=== PATIENT | male | born 1940 | race Caucasian/White ===

== ENCOUNTER → 2016-12-14 | Outpatient (CLI) | payer OTHER, BC ==
[~2016-12-14] MED LIST: ASPI81TA28 PO; ATOR10TA88 PO; CETI10TA84 PO; FLAX12003 PO; FLUT0.0529 NAE; GLUCTAB7 PO; LANS30CA63 PO; LISI-461 PO; MULT-221 PO; OMEGCAP2 PO; OMEP40CA41 PO; WARF5TAB7 PO
[2016-12-14 15:57] LABS: BLOOD UREA NITROGEN 18 mg/dl (7-18); BUN/CREATININE RATIO 13.5 (10-20); CALCIUM 9.3 mg/dl (8.5-10.1); CARBON DIOXIDE 24 mmol/L (21-32); CHLORIDE 107 mmol/L (98-107); GLUCOSE 122 mg/dl (70-99); POTASSIUM 4.8 mmol/L (3.5-5.1); SODIUM 141 mmol/L (136-145)
[2016-12-14 16:05] LABS: INR 2.4 (0.9-1.1); PROTHROMBIN TIME (PATIENT) 26.3 SECONDS (9.0-12.0)
[2016-12-15 06:18] LABS: ESTIMATED AVERAGE GLUCOSE 131 mg/dl; HA1C FLAG Normal (Normal)
== END | disposition home or self-care (01) ==
LOC: C.LABSPEC 14:57
PROVIDERS: ATTEND Internal Medicine
DX: R73.9 Hyperglycemia, unspecified (principal); I10 Essential (primary) hypertension; R53.83 Other fatigue; I82.409 Acute embolism and thrombosis of unspecified deep veins of unspecified lower extremity

== ENCOUNTER → 2017-02-09 | Outpatient (CLI) | payer OTHER, BC ==
[2017-02-09 18:02] LABS: INR 2.9 (0.9-1.1); PROTHROMBIN TIME (PATIENT) 32.6 SECONDS (9.0-12.0)
== END | disposition home or self-care (01) ==
LOC: C.LABSPEC 17:15
PROVIDERS: ATTEND Internal Medicine
DX: Z51.81 Encounter for therapeutic drug level monitoring (principal); Z79.01 Long term (current) use of anticoagulants; I26.99 Other pulmonary embolism without acute cor pulmonale

== ENCOUNTER → 2017-03-07 | Outpatient (CLI) | payer OTHER, BC ==
[~2017-03-07] MED LIST changes: +ATOR10TA82 PO; -ATOR10TA88 PO; +FLUT0.15 NAE; +RXC5 PO; +TRAM-10 PO
[2017-03-07 13:29] LABS: INR 2.8 (0.9-1.1); PROTHROMBIN TIME (PATIENT) 31.6 SECONDS (9.0-12.0)
== END | disposition home or self-care (01) ==
LOC: C.LABSPEC 12:35
PROVIDERS: ATTEND Internal Medicine
DX: Z51.81 Encounter for therapeutic drug level monitoring (principal); Z79.01 Long term (current) use of anticoagulants; I26.99 Other pulmonary embolism without acute cor pulmonale

== ENCOUNTER → 2017-04-13 | Outpatient (CLI) | payer OTHER, BC ==
[2017-04-13 15:26] LABS: BASO % 0.5 %; BASO ABS # 0.03 K/uL (0-0.2); COMPLETE YES; EOS % 4.9 %; HEMATOCRIT 41.1 % (42-52); IG% 0.3 %; LYMPH ABS # 1.83 K/uL (1.2-3.4); MEAN CELL VOLUME 89.9 fL (80-100); MEAN CORPUSCULAR HEMOGLOBIN 29.8 pg (25-34); MEAN CORPUSCULAR HGB CONC 33.1 g/dl (32-36); MEAN PLATELET VOLUME 10.4 fL (7.4-10.4); MONO % 8.2 %; NEUT % 56.1 %; PLATELET COUNT 285 K/uL (130-400); RED BLOOD COUNT 4.57 M/uL (4.7-6.1); WHITE BLOOD COUNT 6.09 K/uL (4.8-10.8)
[2017-04-13 15:37] LABS: ALT/SGPT 36 U/L (12-78); AST/SGOT 29 U/L (15-37); BLOOD UREA NITROGEN 15 mg/dl (7-18); BUN/CREATININE RATIO 11.4 (10-20); CARBON DIOXIDE 28 mmol/L (21-32); CHLORIDE 106 mmol/L (98-107); CHOLESTEROL 177 mg/dl (0-200); GLUCOSE 130 mg/dl (70-99); POTASSIUM 4.5 mmol/L (3.5-5.1); SODIUM 140 mmol/L (136-145); TRIGLYCERIDES 133 mg/dl (0-150); VERY LOW DENSITY LIPOPROT CALC 27 mg/dl
[2017-04-13 15:39] LABS: INR 3.3 (0.9-1.1); PROTHROMBIN TIME (PATIENT) 37.6 SECONDS (9.0-12.0)
[2017-04-13 15:40] LABS: ALB/GLOB RATIO 1.2 (0.9-2); ALKALINE PHOSPHATASE 70 U/L (45-117); CHOLESTEROL/HDL RATIO 3.8; HDL CHOLESTEROL 46 mg/dl
[2017-04-13 15:55] LABS: CALCIUM 9.2 mg/dl (8.5-10.1)
[2017-04-14 05:50] LABS: ESTIMATED AVERAGE GLUCOSE 134 mg/dl; HA1C FLAG Normal (Normal)
== END | disposition home or self-care (01) ==
LOC: C.LABSPEC 14:56
PROVIDERS: ATTEND Internal Medicine
DX: I82.409 Acute embolism and thrombosis of unspecified deep veins of unspecified lower extremity (principal); I10 Essential (primary) hypertension; E78.5 Hyperlipidemia, unspecified; R73.9 Hyperglycemia, unspecified

== ENCOUNTER → 2017-05-07 | Outpatient (CLI) | payer OTHER, BC ==
[2017-05-07 13:00] LABS: INR 1.3 (0.9-1.1); PROTHROMBIN TIME (PATIENT) 14.6 SECONDS (9.0-12.0)
== END | disposition home or self-care (01) ==
LOC: C.LABSPEC 12:17
PROVIDERS: ATTEND Internal Medicine
DX: I26.99 Other pulmonary embolism without acute cor pulmonale (principal); Z79.01 Long term (current) use of anticoagulants

== ENCOUNTER → 2017-05-31 | Outpatient (CLI) | payer OTHER, BC ==
[~2017-05-31] MED LIST changes: -ATOR10TA82 PO; +ATOR10TA88 PO; -FLUT0.15 NAE; -RXC5 PO; -TRAM-10 PO
[2017-05-31 15:20] LABS: PROTHROMBIN TIME (PATIENT) 33.9 SECONDS (9.0-12.0)
== END | disposition home or self-care (01) ==
LOC: C.LABSPEC 11:30
PROVIDERS: ATTEND Internal Medicine
DX: Z79.01 Long term (current) use of anticoagulants (principal); I26.99 Other pulmonary embolism without acute cor pulmonale

== ENCOUNTER → 2017-07-23 | Outpatient (CLI) | payer OTHER, BC ==
[~2017-07-23] MED LIST changes: +FLUT0.15 NAE; +TRAM-10 PO
[2017-07-23 15:27] LABS: PROTHROMBIN TIME (PATIENT) 33.7 SECONDS (9.0-12.0)
== END | disposition home or self-care (01) ==
LOC: C.LABSPEC 14:56
PROVIDERS: ATTEND Internal Medicine
DX: Z79.01 Long term (current) use of anticoagulants (principal); I26.99 Other pulmonary embolism without acute cor pulmonale

== ENCOUNTER → 2017-08-20 | Outpatient (CLI) | payer OTHER, BC ==
[2017-08-20 13:19] LABS: BASO % 0.6 %; BASO ABS # 0.04 K/uL (0-0.2); COMPLETE YES; EOS % 4.3 %; HEMATOCRIT 44.9 % (42-52); IG% 0.4 %; LYMPH % 34.5 %; LYMPH ABS # 2.41 K/uL (1.2-3.4); MEAN CELL VOLUME 89.1 fL (80-100); MEAN CORPUSCULAR HEMOGLOBIN 28.4 pg (25-34); MEAN CORPUSCULAR HGB CONC 31.8 g/dl (32-36); MEAN PLATELET VOLUME 10.1 fL (7.4-10.4); MONO % 7.6 %; NEUT % 52.6 %; PLATELET COUNT 249 K/uL (130-400); RED BLOOD COUNT 5.04 M/uL (4.7-6.1); WHITE BLOOD COUNT 6.99 K/uL (4.8-10.8)
[2017-08-20 13:26] LABS: ESTIMATED AVERAGE GLUCOSE 134 mg/dl; HA1C FLAG Normal (Normal)
[2017-08-20 13:36] LABS: ALT/SGPT 28 U/L (12-78); AST/SGOT 18 U/L (15-37); BLOOD UREA NITROGEN 18 mg/dl (7-18); BUN/CREATININE RATIO 13.5 (10-20); CALCIUM 8.6 mg/dl (8.5-10.1); CARBON DIOXIDE 27 mmol/L (21-32); CHLORIDE 105 mmol/L (98-107); GLUCOSE 107 mg/dl (70-99); INR 3.5 (0.9-1.1); POTASSIUM 4.1 mmol/L (3.5-5.1); SODIUM 138 mmol/L (136-145)
[2017-08-20 13:39] LABS: ALB/GLOB RATIO 1.1 (0.9-2); ALKALINE PHOSPHATASE 70 U/L (45-117); CHOLESTEROL 154 mg/dl (0-200); CHOLESTEROL/HDL RATIO 3.5; HDL CHOLESTEROL 44 mg/dl; TRIGLYCERIDES 164 mg/dl (0-150); VERY LOW DENSITY LIPOPROT CALC 33 mg/dl
== END | disposition home or self-care (01) ==
LOC: C.LABSPEC 12:27
PROVIDERS: ATTEND Internal Medicine
DX: M54.9 Dorsalgia, unspecified (principal); I10 Essential (primary) hypertension; R73.9 Hyperglycemia, unspecified; E78.5 Hyperlipidemia, unspecified

== ENCOUNTER → 2017-08-21 | Outpatient (CLI) | payer OTHER, BC ==
[~2017-08-21] MED LIST changes: -FLUT0.15 NAE; -TRAM-10 PO
== END | disposition home or self-care (01) ==
LOC: C.LABSPEC 08-19 14:42
PROVIDERS: ATTEND Internal Medicine
DX: Z12.11 Encounter for screening for malignant neoplasm of colon (principal)

== ENCOUNTER → 2017-08-23 | Outpatient (CLI) | payer OTHER, BC ==
[~2017-08-23] MED LIST changes: +FLUT0.15 NAE; +TRAM-10 PO
--- NOTE | 2017-08-23 17:16 | DIAGNOSTIC IMAGING REPORT ---
LUMBAR SPINE W/O CONTRAST HISTORY: Pain. Radiculopathy. LT LUMBAR RADICULOPATHY TECHNIQUE: Multiplanar multisequence MRI of the lumbar spine was performed without the use of contrast. COMPARISON: None. FINDINGS: For the purpose of the report the L5-S1 disc space will be located on axial image 23 of 25. Normal signal characteristics of the vertebral bodies. Mild degenerative disc desiccation throughout the entire lumbar region. L1-L2: Minimal broad-based disc bulge. Minimal impact of the anterior thecal sac. Probable right renal cyst. L2-L3: Mild broad-based bulge. Minimal impact anterior thecal sac. L3-L4: Mild broad-based disc herniation. Mild impact anterior thecal sac. L4-L5: Mild multifactorial narrowing of spinal canal. Broad-based bulging disc. Mild hypertrophic change posterior elements and ligamentum flavum. L5-S1: Left posterior disc herniation. Posterior displacement of left S1 nerve root and narrowing of the left neural foramina. Moderate impact left anterior thecal sac. IMPRESSION: 1. Left posterior disc herniation L5-S1 2. This creates focal deformity left anterior aspect of the thecal sac as well as narrowing of left neural foramina. 3. Mild multifactorial narrowing of the spinal canal at L4-L5 4. All additional levels show minimal broad-based disc bulges with mild narrowing of the neuroforamina bilaterally throughout. The above report was generated using voice recognition software. It may contain grammatical, syntax or spelling errors. Electronically signed by: Buck Alex M.D. 08/23/2017 5:14 PM Dictated Date/Time: 08/23/2017 5:10 PM
== END | disposition home or self-care (01) ==
LOC: C.MRI 15:50
PROVIDERS: ATTEND Internal Medicine
DX: M54.16 Radiculopathy, lumbar region (principal); M51.27 Other intervertebral disc displacement, lumbosacral region; M48.06 Spinal stenosis, lumbar region

== ENCOUNTER → 2017-09-07 | Outpatient (CLI) | payer OTHER, BC ==
[~2017-09-07] MED LIST changes: +RXC5 PO
== END | disposition home or self-care (01) ==
LOC: C.LABSPEC 17:29
PROVIDERS: ATTEND Internal Medicine
DX: N39.0 Urinary tract infection, site not specified (principal)

== ENCOUNTER 2017-09-11 10:39 | Inpatient (IN) | payer OTHER, BC ==
[2017-09-07 10:14] VITALS: BMI 32.0
--- NOTE | 2017-09-07 10:57 | PAT Medication Instructions ---
Service Date Sep 07, 2017. Current Home Medication List Aspirin (Aspirin Ec), 81 MG PO DAILY Atorvastatin (Lipitor), 10 MG PO QAM Cetirizine (Zyrtec), 10 MG PO QAM Flaxseed (Linseed) (Flaxseed Oil), 1 CAP PO QAM Fluticasone Propionate (Nasal) (Flonase Allergy Relief), 2 SPRAY SALVADOR PRN Lisinopril (Zestril), 10 MG PO QAM Multiple Vitamins W/ Minerals (Multi For Him 50+), 1 TAB PO QAM Omeprazole (Prilosec), 40 MG PO QAM Tramadol (Ultram), 50 MG PO Q4H PRN for Pain Warfarin Sod (Jantoven), 5 MG PO DAILY Medication Instructions For Your Scheduled Surgery - Last dose 09/04/17 per surgeon's instructions: Warfarin Sod (Jantoven), 5 MG PO DAILY Aspirin (Aspirin Ec), 81 MG PO DAILY - Hold the following medications as of 09/08/17: Flaxseed (Linseed) (Flaxseed Oil), 1 CAP PO QAM - Hold the following medications the morning of surgery: Lisinopril (Zestril), 10 MG PO QAM Cetirizine (Zyrtec), 10 MG PO QAM Multiple Vitamins W/ Minerals (Multi For Him 50+), 1 TAB PO QAM - Take the following medications the morning of surgery with a sip of water OTHERWISE NOTHING TO EAT OR DRINK AFTER MIDNIGHT: Tramadol (Ultram), 50 MG PO Q4H PRN for Pain (may take if needed up to 4 hours prior to surgery) *Omeprazole (Prilosec), 40 MG PO QAM Atorvastatin (Lipitor), 10 MG PO QAM Fluticasone Propionate (Nasal) (Flonase Allergy Relief), 2 SPRAY SALVADOR PRN - Take the following medications as scheduled the night before surgery: Tramadol (Ultram), 50 MG PO Q4H PRN for Pain If you have any questions please call us at [phone] or [phone] or [phone]
[2017-09-07 11:55] LABS: URINE APPEARANCE CLEAR (CLEAR); URINE BILIRUBIN NEG (NEG); URINE COLOR DK YELLOW; URINE NITRITE NEG (NEG); URINE PH 5.5 (4.5-7.5); URINE SPECIFIC GRAVITY 1.027 (1.000-1.030); UROBILINOGEN NEG (NEG)
[2017-09-07 11:56] LABS: MANUAL MICROSCOPIC REQUIRED? NO; REVIEW REQ? YES
--- NOTE | 2017-09-07 12:11 | DIAGNOSTIC IMAGING REPORT ---
CHEST PREADMISSION(PA/LAT) CLINICAL HISTORY: Preoperative evaluation. COMPARISON STUDY: Chest radiograph August 21, 2016. FINDINGS: Elevation of the right hemidiaphragm is unchanged. There is no pneumothorax or pleural effusion. There is no evidence of pulmonary edema. Cardiomediastinal silhouette is stable. Appearance of the chest is unchanged. IMPRESSION: No acute cardiopulmonary findings. No change in appearance of the chest. Electronically signed by: Nakul Roberts M.D. 09/07/2017 12:10 PM Dictated Date/Time: 09/07/2017 12:09 PM
[2017-09-07 12:28] LABS: ZZUR CULT IF INDIC CLEAN CATCH NO
--- NOTE | 2017-09-10 08:28 | History and Physical ---
History & Physical Date of Service Sep 10, 2017. History & Physical History & Physical ADMISSION DATE: anticipated admission on 09/11/2017 CHIEF COMPLAINT: 75-year-old male is scheduled to be admitted by Dr. Yohan Romero on 09/11/2017 have her undergoing surgery for herniated L5-S1 disc with posterior displacement of left S1 nerve root and narrowing of the left neural foramina. Patient was seen in the office on 09/07/2017 for his preoperative evaluation. PRESENT ILLNESS: Patient with multiple medical problems including arterial hypertension, hypercholesterolemia, osteoarthritis, history of cerebral ischemia in the territory of the left posterior cerebral artery. He does have a residual visual defects. 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 He also has history of pulmonary embolism. He is on Coumadin. Had a right Achilles tendon rupture. He did not require surgery. He has a history of severe GI bleed of undetermined etiology. He was evaluated both here at the hospital and also at [facility]. He presented with low back pain with evidence of left lumbar radiculopathy. He was treated with oral prednisone. He also had physical therapy. Unfortunately the physical therapy made his symptoms worse so it was discontinued. MRI of the lumbar spine without contrast was done on 08/23/2017 showed areas of the herniated disc. Patient was having severe pain. His pain has not been adequately controlled. He was evaluated by Dr. Romero. He was scheduled for a surgery. PAST MEDICAL HISTORY: * right lower lobe pulmonary embolism. Hospitalized on 05/14/2016. He did not have any evidence of DVT at that time. * Dilated ascending aorta to about 4.4 cm. * Hospitalized in March of 2015 with an acute gastrointestinal bleed. 8.she was never determined. He required transfusion of 11 units of packed RBCs. He was evaluated at [facility] also. No definite etiology was found. 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 Long-standing. 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 This is also in the remote past * Hypercholesterolemia. 3 gait. * Chronic sinusitis. He required surgery in 2003 * Basal cell carcinoma lesion removed from his right arm in February of 2006 * In 2002 he had temporal artery biopsy because of right-sided headaches. It was negative for temporal arteritis * last year he had a dobutamine stress echocardiogram which was negative for any ischemia * He does have mild aortic stenosis documented on his echocardiogram last year. * He had a Pneumovax in 2009 * He had a Zostavax 2013 * He received an influenza vaccination on 08/20/2017 SOCIAL HISTORY: He is . He had 4 children. He stopped smoking in 1961. He smoked for a very short time. Occasional wine. No excessive coffee tea or soft drinks. He is retired from the [employer]. He also worked with [employer]. FAMILY HISTORY: His mother age 85 had mini strokes and coronary artery disease. His father age 52 had myocardial infarction. He has 140s sister, one half sister, one half-brother. His half-brother had lymphoma. Children alive and well. ALLERGIES: it is noted in his records that he is allergic to many medications and products. On not really aware of any true allergy CURRENT MEDICATIONS: * omeprazole 40 mg daily * Lipitor 20 mg daily * Lisinopril 10 mg daily * Flonase nasal spray 2 sprays in each nostril once a day when needed * Aspirin 81 mg daily * Coumadin 5 mg 5 days a week and 2.5 mg 2 days a week usually Sunday and Sunday * Tramadol 50 mg every 4 hours as needed for pain * Multivitamin with minerals one daily * Flax seed oil one capsule daily * Zyrtec 10 mg daily Patient was instructed to discontinue his Coumadin on 09/04/2017 and to hold his lisinopril at the morning of his surgery or so to hold his Zyrtec and a multivitamin REVIEW OF SYSTEMS: he is mostly complaining of pain in his lower back radiating to his left leg. He has been quite uncomfortable. He has not responded to steroids, pain medication and physical therapy. He denied any headache or dizziness. No recent change in his vision. 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 No earache sore throat or neck pain. Denied any chest pain pressure or tightness. No shortness of breath. No abdominal pain. No nausea no vomiting. No problem in his bowel movements. No problem urinating. Back pain and left leg pain as noted above. PHYSICAL EXAMINATION: GENERAL : Well developed. Well nourished. No acute distress.weight 209.4 pounds , height 67.5 inches, BMI 32.31. VITAL SIGNS : Blood Pressure : 128/70, pulse 68, respiration 18, temperature 97.7. SKIN : Warm and dry. No rash. HEENT :Amputation of his right visual field. No mucosal m even his nose mouth or throat NECK : Supple. No lymph node or thyroid enlargement. No JVD. Normal carotid pulses. Bilateral carotid bruits. CHEST : Normal HEART: Regular heart tones with 2/6 systolic murmur. No rub no gallop. ABDOMEN: Soft nontender. No organomegaly or masses. Good bowel sounds. BACK: tenderness in the lumbar area especially on the left side EXTREMITIES : No edema clubbing or cyanosis. No joint or muscle tenderness. Good peripheral pulses. NEUROLOGICAL EXAMINATION: He does have evidence of left lumbar radiculopathy LABORATORY TEST; his laboratory tests from 08/20/2017 showed a glucose of 107, BUN 18, creatinine 1.3, sodium 138, potassium 4.1, chloride 105, CO2 27, calcium 8.6, total protein 7.0, albumin 3.7, total bilirubin 0.6,AST 18, ALT 28, alkaline phosphatase 70. His hemoglobin A1c was 6.3%. Sedimentation rate was 18. CBC showed a WBC count 6990, hemoglobin 14.3, hematocrit 44.9, platelet count 249, 000. Chest x-ray done on 09/07/2017 showed no significant abnormalities. Urinalysis done on 09/07/2017 showed evidence of trace leukocyte esterase. Only 1-5 WBCs. Electrocardiogram showed a sinus bradycardia. Nonspecific T wave changes ASSESSMENT: * herniated L5-S1 disc with nerve root compromise and left radiculopathy * Arterial hypertension * Hypercholesterolemia * History of pulmonary embolism * History of GI bleed of undetermined etiology. 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 Asymptomatic * abnormal urinalysis PLAN: patient was evaluated, on his laboratory tests were reviewed.urine was collected and sent for culture and sensitivity. We'll check on the results as soon as they are available and decide if he needs to start antibiotics. Patient was already instructed as far as discontinuation of his Coumadin and lisinopril, also multivitamin and Zantac. He'll read he stopped his Coumadin when I saw him on 09/07/2017. The stop date was 09/04/2017. I do not see anything to indication to his anticipated surgical procedure under general anesthesia. <Electronically signed by Pawel Constantino M.D.> Signed: 09/09/172040 Signed: The status of this report is Signed * If report status is Draft, the document has not been finalized by the responsible provider. [facility]: [facility] History and Physical Template <AttendingPhy>Pawel Trinidad M.D.</AttendingPhy><EDPhy></EDPhy> <FamilyPhy ></FamilyPhy> <PrimaryPhy>Pawel Trinidad M.D.</PrimaryPhy><UnitNumber> [id number]</UnitNumber><VisitNumber>[id number]</VisitNumber><PatientName>ALDO RIVAS</PatientName><DateOfBirth>03/24/1942</DateOfBirth><Age>75</Age>< Location>[facility]</Location><ServiceDate>07/18/17</ServiceDate><CC>Pawel Trinidad M.D.</CC><MNE>[facility]</MNE>
--- NOTE | 2017-09-10 10:12 | History and Physical ---
History & Physical Date of Service Sep 10, 2017. History & Physical DATE: 09/10/2017 This is a correction of the last sentence on the history and physical that I dictated on 09/09/2017 The sentence should read : I do not see any contraindication to his anticipated surgery under general anesthesia
[~2017-09-11] VITALS: Ht 175.3 cm; Wt 98.7 kg
[2017-09-11] VITALS (8 sets, daily range): BP systolic 112–168; BP diastolic 69–103; PULSE 58–93; TEMP 36.4–36.7; O2SAT 94–100; Ht 175.3 cm; Wt 98.7 kg
[~2017-09-11 10:39] MED LIST changes: +CEFAZOLIN 2000 MG/60 ML D5W 60 ML IV SCH; -FLUT0.0529 NAE; -GLUCTAB7 PO; +LACTATED RINGER'S 1000ML 1,000 ML IV SCH; -LANS30CA63 PO; -OMEGCAP2 PO; -RXC5 PO
[2017-09-11] MEDS ORDERED: ATROPINE SULFATE 0.1 MG/ML 5ML SYR IV PRN (11:15)
[2017-09-11] MEDS ORDERED: LABETALOL HCL IV 5 MG/ML 20ML IV PRN (11:15)
[2017-09-11] MEDS ORDERED: HYDROmorphone INJ 1 MG/ML SYR IV PRN (11:15)
[2017-09-11] MEDS ORDERED: FENTANYL CITRATE INJ 50 MCG/1 ML 2 ML VIAL IV PRN (11:15)
[2017-09-11] MEDS ORDERED: EpHEDrine SULFATE INJ 50 MG/ML AMP IV PRN (11:15)
[2017-09-11] MEDS ORDERED: ONDANSETRON INJ 2 MG/ML 2 ML VIAL IV PRN ×2 (11:15→16:00)
[2017-09-11] MEDS ORDERED: PHENYLEPHRINE 100MCG/ML 5ML SYR IV PRN (11:15)
[2017-09-11 12:09] LABS: PROTHROMBIN TIME (PATIENT) 10.6 SECONDS (9.0-12.0)
--- NOTE | 2017-09-11 13:23 | History & Physical Bridge Note ---
H&P Re-Evaluation Bridge Note: I have examined the patient, reviewed the History & Physical and in the interval since the performance of the History & Physical I have noted the following changes of clinical significance: No changes noted
--- NOTE | 2017-09-11 13:24 | History and Physical ---
History & Physical Date Sep 11, 2017. Chief Complaint Back and leg pain History of Present Illness The patient is a 77 year old male with complaints of back and leg pain Past Medical/Surgical History Medical Problems: (1) ACUTE UGI BLEED. R VISUAL DEFECT (2) Anemia (3) Chest pain (4) Chronic Sinusitis Nos (5) CVA (cerebral vascular accident) (6) Hyperlipidemia Nec/Nos (7) Hypertension Nos (8) Mitral valve prolapse (9) Ocular migraine (10) PRESYNCOPE,VERTIGO,PE,DILATED THORACIC AORTA (11) Ulcer (12) Upper gastrointestinal bleed (13) Visual field loss Additional History Hepatic Disease: No Endocrine Disorder: No Kidney Disease: No Hypertension: Yes Heart Disease: No Bleeding Tendencies: No Infectious Diseases: No Allergies Coded Allergies: POLLEN (Verified Allergy, Unknown, HAY FEVER, 09/07/17) Ibuprofen (Verified Adverse Reaction, Unknown, TOLD TO AVOID DUE TO BLEEDING ULCER, 09/07/17) Home Medications Scheduled Aspirin (Aspirin Ec), 81 MG PO DAILY Atorvastatin (Lipitor), 10 MG PO QAM Cetirizine (Zyrtec), 10 MG PO QAM Flaxseed (Linseed) (Flaxseed Oil), 1 CAP PO QAM Fluticasone Propionate (Nasal) (Flonase Allergy Relief), 2 SPRAY SALVADOR PRN Lisinopril (Zestril), 10 MG PO QAM Multiple Vitamins W/ Minerals (Multi For Him 50+), 1 TAB PO QAM Omeprazole (Prilosec), 40 MG PO QAM Warfarin Sod (Jantoven), 5 MG PO DAILY Scheduled PRN Tramadol (Ultram), 50 MG PO Q4H PRN for Pain Physical Examination Skin: warm/dry, no rash Eyes: normal inspection, EOMI, sclerae normal ENT: normal ENT inspection, pharynx normal Head: normocephalic, atraumatic Neck: supple, no adenopathy, trachea midline Respiratory/Chest: lungs clear, normal breath sounds, no respiratory distress Cardiovascular: regular rate, rhythm, no edema, no murmur Abdomen / GI: normal bowel sounds, non tender Back: normal inspection Extremities: normal inspection, normal range of motion Neurologic/Psych: no motor/sensory deficits, alert, normal reflexes, oriented x 3 Diagnosis Lumbar spinal stenosis Plan of Treatment T LIF L5-S1
[2017-09-11] MEDS ORDERED: FENTANYL CITRATE INJ 50 MCG/1 ML 2 ML VIAL ONE ×2 (14:02→14:04)
[2017-09-11] MEDS ORDERED: MIDAZOLAM HCL 1 MG/ML 2ML VIAL ONE (14:02)
[2017-09-11] MEDS ORDERED: BUPIVACAINE/EPINEPHRINE 0.5% MPF 1:200,000 30 ML VIAL ONE (14:03)
[2017-09-11] MEDS ORDERED: BACITRACIN 50000 UNIT VIAL ONE (14:03)
[2017-09-11] MEDS ORDERED: ROCURONIUM BROMIDE 10 MG/ML 5 ML VIAL IV ONE (15:02)
[2017-09-11] MEDS ORDERED: PROPOFOL IV EMULSION 10 MG/ML 20 ML VIAL IV ONE (15:19)
[2017-09-11] MEDS ORDERED: GLYCOPYRROLATE INJ 0.2 MG/ML VIAL ONE (15:22)
[2017-09-11] MEDS ORDERED: NEOSTIGMINE METHYLSULFATE 1 MG/ML 10ML VIAL ONE (15:22)
[2017-09-11] MEDS ORDERED: HYDROmorphone INJ 2 MG/ML SYR/VIAL ONE (15:23)
[2017-09-11] MEDS ORDERED: SODIUM CHL BACTERIOSTATIC 0.9% INJ 30 ML VIAL ONE (15:29)
[2017-09-11] MEDS ORDERED: FLOSEAL HEMOSTATIC MATRIX 10ML TOP ONE (15:45)
[2017-09-11] MEDS ORDERED: SODIUM CHLORIDE 0.9% 1000ML 1,000 ML IV SCH (15:53)
[2017-09-11] MEDS ORDERED: hydrOXYzine HCL 25 MG TAB PO PRN (16:00)
[2017-09-11] MEDS ORDERED: PROMETHAZINE HCL INJ 12.5 MG in SODIUM CHLORIDE 0.9% 50ML 50 ML IV PRN (16:00)
[2017-09-11] MEDS ORDERED: TRAMADOL HCL 50 MG TAB PO PRN (16:00)
[2017-09-11] MEDS ORDERED: FLUTICASONE PROPIONATE NA SPR 16 GM BTL NAE PRN (16:00)
[2017-09-11] MEDS ORDERED: ALUMINUM/MAGNESIUM SUSP 30 ML UDC PO PRN (16:00)
[2017-09-11] MEDS ORDERED: LORAZEPAM 0.5 MG TAB PO PRN (16:00)
[2017-09-11] MEDS ORDERED: NALOXONE HCL 0.4 MG/1 ML VIAL/CARP IV PRN ×2 (16:00)
[2017-09-11] MEDS ORDERED: BISACODYL 10 MG SUPP PR PRN (16:00)
[2017-09-11] MEDS ORDERED: DO NOT ADMINISTER PNEUMOCOCCAL VACCINE PRN ×2 (16:00)
[2017-09-11] MEDS ORDERED: ACETAMINOPHEN 500 MG TAB PO PRN (16:00)
[2017-09-11] MEDS ORDERED: MAGNESIUM HYDROXIDE SUSP 30 ML UDC PO PRN (16:00)
[2017-09-11] MEDS ORDERED: METOCLOPRAMIDE HCL INJ 5 MG/ML 2 ML VIAL IV PRN (16:00)
[2017-09-11] MEDS ORDERED: LORAZEPAM INJ 0.5 MG in SYRINGE 0 ML IV PRN (16:00)
[2017-09-11] MEDS ORDERED: DO NOT ADMINISTER FLU VACCINE PRN ×3 (16:00)
[2017-09-11] MEDS ORDERED: SOD PHOSPHATE/SOD BIPHOSPHATE ENEMA 132 ML BTL PR PRN (16:00)
[2017-09-11] MEDS ORDERED: FAMOTIDINE 20 MG TAB PO PRN (16:00)
[2017-09-11] MEDS ORDERED: ACETAMINOPHEN IV 100 ML IV PRN (16:00)
--- NOTE | 2017-09-11 16:00 | [facility] Operative Report ---
Operative Report Operative Date Sep 11, 2017. Pre-Operative Diagnosis SPINAL STENOSIS Post-Operative Diagnosis SAME PREOP Procedure(s) Performed #1 lumbar decompression medial facetectomies foraminotomies L5-S1. #2 posterior spinal fusion L5-S1. #3 placement posterior instrumentation L5-S1. #4 interbody fusion L5-S1. #5 placement peek cage 10 x 22 mm L5-S1. #6 placement of locally harvested morcellized autograft in the posterior lateral gutters. #7 placement of ostial amp bone graft in the interbody space and posterior lateral gutters. Surgeon DR. DANNA MEZA Service Order Expediter Surgeon(s) Bernie GUPTA PAC Estimated Blood Loss 150ml Findings Severe spinal stenosis Specimens NONE Description of Procedure Patient was met with preoperatively case discussed all questions addressed. After informed consent obtained patient was taken to the operative suite placed in prone position the [place] table top Cirilo frame. All bony promises well- padded eyes inspected to ensure no external pressure placed upon them. This point lumbar spine is prepped and draped in the normal sterile fashion. Sharp dissection with the assistance of Bovie cautery was performed onto an exposing the lamina and transverse processes of L5 and sacral alar bilaterally. From a caudal to cephalad fashion complete laminectomy of L5 was performed including medial facetectomies foraminotomies. He noted significant compression of the exiting L5 and traversing S1 nerve root on the left. This included a massive discoloration with caudal migration. After complete decompression pedicle screws are placed in all 5 and S1 levels bilaterally with assistance of fluoroscopy into a transforaminal port and left complete discectomy was performed and plate created to subcortical bleeding bone and a 11 x 22 mm peek cage filled with ostial amp bone graft tapped in position. The rods were then locked and final position bilaterally. Transverse processes of L5 and sacral alar burred to subcortical bleeding bone. Remaining ostial amp and locally harvested morcellized autograft was placed in the posterior lateral gutters. 15 round JAMEEL drain was inserted. Incision was then closed with 1 Vicryl in the fascia 2-0 Vicryl subcutaneous tediously 4 Monocryl for final skin closure Steri -Strips sterile dressings placed patient we can take PACU stable condition. Patient we can taken to PACU stable condition. Please note Bernice Pineda was present at the entire procedure involved in patient positioning complex portions of the surgery and final skin closure. I attest to the content of the Intraoperative Record and any orders documented therein. Any exceptions are noted below.
--- NOTE | 2017-09-11 16:07 | DIAGNOSTIC IMAGING REPORT ---
LUMBAR SPINE, INTRAOPERATIVE FLUOROSCOPY HISTORY: L5-S1 fusion. FLUOROSCOPY TIME: 15 seconds. FINDINGS: Intraoperative fluoroscopy was provided for the lumbar spine. 2 fluoroscopic spot images were obtained. Posterior decompression and fusion at L5-S1 with pedicle screws and rods. The hardware appears intact. IMPRESSION: Fluoroscopy provided for a L5-S1 fusion. Electronically signed by: Al Trevizo M.D. 09/11/2017 4:06 PM Dictated Date/Time: 09/11/2017 4:05 PM
[2017-09-11] MEDS ORDERED: HYDROmorphone HCL 0.5MG/ML 50 ML CASSETTE ONE (16:14)
--- NOTE | 2017-09-11 16:42 | Anesthesiology Progress Note ---
Anesthesia Post Op Note Date & Time Sep 11, 2017 at 16:40 Vital Signs Pain Intensity: 0 Vital Signs Past 12 Hours Date Time Temp Pulse Resp B/P (MAP) Pulse Ox O2 Delivery O2 Flow Rate FiO2 09/11/17 16:30 73 12 149/76 100 10 09/11/17 16:20 75 12 155/88 100 10 09/11/17 16:13 36.4 75 12 157/81 100 10 09/11/17 11:03 36.6 77 18 168/103 100 Room Air Notes Mental Status: alert / awake / arousable, participated in evaluation Pt Amnestic to Procedure: Yes Nausea / Vomiting: adequately controlled Pain: adequately controlled Airway Patency, RR, SpO2: stable & adequate BP & HR: stable & adequate Hydration State: stable & adequate Anesthetic Complications: no major complications apparent Dr Yao alerted me to a slightly difficult airway requiring the use of glide scope and that a small laceration was noted on the patients lip after intubation. This was dressed with bacitracin ointment in the OR by Dr Yao. On PACU inspection the rudy was barely visible on the upper lip and the patient had no discomfort. No follow up needed.
[2017-09-11] MEDS: HYDROmorphone HCL 0.5MG/ML 50 ML CASSETTE IV PRN ×2 (17:18→23:08)
[2017-09-11] MEDS: SODIUM CHLORIDE 0.9% 1000ML 1,000 ML IV SCH (17:51)
--- NOTE | 2017-09-11 20:49 | Progress Note ---
Progress Note Date of Service Sep 11, 2017. Progress Note patient was seen this afternoon after surgery. He had spinal stenosis and herniated L5-S5 disc.the procedure was well tolerated. He is doing quite well. His pain is under control. His vitals are stable. Patient will start therapy tomorrow.
[2017-09-11] MEDS: DOCUSATE SODIUM/SENNA 50/8.6MG TAB PO SCH (21:56)
[2017-09-11] MEDS: DEXAMETHASONE INJ 6 MG in SYRINGE 0 ML IV SCH (21:56)
[2017-09-11] MEDS: CEFAZOLIN IV 2,000 MG in SYRINGE 0 ML IV SCH (21:56)
[2017-09-12] MEDS: SODIUM CHLORIDE 0.9% 1000ML 1,000 ML IV SCH (00:35)
[2017-09-12 03:19] VITALS: BP 95/61; PULSE 98; TEMP 37.4; O2SAT 95
[2017-09-12] MEDS: CEFAZOLIN IV 2,000 MG in SYRINGE 0 ML IV SCH (05:34)
[2017-09-12] MEDS: DEXAMETHASONE INJ 6 MG in SYRINGE 0 ML IV SCH ×2 (05:34→13:25)
[2017-09-12] MEDS ORDERED: NURSING VERBAL MED ORDER ONE (05:45)
[2017-09-12] MEDS ORDERED: HYDROmorphone INJ 0.5 MG/0.5 ML SYR IV PRN (06:00)
[2017-09-12] MEDS ORDERED: DC PCA SCH (06:00)
[2017-09-12 06:30] LABS: COMPLETE YES; HEMATOCRIT 35.2 % (42-52); IG% 0.3 %; LYMPH % 8.8 %; LYMPH ABS # 0.96 K/uL (1.2-3.4); MEAN CELL VOLUME 86.5 fL (80-100); MEAN CORPUSCULAR HEMOGLOBIN 29.5 pg (25-34); MEAN CORPUSCULAR HGB CONC 34.1 g/dl (32-36); MEAN PLATELET VOLUME 9.2 fL (7.4-10.4); MONO % 3.7 %; NEUT % 87.2 %; PLATELET COUNT 202 K/uL (130-400); RED BLOOD COUNT 4.07 M/uL (4.7-6.1); WHITE BLOOD COUNT 10.94 K/uL (4.8-10.8)
[2017-09-12 07:10] VITALS: BP 119/74; PULSE 87; TEMP 36.7; O2SAT 92
[2017-09-12 07:10] LABS: BUN/CREATININE RATIO 11.8 (10-20); CALCIUM 8.2 mg/dl (8.5-10.1); CREATININE 1.42 mg/dl (0.60-1.40); POTASSIUM 4.8 mmol/L (3.5-5.1)
--- NOTE | 2017-09-12 07:23 | Clinical Documentation Query ---
Dr. LEONARDA BLAIR [facility] : CLINICAL DOCUMENTATION QUERIES QUERY 1 OF 2 Patient is a 77 year old female who underwent lumbosacral decompression and posterior spinal fusion. Preoperative hemoglobin and hematocrit were 14.3 g/dl and 44.9%. POD #1, repeat values are 12.0 g/dl and 35.2%. EBL for the procedure was 150 ml's with subsequently documented losses totaling an additional 325 ml's to date. Additionally, net I/O is positive for 2,377 ml's. Patient is being monitored with serial hematology and I/O including drain outputs. In your clinical opinion is this patient being managed for: ( x ) Acute blood loss and dilutional anemia ( ) Not Agree ( ) Other explanation of clinical findings (Please Explain) ( ) Unable to determine (Please Define) ( ) Need to Discuss The medical record reflects the following clinical findings, treatment, and risk factors. Clinical Indicators: As above Treatment: Patient is being monitored with serial hematology and I/O including drain outputs. Risk Factors: Perioperative blood losses QUERY 2 OF 2 BUN, creatinine, and estimated GFR of 17 mg/dl, 1.42 mg/dl, and 47.6 ml/min. Historical GFR range of 48-54 ml/min from November 2015 to present. Please clarify as clinically appropriate. Thank you. In your clinical opinion is this patient being managed for: (x ) Chronic kidney disease, stage 3 ( ) Not Agree ( ) Other explanation of clinical findings (Please Explain) ( ) Unable to determine (Please Define) ( ) Need to Discuss The medical record reflects the following clinical findings, treatment, and risk factors. Clinical Indicators: As above Treatment: Serial chemistries Risk Factors: Age, arterial hypertension Please clarify and document your clinical opinion in the progress notes and discharge summary. Terms such as "probable", "suspected", "likely", "questionable", "possible", or "still to be ruled out" are acceptable. IF IN AGREEMENT, YOU MUST DOCUMENT ABOVE DIAGNOSTIC STATEMENT IN DAILY PROGRESS NOTES AND DISCHARGE SUMMARY. This document is not part of the patient's record. Thank You, Lamin Garcia, RN [phone] Please clarify and document your clinical opinion in the progress notes and discharge summary. Terms such as "probable", "suspected", "likely", "questionable", "possible", or "still to be ruled out" are acceptable. IF IN AGREEMENT, YOU MUST DOCUMENT ABOVE DIAGNOSTIC STATEMENT IN DAILY PROGRESS NOTES AND DISCHARGE SUMMARY. This document is not part of the patient's record. Thank You, Lamin Garcia, JORDAN [phone]
[2017-09-12] MEDS ORDERED: RXC5 PO (07:39)
--- NOTE | 2017-09-12 07:39 | Discharge Instructions ---
Discharge Instructions Date of Service Sep 12, 2017. Admission Reason for Admission: Lumbar Spinal Stenosis Discharge Discharge Diagnosis / Problem: lumbar spinal stenosis Discharge Goals Goal(s): Improve function Activity Recommendations Activity Limitations: per Instructions/Follow-up section . Instructions / Follow-Up Instructions / Follow-Up ACTIVITY RECOMMENDATIONS: SELF CARE INSTRUCTIONS AFTER THORACIC/LUMBAR FUSIONS 1. You may walk to your tolerance. It is good exercise for your legs and back. Expect some back and intermittent leg aches and pains. 2. You may perform "counter-top" level activities (make a sandwich, leonora with a project, etc.). 3. No bending or lifting of more than 10 pounds or back twisting of any nature (roll like a log when turning in bed). 4. You may ride in a car for 20-30 minutes at a time. No driving until after your first visit with your doctor. 5. Frequent changes of position and restricting sitting to 30 minutes at a time will help limit the amount of back spasms and stiffness you may experience. 6. You may discontinue the use of ambulatory aids (cane, crutches, etc.) once your strength and confidence allow. 7. You may music coordinator the shower and let water strike your incision when you arrive home at least once daily. Do not take a tub bath, sit in a hot tub or go into a swimming pool until after your first recheck in the office. SPECIAL CARE INSTRUCTIONS: VERY IMPORTANT TO READ AND REVIEW A. Your surgical incision has been closed with a cosmetic suture under the skin that will dissolve in about 6 weeks. In 14 days, you can use a pair of clean scissors and cut the suture that is left outside of the skin at the ends of your incision. 1. The small skin tapes can be removed 7 days after surgery if they have not fallen off by that point. 2. You may keep the wound open to air as much as possible to promote healing after post-op day number 5 unless told otherwise by your doctor. 3. If you think the wound looks like it is becoming infected (redness or worsening drainage) and/or you are experiencing fever, chill or worsening back pain and muscle spasms, contact the office so that we may evaluate you as soon as possible. B. Complications are uncommon, but please contact us if you have any signs or symptoms of: 1. wound infection (fever higher than 102.5 degrees F, redness, separation of wound, drainage, or increasing pain from the incision) 2. blood clots in legs (pain, swelling, redness and warmth in legs) 3. urinary tract infection (fever higher than 102.5 degrees F, burning upon urination or increased frequency of urination) 4. nerve problems (inability to walk on your toes or heels, numbness, loss of bowel or bladder control) 5. any other symptoms that concern you C. Please call the office at if you have any concerns or questions about your operation or recovery. D. No smoking! Smoking drastically decreases the chance of a solid fusion. E. Do not take any anti-inflammatory medications (Indocin, Advil, Motrin, Aspirin, Naprosyn, etc.) as these may inhibit the chance of a solid fusion. Tylenol is okay to take for pain. MANAGING PAIN AFTER SPINAL SURGERY 1. Narcotic medication is intended for short-term use and will be provided for surgical pain. Surgical pain usually lasts for a period of 4-6 weeks. Narcotic medication includes Percocet, Vicodin, Darvocet, Tylenol #3 or Lortab. 2. Longer-term pain is more appropriately treated with non-narcotic medication such as Tylenol ES. 3. Muscle spasm is not appropriately treated with narcotics. Muscle relaxers such as Soma, Flexeril or Skelaxin can be used along with Tylenol ES. 4. Remember that we all live with some "aches and pains". This is not unusual or uncommon after an injury or as we get older. a. Back pain is expected and may include muscle spasms for 4 to 6 weeks after surgery. The pain should gradually improve. If the pain worsens for no apparent reason, please contact the office. b. Intermittent leg pain may also be experienced and should not be concerned about unless it worsens for no apparent reason. If so, please contact the office. 5. We will provide appropriate medication within the normal guidelines of their prescribed use. We will also be very cautious and aware of potential abuse and extended duration of patients' medication needs. a. Pain medications are for your comfort and to assist with sleep and rest so that the tissue can heal. They are not provided in order to return to normal activity and should not be used through the day. To do so or worsening pain at night can result from ongoing tissue damage and development of tolerance to the prescribed medicine. 6. Please allow 2-3 days to process refills. Prescriptions will not be mailed but must be picked up at the office. FOLLOW UP VISIT: Keep your scheduled follow-up appointment. Any questions, please call the office at . Current Hospital Diet Patient's current hospital diet: Regular Diet Discharge Diet Recommended Diet: Regular Diet Procedures Procedures Performed: #1 lumbar decompression medial facetectomies foraminotomies L5-S1. #2 posterior spinal fusion L5-S1. #3 placement posterior instrumentation L5-S1. #4 interbody fusion L5-S1. #5 placement peek cage 10 x 22 mm L5-S1. #6 placement of locally harvested morcellized autograft in the posterior lateral gutters. #7 placement of ostial amp bone graft in the interbody space and posterior lateral gutters. Pending Studies Studies pending at discharge: no Laboratory Results Hemoglobin A1c Test 08/20/17 09:30 Range/Units Estimated Average Glucose 134 mg/dl Hemoglobin A1c 6.3 H 4.5-5.6 % Lipid Panel Test 08/20/17 09:30 Range/Units Triglycerides Level 164 H 0-150 mg/dl Cholesterol Level 154 0-200 mg/dl HDL Cholesterol 44 mg/dl LDL Cholesterol Direct 95 mg/dl Cholesterol/HDL Ratio 3.5 LDL Cholesterol, Calculated mg/dl Medical Emergencies . Who to Call and When: Medical Emergencies: If at any time you feel your situation is an emergency, please call 911 immediately. . Non-Emergent Contact Non-Emergency issues call your: Primary Care Provider . "Provider Documentation" section prepared by Yohan Romero. . VTE Core Measure Inpt VTE Proph given/why not?: Dale Ugalde, SCD's
[2017-09-12] MEDS: ATORVASTATIN 10 MG TAB PO SCH (08:57)
[2017-09-12] MEDS: PANTOprazole SOD 40 MG TAB PO SCH (08:57)
[2017-09-12] MEDS: CETIRIZINE HCL 10 MG TAB PO SCH (08:57)
[2017-09-12] MEDS: LISINOPRIL 10 MG TAB PO SCH (08:58)
[2017-09-12] MEDS: ASPIRIN 81 MG ECTAB PO SCH (08:58)
[2017-09-12 10:35] VITALS: BP 112/68; PULSE 95; TEMP 36.7; O2SAT 95
--- NOTE | 2017-09-12 13:35 | Progress Note ---
Progress Note Date of Service Sep 12, 2017. Progress Note Patient's back pain is controlled leg pain markedly improved. Vital signs are stable. JAMEEL drain decreasing appropriate. He is sitting at bedside them straight screw strength testing. Assessment status post lumbar decompression fusion replant this time we will continue physical therapy consider possible discharge home tomorrow or Sunday.
[2017-09-12] MEDS: OXYCODONE HCL IR 5 MG TAB (IMMEDIATE RELEASE) PO PRN (14:27)
[2017-09-12 15:28] VITALS: BP 95/58; PULSE 90; TEMP 36.6; O2SAT 96
[2017-09-12] MEDS: DOCUSATE SODIUM/SENNA 50/8.6MG TAB PO SCH (21:34)
--- NOTE | 2017-09-12 21:56 | Progress Note ---
Progress Note Date of Service Sep 12, 2017. Progress Note 77-year-old male underwent surgery yesterday for herniated L5-S1 disc and spinal stenosis. The procedure was well tolerated. His pain is mostly relieved. He has only pain in the incisional site. He is very happy with the results. He is undergoing therapy. This evening he was sitting in his chair at bedside. He is comfortable. Good appetite. His blood pressure has decreased. But he does not have any dizziness or any lightheadedness or orthostatic changes. He remains afebrile. His CBC showed a hemoglobin of 12. Hematocrit 35.2. WBC count 10,940. Platelet count 20 2000. His PRP showing a creatinine 1.42. His random glucose was 154. Calcium 8.2. Overall he is doing quite well. Anticipating discharge tomorrow.
[2017-09-12 23:09] VITALS: BP 103/61; PULSE 69; TEMP 36.2; O2SAT 96
[2017-09-13] MEDS: POLYETHYLENE (MIRALAX) 17 GM PACK PO SCH ×3 (05:58→18:00)
[2017-09-13 07:45] VITALS: BP 157/80; PULSE 67; TEMP 36.7; O2SAT 95
[2017-09-13] MEDS: ASPIRIN 81 MG ECTAB PO SCH (09:09)
[2017-09-13] MEDS: ATORVASTATIN 10 MG TAB PO SCH (09:09)
[2017-09-13] MEDS: CETIRIZINE HCL 10 MG TAB PO SCH (09:09)
[2017-09-13] MEDS: PANTOprazole SOD 40 MG TAB PO SCH (09:10)
[2017-09-13] MEDS: LISINOPRIL 10 MG TAB PO SCH (09:10)
[2017-09-13] MEDS: OXYCODONE HCL IR 5 MG TAB (IMMEDIATE RELEASE) PO PRN ×2 (11:29→21:13)
--- NOTE | 2017-09-13 12:24 | Discharge Summary ---
Orthopedic Discharge Summary Admission Date/Reason Sep 11, 2017 at 13:30 Lumbar Spinal Stenosis. Discharge Date/Disposition Sep 13, 2017 Home Diagnosis Principal Diagnosis: Lumbar spinal stenosis Admission Physical Exam As per Admitting History & Physical. Hospital Course Patient underwent lumbar decompression fusion tolerated this well as taken to the orthopedic 4 postop we. Postoperatively he was up in amatory leg symptoms markedly improved. Postoperative day continued progress was subsequently discharged home. Discharge orders and instructions found on the chart for further review. Discharge Instructions Please refer to the electronic Patient Visit Report (Discharge Instructions) for additional information.
[2017-09-13] MEDS ORDERED: KETOROLAC TROMETHAMINE 15 MG/ML VIAL IV. PRN (12:30)
[2017-09-13] MEDS ORDERED: KETOROLAC TROMETHAMINE 15 MG/ML VIAL IV. ONE (12:45)
[2017-09-13 13:51] VITALS: BP 148/77; PULSE 71
[2017-09-13 15:09] VITALS: BP 118/70; PULSE 76; TEMP 36.9; O2SAT 95
[2017-09-13] MEDS ORDERED: NURSING VERBAL MED ORDER ONE (18:00)
[2017-09-13] MEDS: DOCUSATE SODIUM/SENNA 50/8.6MG TAB PO SCH (21:12)
[2017-09-13 22:57] VITALS: BP 131/76; PULSE 72; TEMP 36.8; O2SAT 97
--- NOTE | 2017-09-13 23:36 | Progress Note ---
Progress Note Date of Service Sep 13, 2017. Progress Note 77-year-old male underwent surgery for herniated L5-S1 disc and spinal stenosis. 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 The procedure is well tolerated. He is doing quite well. His pain consistent with his left lumbar radiculopathy has resolved. He does have a slight discomfort at the surgical site. He still has the drain in place. He is undergoing physical therapy and tolerating it very well. He was able to walk quite a bit today. His blood pressure improved. He denied any headache or dizziness or lightheadedness. No chest pain no shortness of breath. Good appetite. No abdominal pain no nausea no vomiting. He did have a bowel movement. No problems urinating. No leg edema. His drain output has increased today after ambulation. He is being monitored. Anticipated discharge tomorrow.
[2017-09-14 07:08] VITALS: BP 155/93; PULSE 70; TEMP 37.1; O2SAT 94
[2017-09-14 07:26] LABS: BASO % 0.2 %; BASO ABS # 0.02 K/uL (0-0.2); COMPLETE YES; EOS % 1.4 %; HEMATOCRIT 35.1 % (42-52); IG% 0.4 %; MEAN CORPUSCULAR HEMOGLOBIN 29.6 pg (25-34); MEAN CORPUSCULAR HGB CONC 33.6 g/dl (32-36); MEAN PLATELET VOLUME 9.4 fL (7.4-10.4); MONO % 9.5 %; NEUT % 59.5 %; PLATELET COUNT 186 K/uL (130-400); RED BLOOD COUNT 3.99 M/uL (4.7-6.1); WHITE BLOOD COUNT 11.05 K/uL (4.8-10.8)
[2017-09-14 07:54] LABS: BUN/CREATININE RATIO 17.9 (10-20); CALCIUM 8.4 mg/dl (8.5-10.1); CREATININE 1.37 mg/dl (0.60-1.40); POTASSIUM 4.6 mmol/L (3.5-5.1)
[2017-09-14] MEDS: ATORVASTATIN 10 MG TAB PO SCH (09:13)
[2017-09-14] MEDS: ASPIRIN 81 MG ECTAB PO SCH (09:13)
[2017-09-14] MEDS: CETIRIZINE HCL 10 MG TAB PO SCH (09:13)
[2017-09-14] MEDS: LISINOPRIL 10 MG TAB PO SCH (09:13)
[2017-09-14] MEDS: PANTOprazole SOD 40 MG TAB PO SCH (09:13)
[2017-09-14 10:54] VITALS: BP 155/93; PULSE 70; TEMP 37.1; O2SAT 94
--- NOTE | 2017-09-14 12:26 | Discharge Summary ---
Orthopedic Discharge Summary Admission Date/Reason Sep 11, 2017 at 13:30 Lumbar Spinal Stenosis. Discharge Date/Disposition Sep 14, 2017 Home Diagnosis Principal Diagnosis: Lumbar spinal stenosis Admission Physical Exam As per Admitting History & Physical. Hospital Course Patient underwent lumbar decompression fusion tolerated surgery well was taken to the orthopedic 4 postop we. Postoperative condition 1 he was up and amatory progressed to postoperative day #2. JAMEEL drain decreased appropriate least to his discharge home postoperative day #3. Discharge orders and instructions found on the chart for further review. Discharge Instructions Please refer to the electronic Patient Visit Report (Discharge Instructions) for additional information.
== END 2017-09-14 11:31 | disposition home or self-care (01) | DRG 455 ==
LOC: C.ACU 10:39 → C.3E 13:30 → ENRESERV 16:31
PROVIDERS: ADMIT Orthopaedic Surgery Orthopaedic Surgery of the Spine; ATTEND Orthopaedic Surgery Orthopaedic Surgery of the Spine
PROC: 0SG3071 Fusion of Lumbosacral Joint with Autologous Tissue Substitute, Posterior Approach, Posterior Column, Open Approach (ICD-10-PCS; principal; 2017-09-11 12:45)
PROC: 0ST40ZZ Resection of Lumbosacral Disc, Open Approach (ICD-10-PCS; principal; 2017-09-11 12:45)
PROC: 0SG30AJ Fusion of Lumbosacral Joint with Interbody Fusion Device, Posterior Approach, Anterior Column, Open Approach (ICD-10-PCS; principal; 2017-09-11 12:45)
DX: M48.061 Spinal stenosis, lumbar region without neurogenic claudication (principal); M51.27 Other intervertebral disc displacement, lumbosacral region; I10 Essential (primary) hypertension; H40.059 Ocular hypertension, unspecified eye; E78.5 Hyperlipidemia, unspecified; Z86.711 Personal history of pulmonary embolism; Z79.01 Long term (current) use of anticoagulants

== ENCOUNTER → 2017-10-04 | Outpatient (CLI) | payer OTHER, BC ==
[~2017-10-04] MED LIST changes: +ATOR10TA82 PO; -ATOR10TA88 PO; -CEFAZOLIN 2000 MG/60 ML D5W 60 ML IV SCH; -LACTATED RINGER'S 1000ML 1,000 ML IV SCH; +RXC5 PO
[2017-10-04 18:50] LABS: INR 1.7 (0.9-1.1); PROTHROMBIN TIME (PATIENT) 18.5 SECONDS (9.0-12.0)
== END | disposition home or self-care (01) ==
LOC: C.LABSPEC 17:53
PROVIDERS: ATTEND Internal Medicine
DX: Z79.01 Long term (current) use of anticoagulants (principal); I26.99 Other pulmonary embolism without acute cor pulmonale

== ENCOUNTER → 2017-11-13 | Outpatient (CLI) | payer OTHER, BC ==
[~2017-11-13] MED LIST changes: +ATOR-54 PO; +GLUC1TAB94 PO; +OMEG10007 PO
[2017-11-13 18:11] LABS: INR 3.5 (0.9-1.1)
== END | disposition home or self-care (01) ==
LOC: C.LABSPEC 13:01
PROVIDERS: ATTEND Internal Medicine
DX: Z51.81 Encounter for therapeutic drug level monitoring (principal); I26.99 Other pulmonary embolism without acute cor pulmonale; Z79.01 Long term (current) use of anticoagulants

== ENCOUNTER → 2017-11-28 | Outpatient (CLI) | payer OTHER, BC ==
[2017-11-28 15:57] LABS: INR 2.2 (0.9-1.1)
== END | disposition home or self-care (01) ==
LOC: C.LABSPEC 14:54
PROVIDERS: ATTEND Internal Medicine
DX: Z79.01 Long term (current) use of anticoagulants (principal); I26.99 Other pulmonary embolism without acute cor pulmonale

== ENCOUNTER → 2017-12-21 | Outpatient (CLI) | payer OTHER, BC ==
[~2017-12-21] MED LIST changes: -ATOR-54 PO; -GLUC1TAB94 PO; -OMEG10007 PO
[2017-12-21 13:58] LABS: INR 2.7 (0.9-1.1)
[2017-12-21 14:15] LABS: BLOOD UREA NITROGEN 16 mg/dl (7-18); CALCIUM 9.4 mg/dl (8.5-10.1); CARBON DIOXIDE 23 mmol/L (21-32); CHOLESTEROL 161 mg/dl (0-200); GLUCOSE 123 mg/dl (70-99); POTASSIUM 3.9 mmol/L (3.5-5.1); SODIUM 139 mmol/L (136-145)
[2017-12-21 14:18] LABS: LDL CHOLESTEROL (DIRECT) 101 mg/dl
[2017-12-21 14:25] LABS: HEMOGLOBIN A1C 5.8 % (4.5-5.6)
== END | disposition home or self-care (01) ==
LOC: C.LABSPEC 13:23
PROVIDERS: ATTEND Internal Medicine
DX: R73.9 Hyperglycemia, unspecified (principal); I10 Essential (primary) hypertension; E78.5 Hyperlipidemia, unspecified

== ENCOUNTER → 2018-02-04 | Outpatient (CLI) | payer OTHER, BC ==
[2018-02-04 15:13] LABS: INR 2.4 (0.9-1.1)
== END | disposition home or self-care (01) ==
LOC: C.LABSPEC 14:48
PROVIDERS: ATTEND Internal Medicine
DX: Z79.01 Long term (current) use of anticoagulants (principal); Z51.81 Encounter for therapeutic drug level monitoring; I26.99 Other pulmonary embolism without acute cor pulmonale

== ENCOUNTER → 2018-03-29 | Outpatient (CLI) | payer OTHER, BC ==
[~2018-03-29] MED LIST changes: +ATOR-54 PO; -ATOR10TA82 PO; +GLUC1TAB94 PO; +OMEG10007 PO; -RXC5 PO; -TRAM-10 PO
[2018-03-29 14:15] LABS: INR 3.8 (0.9-1.1)
== END | disposition home or self-care (01) ==
LOC: C.LABSPEC 12:44
PROVIDERS: ATTEND Internal Medicine
DX: Z79.01 Long term (current) use of anticoagulants (principal); Z51.81 Encounter for therapeutic drug level monitoring; I26.99 Other pulmonary embolism without acute cor pulmonale

== ENCOUNTER → 2018-04-10 | Day surgery (SDC) | payer OTHER, BC ==
[2018-03-28 15:32] VITALS: Ht 175.3 cm; Wt 98.7 kg
[~2018-04-10] VITALS: Ht 175.3 cm; Wt 98.7 kg
[~2018-04-10] MED LIST changes: +500ML BSS 0.3ML EPI 1:1000PF IRRIG ONE; +ACETAMINOPHEN 325 MG TAB PO PRN; +AMVISC PLUS 0.8ML SYRINGE INT OCU ONE; +ATROPINE SULFATE 0.1 MG/ML 5ML SYR IV PRN; +BSS FLUSH ONE; +ENDOCOAT 0.85ML SYRINGE INT OCU ONE; +EpINEphrine INJ 1MG/ML AMP 1 MG/ML AMP ONE; +LACTATED RINGER'S 1000ML 500 ML IV SCH; +LIDOCAINE 4% OP SOLN DROP CHARGE ONE; +LIDOCAINE 4% OP SOLN DROP CHARGE OPR SCH; +LIDOCAINE HCL 1% MPF 2 ML VIAL ONE; +MIDAZOLAM HCL 1 MG/ML 2ML VIAL ONE; +MIX: 4ML BSS 1ML EPI 1:1000 PF TOP ONE; +MOXIFLOXACIN OPH SOLN PER DROP CHARGE ONE; +POVIDONE-IODINE OP SOLN 30 ML BTL ONE; +PROPARACAINE 0.5% OP SOLN PER DROP CHARGE OPR SCH; +TOBRAMYCIN/DEXAMETHASONE OPH OINT PER APPLN CHARGE ONE
[2018-04-10] MEDS: PHENYLEPHRINE HCL 2.5% OP SOLN PER DROP CHARGE OPR SCH ×3 (11:02→11:12)
[2018-04-10] MEDS: TROPICAMIDE 1% OP SOLN PER DROP CHARGE OPR SCH ×3 (11:03→11:13)
[2018-04-10] MEDS: CYCLOPENTOLATE HCL 1% OP SOLN PER DROP CHARGE OPR SCH ×3 (11:04→11:14)
[2018-04-10] MEDS: MOXIFLOXACIN OPH SOLN PER DROP CHARGE OPR SCH ×3 (11:05→11:15)
--- NOTE | 2018-04-10 12:16 | [facility] Post Operative Brief Note ---
Immediate Operative Summary Operative Date April 10, 2018. Pre-Operative Diagnosis Cataract Right Eye Post-Operative Diagnosis Same Procedure(s) Performed Left Cataract Phacoemulsification With Intraocular Lens Implant Surgeon Dr. Hu Sausage Inspector Surgeon(s) None Estimated Blood Loss 0ml Findings Consistent with Post-Op Diagnosis Specimens None Anesthesia Type MAC Complication(s) none Disposition Accompanied Pt To Recover: no Disposition:
--- NOTE | 2018-04-10 12:17 | [facility] Operative Report ---
Operative Report Date of Service April 10, 2018. Operative Report DATE OF OPERATION: 04/10/18 PREOPERATIVE DIAGNOSIS: Senile nuclear cataract, right eye POSTOPERATIVE DIAGNOSIS: Senile nuclear cataract, right eye PROCEDURE PERFORMED: Phacoemulsification with intraocular lens implantation, right eye SURGEON: Dr. Nolan Hu ANESTHESIA: Topical with 1% intracameral lidocaine and monitored anesthesia care COMPLICATIONS: None DESCRIPTION OF PROCEDURE: After positively identifying the patient both verbally and by wristband in the preoperative area, the right eye was marked as the operative eye. The patient was then brought back to the operating room by the anesthesia and nursing staff where they were given a drop of Lidocaine and betadine into the operative eye. They were then sterilely prepped and draped in the standard fashion typical for ophthalmic surgery. Steri-strips were placed along the upper eyelids to keep the lashes back, and a lid speculum was placed into the operative eye. At this point, a documented time out was performed with members of the ophthalmology, nursing, and anesthesia staffs all agreeing upon the correct patient, correct location for surgery, correct procedure, and correct type and power of intraocular lens to be implanted. The microscope was then swung into position. First, a paracentesis wound was made using a sideport blade. Then, in sequence, 1% preservative-free lidocaine followed by Endocoat viscoelastic was injected into the anterior chamber. Next , the main incision was made with a keratome blade in triplanar fashion. A sharp cystotome was introduced into the eye and used to create a tear in the anterior capsule, which was directed into a continuous curvilinear capsulorrhexis using Utrata forceps. Hydrodissection was then performed with BSS on a flat-tip cannula. Next, the phacoemulsification handpiece was introduced into the eye and used to remove the nucleus in a [id number] fashion. This was done without complication and then the irrigation-aspiration handpiece was introduced into the eye and used to remove all remaining cortical and epinuclear material. Amvisc was then injected into the anterior chamber as well as into the capsular bag and using the lens injector system, an MX60 17.0 D lens, serial number [id number], and expiration date 08/2019 was injected into the capsular bag and rotated into the correct position. Next, the irrigation- aspiration handpiece was used to remove all remaining Amvisc. BSS was used to hydrate the main wound, and then BSS was injected into the paracentesis site to reach physiologic pressure and then the main wound was checked and found to be watertight. The patient was given drops of Vigamox and Tobradex ointment into the operative eye, and then the surrounding area was cleaned and dried. A clear plastic shield was placed over the eye and the patient was then sat up and taken from the operating room by the anesthesia staff having tolerated the procedure well and suffering no complications. DISPOSITION: The patient was returned to the recovery room in stable condition. I attest to the content of the Intraoperative Record and any orders documented therein. Any exceptions are noted below.
--- NOTE | 2018-04-10 12:18 | Discharge Instructions-SurgCtr ---
Discharge Instructions Date of Service April 10, 2018. Visit Reason for Visit: Right Cataract Discharge Discharge Diagnosis / Problem: right cataract Discharge Goals Goal(s): Decrease discomfort, Improve function Activity Recommendations Activity Limitations: as noted below Anesthesia . Post Anesthesia Instructions: If you have had General Anesthesia or IV Sedation: * Do not drive today. * Resume driving when surgeon permits. * Do not make important decisions or sign legal documents today. * Call surgeon for: 1. Temperature elevations greater than 101 degrees F. 2. Uncontrollable pain. 3. Excessive bleeding. 4. Persistent nausea and vomiting. 5. Medication intolerance (nausea, vomiting or rash). * For nausea and vomiting use only clear liquids such as: tea, soda, bouillon until nausea subsides, then gradually increase diet as tolerated. * If you have any concerns or questions, call your surgeon's office. If physician is unavailable and it is an emergency, call 911 or go to the nearest emergency room. . Instructions / Follow-Up Instructions / Follow-Up ACTIVITY RECOMMENDATIONS: * Light activities. * You may walk outside, read, watch television. * You may notice redness on the white part of the eye and some blurry vision - this is normal. MEDICATIONS: Resume previous medications unless instructed otherwise by your surgeon. Start all eye drops at 2:30 pm today: * Eye drops (today): Prednisone - one drop in operative eye every 2 hours while awake Ofloxacin - one drop in operative eye every 2 hours while awake Prolensa - one drop in operative eye daily SPECIAL CARE INSTRUCTIONS: * Tape plastic shield over eye to sleep at night. Call your doctor at with any concerns or problems. FOLLOW UP VISIT: Follow-up with Dr Hu at [place] office as scheduled. Diet Recommendations Home Diet: no limitations Procedures Procedures Performed: Left Cataract Phacoemulsification With Intraocular Lens Implant Pending Studies Studies pending at discharge: no Medical Emergencies . Who to Call and When: Medical Emergencies: If at any time you feel your situation is an emergency, please call 911 immediately. . Non-Emergent Contact Non-Emergency issues call your: Surgeon . . "Provider Documentation" section prepared by Nolan Hu. .
[2018-04-10 12:19] VITALS: TEMP 36.4
--- NOTE | 2018-04-10 12:49 | Anesthesia Progress Nt - [facility] ---
Anesthesia Post Op Note Date & Time April 10, 2018 at 12:49 Vital Signs Pain Intensity: 0 Vital Signs Past 12 Hours Date Time Temp Pulse Resp B/P (MAP) Pulse Ox O2 Delivery O2 Flow Rate FiO2 04/10/18 12:19 36.4 61 16 166/75 (105) 97 Room Air 04/10/18 10:54 36.4 67 16 155/90 (111) 97 Room Air Notes Mental Status: alert / awake / arousable, participated in evaluation Pt Amnestic to Procedure: Yes Nausea / Vomiting: adequately controlled Pain: adequately controlled Airway Patency, RR, SpO2: stable & adequate BP & HR: stable & adequate Hydration State: stable & adequate Anesthetic Complications: no major complications apparent
[2018-04-10 12:51] VITALS: BP 155/79; PULSE 57; O2SAT 97
== END | disposition home or self-care (01) ==
LOC: X.SURG 10:39
PROVIDERS: ATTEND Ophthalmology
DX: H25.11 Age-related nuclear cataract, right eye (principal); I10 Essential (primary) hypertension; E78.00 Pure hypercholesterolemia, unspecified; Z87.891 Personal history of nicotine dependence; Z79.82 Long term (current) use of aspirin; Z79.01 Long term (current) use of anticoagulants; Z86.73 Personal history of transient ischemic attack (TIA), and cerebral infarction without residual deficits

== ENCOUNTER → 2018-04-11 | Outpatient (CLI) | payer OTHER, BC ==
[~2018-04-11] MED LIST changes: -500ML BSS 0.3ML EPI 1:1000PF IRRIG ONE; -ACETAMINOPHEN 325 MG TAB PO PRN; -AMVISC PLUS 0.8ML SYRINGE INT OCU ONE; -ATROPINE SULFATE 0.1 MG/ML 5ML SYR IV PRN; -BSS FLUSH ONE; -ENDOCOAT 0.85ML SYRINGE INT OCU ONE; -EpINEphrine INJ 1MG/ML AMP 1 MG/ML AMP ONE; -LACTATED RINGER'S 1000ML 500 ML IV SCH; -LIDOCAINE 4% OP SOLN DROP CHARGE ONE; -LIDOCAINE 4% OP SOLN DROP CHARGE OPR SCH; -LIDOCAINE HCL 1% MPF 2 ML VIAL ONE; -MIDAZOLAM HCL 1 MG/ML 2ML VIAL ONE; -MIX: 4ML BSS 1ML EPI 1:1000 PF TOP ONE; -MOXIFLOXACIN OPH SOLN PER DROP CHARGE ONE; -POVIDONE-IODINE OP SOLN 30 ML BTL ONE; -PROPARACAINE 0.5% OP SOLN PER DROP CHARGE OPR SCH; -TOBRAMYCIN/DEXAMETHASONE OPH OINT PER APPLN CHARGE ONE
[2018-04-11 18:40] LABS: INR 1.9 (0.9-1.1)
== END | disposition home or self-care (01) ==
LOC: C.LABSPEC 17:51
PROVIDERS: ATTEND Internal Medicine
DX: I26.99 Other pulmonary embolism without acute cor pulmonale (principal); Z79.01 Long term (current) use of anticoagulants

== ENCOUNTER → 2018-06-20 | Outpatient (CLI) | payer OTHER, BC ==
[2018-06-20 18:30] LABS: INR 2.6 (0.9-1.1)
== END | disposition home or self-care (01) ==
LOC: C.LABSPEC 17:48
PROVIDERS: ATTEND Internal Medicine
DX: I26.99 Other pulmonary embolism without acute cor pulmonale (principal); Z79.01 Long term (current) use of anticoagulants

== ENCOUNTER 2022-01-06 15:54 | Inpatient (IN) ==
[2022-01-06] MEDS ORDERED: SODIUM CHLORIDE 0.9% 1000ML 1,000 ML IV ONE (17:54)
--- NOTE | 2022-01-06 17:57 | Emergency Department Note ---
Impression & Plan Near syncope, Elevated troponin, Acute renal insufficiency, Acute dehydration ED Provider Note Name: BEVERLY FIGUEROA Age: 81 Sex: M Arrives Via: Walk-In Informant: Patient ED Provider: Catalino Maharaj MD Chief Complaint: Lightheadedness Impression: As per impressions above Medical Decision Makin-year-old gentleman with extensive past medical history who had a bladder surgery about several days ago. Today worsening lightheadedness and near syncope. He was seen by his PCP who evaluated him and advised him to come to the ER for further evaluation. Patient mildly hypotensive for him but not orthostatic. He is not septic appearing and while sitting here he does not appear too unwell. He was given 1 L normal saline and seems to be improving. His labs reveal mild renal insufficiency which is increased from previous as well as a positive troponin. An EKG reveals no acute findings other than the first AV block that he had previously and some PACs. He does not have any current chest pain and did not of chest pain today. He is already on aspirin and I do not feel that giving him further aspirin in the setting of having urinary bleeding still would be indicated. I do not feel that it is indicated that we need to start him on heparin at this point for a positive troponin but he will need a cardiac rule out for further evaluation. Symptoms do not seem consistent with a PE at this time. Hospitalist consulted for further evaluation and management. Prior Medical Record and Triage/Nursing Notes reviewed by Me Additional history obtained from chart and Differentials:Infection, dehydration, metabolic abnormality, hypo/hyperglycemia, electrolyte disturbance, anemia, hypoxia, cardiac sources, intracerebral event, toxicologic, neurologic, as well as other pathologies. Vital Signs: reviewed and remarkable for no significant abnormalities Interventions: Normal saline bolus 1 L Labs:Reviewed and remarkable for positive troponin Imagin view chest x-ray no acute findings EKG:Per My Interpretation: Indication near syncope: Sinus rhythm with first- degree AV block and PACs at 64 bpm, qtc 474. No Ectopy. No Ischemia. Compared to EKG 11/22/21, no significant changes. Consults:Dr. Paniagua of the [facility] Hospitalist service Plan: Disposition:Hospitalization. Condition: Good History of Present Illness:81-year-old gentleman arrives for evaluation of brigitte alegria. Patient with a urologic procedure 4 days ago. He notes some blood in the urine initially but then some increase in it today. While he was at the store earlier he noted he was starting to feel quite lightheaded with walking around and slightly dizzy. Noted he most passed out. He admits that he sat down and felt much better. He was seen by his PCP who noted his blood pressure with a systolic blood pressure of 110. This is quite low for the patient and he was sent to the ER for further evaluation. Patient notes he just feels very washed out. He has no current symptoms. He had some mild urinary discomfort earlier but after urinating that went away. He denies any chest pain, shortness of breath, syncope, headache, neck pain, abdominal pain, back pain, bowel symptoms, fevers, chills, nausea, vomiting, leg swelling, calf pain or other symptoms. He notes his blood pressure usually does run a bit on the high side as he has extensive cardiac history including what he believes are aortic stenosis and mitral valve prolapse. Patient further notes that he has history of strokes and is currently on aspirin and Coumadin for these. Patient denies any falls, trauma, injuries. He denies hitting his head at any point recently. He currently has no headache nor neurologic deficits. Patient with no medications prior to arrival other than his chronic medications. ROS: See above HPI for pertinent positives & negatives. A total of 10 systems reviewed and were otherwise negative. Past Medical History:See Below Past Surgical History:See Below Family History:See Below Social History:See Below Home Medications:See Below Allergies:Ibuprofen-to avoid bleeding issues Vitals:Blood Pressure: 114/71, Pulse 77, RR 20, T 36.6C, O2 96% on RA Physical Exam: GENERAL: Patient is tired/dehydrated appearing and in mild distress. EYES: No scleral icterus, unremarkable pupils. ENT: Mucous membranes dry, no nasal congestion. NECK: No masses appreciated, nomeningismus, trachea is midline. RESPIRATORY: No dyspnea. Clear to auscultation and equal bilaterally. No wheeze, no rhonchi. CARDIOVASCULAR: Regular rate and rhythm.Systolic murmur, no rubs, no gallops appreciated. GASTROINTESTINAL: Abdomen soft, non-tender, no peritonitis.Bowel sounds positive.No masses appreciated. BACK: No midline tenderness, no CVA tenderness EXTREMITIES: Normal motion all extremities, no cyanosis, no edema. NEUROLOGIC: Alert and oriented, no acute motor or sensory deficits, no focal weakness, cranial nerves grossly intact. SKIN: No rash, no jaundice, no diaphoresis. PSYCH: Appropriate GCS: 15 ED Course: Times/Reassessments: Patient does appear improved after IV fluids though given the laboratory findings and his initial symptoms it was felt that hospitalizing him was the proper direction and he and are on board with this plan. Hospitalist then to evaluate further. I will note the patient was seen during a period of extremely high volumes resulting in long wait times and patient was evaluated in a sober waiting room B patient and were comfortable with this plan. Eventually he was placed in a room with cardiac monitoring. Catalino Maharaj MD Past Med/Surg History Medical History (Updated 01/07/22 @ 00:34 by Catalino Maharaj MD) Aortic valve stenosis Moderate to severe per 05/2021 ECHO Moderate per 06/2021 cath Bladder cancer Chronic back pain Chronic kidney disease, stage 3 Coronary artery disease 75% stenosis D1, distal LCx- no intervention recommended. follows with Diabetes Presumed per Hgb A1C of 6.5 with preop labs 11/22/21 Diet controlled Dilated aortic root Moderate (stable) 4.5 cm per 05/2021 echo GERD (gastroesophageal reflux disease) Well controlled and stable History of basal cell carcinoma Right arm- s/p excision 2005 Had multiple lesions removed over time History of bleeding peptic ulcer 2014 requiring hospitalization and transfusion 11 packed RBCs, transferred [place] [facility] [place] 09[place]2021 note History of blood transfusion 2014 in setting of GI bleed- 11 packed RBCs History of CVA (cerebrovascular accident) 2014; 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 Hermosillo History of pulmonary embolism Pt unsure of specifics- possibly in 2014- on anticoagulation- Coumadin on hold since Sep 2021 due to hematuria History of sleep apnea Cannot tolerate device HLD (hyperlipidemia) HTN (hypertension) MVP (mitral valve prolapse) Dr. Barbosa monitors Personal history of deep vein thrombosis On Coumadin- currently on hold since Sep 2021 per PCP note (hematuria) Slow to wake up after anesthesia Spinal stenosis S/p surgery Surgical History History of basal cell carcinoma (BCC) excision History of cardiac cath 07/18/2021@ [facility]-75% proximal D1, 75% distal LCx prior to left PLB, 50% mid right PDA. no stents--follows with CT cardiology, Dr. Sow History of cataract surgery History of colonoscopy History of cystoscopy 11/24/2021: LMA#5 atraumatic. No issues per anesthesia postop progress note. History of esophagogastroduodenoscopy (EGD) History of lumbar surgery posterior L5-S1 transforaminal lumbar interbody fusion 09/11/2017: Grade 1 view, Glidescope #3, ETT#8.0 x 1 atraumatic. Per anesthesia postop progress note: "...slightly difficult airway requiring the use of glidescope and that a small laceration was noted on the patients lip after intubation..." History of nasal surgery History of tonsillectomy and adenoidectomy History of uvulopalatopharyngoplasty Status post surgical removal and fulguration of bladder neoplasm Family History Sister PONV (postoperative nausea and vomiting) Mother , dx [id number] Stroke Coronary heart disease Father , dx at 52 Myocardial infarction Social History Smoking Status: Former smoker Smoking End Date: 1961; Second Hand Exposure: No; Tobacco Cessation Education Requested by Patient: No Hx Alcohol Use: Yes Alcohol type: beer and wine Hx Substance Use: No Preferred Language: Frisian Communication Ability: Effective Guest History Clerk Required: No Beliefs That Will Affect Care: None Current Living Situation: Spouse Current Living Situation Comment: Lives w/ spouse @ home Other Information That Helps Us Care for You: No Feels Safe at Home: Yes Safety Concerns: Feels Safe At This Time Assistive Devices: None Allergies Allergies Allergy/AdvReac Type Severity Reaction Status Date / Time pollen extracts Allergy Mild HAY FEVER Verified 01/06/22 19:29 ibuprofen AdvReac Unknown TOLD TO Verified 01/06/22 19:29 AVOID DUE TO BLEEDING ULCER Home Meds Home Medications Medication Instructions Recorded Confirmed aspirin 81 mg tablet,delayed 81 mg PO HS 03/17/21 01/06/22 release lisinopril 10 mg tablet 10 mg PO QAM 03/17/21 01/06/22 omeprazole 40 mg capsule,delayed 40 mg PO QAM 03/17/21 01/06/22 release atorvastatin 20 mg tablet (Lipitor) 20 mg PO HS 07/07/21 01/06/22 multivitamin 1 tab PO QAM 07/07/21 01/06/22 isosorbide mononitrate 30 mg 30 mg PO QAM 11/17/21 01/06/22 tablet,extended release 24 hr metoprolol succinate 25 mg 25 mg PO QAM 11/17/21 01/06/22 tablet,extended release 24 hr (Toprol XL) Previous Rx's Medication Instructions Recorded cephalexin 500 mg capsule 500 mg PO BID 7 Days #14 cap 01/02/22 oxycodone-acetaminophen 7.5 mg-325 1 tab PO Q8H PRN #7 tab 01/02/22 mg tablet (Percocet) phenazopyridine 200 mg tablet 200 mg PO Q8H PRN #10 tab 01/02/22 (Pyridium) tamsulosin 0.4 mg capsule 0.4 mg PO HS #30 cap 01/02/22 Results & Data (ED) Vital Signs Vital Signs - 24 hr 01/06/22 16:06 01/06/22 18:07 01/06/22 19:41 Temperature 36.6 C Temperature Source Temporal Artery Scan Pulse Rate - Sitting 54 L Pulse Rate - Standing 72 Pulse Rate 77 73 Pulse Rate [Finger] Pulse Rate from SpO2 Sensor Pulse Rhythm Regular Pulse Strength Normal Respiratory Rate 20 22 Respiratory Effort / Characteristics Non-Labored Spontaneous Respiratory Depth Normal Respiratory Pattern Regular Blood Pressure - Sitting 120/67 Blood Pressure- Standing 132/76 Blood Pressure 114/71 Blood Pressure [Right Arm] Blood Pressure Mean 85 Blood Pressure Mean [Right Arm] Blood Pressure Position Sitting Pulse Oximetry 96 Oxygen Delivery Method Room Air Sepsis Recent Fever Within 48 Hours No Sepsis New/Unexplained Change in Mental Status No Sepsis Action Taken by Nursing No Action Required 01/06/22 19:50 01/06/22 20:00 01/06/22 20:08 Temperature Temperature Source Pulse Rate - Sitting Pulse Rate - Standing Pulse Rate 66 66 Pulse Rate [Finger] 68 Pulse Rate from SpO2 Sensor Pulse Rhythm Pulse Strength Respiratory Rate 22 21 24 Respiratory Effort / Characteristics Non-Labored Spontaneous Respiratory Depth Normal Respiratory Pattern Regular Blood Pressure - Sitting Blood Pressure- Standing Blood Pressure Blood Pressure [Right Arm] 145/82 H Blood Pressure Mean Blood Pressure Mean [Right Arm] 103 Blood Pressure Position Pulse Oximetry Oxygen Delivery Method Room Air Sepsis Recent Fever Within 48 Hours Sepsis New/Unexplained Change in Mental Status Sepsis Action Taken by Nursing 01/06/22 20:10 01/06/22 20:17 01/06/22 20:20 Temperature Temperature Source Pulse Rate - Sitting Pulse Rate - Standing Pulse Rate 62 63 117 H Pulse Rate [Finger] Pulse Rate from SpO2 Sensor 64 66 Pulse Rhythm Pulse Strength Respiratory Rate 10 L 14 18 Respiratory Effort / Characteristics Respiratory Depth Respiratory Pattern Blood Pressure - Sitting Blood Pressure- Standing Blood Pressure 127/62 Blood Pressure [Right Arm] Blood Pressure Mean 83 Blood Pressure Mean [Right Arm] Blood Pressure Position Pulse Oximetry 96 96 Oxygen Delivery Method Sepsis Recent Fever Within 48 Hours Sepsis New/Unexplained Change in Mental Status Sepsis Action Taken by Nursing 01/06/22 20:30 01/06/22 20:45 01/06/22 20:50 Temperature Temperature Source Pulse Rate - Sitting Pulse Rate - Standing Pulse Rate 77 72 63 Pulse Rate [Finger] Pulse Rate from SpO2 Sensor Pulse Rhythm Pulse Strength Respiratory Rate 16 25 H 25 H Respiratory Effort / Characteristics Respiratory Depth Respiratory Pattern Blood Pressure - Sitting Blood Pressure- Standing Blood Pressure 125/70 Blood Pressure [Right Arm] Blood Pressure Mean 88 Blood Pressure Mean [Right Arm] Blood Pressure Position Pulse Oximetry Oxygen Delivery Method Sepsis Recent Fever Within 48 Hours Sepsis New/Unexplained Change in Mental Status Sepsis Action Taken by Nursing Laboratory Data Result diagrams: 01/06/22 18:13 01/06/22 18:13 Lab Results 01/06/22 01/06/22 01/06/22 Range/Units 18:13 18:13 18:14 WBC 8.06 (4.8-10.8) K/uL RBC 4.32 L (4.7-6.1) M/uL Hgb 12.8 L (14.0-18.0) g/dL Hct 39.3 L (42-52) % MCV 91.0 (80-100) fL MCH 29.6 (25-34) pg MCHC 32.6 (32-36) g/dL RDW Std Deviation 48.1 H (36.4-46.3) fL RDW Coeff of Adam 14.6 H (11.5-14.5) % Plt Count 270 (130-400) K/uL MPV 9.8 (7.4-10.4) fL Immature Gran % (Auto) 0.2 % Neut % (Auto) 62.1 % Lymph % (Auto) 24.4 % [place] % (Auto) 7.4 % Eos % (Auto) 5.7 % Baso % (Auto) 0.2 % Neut # (Auto) 4.99 (1.4-6.5) K/uL Lymph # (Auto) 1.97 (1.2-3.4) K/uL [place] # (Auto) 0.60 H (0.11-0.59) K/uL Eos # (Auto) 0.46 (0-0.5) K/uL Baso # (Auto) 0.02 (0-0.2) K/uL Immature Gran # (Auto) 0.02 (0.00-0.02) K/uL PT (9.0-12.0) Seconds INR (0.9-1.1) APTT (21.0-31.0) Seconds PTT Ratio Sodium 137 (136-145) mmol/L Potassium 3.9 (3.5-5.1) mmol/L Chloride 104 (98-107) mmol/L Carbon Dioxide 23 (21-32) mmol/L Anion Gap 10 (3-11) BUN 25 H (6-23) mg/dl Creatinine 1.62 H (0.6-1.4) mg/dl Est Cr Clr Drug Dosing 39.0 ml/min Est GFR ( Amer) 45.8 ml/min Est GFR (Non-Af Amer) 39.5 ml/min BUN/Creatinine Ratio 15.4 (10-20) Glucose 116 H (70-99(Fasting)) mg/dl Calcium 8.9 (8.5-10.1) mg/dl Ionized Calcium (1.12-1.32) mmol/L Magnesium (1.7-2.4) mg/dl Total Bilirubin 0.8 (0.2-1.0) mg/dl AST 16 (13-39) U/L ALT 14 (7-52) U/L Alkaline Phosphatase 85 (34-104) U/L Troponin I 0.10 H* (0-0.04) ng/ml Total Protein 7.1 (6.0-8.3) gm/dl Albumin 4.2 (3.4-5.0) gm/dl Globulin 2.9 (2.5-4.0) gm/dl Albumin/Globulin Ratio 1.4 (0.9-2) Procalcitonin (0-0.5) ng/ml TSH 3.726 (0.300-4.500) uIu/ml Urine Color Urine Appearance (Clear) Urine pH (4.5-7.5) Ur Specific [place] (1.000-1.030) Urine Protein (Negative) Urine Glucose (UA) (Negative) Urine Ketones (Negative) Urine Blood (Negative) Urine Nitrite (Negative) Urine Bilirubin (Negative) Urine Urobilinogen (Negative) Ur Leukocyte Esterase (Negative) Urine RBC (0-4) /hpf Urine WBC (0-5) /hpf Ur Epithelial Cells (0-5) /lpf Urine Bacteria (Negative) SARS-CoV-2, RNA, NAAT (NEGATIVE) 01/06/22 01/06/22 01/06/22 Range/Units 18:14 18:14 18:14 WBC (4.8-10.8) K/uL RBC (4.7-6.1) M/uL Hgb (14.0-18.0) g/dL Hct (42-52) % MCV (80-100) fL MCH (25-34) pg MCHC (32-36) g/dL RDW Std Deviation (36.4-46.3) fL RDW Coeff of Adam (11.5-14.5) % Plt Count (130-400) K/uL MPV (7.4-10.4) fL Immature Gran % (Auto) % Neut % (Auto) % Lymph % (Auto) % [place] % (Auto) % Eos % (Auto) % Baso % (Auto) % Neut # (Auto) (1.4-6.5) K/uL Lymph # (Auto) (1.2-3.4) K/uL [place] # (Auto) (0.11-0.59) K/uL Eos # (Auto) (0-0.5) K/uL Baso # (Auto) (0-0.2) K/uL Immature Gran # (Auto) (0.00-0.02) K/uL PT 11.9 (9.0-12.0) Seconds INR 1.2 H (0.9-1.1) APTT 26.9 (21.0-31.0) Seconds PTT Ratio 1.0 Sodium (136-145) mmol/L Potassium (3.5-5.1) mmol/L Chloride (98-107) mmol/L Carbon Dioxide (21-32) mmol/L Anion Gap (3-11) BUN (6-23) mg/dl Creatinine (0.6-1.4) mg/dl Est Cr Clr Drug Dosing ml/min Est GFR ( Amer) ml/min Est GFR (Non-Af Amer) ml/min BUN/Creatinine Ratio (10-20) Glucose (70-99(Fasting)) mg/dl Calcium (8.5-10.1) mg/dl Ionized Calcium (1.12-1.32) mmol/L Magnesium 2.3 (1.7-2.4) mg/dl Total Bilirubin (0.2-1.0) mg/dl AST (13-39) U/L ALT (7-52) U/L Alkaline Phosphatase (34-104) U/L Troponin I (0-0.04) ng/ml Total Protein (6.0-8.3) gm/dl Albumin (3.4-5.0) gm/dl Globulin (2.5-4.0) gm/dl Albumin/Globulin Ratio (0.9-2) Procalcitonin < 0.05 (0-0.5) ng/ml TSH (0.300-4.500) uIu/ml Urine Color Urine Appearance (Clear) Urine pH (4.5-7.5) Ur Specific [place] (1.000-1.030) Urine Protein (Negative) Urine Glucose (UA) (Negative) Urine Ketones (Negative) Urine Blood (Negative) Urine Nitrite (Negative) Urine Bilirubin (Negative) Urine Urobilinogen (Negative) Ur Leukocyte Esterase (Negative) Urine RBC (0-4) /hpf Urine WBC (0-5) /hpf Ur Epithelial Cells (0-5) /lpf Urine Bacteria (Negative) SARS-CoV-2, RNA, NAAT (NEGATIVE) 01/06/22 01/06/22 01/06/22 Range/Units 20:10 20:45 20:55 WBC (4.8-10.8) K/uL RBC (4.7-6.1) M/uL Hgb (14.0-18.0) g/dL Hct (42-52) % MCV (80-100) fL MCH (25-34) pg MCHC (32-36) g/dL RDW Std Deviation (36.4-46.3) fL RDW Coeff of Adam (11.5-14.5) % Plt Count (130-400) K/uL MPV (7.4-10.4) fL Immature Gran % (Auto) % Neut % (Auto) % Lymph % (Auto) % [place] % (Auto) % Eos % (Auto) % Baso % (Auto) % Neut # (Auto) (1.4-6.5) K/uL Lymph # (Auto) (1.2-3.4) K/uL [place] # (Auto) (0.11-0.59) K/uL Eos # (Auto) (0-0.5) K/uL Baso # (Auto) (0-0.2) K/uL Immature Gran # (Auto) (0.00-0.02) K/uL PT (9.0-12.0) Seconds INR (0.9-1.1) APTT (21.0-31.0) Seconds PTT Ratio Sodium (136-145) mmol/L Potassium (3.5-5.1) mmol/L Chloride (98-107) mmol/L Carbon Dioxide (21-32) mmol/L Anion Gap (3-11) BUN (6-23) mg/dl Creatinine (0.6-1.4) mg/dl Est Cr Clr Drug Dosing ml/min Est GFR ( Amer) ml/min Est GFR (Non-Af Amer) ml/min BUN/Creatinine Ratio (10-20) Glucose (70-99(Fasting)) mg/dl Calcium (8.5-10.1) mg/dl Ionized Calcium 1.08 L (1.12-1.32) mmol/L Magnesium (1.7-2.4) mg/dl Total Bilirubin (0.2-1.0) mg/dl AST (13-39) U/L ALT (7-52) U/L Alkaline Phosphatase (34-104) U/L Troponin I (0-0.04) ng/ml Total Protein (6.0-8.3) gm/dl Albumin (3.4-5.0) gm/dl Globulin (2.5-4.0) gm/dl Albumin/Globulin Ratio (0.9-2) Procalcitonin (0-0.5) ng/ml TSH (0.300-4.500) uIu/ml Urine Color [place] Urine Appearance Slightly Cloudy (Clear) Urine pH (4.5-7.5) Ur Specific [place] 1.023 (1.000-1.030) Urine Protein (Negative) Urine Glucose (UA) (Negative) Urine Ketones (Negative) Urine Blood (Negative) Urine Nitrite (Negative) Urine Bilirubin (Negative) Urine Urobilinogen (Negative) Ur Leukocyte Esterase (Negative) Urine RBC 10-30 H (0-4) /hpf Urine WBC 5-10 H (0-5) /hpf Ur Epithelial Cells 0-5 (0-5) /lpf Urine Bacteria Negative (Negative) SARS-CoV-2, RNA, NAAT NEGATIVE (NEGATIVE) Administered Medications Aspirin (Aspirin 81 Mg Ectab) 81 mg PO HS [facility] Stop: 02/05/22 22:46 Last Admin: 01/06/22 23:12 Dose: 81 mg Documented by: [id number] Atorvastatin Calcium (Atorvastatin 20 Mg Tab) 20 mg PO [facility] Stop: 02/05/22 22:46 Last Admin: 01/06/22 23:12 Dose: 20 mg Documented by: [id number] Lactated Ringer's (Lr) 1,000 mls @ 100 mls/hr IV .Q10H ONE Stop: 01/07/22 06:29 Last Admin: 01/06/22 21:30 Dose: 100 mls/hr Documented by: [id number] Senna/Docusate Sodium (Docusate Sodium/Senna 50/8.6mg Tab) 1 tab PO BID [facility] Stop: 02/05/22 22:46 Last Admin: 01/06/22 23:12 Dose: 1 tab Documented by: [id number] Warfarin Sodium (Warfarin Sod 5 Mg Tab) 5 mg PO [id number] [facility] Stop: 02/05/22 22:59 Last Admin: 01/06/22 23:12 Dose: 5 mg Documented by: [id number] Discontinued Medications Sodium Chloride (Nss 1000ml) 1,000 mls @ 999 mls/hr IV .Q1H1M ONE Stop: 01/06/22 18:54 Last Infusion: 01/06/22 19:36 Dose: 0 mls/hr Documented by: [id number] Admin: 01/06/22 18:09 Dose: 999 mls/hr Documented by: [id number] Ceftriaxone Sodium (Rocephin) 2,000 mg in 70 mls @ 100 mls/hr IV ONE STA; Protocol Stop: 01/06/22 21:49 Last Infusion: 01/06/22 22:48 Dose: 0 mls/hr Documented by: [id number] Admin: 01/06/22 21:32 Dose: 100 mls/hr Documented by: [id number] Imaging Data Radiologist's Impression: Chest X-Ray 01/06/22 17:54 XR chest 1V portable CLINICAL HISTORY: post op hypotension TECHNIQUE: Single frontal radiograph of the chest was obtained. Comparison: Comparison is made to chest 2 views 01/15/2021 FINDINGS: No lines and tubes are seen. The cardiomediastinal silhouette is stable. The lungs are clear. No evidence of pleural effusion or pneumothorax. IMPRESSION: No acute chest disease. ACT 112: Negative or not required by law. Electronically signed by: Len Newton M.D. 01/06/2022 6:33 PM Discharge Plan Visit Data Chief Complaint: Dizziness Stated Complaint: DIZZY, FAINT, LOW BP ED Provider: Catalino Maharaj Discharge Problem: Near syncope, Elevated troponin, Acute renal insufficiency, Acute dehydration Patient Disposition: Admitted As Inpatient Discharge Instructions Interventions: ED Discharge Assessment Last Done: 01/06/22 21:44
[2022-01-06 18:33] LABS: Basophils # (auto) 0.02 K/uL (0-0.2); Basophils % (auto) 0.2 %; Eosinophils # (auto) 0.46 K/uL (0-0.5); Eosinophils % (auto) 5.7 %; Hematocrit (blood only) 39.3 % (42-52); Hemoglobin 12.8 g/dL (14.0-18.0); Immature Granulocytes # (auto) 0.02 K/uL (0.00-0.02); Immature Granulocytes % (auto) 0.2 %; Lymphocytes # (auto) 1.97 K/uL (1.2-3.4); Lymphocytes % (auto) 24.4 %; Mean Corpuscular Hemoglobin 29.6 pg (25-34); Mean Corpuscular Hgb Conc 32.6 g/dL (32-36); Mean Platelet Volume 9.8 fL (7.4-10.4); Monocytes % (auto) 7.4 %; Neutrophils # (auto) 4.99 K/uL (1.4-6.5); Neutrophils % (auto) 62.1 %; Platelet Count 270 K/uL (130-400); RDW Coefficient of Variation 14.6 % (11.5-14.5); RDW Standard Deviation 48.1 fL (36.4-46.3); Red Blood Count 4.32 M/uL (4.7-6.1); White Blood Count 8.06 K/uL (4.8-10.8)
--- NOTE | 2022-01-06 18:35 | XRay Report ---
XR chest 1V portable CLINICAL HISTORY: post op hypotension TECHNIQUE: Single frontal radiograph of the chest was obtained. Comparison: Comparison is made to chest 2 views 01/15/2021 FINDINGS: No lines and tubes are seen. The cardiomediastinal silhouette is stable. The lungs are clear. No evid ence of pleural effusion or pneumothorax. IMPRESSION: No acute chest disease. ACT 112: Negative or not required by law. Electronically signed by: Len Newton M.D. 01/06/2022 6:33 PM
[2022-01-06 18:43] LABS: INR 1.2 (0.9-1.1); Partial Thromboplastin Time 26.9 Seconds (21.0-31.0); Prothrombin Time 11.9 Seconds (9.0-12.0)
[2022-01-06 18:59] LABS: Albumin Globulin Ratio 1.4 (0.9-2); Albumin Level 4.2 gm/dl (3.4-5.0); BUN Creatinine Ratio 15.4 (10-20); Bilirubin,Total 0.8 mg/dl (0.2-1.0); Calcium 8.9 mg/dl (8.5-10.1); Est GFR (African American) 45.8 ml/min; Est GFR (Non-African American) 39.5 ml/min; Globulin 2.9 gm/dl (2.5-4.0); Potassium 3.9 mmol/L (3.5-5.1); Total Protein 7.1 gm/dl (6.0-8.3)
[2022-01-06 19:02] LABS: Troponin I 0.1 ng/ml (0-0.04)
--- NOTE | 2022-01-06 20:09 | History & Physical Report ---
Date of Service January 06, 2022 Assessment & Plan (1) Dizziness: Plan: Resolving following volume- remains with chills - Multiple etiologies possible with DDX: Hypovolemia vs. Medication (? new addition of Flomax) vs. Worsening of Aortic Valve vs. Infection vs. CVA - Continue volume resuscitation with LR overnight x1 liter- currently not dizzy - no focal deficits on neurological exam vision unchanged - HGB stable - No other focal deficits - Check electrolytes - Hold Flomax tonight and possibly in AM (2) Troponin level elevated: Plan: R/o Ischemia- known CAD however likely type II elevation. - ECG without dynamic ST changes and no anginal symptoms voiced by patient - Continue to trend Troponin I - Continue Isosorbide as hemodynamics allow - Continue Coumadin and ASA (3) Aortic valve stenosis: Plan: AI with Sclerosis - Was evaluated for TAVR and following Cath was not as severe so medically managed - ECHO in morning (4) THEO (acute kidney injury): Plan: DYLON II on CKD III - as above continue with volume overnight (5) Bladder cancer: Plan: S/p p Transurethral Resection Bladder Tumor, Large, Bladder neck, and anterior prostate, Fulguration of bladder lesions, Mitomycin Instillation, and bilateral retrograde pyelograms. - is on Keflex- 1 dose of Rocephin now while pending urine analysis and urine culture - Defer continuing pending further eval in AM (6) BPH w urinary obs/LUTS: Plan: As above - continue with bladder scans - straight cath if needed (7) Hematuria: Plan: As above- follow no acute interventions (8) HLD (hyperlipidemia): Plan: Continue home meds- no acute needs (9) HTN (hypertension): Plan: As above (10) Chronic anticoagulation: Plan: VTE with PE ~5 years ago - remains on Coumadin- was restarted following procedure- evaluate INR in morning and dose - (11) Chronic kidney disease, stage 3: Plan: As above (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, old, disturbances of vision: Plan: As per HPI - Currently don't feel that this is part of his symptomatology- he has no other neurologic deficits or vision changes - His dizziness is resolving with volume and no difficulty with ambulation currently History of Present Illness Primary Care Provider: Pawel Barbosa MD 81 YOM with past medical history of: BPH with LUTS, with malignant neoplasm of the bladder s/p TURBT with fulguration of bladder lesions and MITOMYCIN infusion on 01/02/22; Aortic Valve Sclerosis moderate AI/, CAD (multivessel- medical management) VTE (on Coumadin 03/27.5), GI bleed (2014), Dilated Aortic Root 4.4- 4.6, CKD III, Occipital CVA 2014. Patient comes in to the hospital for complaints of fatigue, dizziness and chills. He was recently started on Phenazopyridine, Tamsulosin, Percocet (which he has not taken) and Keflex PO since his procedure on Sunday. Overall the patient has felt "Ok" since his surgery more so just fatigued, he reports that he has been eating and drinking well. Today while they were at the store the patient started feeling dizzy without vertiginousness symptoms, or feeling sweaty or warm. This was not associated with any other weakness or chest pain. He continued to feel fatigued and needing to hold on to his 's shoulders with walking. He then called and went to his PCP (Dr. Barbosa) who initially saw him and referred him to the EMD for work up of his fatigue and dizziness. In the EMD the patient received routine labs to include Troponin I, and 1 liter of saline, ECG and CXR performed. His CBC is unremarkable and his BMP reveals mild elevation of his STAFF PSYCHIATRIST and Troponin of 0.1. His ECG is without any dynamic ST changes. Hospitalist was consulted for admission. UA and Urine culture sent, PCT negative at this time, ECG reviewed no acute changes, no chest pain or anginal symptoms that he has had in the past. Patient did get up and ambulate with me and dizziness is resolving following 1liter volume. Will admit to medical telemetry for continued work-up following of Troponin I, ECHO in the morning to eval his valve function, and will hold his finasteride tonight. He is sub-therapeutic on his INR at 1.2 this was restarted following his surgery. Patient COVID test on admission is: NEGATIVE Allergies Allergy/AdvReac Type Severity Reaction Status Date / Time pollen extracts Allergy Mild HAY FEVER Verified 01/06/22 19:29 ibuprofen AdvReac Unknown TOLD TO Verified 01/06/22 19:29 AVOID DUE TO BLEEDING ULCER Home Medications Medication Instructions Recorded Confirmed Type aspirin 81 mg tablet,delayed 81 mg PO HS 04/22/21 02/11/22 History release lisinopril 10 mg tablet 10 mg PO QAM 03/17/21 01/06/22 History omeprazole 40 mg capsule,delayed 40 mg PO QAM 03/17/21 01/06/22 History release atorvastatin 20 mg tablet (Lipitor) 20 mg PO HS 07/07/21 01/06/22 History multivitamin 1 tab PO QAM 07/07/21 01/06/22 History isosorbide mononitrate 30 mg 30 mg PO QAM 11/17/21 01/06/22 History tablet,extended release 24 hr metoprolol succinate 25 mg 25 mg PO QAM 11/17/21 01/06/22 History tablet,extended release 24 hr (Toprol XL) cephalexin 500 mg capsule 500 mg PO BID 7 Days #14 cap 01/02/22 01/06/22 Rx oxycodone-acetaminophen 7.5 mg-325 1 tab PO Q8H PRN #7 tab 01/02/22 01/06/22 Rx mg tablet (Percocet) phenazopyridine 200 mg tablet 200 mg PO Q8H PRN #10 tab 01/02/22 01/06/22 Rx (Pyridium) tamsulosin 0.4 mg capsule 0.4 mg PO HS #30 cap 01/02/22 01/06/22 Rx Past Med/Surg History Medical History (Updated 01/07/22 @ 00:34 by Catalino Maharaj MD) Aortic valve stenosis Moderate to severe per 05/2021 ECHO Moderate per 06/2021 cath Bladder cancer Chronic back pain Chronic kidney disease, stage 3 Coronary artery disease 75% stenosis D1, distal LCx- no intervention recommended. follows with Diabetes Presumed per Hgb A1C of 6.5 with preop labs 11/22/21 Diet controlled Dilated aortic root Moderate (stable) 4.5 cm per 05/2021 echo GERD (gastroesophageal reflux disease) Well controlled and stable History of basal cell carcinoma Right arm- s/p excision 2005 Had multiple lesions removed over time History of bleeding peptic ulcer 2014 requiring hospitalization and transfusion 11 packed RBCs, [place] [facility] [place] History of blood transfusion 2014 in setting of GI bleed- 11 packed RBCs History of CVA (cerebrovascular accident) 2014; 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 Hermosillo History of pulmonary embolism Pt unsure of specifics- possibly in 2014- on anticoagulation- Coumadin on hold since Sep 2021 due to hematuria History of sleep apnea Cannot tolerate device HLD (hyperlipidemia) HTN (hypertension) MVP (mitral valve prolapse) Dr. Barbosa monitors Personal history of deep vein thrombosis On Coumadin- currently on hold since Sep 2021 per PCP note (hematuria) Slow to wake up after anesthesia Spinal stenosis S/p surgery Surgical History History of basal cell carcinoma (BCC) excision History of cardiac cath 07/18/2021@ [facility]-75% proximal D1, 75% distal LCx prior to left PLB, 50% mid right PDA. no stents--follows with [place] [facility], Dr. Sow History of cataract surgery History of colonoscopy History of cystoscopy 11/24/2021: LMA#5 atraumatic. No issues per anesthesia postop progress note. History of esophagogastroduodenoscopy (EGD) History of lumbar surgery posterior L5-S1 transforaminal lumbar interbody fusion 09/11/2017: Grade 1 view, Glidescope #3, ETT#8.0 x 1 atraumatic. Per anesthesia postop progress note: "...slightly difficult airway requiring the use of glidescope and that a small laceration was noted on the patients lip after intubation..." History of nasal surgery History of tonsillectomy and adenoidectomy History of uvulopalatopharyngoplasty Status post surgical removal and fulguration of bladder neoplasm Family History Sister PONV (postoperative nausea and vomiting) Mother , dx [id number] Stroke Coronary heart disease Father , dx at 52 Myocardial infarction Social History Smoking Status: Former smoker Smoking End Date: 1961; Second Hand Exposure: No; Tobacco Cessation Education Requested by Patient: No Hx Alcohol Use: Yes Alcohol type: beer and wine Hx Substance Use: No Preferred Language: Portuguese Communication Ability: Effective 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 Beliefs That Will Affect Care: None Current Living Situation: Spouse Current Living Situation Comment: Lives w/ spouse @ home Other Information That Helps Us Care for You: No Feels Safe at Home: Yes Safety Concerns: Feels Safe At This Time Assistive Devices: None Review of Systems Review of Systems: REVIEW OF SYSTEMS: Constitutional: (+) chills, No fever, sweats Eyes: (+) hemianopsia right lateral, No diplopia, no worsening or blurred vision ENT: normal hearing, no trouble swallowing Respiratory: No cough, sputum, dyspnea at rest or on exertion Cardiovascular: (+) dizziness, lower extremity edema, No chest pain, tightness or palpitations Abdomen: No pain, nausea, vomiting, diarrhea or constipation : (+) Hematuria Musculoskeletal: No joint pain, calf pain, swelling Neurologic: No weakness, numbness/tingling, or balance problems Psychiatric: No anxiety or depression Skin: No rash or itch Physical Exam Physical Exam: PHYSICAL EXAM: General: awake, alert, appropriate and conversant Head: Normocephalic, atraumatic ENT: PERRLA, EOMI, no pharyngeal exudate, mucous membranes moist, he has residual lateral vision loss following his CVA Neuro: AAO x 3, speech clear and appropriate, strength intact bilaterally 5/5, sensation intact and equal all extremities and dermatomes, no pronator drift Chest: equal rise and fall of the chest, no accessory muscle use, no heaves or thrills, Clear to auscultation, on room air, Cardiac: Regular rate and rhythm, telemetry reviewed-NSR, skin warm dry, cap refill <3 seconds, peripheral pulses +2 no JVD, no murmur, 2+ edema feet ankles, 1+ to midshin GI: NABS x 4 quadrants, soft, nontender to palpation, no rebound, guarding or tenderness : Spontaneously voiding, mild suprapubic tenderness, Extremities: Normal inspection, no peripheral edema or erythema, calfs nontender to palpation Psych: Normal mood and affect Skin: no rash or erythema Results & Data Results & Data ([facility]) Vital Signs (Past 12 Hours) Vital Signs Temp Pulse Resp BP Pulse Ox 01/06/22 16:06 36.6 C 77 20 114/71 96 Laboratory Results Abnormal lab results 01/06/22 01/06/22 01/06/22 Range/Units 18:13 18:13 18:14 RBC 4.32 L (4.7-6.1) M/uL Hgb 12.8 L (14.0-18.0) g/dL Hct 39.3 L (42-52) % RDW Std Deviation 48.1 H (36.4-46.3) fL RDW Coeff of Adam 14.6 H (11.5-14.5) % Cassia # (Auto) 0.60 H (0.11-0.59) K/uL INR 1.2 H (0.9-1.1) BUN 25 H (6-23) mg/dl Creatinine 1.62 H (0.6-1.4) mg/dl Glucose 116 H (70-99(Fasting)) mg/dl Ionized Calcium (1.12-1.32) mmol/L Troponin I 0.10 H* (0-0.04) ng/ml Urine RBC (0-4) /hpf Urine WBC (0-5) /hpf 01/06/22 01/06/22 Range/Units 20:45 20:55 RBC (4.7-6.1) M/uL Hgb (14.0-18.0) g/dL Hct (42-52) % RDW Std Deviation (36.4-46.3) fL RDW Coeff of Adam (11.5-14.5) % Cassia # (Auto) (0.11-0.59) K/uL INR (0.9-1.1) BUN (6-23) mg/dl Creatinine (0.6-1.4) mg/dl Glucose (70-99(Fasting)) mg/dl Ionized Calcium 1.08 L (1.12-1.32) mmol/L Troponin I (0-0.04) ng/ml Urine RBC 10-30 H (0-4) /hpf Urine WBC 5-10 H (0-5) /hpf Diagnostic Findings Chest X-Ray 01/06/22 17:54 XR chest 1V portable CLINICAL HISTORY: post op hypotension TECHNIQUE: Single frontal radiograph of the chest was obtained. Comparison: Comparison is made to chest 2 views 01/15/2021 FINDINGS: No lines and tubes are seen. The cardiomediastinal silhouette is stable. The lungs are clear. No evidence of pleural effusion or pneumothorax. IMPRESSION: No acute chest disease. ACT 112: Negative or not required by law. Electronically signed by: Len Newton M.D. 01/06/2022 6:33 PM Medications Administered Discontinued Medications Sodium Chloride (Nss 1000ml) 1,000 mls @ 999 mls/hr IV .Q1H1M ONE Stop: 01/06/22 18:54 Last Infusion: 01/06/22 19:36 Dose: 0 mls/hr Documented by: [id number] Admin: 01/06/22 18:09 Dose: 999 mls/hr Documented by: [id number] Home Medications aspirin 81 mg tablet,delayed release 81 mg PO HS 03/17/21 [History Confirmed 01/06/22] lisinopril 10 mg tablet 10 mg PO QAM 03/17/21 [History Confirmed 01/06/22] omeprazole 40 mg capsule,delayed release 40 mg PO QAM 03/17/21 [History Confirmed 01/06/22] atorvastatin 20 mg tablet (Lipitor) 20 mg PO HS 07/07/21 [History Confirmed 01/06/22] multivitamin 1 tab PO QAM 07/07/21 [History Confirmed 01/06/22] isosorbide mononitrate 30 mg tablet,extended release 24 hr 30 mg PO QAM 11/17/21 [History Confirmed 01/06/22] metoprolol succinate 25 mg tablet,extended release 24 hr (Toprol XL) 25 mg PO QAM 11/17/21 [History Confirmed 01/06/22] cephalexin 500 mg capsule 500 mg PO BID 7 Days #14 cap 01/02/22 [Rx Confirmed 01/06/22] oxycodone-acetaminophen 7.5 mg-325 mg tablet (Percocet) 1 tab PO Q8H PRN #7 tab 01/02/22 [Rx Confirmed 01/06/22] phenazopyridine 200 mg tablet (Pyridium) 200 mg PO Q8H PRN #10 tab 01/02/22 [Rx Confirmed 01/06/22] tamsulosin 0.4 mg capsule 0.4 mg PO HS #30 cap 01/02/22 [Rx Confirmed 01/06/22] Active Medications Lactated Ringer's (Lr) 1,000 mls @ 100 mls/hr IV .Q10H ONE Stop: 01/07/22 06:29 Ceftriaxone Sodium (Rocephin) 2,000 mg in 70 mls @ 100 mls/hr IV ONE STA; Protocol Stop: 01/06/22 21:49 ECG Additional Comments: Sinus rhythm with 1st degree A-V block with Premature supraventricular complexes Moderate voltage criteria for LVH, may be normal variant Inferior infarct , age undetermined Abnormal ECG When compared with ECG of 22-NOV-2021 10:52, Premature supraventricular complexes are now Present Inferior infarct is now Present Code Status & VTE Plan Code Status CODE: FULL VTE: SCDs, Coumadin Supervising Physician Co-Signing Physician Notes Patient seen and examined, chart reviewed, case discussed with GOYO Steward and I agree with the assessment and plan as above Patient with dizziness, difficulty ambulating Recently started on chemotherapy for bladder ca Exam - patient appears fatigued 3/6 THA across precordium Abdomen soft, NT/ND Ext no edema Neuro no deficit Labs and images reviewed Hold Flomax check echo ceftriaxone pending urine culture PG Care Time/CCT Total # of Minutes Spent Total Time Spent with Patient: Total time spent is greater than 50% in coordination of care (as documented) at patient's floor/unit and/or counseling patient: Coding Level of Care Code 51355 Initial Inpt Care Lvl 3 Diagnoses Dizziness R42 THEO (acute kidney injury) N17.9 BPH w urinary obs/LUTS N40.1; N13.8 Hematuria R31.9 Aortic valve stenosis I35.0 HLD (hyperlipidemia) E78.5 HTN (hypertension) I10 Chronic anticoagulation Z79.01 Chronic kidney disease, stage 3 N18.30 Troponin level elevated R77.8 Bladder cancer C67.9 CVA, old, disturbances of vision I69.398; H53.9
[2022-01-06] MEDS ORDERED: LACTATED RINGER'S 1,000 ML IV ONE (20:30)
[2022-01-06 20:59] LABS: Appearance Urine Slightly Cloudy (Clear); Color Urine Orange
[2022-01-06 21:06] LABS: Specific Gravity Urine 1.023 (1.000-1.030)
[2022-01-06] MEDS ORDERED: cefTRIAXone SODIUM 2,000 MG/70 ML BAG IV STA (21:08)
[2022-01-06 21:11] LABS: Bacteria Urine Negative (Negative); Epithelial Cell Urine 0-5 /lpf (0-5)
[2022-01-06] MEDS ORDERED: ONDANSETRON INJ 2 MG/ML 2 ML VIAL IV PRN (22:47)
[2022-01-06] MEDS ORDERED: oxyCODONE/APAP 7.5/325MG TAB PO PRN (22:47)
[2022-01-06] MEDS ORDERED: ATORVASTATIN 20 MG TAB PO SCH (22:47)
[2022-01-06] MEDS ORDERED: POLYETHYLENE (MIRALAX) 17 GM PACK PO PRN (22:47)
[2022-01-06] MEDS ORDERED: ACETAMINOPHEN 325 MG TAB PO PRN (22:47)
[2022-01-06] MEDS ORDERED: ASPIRIN 81 MG ECTAB PO SCH (22:47)
[2022-01-06] MEDS ORDERED: WARFARIN SOD 5 MG TAB PO SCH (23:00)
[2022-01-06] MEDS: DOCUSATE SODIUM/SENNA 50/8.6MG TAB PO SCH (23:12)
[2022-01-07] MEDS: DOCUSATE SODIUM/SENNA 50/8.6MG TAB PO SCH (08:27)
[2022-01-07] MEDS ORDERED: METOPROLOL SUCC 25MG EXT REL TAB PO SCH (09:00)
[2022-01-07] MEDS ORDERED: lisinopril 10 MG TAB PO SCH (09:00)
[2022-01-07] MEDS ORDERED: ISOSORBIDE MONO EXTENDED REL 30 MG TABCR PO SCH (09:00)
[2022-01-07] MEDS ORDERED: PANTOprazole 40 MG TAB PO SCH (09:00)
[2022-01-07 09:20] LABS: Basophils # (auto) 0.02 K/uL (0-0.2); Basophils % (auto) 0.3 %; Eosinophils # (auto) 0.44 K/uL (0-0.5); Eosinophils % (auto) 6.8 %; Hematocrit (blood only) 34.2 % (42-52); Hemoglobin 11.3 g/dL (14.0-18.0); Immature Granulocytes # (auto) 0.01 K/uL (0.00-0.02); Immature Granulocytes % (auto) 0.2 %; Lymphocytes # (auto) 1.29 K/uL (1.2-3.4); Lymphocytes % (auto) 19.9 %; Mean Corpuscular Hemoglobin 29.5 pg (25-34); Mean Corpuscular Volume 89.3 fL (80-100); Mean Platelet Volume 9.3 fL (7.4-10.4); Monocytes # (auto) 0.47 K/uL (0.11-0.59); Monocytes % (auto) 7.3 %; Neutrophils # (auto) 4.25 K/uL (1.4-6.5); Neutrophils % (auto) 65.5 %; Platelet Count 210 K/uL (130-400); RDW Coefficient of Variation 14.6 % (11.5-14.5); RDW Standard Deviation 47.8 fL (36.4-46.3); Red Blood Count 3.83 M/uL (4.7-6.1); White Blood Count 6.48 K/uL (4.8-10.8)
[2022-01-07 09:42] LABS: BUN Creatinine Ratio 16.5 (10-20); Calcium 8.2 mg/dl (8.5-10.1); Creatinine Clr Calc Pharmacy 55.9 ml/min; Est GFR (African American) 65.1 ml/min; Est GFR (Non-African American) 56.2 ml/min; Potassium 3.9 mmol/L (3.5-5.1)
[2022-01-07 09:45] LABS: INR 1.2 (0.9-1.1); Prothrombin Time 12.1 Seconds (9.0-12.0)
[2022-01-07 11:33] VITALS: BP 130/72; PULSE 61; TEMP 97.5; O2SAT 95
[2022-01-07] MEDS ORDERED: WARFARIN SOD 2.5 MG TAB PO SCH (16:00)
--- NOTE | 2022-01-07 18:48 | Discharge Summary ---
Date of Service January 07, 2022 Admission HPI Per Admitting Provider 81 YOM with past medical history of: BPH with LUTS, with malignant neoplasm of the bladder s/p TURBT with fulguration of bladder lesions and MITOMYCIN infusion on 01/02/22; Aortic Valve Sclerosis moderate AI/, CAD (multivessel- medical management) VTE (on Coumadin 03/27.), GI bleed (2014), Dilated Aortic Root 4.4- 4.6, CKD III, Occipital CVA 2014. Patient comes in to the hospital for complaints of fatigue, dizziness and chills. He was recently started on Phenazopyridine, Tamsulosin, Percocet (which he has not taken) and Keflex PO since his procedure on Sunday. Overall the patient has felt "Ok" since his s urgery more so just fatigued, he reports that he has been eating and drinking well. Today while they were at the store the patient started feeling dizzy without vertiginousness symptoms, or feeling sweaty or warm. This was not associated with any other weakness or chest pain. He continued to feel fatigued and needing to hold on to his 's shoulders with walking. He then called and went to his PCP (Dr. Barbosa) who initially saw him and referred him to the EMD for work up of his fatigue and dizziness. In the EMD the patient received routine labs to include Troponin I, and 1 liter of saline, ECG and CXR performed. 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 His ECG is without any dynamic ST changes. Hospitalist was consulted for admission. UA and Urine culture sent, PCT negative at this time, ECG reviewed no acute changes, no chest pain or anginal symptoms that he has had in the past. Patient did get up and ambulate with me and dizziness is resolving following 1liter volume. Will admit to medical telemetry for continued work-up following of Troponin I, ECHO in the morning to eval his valve function, and will hold his finasteride tonight. He is sub-therapeutic on his INR at 1.2 this was restarted following his surgery. Patient COVID test on admission is: NEGATIVE Principal Diagnosis Hypotension, secondary to dehydration, tamsulosin and aortic stenosis Discharge Exam No dizziness, shortness of breath or chest pain. Patient feeling back to his baseline self. Constitutional WD/WN, vitals as above Respiratory normal respiratory effort, lungs clear to auscultation Cardiovascular Rate/Rhythm: regular rate and regular rhythm Heart Sounds: + murmur (Systolic) Extremities: no pedal edema Gastrointestinal (Abdomen) normal bowel sounds, soft, nontender, no hepatosplenomegaly Musculoskeletal no cyanosis or clubbing, extremities motor strength 5/5 Skin no rashes, warm and dry Neurologic moves all extremities and awake; not confused Psychiatric A+Ox3, euthymic affect Genitourinary no CVA tenderness Discharge Data Allergies Allergy/AdvReac Type Severity Reaction Status Date / Time pollen extracts Allergy Mild HAY FEVER Verified 01/06/22 19:29 ibuprofen AdvReac Unknown TOLD TO Verified 01/06/22 19:29 AVOID DUE TO BLEEDING ULCER Consultations 01/06/22 19:14 ED Decision to Admit Stat Hospital Course (1) Dizziness: Danielle Fitzpatrick is an 81 year old male admitted to [facility] from January 06-2021 due to chills, fatigue, dizziness following recent cystoscopy. No infective source of his symptoms was found. He was noted to be hypotensive after recent introduction of tamsulosin to his medical regimen after his procedure and suspect this along with dehydration and other anti- anginal medication in the setting of aortic stenosis likely the cause of his symptoms. 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 Recommend continuing tamsulosin but discontinuing his usual lisinopril. He will continue on his usual anti-anginals of ISMN and metoprolol as below. (2) Troponin level elevated: (3) Aortic valve stenosis: (4) THEO (acute kidney injury): (5) Bladder cancer: (6) BPH w urinary obs/LUTS: (7) Hematuria: (8) HLD (hyperlipidemia): (9) HTN (hypertension): (10) Chronic anticoagulation: (11) Chronic kidney disease, stage 3: (12) CVA, old, disturbances of vision: Total Time Total Time Spent Total Time Spent (In Minutes): 40 Total Time Includes: Examination of the Patient, Discharge Planning and Medication Reconciliation Discharge Plan Discharge Items Patient Disposition: Home - Self-Care Reason For Visit: DIZZINESS, CHILLS, FATIGUE Discharge Diagnosis: Hypotension, secondary to dehydration, tamsulosin and aortic stenosis Activity: Resume your previous activity Non-emergency contact: Primary Care Provider Call non-emergency contact if: you have any medication questions and your symptoms worsen Follow-up/Referrals: Pawel Barbosa MD [Primary Care Provider] - Diet: Carb Consistent or DM2 Addtl Attending Provider Instructions: You are admitted to [facility] from January 06-2021 due to chills, fatigue, dizziness. No infective source of your symptoms was found. Symptoms resolved with intravenous fluids with labs suggestive of mild dehydration in the setting of new prescription of tamsulosin and known aortic stenosis. Recommend continuing tamsulosin but discontinuing your usual lisinopril. Pending Studies at Discharge: No Stand-Alone Forms: My [facility], Smoking Cessation Medications and DC Order Prescriptions: Continued atorvastatin [Lipitor] 20 mg tablet 20 mg PO HS RF: 0 multivitamin Tablet 1 tab PO QAM RF: 0 isosorbide mononitrate 30 mg tablet extended release 24 hr 30 mg PO QAM RF: 0 metoprolol succinate [Toprol XL] 25 mg tablet extended release 24 hr 25 mg PO QAM RF: 0 phenazopyridine [Pyridium] 200 mg tablet 200 mg PO Q8H PRN (Reason: pain) Qty: 10 RF: 0 tamsulosin 0.4 mg capsule 0.4 mg PO HS Qty: 30 RF: 0 oxycodone-acetaminophen [Percocet] 7.5-325 mg tablet 1 tab PO Q8H PRN (Reason: pain) Qty: 7 RF: 0 omeprazole 40 mg Capsule,Delayed Release(Dr/Ec) 40 mg PO QAM RF: 0 aspirin 81 mg Tablet,Delayed Release (Dr/Ec) 81 mg PO HS RF: 0 Discontinued lisinopril 10 mg Tablet 10 mg PO QAM RF: 0 Discharge Orders: Discharge Order (Routine); Ordered 01/07/22 Ordered By: Herber Maria Admission Data Admit Date/Time: 01/06/22 20:58 Attending Provider: Herber Maria Admit Provider: Carolee Paniagua Primary Care Provider: Pawel Barbosa Other Providers: Carolee Paniagua Other Interventions: Discharge Summary Assessment (RN) Last Done: 01/07/22 18:39 Coding Level of Care Code 45639 OBS Care - Discharge Diagnoses Dizziness R42 Troponin level elevated R77.8 Aortic valve stenosis I35.0 THEO (acute kidney injury) N17.9 Bladder cancer C67.9 BPH w urinary obs/LUTS N40.1; N13.8 Hematuria R31.9 HLD (hyperlipidemia) E78.5 HTN (hypertension) I10 Chronic anticoagulation Z79.01 Chronic kidney disease, stage 3 N18.30 CVA, old, disturbances of vision I69.398; H53.9
--- NOTE | 2022-01-07 21:51 | XCELERA ---
[id number] \\[id number]
--- NOTE | 2022-01-08 17:47 | Electrocardiogram Report ---
Test Reason : Blood Pressure : / mmHG Vent. Rate : 064 BPM Atrial Rate : 096 BPM P-R Int : 276 ms QRS Dur : 082 ms QT Int : 464 ms P-R-T Axes : 061 015 055 degrees QTc Int : 478 ms Poor data quality, interpretation may be adversely affected Sinus rhythm with 1st degree A-V block with Premature atrial complexes Otherwise normal ECG When compared with ECG of 22-NOV-2021 10:52, Premature atrial complexes are now Present Confirmed by Jairo Feliciano ([id number]) on 01/08/2022 5:47:41 PM Referred By: Pawel Barbosa Confirmed By:Jairo Feliciano
--- NOTE | 2022-01-08 18:01 | Electrocardiogram Report ---
Test Reason : Blood Pressure : / mmHG Vent. Rate : 064 BPM Atrial Rate : 064 BPM P-R Int : 268 ms QRS Dur : 086 ms QT Int : 460 ms P-R-T Axes : 012 -10 070 degrees QTc Int : 474 ms Poor data quality, interpretation may be adversely affected Sinus rhythm with 1st degree A-V block with Premature supraventricular complexes Moderate voltage criteria for LVH, may be normal variant Inferior infarct , age undetermined Abnormal ECG When compared with ECG of 06-JAN-2022 17:12, (unconfirmed) Inferior infarct is now Present Confirmed by Jairo Feliciano ([id number]) on 01/08/2022 6:01:50 PM Referred By: Pawel Barbosa Confirmed By:Jairo Feliciano
--- NOTE | 2022-01-08 18:22 | Electrocardiogram Report ---
Test Reason : Blood Pressure : / mmHG Vent. Rate : 077 BPM Atrial Rate : 077 BPM P-R Int : 278 ms QRS Dur : 086 ms QT Int : 418 ms P-R-T Axes : 026 -12 014 degrees QTc Int : 473 ms Sinus rhythm with 1st degree A-V block Moderate voltage criteria for LVH, may be normal variant Inferior infarct (cited on or before 06-JAN-2022) Abnormal ECG When compared with ECG of 06-JAN-2022 19:16, (unconfirmed) Premature supraventricular complexes are no longer Present Confirmed by Jairo Feliciano ([id number]) on 01/08/2022 6:22:14 PM Referred By: Pawel Barbosa Confirmed By:Jairo Feliciano
== END 2022-01-07 18:57 | disposition home or self-care (01) | DRG 315 ==
LOC: ED 15:54 → 2N 20:58 → SUATTDRO 20:58 → 2N 21:44

== ENCOUNTER 2022-01-11 22:51 | Observation (INO) ==
[2022-01-11 23:37] LABS: Basophils # (auto) 0.01 K/uL (0-0.2); Basophils % (auto) 0.1 %; Eosinophils # (auto) 0.42 K/uL (0-0.5); Eosinophils % (auto) 3.7 %; Hematocrit (blood only) 33.4 % (42-52); Hemoglobin 10.9 g/dL (14.0-18.0); Immature Granulocytes # (auto) 0.04 K/uL (0.00-0.02); Immature Granulocytes % (auto) 0.4 %; Lymphocytes # (auto) 1.25 K/uL (1.2-3.4); Mean Corpuscular Hemoglobin 29.4 pg (25-34); Mean Corpuscular Hgb Conc 32.6 g/dL (32-36); Mean Platelet Volume 10.3 fL (7.4-10.4); Monocytes # (auto) 0.81 K/uL (0.11-0.59); Monocytes % (auto) 7.1 %; Neutrophils # (auto) 8.82 K/uL (1.4-6.5); Neutrophils % (auto) 77.7 %; Platelet Count 184 K/uL (130-400); RDW Coefficient of Variation 14.5 % (11.5-14.5); RDW Standard Deviation 47.6 fL (36.4-46.3); Red Blood Count 3.71 M/uL (4.7-6.1); White Blood Count 11.35 K/uL (4.8-10.8)
[2022-01-12 00:02] LABS: Albumin Globulin Ratio 1.5 (0.9-2); Albumin Level 3.5 gm/dl (3.4-5.0); BUN Creatinine Ratio 13.6 (10-20); Bilirubin,Total 1.1 mg/dl (0.2-1.0); Calcium 8.2 mg/dl (8.5-10.1); Creatinine Clr Calc Pharmacy 47.5 ml/min; Est GFR (African American) 51.5 ml/min; Est GFR (Non-African American) 44.4 ml/min; Globulin 2.3 gm/dl (2.5-4.0); Magnesium 1.9 mg/dl (1.7-2.4); Total Protein 5.8 gm/dl (6.0-8.3)
[2022-01-12 00:41] LABS: Troponin I 0.16 ng/ml (0-0.04)
[2022-01-12 00:58] LABS: INR 1.4 (0.9-1.1); Partial Thromboplastin Ratio 1.2; Partial Thromboplastin Time 30.5 Seconds (21.0-31.0); Prothrombin Time 13.5 Seconds (9.0-12.0)
--- NOTE | 2022-01-12 01:21 | Emergency Department Note ---
History of Present Illness General Chief Complaint: Shortness of Breath/Dyspnea Time Seen by Provider: 01/11/22 23:09 Source: patient Mode of arrival: EMS Limitations: no limitations History of Present Illness Provider Complaint: shortness of breath Onset (ago): day(s) (1) Severity: moderate Consistency/Duration: + constant Relieved By: + oxygen Exacerbated By: + movement Context: + recent illness (Started feeling poorly/weak 3 days ago, SOB x 1 day) Known history of: other (Valvular heart dx) Associated symptoms: + fever (103.2 this evening) Treatment prior to arrival: none HPI Narrative: recent admit to [facility] d/t similar sx no infectious etiology found. slight squeeze in chest this evening, not necessarily r/t exertion. States he hasn't exerted much. h/o bladder CA on meds that turns urine orange (Dr. Vines) no pain with urination + weak and nauseated but no vomiting. appt to see his PCP later today but didn't feel well enough to to make it through the night Related Data Home oxygen amount: none Home Medications Medication Instructions Recorded Confirmed Type aspirin 81 mg tablet,delayed 81 mg PO HS 03/17/21 01/12/22 History release omeprazole 40 mg capsule,delayed 40 mg PO QAM 03/17/21 01/12/22 History release atorvastatin 20 mg tablet (Lipitor) 20 mg PO HS 07/07/21 01/12/22 History multivitamin 1 tab PO QAM 07/07/21 01/12/22 History isosorbide mononitrate 30 mg 30 mg PO QAM 11/17/21 01/12/22 History tablet,extended release 24 hr metoprolol succinate 25 mg 25 mg PO QAM 11/17/21 01/12/22 History tablet,extended release 24 hr (Toprol XL) oxycodone-acetaminophen 7.5 mg-325 1 tab PO Q8H PRN #7 tab 01/02/22 01/12/22 Rx mg tablet (Percocet) phenazopyridine 200 mg tablet 200 mg PO Q8H PRN #10 tab 01/02/22 01/12/22 Rx (Pyridium) tamsulosin 0.4 mg capsule 0.4 mg PO HS #30 cap 01/02/22 01/12/22 Rx cefdinir 300 mg capsule 300 mg PO BID 4 Days #8 cap 02/18/22 Rx Allergies Allergy/AdvReac Type Severity Reaction Status Date / Time pollen extracts Allergy Mild HAY FEVER Verified 01/12/22 00:41 ibuprofen AdvReac Unknown TOLD TO Verified 01/12/22 00:41 AVOID DUE TO BLEEDING ULCER Past Med/Surg History Medical History Aortic valve stenosis Moderate to severe per 05/2021 ECHO Moderate per 06/2021 cath Bladder cancer Chronic back pain Chronic kidney disease, stage 3 Coronary artery disease 75% stenosis D1, distal LCx- no intervention recommended. follows with Diabetes Presumed per Hgb A1C of 6.5 with preop labs 11/22/21 Diet controlled Dilated aortic root Moderate (stable) 4.5 cm per 05/2021 echo GERD (gastroesophageal reflux disease) Well controlled and stable History of basal cell carcinoma Right arm- s/p excision 2005 Had multiple lesions removed over time History of bleeding peptic ulcer 2014 requiring hospitalization and transfusion 11 packed RBCs, [place] [facility]2021 note History of blood transfusion 2014 in setting of GI bleed- 11 packed RBCs History of CVA (cerebrovascular accident) 2014; 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 Hermosillo History of pulmonary embolism Pt unsure of specifics- possibly in 2014- on anticoagulation- Coumadin on hold since Sep 2021 due to hematuria History of sleep apnea Cannot tolerate device HLD (hyperlipidemia) HTN (hypertension) MVP (mitral valve prolapse) Dr. Barbosa monitors Personal history of deep vein thrombosis On Coumadin- currently on hold since Sep 2021 per PCP note (hematuria) Slow to wake up after anesthesia Spinal stenosis S/p surgery Surgical History History of basal cell carcinoma (BCC) excision History of cardiac cath 07/18/2021@ [facility]-75% proximal D1, 75% distal LCx prior to left PLB, 50% mid right PDA. no stents--follows with [facility], Dr. Sow History of cataract surgery History of colonoscopy History of cystoscopy 11/24/2021: LMA#5 atraumatic. No issues per anesthesia postop progress note. History of esophagogastroduodenoscopy (EGD) History of lumbar surgery posterior L5-S1 transforaminal lumbar interbody fusion 09/11/2017: Grade 1 view, Glidescope #3, ETT#8.0 x 1 atraumatic. Per anesthesia postop progress note: "...slightly difficult airway requiring the use of glidescope and that a small laceration was noted on the patients lip after intubation..." History of nasal surgery History of tonsillectomy and adenoidectomy History of uvulopalatopharyngoplasty Status post surgical removal and fulguration of bladder neoplasm Family History Sister PONV (postoperative nausea and vomiting) Mother , dx [id number] Stroke Coronary heart disease Father , dx at 52 Myocardial infarction Social History Smoking Status: Former smoker Tobacco Type: Cigarettes Second Hand Exposure: No; Hx Alcohol Use: Yes Alcohol type: beer and wine Hx Substance Use: No Preferred Language: Mauritanian Communication Ability: Effective Visual Impairment: No Limitations Jewelry Sales Required: No Beliefs That Will Affect Care: None marital status: Current Living Situation: Spouse Current Living Situation Comment: Lives w/ spouse @ home How many Children do You have: 4 Feels Safe at Home: Yes Assistive Devices: Walker Review of Systems See HPI for pertinent positives & negatives. and A total of 10 systems reviewed and were otherwise negative Physical Exam Vital Signs: Vital Signs - 24 hr 01/11/22 22:56 01/12/22 01:13 01/12/22 02:56 Temperature 37.4 C Temperature Source Oral Pulse Rate 76 80 Pulse Rate [Apical ] 77 Respiratory Rate 96 H 24 Respiratory Effort / Characteristics Respiratory Depth Blood Pressure 159/85 H Blood Pressure [Ri ght Arm] 165/90 H Blood Pressure Bianca n 109 Blood Pressure Bianca n [Right Arm] 115 Pulse Oximetry 96 94 92 Oxygen Delivery Me thod Nasal Cannula Nasal Cannula Room Air Oxygen Flow Rate 2 2 Sepsis Recent Feve r Within 48 Hours Yes Sepsis New/Unexpla ined Change in Men cyndi Status N/A Sepsis Action Take n by Nursing No Action Required Pulse Oximetry Pos t Tiitration 96 01/12/22 05:00 Temperature Temperature Source Pulse Rate Pulse Rate [Apical ] 71 Respiratory Rate 16 Respiratory Effort / Characteristics Non-Labored Sponta neous Respiratory Depth Normal Blood Pressure Blood Pressure [Ri ght Arm] 143/77 H Blood Pressure Bianca n Blood Pressure Bianca n [Right Arm] 99 Pulse Oximetry 94 Oxygen Delivery Me thod Room Air Oxygen Flow Rate Sepsis Recent Feve r Within 48 Hours Sepsis New/Unexpla ined Change in Men cyndi Status Sepsis Action Take n by Nursing Pulse Oximetry Pos t Tiitration Physical Exam: Vital signs reviewed. General: Somewhat ill appearing 81 yo male, in no significant distress. HEENT: No scleral icterus, PERRLA, neck supple. Atraumatic. Cardiovascular: Regular rate and rhythm, systolic ejection murmur Pulmonary: Clear to auscultation bilaterally, somewhat increased work of breath ing. Abdomen: Soft, obese, nontender, nondistended, positive bowel sounds. Musculoskeletal: Atraumatic, mild peripheral edema. Neurologic: Patient awake alert and oriented x 3 Skin: Warm, dry, no rash Course Administered Medications Discontinued Medications Acetaminophen (Acetaminophen 325 Mg Tab) 650 mg PO Q4H PRN PRN Reason: pain/fever Stop: 02/11/22 06:26 Last Admin: 01/12/22 17:54 Dose: 650 mg Documented by: [id number] Acetaminophen (Acetaminophen 500 Mg Tab) 1,000 mg PO Q8 PRN PRN Reason: pain/fever Stop: 02/11/22 06:26 Last Admin: 01/13/22 08:27 Dose: 1,000 mg Documented by: [id number] Aspirin (Aspirin 81 Mg Ectab) 81 mg PO [facility] Stop: 02/11/22 20:59 Last Admin: 01/12/22 20:25 Dose: 81 mg Documented by: [id number] Atorvastatin Calcium (Atorvastatin 20 Mg Tab) 20 mg PO [facility] Stop: 02/11/22 20:59 Last Admin: 01/12/22 20:24 Dose: 20 mg Documented by: [id number] Enoxaparin Sodium (Enoxaparin Inj 40 Mg/0.4 Ml Syr) 40 mg SQ QAM [facility] Stop: 02/11/22 08:59 Last Admin: 01/12/22 09:51 Dose: Not Given Documented by: [id number] Piperacillin Sod/Tazobactam Sod (Zosyn) 4.5 gm in 120 mls @ 240 mls/hr IV NOW ONE Stop: 01/12/22 03:03 Last Infusion: 01/12/22 03:28 Dose: 0 mls/hr Documented by: [id number] Admin: 01/12/22 02:52 Dose: 240 mls/hr Documented by: [id number] Sodium Chloride (Nss 1000ml) 1,000 mls @ 125 mls/hr IV .Q8H [facility] Stop: 02/11/22 02:44 Last Infusion: 01/12/22 16:22 Dose: 0 mls/hr Documented by: [id number] Admin: 01/12/22 12:37 Dose: 125 mls/hr Documented by: [id number] Infusion: 01/12/22 10:51 Dose: 125 mls/hr Documented by: [id number] Admin: 01/12/22 02:51 Dose: 125 mls/hr Documented by: [id number] Piperacillin Sod/Tazobactam (Sod 4.5 gm/ Dextrose) 120 mls @ 30 mls/hr IV Q8H [facility]; Protocol Stop: 01/14/22 09:59 Last Infusion: 01/12/22 22:04 Dose: 0 mls/hr Documented by: [id number] Admin: 01/12/22 17:54 Dose: 30 mls/hr Documented by: [id number] Infusion: 01/12/22 14:45 Dose: 0 mls/hr Documented by: [id number] Admin: 01/12/22 10:45 Dose: 30 mls/hr Documented by: [id number] Ceftriaxone Sodium 2,000 mg/ (Dextrose) 70 mls @ 100 mls/hr IV DAILY@0400 [facility]; Protocol Stop: 01/20/22 03:59 Last Infusion: 01/13/22 04:10 Dose: 0 mls/hr Documented by: [id number] Admin: 01/13/22 03:24 Dose: 100 mls/hr Documented by: [id number] Influenza Virus Vaccine (Influenza Vaccine High Dose Pf 65+ 0.7 Ml Syr) 0.7 ml IM .ONCE ONE Stop: 01/12/22 06:57 Last Admin: 01/13/22 11:35 Dose: Not Given Documented by: [id number] Insulin Aspart (Insulin Aspart Per Unit) 0 units SC ACHS [facility] Stop: 02/11/22 07:29 Last Admin: 01/12/22 10:04 Dose: Not Given Documented by: [id number] Isosorbide Mononitrate (Isosorbide [place] Extended Rel 30 Mg Tabcr) 30 mg PO [facility] Stop: 02/11/22 08:59 Last Admin: 01/13/22 08:27 Dose: 30 mg Documented by: [id number] Admin: 01/12/22 09:56 Dose: 30 mg Documented by: [id number] Metoprolol Succinate (Metoprolol Succ 25mg Ext Rel Tab) 25 mg PO [facility] Stop: 02/11/22 08:59 Last Admin: 01/13/22 08:27 Dose: 25 mg Documented by: [id number] Admin: 01/12/22 09:55 Dose: 25 mg Documented by: [id number] Pantoprazole Sodium (Pantoprazole 40 Mg Tab) 40 mg PO [facility] Stop: 02/11/22 08:59 Last Admin: 01/13/22 08:27 Dose: 40 mg Documented by: [id number] Admin: 01/12/22 09:56 Dose: 40 mg Documented by: [id number] Tamsulosin HCl (Tamsulosin Hcl 0.4 Mg Cap) 0.4 mg PO [facility] Stop: 02/11/22 20:59 Last Admin: 01/12/22 20:24 Dose: 0.4 mg Documented by: [id number] Medical Decision Making Differential Diagnosis Infection, dehydration, metabolic abnormality, hypo/hyperglycemia, electrolyte disturbance, anemia, hypoxia, cardiac sources, intracerebral event, toxicologic, neurologic, as well as other pathologies. Medical Records Attestation: I reviewed the patient's medical records. Home Medications Current Medication List: was personally reviewed by me Laboratory Data Attestation: I reviewed the patient's lab results. Result diagrams: 01/13/22 08:29 01/13/22 08:29 Lab Results 01/11/22 01/11/22 01/11/22 Range/Units Unknown Unknown Unknown WBC 11.35 H (4.8-10.8) K/uL RBC 3.71 L (4.7-6.1) M/uL Hgb 10.9 L (14.0-18.0) g/dL Hct 33.4 L (42-52) % MCV 90.0 (80-100) fL MCH 29.4 (25-34) pg MCHC 32.6 (32-36) g/dL RDW Std Deviation 47.6 H (36.4-46.3) fL RDW Coeff of Adam 14.5 (11.5-14.5) % Plt Count 184 (130-400) K/uL MPV 10.3 (7.4-10.4) fL Immature Gran % (Auto) 0.4 % Neut % (Auto) 77.7 % Lymph % (Auto) 11.0 % [place] % (Auto) 7.1 % Eos % (Auto) 3.7 % Baso % (Auto) 0.1 % Neut # (Auto) 8.82 H (1.4-6.5) K/uL Lymph # (Auto) 1.25 (1.2-3.4) K/uL [place] # (Auto) 0.81 H (0.11-0.59) K/uL Eos # (Auto) 0.42 (0-0.5) K/uL Baso # (Auto) 0.01 (0-0.2) K/uL Immature Gran # (Auto) 0.04 H (0.00-0.02) K/uL PT Cancelled INR Cancelled APTT Cancelled PTT Ratio Cancelled Sodium 130 L (136-145) mmol/L Potassium 4.0 (3.5-5.1) mmol/L Chloride 101 (98-107) mmol/L Carbon Dioxide 22 (21-32) mmol/L Anion Gap 7 (3-11) BUN 20 (6-23) mg/dl Creatinine 1.47 H (0.6-1.4) mg/dl Est Cr Clr Drug Dosing 47.5 ml/min Est GFR ( Amer) 51.5 ml/min Est GFR (Non-Af Amer) 44.4 ml/min BUN/Creatinine Ratio 13.6 (10-20) Glucose 132 H (70-99(Fasting)) mg/dl Lactate (0.4-2.0) mmol/L Calcium 8.2 L (8.5-10.1) mg/dl Magnesium 1.9 (1.7-2.4) mg/dl Total Bilirubin 1.1 H (0.2-1.0) mg/dl AST 11 L (13-39) U/L ALT 10 (7-52) U/L Alkaline Phosphatase 72 (34-104) U/L Troponin I 0.16 H* (0-0.04) ng/ml Total Protein 5.8 L (6.0-8.3) gm/dl Albumin 3.5 (3.4-5.0) gm/dl Globulin 2.3 L (2.5-4.0) gm/dl Albumin/Globulin Ratio 1.5 (0.9-2) Urine Color Urine Appearance (Clear) Urine pH (4.5-7.5) Ur Specific [place] (1.000-1.030) Urine Protein (Negative) Urine Glucose (UA) (Negative) Urine Ketones (Negative) Urine Blood (Negative) Urine Nitrite (Negative) Urine Bilirubin (Negative) Urine Urobilinogen (Negative) Ur Leukocyte Esterase (Negative) Urine WBC (Auto) (0-5) /hpf Urine RBC (Auto) (0-4) /hpf U Hyaline Cast (Auto) (0-5) /lpf U Epithel Cells (Auto) (0-5) /lpf Urine Bacteria (Auto) (Negative) 01/12/22 01/12/22 01/12/22 Range/Units 00:38 00:38 01:10 WBC (4.8-10.8) K/uL RBC (4.7-6.1) M/uL Hgb (14.0-18.0) g/dL Hct (42-52) % MCV (80-100) fL MCH (25-34) pg MCHC (32-36) g/dL RDW Std Deviation (36.4-46.3) fL RDW Coeff of Adam (11.5-14.5) % Plt Count (130-400) K/uL MPV (7.4-10.4) fL Immature Gran % (Auto) % Neut % (Auto) % Lymph % (Auto) % [place] % (Auto) % Eos % (Auto) % Baso % (Auto) % Neut # (Auto) (1.4-6.5) K/uL Lymph # (Auto) (1.2-3.4) K/uL [place] # (Auto) (0.11-0.59) K/uL Eos # (Auto) (0-0.5) K/uL Baso # (Auto) (0-0.2) K/uL Immature Gran # (Auto) (0.00-0.02) K/uL PT 13.5 H INR 1.4 H APTT 30.5 PTT Ratio 1.2 Sodium (136-145) mmol/L Potassium (3.5-5.1) mmol/L Chloride (98-107) mmol/L Carbon Dioxide (21-32) mmol/L Anion Gap (3-11) BUN (6-23) mg/dl Creatinine (0.6-1.4) mg/dl Est Cr Clr Drug Dosing ml/min Est GFR ( Amer) ml/min Est GFR (Non-Af Amer) ml/min BUN/Creatinine Ratio (10-20) Glucose (70-99(Fasting)) mg/dl Lactate 0.8 (0.4-2.0) mmol/L Calcium (8.5-10.1) mg/dl Magnesium (1.7-2.4) mg/dl Total Bilirubin (0.2-1.0) mg/dl AST (13-39) U/L ALT (7-52) U/L Alkaline Phosphatase (34-104) U/L Troponin I (0-0.04) ng/ml Total Protein (6.0-8.3) gm/dl Albumin (3.4-5.0) gm/dl Globulin (2.5-4.0) gm/dl Albumin/Globulin Ratio (0.9-2) Urine Color Dark Yellow Urine Appearance Clear (Clear) Urine pH 5.0 (4.5-7.5) Ur Specific [place] 1.006 (1.000-1.030) Urine Protein Trace H (Negative) Urine Glucose (UA) Negative (Negative) Urine Ketones Negative (Negative) Urine Blood 2+ H (Negative) Urine Nitrite Positive A (Negative) Urine Bilirubin Negative (Negative) Urine Urobilinogen Negative (Negative) Ur Leukocyte Esterase 1+ H (Negative) Urine WBC (Auto) 5-10 H (0-5) /hpf Urine RBC (Auto) 0-4 (0-4) /hpf U Hyaline Cast (Auto) 1-5 (0-5) /lpf U Epithel Cells (Auto) 5-10 H (0-5) /lpf Urine Bacteria (Auto) Negative (Negative) Imaging Data Radiologist's Impression: Chest X-Ray 01/11/22 23:15 XR chest 1V portable HISTORY: 81 years-old Male Dyspnea acute shortness of breath COMPARISON: Chest radiograph 01/06/2022 and 11/22/2021, CTA chest 05/14/2016 TECHNIQUE: Portable AP view of the chest FINDINGS: Cardiac silhouette is enlarged. No pneumothorax, or large pleural effusion. Chronic right hemidiaphragmatic elevation. Progressively worsened left greater the right of ill-defined interstitial coarsening with subtle airspace opacities. Degenerative changes of the shoulders and spine. IMPRESSION: 1. Progressively worsened interstitial coarsening with ill-defined left greater than right airspace opacities suggestive of an infectious or inflammatory pneumonitis such as viral pneumonia. 2.Cardiomegaly. ACT 112: Negative or not required by law. The above report was generated using voice recognition software. It may contain grammatical, syntax or spelling errors. Electronically signed by: Brennen Stephen M.D. 01/12/2022 6:39 AM ECG Data Attestation: I personally reviewed and interpreted this ECG as follows: (sinus rhythm with a first-degree AV block at 78 bpm, possible LVH, nonspecific T wave abnormality in the lateral leads. normal ST segments. Q waves noted in the inferior leads. Normal QTc 435) Blood Pressure Blood Pressure Findings: Elevated blood pressure Blood Pressure Disposition: Referred to patients primary care provider MDM Narrative This patient was evaluated and appeared to be in no significant distress. IV access was obtained and laboratory work was drawn. 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 Chest x-ray was performed and reveals some worsening interstitial coarsening consistent with a viral pneumonitis. Covid swab was performed and is negative. Troponin is slightly elevated at 0.16 but is consistent with his baseline. EKG reveals no evidence of acute ischemic change. Patient recently completed a course of Keflex due to bladder CA and treatment. Urinalysis is contaminated but it is concerning for infection will be sent for culture. He was given a dose of IV Zosyn. Lactate is normal, white blood cell count is mil dly elevated. Case was discussed with hospitalist service as his and daughter do not feel confident in a disposition home and feel as though he is unstable currently. He was just discharged from our facility. [facility] hospitalist service was contacted for further management. Impression & Plan Fever, Acute dyspnea, Weakness, Abnormal urinalysis Discharge Plan Visit Data Chief Complaint: Shortness of Breath/Dyspnea ED Provider: Ivy Vazquez Discharge Problem: Fever, Acute dyspnea, Weakness, Abnormal urinalysis Patient Disposition: Admitted As Inpatient Discharge Instructions Interventions: ED Discharge Assessment Last Done: 01/12/22 06:28
[2022-01-12 01:35] LABS: Appearance Urine Clear (Clear); Bacteria Urine Automated Negative (Negative); Bilirubin Urine Negative (Negative); Blood Urine 2+ (Negative); Color Urine Dark Yellow; Glucose Urine UA Negative (Negative); Ketones Urine Negative (Negative); Leukocyte Esterase Urine 1+ (Negative); Nitrite Urine Positive (Negative); Protein Urine Trace (Negative); RBC Urine Automated 0-4 /hpf (0-4); Specific Gravity Urine 1.006 (1.000-1.030); Urobilinogen Urine Negative (Negative)
[2022-01-12] MEDS ORDERED: PIPERACILLIN/TAZOBACTAM 4.5 GM/120 ML BAG IV ONE (02:34)
[2022-01-12] MEDS ORDERED: PIPERACILL/TAZOBAC CONSULT ACTIVE PRN (02:34)
[2022-01-12] MEDS: SODIUM CHLORIDE 0.9% 1000ML 1,000 ML IV SCH ×2 (02:51→12:37)
--- NOTE | 2022-01-12 04:09 | History & Physical Report ---
Date of Service January 12, 2022 Assessment & Plan (1) Fatigue: Plan: 81yo male with a complex PMH including bladder CA s/p TURBT with bladder lesion fulguration and mitomycin infusion (01/02/22), BPH with LUTS, aortic stenosis, CKD3, CAD s/p PCI (06/2021), VTE, GI bleed (2014), and occipital CVA (2014) presents with a 2-3 day history of fatigue, fever, hematuria, and worsening BURKS. Fatigue, fever, dyspnea on exertion, hematuria On arrival, VSS, patient afebrile, no acute distress Labs notable for mild leukocytosis, anemia, mild hyponatremia, THEO (Cr 1.47 up from a baseline of ~1.1), and elevated troponin to 0.16 UA notable for nitrites, leuk esterase, WBCs, 2+ blood CXR: progressively worsened interstitial coarsening with ill-defined L>R airspace opacities suggestive of infectious vs inflammatory pneumonitis Differential includes acute complicated cystitis, pneumonia, progression of patient's cancer, others Blood and urine cultures pending Patient received zosyn in the ED; will defer further antibiotic decisions to day team APAP as needed for fever Elevated troponin Troponin 0.16 on admission; EKG shows NSR with 1st degree AV block, no overt ischemic change, no chest pain Troponin elevated on last admission as well - unclear if this represents demand ischemia or if patient has a chronically elevated troponin - Trend troponin q6h until peak and fall Elevated INR Patient has been on warfarin in the past - unclear if patient has been taking this recently Trend PT/INR THEO on CKD3 Creatinine on admission 1.47 (baseline ~1.1) NSS @ 125mL/hr Trend daily BMP BPH with LUTS Continue home phenazopyridine, tamsulosin DM2 A1c 6.5% (10/2021) Of note, patient reports never having been told about this A1c or a diagnosis of DM2 No home diabetes meds to be held BSG checks ACHS, ISS Repeat A1c ordered HTN BP well-controlled at this time Contine home metoprolol HLD, CAD Continue home atorvastatin, ASA Aortic stenosis [id number] as seen on recent echo (01/07/22) Medical management as above Bladder cancer Continue home percocet prn FEN: heart healthy, DM2 diet, NSS @ 125mL/hr Code status: full code DVT ppx: held on admission due to hematuria Dispo: med/surg (2) THEO (acute kidney injury): (3) Aortic valve stenosis: (4) Bladder cancer: (5) BPH w urinary obs/LUTS: (6) Chronic kidney disease, stage 3: (7) Dilated aortic root: (8) Elevated troponin: (9) Hematuria: (10) HLD (hyperlipidemia): (11) HTN (hypertension): History of Present Illness Primary Care Provider: Pawle Barbosa MD 81yo male with a complex PMH including bladder CA s/p TURBT with bladder lesion fulguration and mitomycin infusion (01/02/22), BPH with LUTS, aortic stenosis, CKD3, CAD s/p PCI (06/2021), VTE, GI bleed (2014), and occipital CVA (2014) presents with a 2-3 day history of worsening dyspnea with exertion in addition to fever, fatigue, congestion, and a mild productive cough. Also endorses some chest tightness though this is not uncommon for patient, which he attributes to his aortic stenosis and CAD. Of note, patient was recently hospitalized at [facility] (Jan 06) for chills, fatigue, and dizziness s/p recent cystoscopy. Patient felt well after being discharged on 01/07 and for a few days after. On 01/10, patient noticed he was a bit more dyspneic with exertion, which further worsened yesterday. Patient went out to eat with family yesterday evening, and while at dinner, patient felt profoundly fatigued, and family noted his breathing was labored. He went home and was noted with a temperature of 103, at which time patient's family decided to call EMS. Patient does note some hematuria over the past few days - this had resolved by the time patient was discharged from his previous admission. Patient denies abdominal pain, nausea, vomiting, or diarrhea. During his last hospitalization (Jan 06) for chills, fatigue, and dizziness s/p recent cystoscopy, no infectious source of his symptoms was identified. He was noted to be hypotensive after recent introduction of tamsulosin to his medical regimen; this, along with dehydration and other anti-anginal medication in the setting of aortic stenosis , were felt to likely be the cause of his symptoms. Echo (01/07/22) showed EF 60-65%, moderate/severe , and a dilated ascending aorta. Upon discharge, continuation of tamsulosin was recommended, as was discontinuation of patient's lisinopril. Allergies Allergy/AdvReac Type Severity Reaction Status Date / Time pollen extracts Allergy Mild HAY FEVER Verified 01/12/22 00:41 ibuprofen AdvReac Unknown TOLD TO Verified 01/12/22 00:41 AVOID DUE TO BLEEDING ULCER Home Medications Medication Instructions Recorded Confirmed Type aspirin 81 mg tablet,delayed 81 mg PO HS 03/17/21 01/12/22 History release omeprazole 40 mg capsule,delayed 40 mg PO QAM 03/17/21 01/12/22 History release atorvastatin 20 mg tablet (Lipitor) 20 mg PO HS 07/07/21 01/12/22 History multivitamin 1 tab PO QAM 07/07/21 01/12/22 History isosorbide mononitrate 30 mg 30 mg PO QAM 11/17/21 01/12/22 History tablet,extended release 24 hr metoprolol succinate 25 mg 25 mg PO QAM 11/17/21 01/12/22 History tablet,extended release 24 hr (Toprol XL) oxycodone-acetaminophen 7.5 mg-325 1 tab PO Q8H PRN #7 tab 01/02/22 01/12/22 Rx mg tablet (Percocet) phenazopyridine 200 mg tablet 200 mg PO Q8H PRN #10 tab 01/02/22 01/12/22 Rx (Pyridium) tamsulosin 0.4 mg capsule 0.4 mg PO HS #30 cap 01/02/22 01/12/22 Rx Past Med/Surg History Medical History Aortic valve stenosis Moderate to severe per 05/2021 ECHO Moderate per 06/2021 cath Bladder cancer Chronic back pain Chronic kidney disease, stage 3 Coronary artery disease 75% stenosis D1, distal LCx- no intervention recommended. follows with Diabetes Presumed per Hgb A1C of 6.5 with preop labs 11/22/21 Diet controlled Dilated aortic root Moderate (stable) 4.5 cm per 05/2021 echo GERD (gastroesophageal reflux disease) Well controlled and stable History of basal cell carcinoma Right arm- s/p excision 2005 Had multiple lesions removed over time History of bleeding peptic ulcer 2014 requiring hospitalization and transfusion 11 packed RBCs, transferred to [facility] per PCP 09/2021 note History of blood transfusion 2014 in setting of GI bleed- 11 packed RBCs History of CVA (cerebrovascular accident) 2014; 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 Hermosillo History of pulmonary embolism Pt unsure of specifics- possibly in 2014- on anticoagulation- Coumadin on hold since Sep 2021 due to hematuria History of sleep apnea Cannot tolerate device HLD (hyperlipidemia) HTN (hypertension) MVP (mitral valve prolapse) Dr. Barbosa monitors Personal history of deep vein thrombosis On Coumadin- currently on hold since Sep 2021 per PCP note (hematuria) Slow to wake up after anesthesia Spinal stenosis S/p surgery Surgical History History of basal cell carcinoma (BCC) excision History of cardiac cath 07/18/2021@ [facility]-75% proximal D1, 75% distal LCx prior to left PLB, 50% mid right PDA. no stents--follows with [facility], Dr. Sow History of cataract surgery History of colonoscopy History of cystoscopy 11/24/2021: LMA#5 atraumatic. No issues per anesthesia postop progress note. History of esophagogastroduodenoscopy (EGD) History of lumbar surgery posterior L5-S1 transforaminal lumbar interbody fusion 09/11/2017: Grade 1 view, Glidescope #3, ETT#8.0 x 1 atraumatic. Per anesthesia postop progress note: "...slightly difficult airway requiring the use of glidescope and that a small laceration was noted on the patients lip after intubation..." History of nasal surgery History of tonsillectomy and adenoidectomy History of uvulopalatopharyngoplasty Status post surgical removal and fulguration of bladder neoplasm Family History Sister PONV (postoperative nausea and vomiting) Mother , dx [id number] Stroke Coronary heart disease Father , dx at 52 Myocardial infarction Social History Smoking Status: Former smoker Tobacco Type: Cigarettes Second Hand Exposure: No; Do You Dip or Chew Tobacco: No; Hx Alcohol Use: Yes Alcohol type: beer and wine Hx Substance Use: No Preferred Language: Bulgarian Communication Ability: Effective Visual Impairment: No Limitations 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 Beliefs That Will Affect Care: None marital status: Current Living Situation: Spouse Current Living Situation Comment: Lives w/ spouse @ home How many Children do You have: 4 Feels Safe at Home: Yes Safety Concerns: Feels Safe At This Time Assistive Devices: Walker Assistive Devices Comment: reading glasses Review of Systems Review of Systems: See HPI Physical Exam Physical Exam: Constitutional: tired-appearing, no acute distress HEENT: NCAT, no conjunctival injection, MMM CV: regular rhythm, grade 4/6 systolic ejection murmur appreciated, extremities well-perfused, no LE edema Resp: mild end-expiratory wheezes in lower right lung field, CTABL otherwise, breathing non-labored GI: soft, nondistended, nontender, BS normoactive MSK: no gross deformities appreciated Skin: warm, dry, no rash appreciated Neuro: alert, oriented, no focal neurologic deficit appreciated Results & Data Results & Data ([facility]) Vital Signs (Past 12 Hours) Vital Signs Temp Pulse Resp BP Pulse Ox 01/12/22 01:13 94 01/11/22 22:56 37.4 C 76 96 H 159/85 H 96 Supervising Physician Co-Signing Physician Notes Attending addendum: I have physically seen this patient, have supervised the medical residents activities, and agree with the H&P unless as otherwise noted. Assessment and Plan: Elevated troponin/hypertension/aortic stenosis- The patient will be admitted to telemetry for serial cardiac enzymes, serial EKG's, cardiac rhythm monitoring and a 2-D echocardiogram with Dopplers Differential including type II MN supply demand mismatch Generalized fatigue, fever, dyspnea exertion and hematuria- Differential as noted but not limited to: Cystitis, pneumonia, cancer Follow blood and urine cultures received Zosyn from the ED, which will cover till the morning THEO on CKD- Creatinine 1.47 with baseline 1.11 NSS at 125 mils per hour x1 L Repeat laboratories in a.m. 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
[2022-01-12] MEDS ORDERED: ACETAMINOPHEN 325 MG TAB PO PRN (06:27)
[2022-01-12] MEDS ORDERED: PHENAZOPYRIDINE HCL 200 MG TAB PO PRN (06:27)
[2022-01-12] MEDS ORDERED: DEXTROSE 50% 50 ML SYRINGE IV PRN (06:27)
[2022-01-12] MEDS ORDERED: GLUCAGON FOR INJ 1 MG VIAL SQ PRN (06:27)
[2022-01-12] MEDS ORDERED: CARBOHYDRATES FOR HYPOGLYCEMIA PO PRN (06:27)
[2022-01-12] MEDS ORDERED: GLUCOSE 10 TABS/TUBE PO PRN (06:27)
[2022-01-12] MEDS ORDERED: GLUCOSE 40% GEL 15 GM TUBE PO PRN (06:27)
[2022-01-12] MEDS ORDERED: ONDANSETRON INJ 2 MG/ML 2 ML VIAL IV PRN (06:27)
[2022-01-12] MEDS ORDERED: POLYETHYLENE (MIRALAX) 17 GM PACK PO PRN (06:27)
[2022-01-12] MEDS ORDERED: oxyCODONE/APAP 7.5/325MG TAB PO PRN (06:27)
--- NOTE | 2022-01-12 06:40 | XRay Report ---
XR chest 1V portable HISTORY: 81 years-old Male Dyspnea acute shortness of breath COMPARISON: Chest radiograph 01/06/2022 and 11/22/2021, CTA chest 05/14/2016 TECHNIQUE: Portable AP view of the chest FINDINGS: Cardiac silhouette is enlarged. No pneumothorax, or large pleural effusion. Chronic right hemidiaphra gmatic elevation. Progressively worsened left greater the right of ill-defined interstitial coarsenin g with subtle airspace opacities. Degenerative changes of the shoulders and spine. IMPRESSION: 1. Progressively worsened interstitial coarsening with ill-defined left greater than right airspace o pacities suggestive of an infectious or inflammatory pneumonitis such as viral pneumonia. 2.Cardiomegaly. ACT 112: Negative or not required by law. The above report was generated using voice recognition software. It may contain grammatical, syntax o r spelling errors. Electronically signed by: Brennen Stephen M.D. 01/12/2022 6:39 AM
[2022-01-12] MEDS ORDERED: INFLUENZA VACCINE HIGH DOSE PF 65+ 0.7 ML SYR IM ONE (06:56)
--- NOTE | 2022-01-12 07:26 | Hospitalist Progress Note ---
Date of Service January 12, 2022 Assessment & Plan (1) Fatigue: Plan: 81yo male with a complex PMH including bladder CA s/p TURBT with bladder lesion fulguration and mitomycin infusion (01/02/22), BPH with LUTS, aortic stenosis, CKD3, CAD s/p PCI (06/2021), VTE, GI bleed (2014), and occipital CVA (2014) presents with a 2-3 day history of fatigue, fever, hematuria, and worsening BURKS. Pneumonia - Presented as fatigue, fever, dyspnea on exertion, hematuria On arrival, VSS, patient afebrile, no acute distress Labs notable for mild leukocytosis, anemia, mild hyponatremia, THEO (Cr 1.47 up from a baseline of ~1.1), and elevated troponin to 0.16 CXR: progressively worsened interstitial coarsening with ill-defined L>R airspace opacities suggestive of infectious vs inflammatory pneumonitis UA notable for nitrites, leuk esterase, WBCs, 2+ blood; In context of lack of new urinary symptoms from baseline, not a UTI. Blood cultures no growth to date Patient received zosyn in the ED; transitioning to Rocephin 1g daily for community acquired pneumonia. Follow CBC - Curb 65: 2 points: moderate risk. 6.8% 30 day mortality Elevated troponin, peaked at 0.16, likely 2/2 increased demand Elevated INR Patient has been on warfarin in the past - unclear if patient has been taking this recently; will clarify THEO on CKD3 Creatinine on admission 1.47 (baseline ~1.1) Trend daily BMP. IV fluids discontinued. BPH with LUTS Continue home phenazopyridine, tamsulosin DM2 A1c 6.5% (10/2021) Of note, patient reports never having been told about this A1c or a diagnosis of DM2 BSG checks ACHS, defer SSI Repeat A1c ordered HTN BP well-controlled at this time Continue home metoprolol HLD, CAD Continue home atorvastatin, ASA Aortic stenosis [id number] as seen on recent echo (01/07/22) Medical management as above Bladder cancer Continue home percocet prn FEN: heart healthy, DM2 diet Code status: full code DVT ppx: held on admission due to hematuria (chronic, 2/2 bladder cancer). SCDs. Dispo: med/surg (2) THEO (acute kidney injury): (3) Aortic valve stenosis: (4) Bladder cancer: (5) BPH w urinary obs/LUTS: (6) Chronic kidney disease, stage 3: (7) Dilated aortic root: (8) Elevated troponin: (9) Hematuria: (10) HLD (hyperlipidemia): (11) HTN (hypertension): Admission and Anticipated Discharge Date Admission Date: January 12, 2022 Supervising Physician Co-Signing Physician Notes I personally examined the patient and verified all hector points of history and exam, discussed case, and agree with decision making with Dr Cuadra feeling mostly weak. does have cough. some sputum. no further fevers vitals noted nad heent nc at mmm breathing unlabored b/l breath sounds coarse but faintly moreso base L and faint but (+) egophany CAP - abx. weakness - from above acutely, but multifactorial overall. hoepfully will be strong enough to go home, but not clear. PT/OT eval and treat DVT proph - SCDs Subjective Feels better than yesterday, energy and breathing. F/C 103.2 at yesterday evening. He had malaise that day. Last chemo 2.5 wks ago. He states he has had hematuria and intermittent dysuria/frequency since his last bladder cancer surgery. No new symptoms. Review of Systems Review of Systems: All systems reviewed & are unremarkable except as noted in HPI & below Physical Exam Physical Exam: General: Grossly A&O. NAD. Cooperative. HEENT: Atraumatic, normocephalic. EOMI. 1.5 finger breadth jvd on R 25 deg. Pulm: Trace insp crackles at bases. + egophony noted at LLB. No respiratory distress. Cardiac: RRR, 2/6 systolic murmur. 1+ BLE. Abdominal: Nontender, nondistended, soft. Results & Data Results & Data ([facility]) Vital Signs (Past 12 Hours) Vital Signs afeb this admission. Intermittent 2L NC. Temp Pulse Pulse Resp BP BP Pulse Ox 01/12/22 06:33 79 16 93 01/12/22 05:00 71 16 143/77 H 94 01/12/22 02:56 80 77 24 165/90 H 92 01/12/22 01:13 94 01/11/22 22:56 37.4 C 76 96 H 159/85 H 96 Laboratory Results 01/11 labs. wbc 11.35. Hb 10.9. INR 1.4. Na 130. Cr 1.47. Lactate 0.8 wnl. trop 0.16->0.04. UA / pos nitrite, 1+ leuk. UC ordered after abx. BC pending. Diagnostic Findings cxr: Progressively worsened interstitial coarsening with ill-defined left greater than right airspace opacities suggestive of an infectious or inflammatory pneumonitis such as viral pneumonia. Resident Activity Tracking Resident Involvement: Resident Care Provided Care Provided: Adult [facility]
[2022-01-12] MEDS ORDERED: INSULIN ASPART PER UNIT SC SCH (07:30)
[2022-01-12 08:14] LABS: Influenza A virus by PCR Negative (Negative); Influenza B virus by PCR Negative (Negative)
[2022-01-12] MEDS ORDERED: ENOXAPARIN INJ 40 MG/0.4 ML SYR SQ SCH (09:00)
[2022-01-12] MEDS: METOPROLOL SUCC 25MG EXT REL TAB PO SCH (09:55)
[2022-01-12] MEDS: PANTOprazole 40 MG TAB PO SCH (09:56)
[2022-01-12] MEDS: ISOSORBIDE MONO EXTENDED REL 30 MG TABCR PO SCH (09:56)
[2022-01-12] MEDS: PIPERACILLIN/TAZOBACTAM 4.5 GM in DEXTROSE 5% 100 ML IV SCH ×2 (10:45→17:54)
--- NOTE | 2022-01-12 14:18 | Electrocardiogram Report ---
Test Reason : Blood Pressure : / mmHG Vent. Rate : 078 BPM Atrial Rate : 078 BPM P-R Int : 298 ms QRS Dur : 082 ms QT Int : 382 ms P-R-T Axes : 052 -09 053 degrees QTc Int : 435 ms Sinus rhythm with 1st degree A-V block Minimal voltage criteria for LVH, may be normal variant Nonspecific T wave abnormality Lateral leads Old Inferior infarct (cited on or before 06-JAN-2022) Abnormal ECG When compared with ECG of 07-JAN-2022 05:15, Nonspecific T wave abnormality now evident in Lateral leads Confirmed by Kane Ibanez ([id number]) on 01/12/2022 2:18:21 PM Referred By: REFERRED SELF Confirmed By:Kane Ibanez
--- NOTE | 2022-01-12 20:39 | Billing Data ---
Date of Service January 12, 2022 Coding Level of Care Code INT OBSERVATION CARE 70M LVL 3
[2022-01-12] MEDS ORDERED: TAMSULOSIN HCL 0.4 MG CAP PO SCH (21:00)
[2022-01-12] MEDS ORDERED: ATORVASTATIN 20 MG TAB PO SCH (21:00)
[2022-01-12] MEDS ORDERED: ASPIRIN 81 MG ECTAB PO SCH (21:00)
[2022-01-13] MEDS ORDERED: cefTRIAXone SODIUM 2,000 MG in DEXTROSE 5% 50 ML IV SCH (04:00)
[2022-01-13 07:15] VITALS: BP 151/79; TEMP 97.9; O2SAT 94
[2022-01-13] MEDS ORDERED: ACETAMINOPHEN 500 MG TAB PO PRN (08:01)
[2022-01-13] MEDS: PANTOprazole 40 MG TAB PO SCH (08:27)
[2022-01-13] MEDS: METOPROLOL SUCC 25MG EXT REL TAB PO SCH (08:27)
[2022-01-13] MEDS: ISOSORBIDE MONO EXTENDED REL 30 MG TABCR PO SCH (08:27)
[2022-01-13 08:49] LABS: Basophils # (auto) 0.01 K/uL (0-0.2); Basophils % (auto) 0.1 %; Eosinophils # (auto) 0.51 K/uL (0-0.5); Eosinophils % (auto) 6.7 %; Hematocrit (blood only) 33.2 % (42-52); Hemoglobin 10.8 g/dL (14.0-18.0); Immature Granulocytes # (auto) 0.02 K/uL (0.00-0.02); Immature Granulocytes % (auto) 0.3 %; Lymphocytes # (auto) 1.32 K/uL (1.2-3.4); Lymphocytes % (auto) 17.3 %; Mean Corpuscular Hemoglobin 29.2 pg (25-34); Mean Corpuscular Hgb Conc 32.5 g/dL (32-36); Mean Corpuscular Volume 89.7 fL (80-100); Mean Platelet Volume 9.4 fL (7.4-10.4); Monocytes # (auto) 0.56 K/uL (0.11-0.59); Monocytes % (auto) 7.3 %; Neutrophils # (auto) 5.21 K/uL (1.4-6.5); Neutrophils % (auto) 68.3 %; Platelet Count 226 K/uL (130-400); RDW Coefficient of Variation 14.4 % (11.5-14.5); RDW Standard Deviation 47.5 fL (36.4-46.3); White Blood Count 7.63 K/uL (4.8-10.8)
--- NOTE | 2022-01-13 09:03 | Discharge Summary ---
Date of Service January 13, 2022 Admission HPI Per Admitting Provider 81yo male with a complex PMH including bladder CA s/p TURBT with bladder lesion fulguration and mitomycin infusion (01/02/22), BPH with LUTS, aortic stenosis, CKD3, CAD s/p PCI (06/2021), VTE, GI bleed (2014), and occipital CVA (2014) presents with a 2-3 day history of worsening dyspnea with exertion in addition to fever, fatigue, congestion, and a mild productive cough. Also endorses some chest tightness though this is not uncommon for patient, which he attributes to his aortic stenosis and CAD. Of note, patient was recently hospitalized at [facility] (Jan 06) for chills, fatigue, and dizziness s/p recent cystoscopy. Patient felt well after being discharged on 01/07 and for a few days after. On 01/10, patient noticed he was a bit more dyspneic with exertion, which further worsened yesterday. Patient went out to eat with family yesterday evening, and while at dinner, patient felt profoundly fatigued, and family noted his breathing was labored. He went home and was noted with a temperature of 103, at which time patient's family decided to call EMS. Patient does note some hematuria over the past few days - this had resolved by the time patient was discharged from his previous admission. Patient denies abdominal pain, nausea, vomiting, or diarrhea. During his last hospitalization (Jan 06) for chills, fatigue, and dizziness s/p recent cystoscopy, no infectious source of his symptoms was identified. He was noted to be hypotensive after recent introduction of tamsulosin to his medical regimen; this, along with dehydration and other anti-anginal medication in the setting of aortic stenosis , were felt to likely be the cause of his symptoms. Echo (01/07/22) showed EF 60-65%, moderate/severe , and a dilated ascending aorta. Upon discharge, continuation of tamsulosin was recommended, as was discontinuation of patient's lisinopril. Admission Exam Per Admitting Provider Constitutional: tired-appearing, no acute distress HEENT: NCAT, no conjunctival injection, MMM CV: regular rhythm, grade 4/6 systolic ejection murmur appreciated, extremities well-perfused, no LE edema Resp: mild end-expiratory wheezes in lower right lung field, CTABL otherwise, breathing non-labored GI: soft, nondistended, nontender, BS normoactive MSK: no gross deformities appreciated Skin: warm, dry, no rash appreciated Neuro: alert, oriented, no focal neurologic deficit appreciated Principal Diagnosis Pneumonia Discharge Exam Constitutional WD/WN, vitals as above no acute distress Eyes + anicteric sclerae ENMT external ear and nose normal, oropharynx normal Neck trachea midline Respiratory normal respiratory effort; no respiratory distress, no labored breathing and no cough Auscultation: no crackles, no rales and no wheezes Respirations are diffusely coarse Cardiovascular Rate/Rhythm: regular rate and regular rhythm Heart Sounds: normal S1, normal S2 and + murmur (systolic ejection) Gastrointestinal (Abdomen) normal bowel sounds, soft, nontender, no hepatosplenomegaly Musculoskeletal Head/Neck/Chest: normocephalic and head atraumatic Skin no rashes, warm and dry Psychiatric A+Ox3, euthymic affect Discharge Data Allergies Allergy/AdvReac Type Severity Reaction Status Date / Time pollen extracts Allergy Mild HAY FEVER Verified 01/12/22 00:41 ibuprofen AdvReac Unknown TOLD TO Verified 01/12/22 00:41 AVOID DUE TO BLEEDING ULCER Consultations 01/12/22 02:39 ED Decision to Admit Stat Hospital Course (1) Fatigue: 81yo male with a complex PMH including bladder CA s/p TURBT with bladder lesion fulguration and mitomycin infusion (01/02/22), BPH with LUTS, aortic stenosis, CKD3, CAD s/p PCI (06/2021), VTE and occipital CVA (2014) was admitted to [facility] for general malaise, fever and shortness of breath. Pneumonia CXR: progressively worsened interstitial coarsening with ill-defined L>R airspace opacities suggestive of infectious vs inflammatory pneumonitis. Appearance favored viral etiology. - WBC mildly elevated to 11.7 on admission, normalized by the time of charge - Blood cultures no growth to date - CRP at 7. Procal not elevated. - Curb 65: 2 points: moderate risk. 6.8% 30 day mortality - Patient received 1 day of IV zosyn and was later transitioned to IV Rocephin. Despite viral appearance and labs favoring viral etiology - recommend patient complete 5 day course with 3rd generation cephalosporin (cefdinir 300mg BID) to cover possible bacterial involvement given his immunocompromised state. Elevated troponin - peaked at 0.16, then downtrended - likely 2/2 increased demand Elevated INR - INR at 1.4 on admission - Coumadin held on admission due to hematuria - directed to resume at discharge THEO on CKD3 Creatinine on admission 1.47, down to 1.3 by discharge (baseline ~1.1) BPH with LUTS Continue home phenazopyridine, tamsulosin DM2 A1c 6.5% (10/2021) Of note, patient reports never having been told about this A1c or a diagnosis of DM2 - not on a high intensity statin HTN BP well-controlled at this time Continue home metoprolol HLD, CAD Continue home atorvastatin, ASA Aortic stenosis Adyx-kf-boqhehgp as seen on recent echo (01/07/22) Medical management as above Bladder cancer Continue home percocet prn (2) THEO (acute kidney injury): (3) Aortic valve stenosis: (4) Bladder cancer: (5) BPH w urinary obs/LUTS: (6) Chronic kidney disease, stage 3: (7) Dilated aortic root: (8) Elevated troponin: (9) Hematuria: (10) HLD (hyperlipidemia): (11) HTN (hypertension): Total Time Total Time Spent Total Time Spent (In Minutes): <30 Discharge Plan Discharge Items Patient Disposition: Home - Self-Care Reason For Visit: FEVER,FATIGUE Discharge Diagnosis: pneumonia Activity: Resume your previous activity Non-emergency contact: Primary Care Provider Call non-emergency contact if: your pain is concerning for you Follow-up/Referrals: Pawel Barbosa MD [Primary Care Provider] - 01/17/22 2:30 pm Diet: Carb Consistent or DM2 Addtl Attending Provider Instructions: You were hospitalized at [facility] for evaluation of fever, fatigue and shortness of breath. On arrival, a chest xray was obtained and showed evidence of a lung infection, the appearance of which was consistent with a viral pneumonia. Fortunately, your covid and influenza testing was negative. We anticipate you making a full recovery as the virus "runs it course." We also treated with you antibiotics - in the unlikley (but possible) circumstance there is a bacterial component to your pneumonia. Please continue to take the antibiotic Cefdinir 300mg TWICE daily for 4 days after discharge. As a side note, we did not give you your coumadin while you were in the hospital due to your bloody urine. However, you may resume this medication at discharge. Please follow up with your primary care doctor within one week. Pending Studies at Discharge: No Stand-Alone Forms: My [facility], Smoking Cessation Medications and DC Order Prescriptions: New cefdinir 300 mg capsule 300 mg PO BID 4 Days Qty: 8 RF: 0 Continued atorvastatin [Lipitor] 20 mg tablet 20 mg PO HS RF: 0 multivitamin Tablet 1 tab PO QAM RF: 0 isosorbide mononitrate 30 mg tablet extended release 24 hr 30 mg PO QAM RF: 0 metoprolol succinate [Toprol XL] 25 mg tablet extended release 24 hr 25 mg PO QAM RF: 0 phenazopyridine [Pyridium] 200 mg tablet 200 mg PO Q8H PRN (Reason: pain) Qty: 10 RF: 0 tamsulosin 0.4 mg capsule 0.4 mg PO HS Qty: 30 RF: 0 oxycodone-acetaminophen [Percocet] 7.5-325 mg tablet 1 tab PO Q8H PRN (Reason: pain) Qty: 7 RF: 0 omeprazole 40 mg Capsule,Delayed Release(Dr/Ec) 40 mg PO QAM RF: 0 aspirin 81 mg Tablet,Delayed Release (Dr/Ec) 81 mg PO HS RF: 0 Discharge Orders: Discharge Order (Routine); Ordered 01/13/22 Ordered By: Jagruti Reyes Admission Data Admit Date/Time: 01/12/22 05:54 Attending Provider: Brown Villalobos Admit Provider: Adrian Young Primary Care Provider: Pawel Barbosa Other Providers: Basim Vasquez Other Interventions: Discharge Summary Assessment (RN) Last Done: 01/13/22 11:37 Supervising Physician Co-Signing Physician Notes I personally examined the patient and verified all hector points of history and exam, discussed case, and agree with decision making with Dr Reyes feeling better walked well would like to go home vitals noted nad heent nc at mmm breathing unlabored b/l breath sounds coarse but symmetric and less than yesterday. CAP - abx. stable for home weakness - from above acutely, but multifactorial overall. able to go home, outpt strengthening DVT proph - SCDs Resident Activity Tracking Resident Involvement: Resident Care Provided Care Provided: Adult Hospital Medicine
[2022-01-13 09:10] LABS: BUN Creatinine Ratio 13.5 (10-20); Calcium 8.3 mg/dl (8.5-10.1); Creatinine Clr Calc Pharmacy 52.5 ml/min; Est GFR (African American) 58.1 ml/min; Est GFR (Non-African American) 50.1 ml/min; Magnesium 2.2 mg/dl (1.7-2.4); Phosphorus 2.8 mg/dl (2.5-4.9); Potassium 3.9 mmol/L (3.5-5.1)
[2022-01-13 11:38] VITALS: PULSE 79
--- NOTE | 2022-01-13 18:00 | Billing Data ---
Date of Service January 13, 2022 Coding Level of Care Code 46237 OBS Care - Discharge
== END 2022-01-13 14:29 | disposition home or self-care (01) ==
LOC: EDINP 22:51 → ED 22:51 → SUATTDRO 01-12 05:54 → 3N 01-12 06:28

== ENCOUNTER 2024-11-12 14:22 | Observation (INO) ==
[2024-11-12] MEDS: SODIUM CHLORIDE 0.9% 1,000 ML IV SCH (15:37)
--- NOTE | 2024-11-12 16:03 | XRay Report ---
XR chest 1V portable CLINICAL HISTORY: Fever. COMPARISON STUDY: Chest radiograph June 20, 2023. Chest CT July 11, 2024. FINDINGS: Median sternotomy wires and mediastinal surgical clips are noted. Electronic device project s over the left heart. Cardiomegaly is unchanged. There is no evidence for pulmonary edema. Elevation of the right hemidiaphragm is unchanged. No consolidation is identified to suggest pneumonia. IMPRESSION: No acute cardiopulmonary findings. No change in appearance of the chest. ACT 112: Negative or not required by law. Electronically signed by: Nakul Roberts M.D. 11/12/2024 4:01 PM
[2024-11-12 16:17] LABS: Albumin Globulin Ratio 1.3 (0.9-2); Albumin Level 3.7 gm/dl (3.4-5.0); BUN Creatinine Ratio 13.9 (10-20); Creatinine Clr Calc Pharmacy 40.6 ml/min; Globulin 2.8 gm/dl (2.5-4.0); Magnesium 1.8 mg/dl (1.7-2.4); Potassium 3.8 mmol/L (3.5-5.1); Total Protein 6.5 gm/dl (6.0-8.3)
[2024-11-12 16:23] LABS: Basophils # (auto) 0.03 K/uL (0.00-0.20); Basophils % (auto) 0.3 %; Eosinophils # (auto) 0.15 K/uL (0.00-0.50); Eosinophils % (auto) 1.3 %; Hemoglobin 12.5 g/dl (14.0-18.0); Immature Granulocytes # (auto) 0.06 K/uL (0.01-0.20); Immature Granulocytes % (auto) 0.5 %; Lymphocytes # (auto) 1.52 K/uL (1.20-3.40); Lymphocytes % (auto) 13.6 %; Mean Corpuscular Hemoglobin 31.3 pg (25.0-34.0); Mean Corpuscular Hgb Conc 33.8 g/dL (32.0-36.0); Mean Corpuscular Volume 92.5 fL (80.0-100.0); Mean Platelet Volume 10.1 fL (9.4-12.4); Monocytes # (auto) 0.92 K/uL (0.11-0.59); Monocytes % (auto) 8.2 %; Neutrophils # (auto) 8.51 K/uL (1.40-6.50); Neutrophils % (auto) 76.1 %; Platelet Count 195 K/uL (130-400); RDW Coefficient of Variation 14.3 % (11.5-14.5); RDW Standard Deviation 48.4 fL (36.4-46.3); White Blood Count 11.19 K/ul (4.8-10.8)
[2024-11-12 16:26] LABS: Troponin I High Sensitivity 135.7 pg/ml (0-20)
[2024-11-12 16:31] LABS: Thyroid Stimulating Hormone 1.815 uIu/ml (0.300-4.500)
[2024-11-12 16:35] LABS: Prothrombin Time 11.3 Seconds (9.0-12.0)
[2024-11-12 16:41] LABS: Adenovirus PCR Not Detected (NotDetected); Bordetella parapertussis PCR Not Detected (NotDetected); Bordetella pertussis PCR Not Detected (NotDetected); Chlamydia pneumoniae PCR Not Detected (NotDetected); Coronavirus 229E PCR Not Detected (NotDetected); Coronavirus CoV-2 (COVID19)PCR Not Detected (NotDetected); Coronavirus HKU1 PCR Not Detected (NotDetected); Coronavirus NL63 PCR Not Detected (NotDetected); Coronavirus OC43PCR Not Detected (NotDetected); Human Metapneumovirus PCR Not Detected (NotDetected); Influenza A PCR Not Detected (NotDetected); Influenza B PCR Not Detected (NotDetected); Mycoplasma pneumoniae PCR Not Detected (NotDetected); Parainfluenza Virus 1 PCR Not Detected (NotDetected); Parainfluenza Virus 2 PCR Not Detected (NotDetected); Parainfluenza Virus 3 PCR Not Detected (NotDetected); Parainfluenza Virus 4 PCR Not Detected (NotDetected); Respiratory Syncytial VirusPCR Not Detected (NotDetected); Rhinovirus/Enterovirus PCR Not Detected (NotDetected)
--- NOTE | 2024-11-12 16:51 | Emergency Department Note ---
Impression & Plan Generalized weakness, Elevated troponin, Chills ED Provider Note ED Provider Note NAME: BEVERLY FIGUEROA AGE:84 SEX: Male : 1940 ARRIVES VIA: EMS INFORMANT: Patient, family ED PROVIDER(s): Maddy Rand DO CHIEF COMPLAINT: Weakness, chills HPI: This is an 84-year-old male presents emergency department via EMS after facility where he resides was concern for increased weakness and chills today. Patient does have a history of cognitive impairment and they state patient is at baseline. Family at bedside confirms he is at his cognitive baseline additionally. They state he had shaking chills earlier and seemed weaker and more fatigued compared to normal. Patient denies headaches, chest pain, abdominal pain, nausea or vomiting, or difficulty breathing. Family states no recent illness but they are not sure if there is anything else at the facility where he resides. They state no recent change in medications. Patient with prior valve replacement and stroke secondary to this. PAST MEDICAL HISTORY:See Below PAST SURGICAL HISTORY:See Below FAMILY HISTORY:See Below SOCIAL HISTORY:See Below HOME MEDICATIONS:See Below ALLERGIES:See Below VITALS:See Below PHYSICAL EXAMINATION: GENERAL: alert, well appearing, well nourished, no distress, non-toxic EYE EXAM: normal conjunctiva, PERRL and EOM's grossly intact OROPHARYNX: no exudate, no erythema, lips, buccal mucosa, and tongue normal and mucous membranes are dry NECK: supple, no nuchal rigidity, no adenopathy, non-tender LUNGS: Clear to auscultation. Normal chest wall mechanics, no w/r/r HEART: no murmurs, S1 normal and S2 normal, patient does have indwelling loop recorder ABDOMEN: abdomen soft, non-tender, normo-active bowel sounds, no masses, no rebound or guarding. BACK: Back is symmetrical on inspection and there is no deformity, no midline tenderness, no CVA tenderness. SKIN: no rashes, petechiae, orbruising UPPER EXTREMITIES: upper extremities are grossly normal. FROM, nml pulses b/l. LOWER EXTREMITIES: No pitting edema. FROM, nml pulses b/l. NEURO EXAM: Alert to person, family, location, cranial nerves II-XII grossly intact, normal speech, no facial droop,nogross weakness of arms, no gross weakness of legs. Gross sensation intact. No ataxia. Vital Signs: reviewed and remarkable Differential Diagnosis: dehydration, stroke, anemia, hypoglycemia, hyponatremia, hypernatremia, urinary tract infection, pneumonia, bronchitis, sepsis, gastroenteritis, additional abdominal pathology, metabolic abnormalities, as well as others were considered MEDICAL DECISION MAKING: This is an 84-year-old male presents emergency department due to concern for increased weakness, fatigue, and chills. Family at bedside states patient is otherwise at baseline. He did appear clinically dehydrated on exam. He was afebrile and hemodynamically stable on arrival. Labs drawn and sent including cultures, IV established, EKG and chest ray performed at bedside interpreted me and patient monitored on telemetry. Nasal swab obtained and sent additionally as patient lives in a facility with multiple people. Patient had no focal symptoms on exam and no other complaints. Family not aware of any other changes and have not noticed any other objective findings. Patient noted to have a significantly elevated troponin level although he denies chest pain or difficulty breathing and EKG did not show any acute changes. Viral panel negative, chest x-ray without obvious pneumonia. Due to concern for occult cardiac etiology given patient's advanced age and risk factors, case discussed with the hospitalist team for additional evaluation and management. UA pending at the time of that discussion. Consultation(s): 1944: Discussed with Dr. Paniagua, [facility] hospitalist team, for additional evaluation and management. ER Treatment Provided: See below Diagnostics Interpreted By Me: -ECG: Normal sinus at 91, normal axis, normal intervals, nonspecific ST/T wave changes, significant baseline artifact noted EKG #2 normal sinus at 88 with first-degree AV block, normal axis, normal intervals, no acute ST/T wave changes -Cardiac Monitoring: An order was placed for continuous cardiac monitoring. The monitor shows a rate of 72 with normal sinus rhythm. -Laboratory studies: As stated above and show below. -Imaging studies: X-ray Chest: A single view study of the chest was reviewed and was negative for cardiomegaly, focal infiltrate, effusion, pulmonary edema, or wide mediastinum. 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 HTN (hypertension) HLD (hyperlipidemia) Aortic valve stenosis Moderate to severe per 05/2021 ECHO Moderate per 06/2021 cath Dilated aortic root Moderate (stable) 4.5 cm per 05/2021 echo BPH w urinary obs/LUTS Chronic kidney disease, stage 3 Bladder cancer Medical History CVA, old, disturbances of vision Bladder cancer History of blood transfusion 2014 in setting of GI bleed- 11 packed RBCs Personal history of deep vein thrombosis On Coumadin- currently on hold since Sep 2021 per PCP note (hematuria) Chronic anticoagulation History of sleep apnea Cannot tolerate device Spinal stenosis S/p surgery Slow to wake up after anesthesia GERD (gastroesophageal reflux disease) Well controlled and stable History of basal cell carcinoma Right arm- s/p excision 2005 Had multiple lesions removed over time History of pulmonary embolism Pt unsure of specifics- possibly in 2014- on anticoagulation Chronic back pain History of bleeding peptic ulcer 2014 requiring hospitalization and transfusion 11 packed RBCs, transferred to [place] per PCP 09/2021 note History of CVA (cerebrovascular accident) 2014; 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 [place] Surgical History History of cystoscopy 11/24/2021: LMA#5 atraumatic. No issues per anesthesia postop progress note. Status post surgical removal and fulguration of bladder neoplasm History of cardiac cath 07/18/2021@ [facility]-75% proximal D1, 75% distal LCx prior to left PLB, 50% mid right PDA. no stents--follows with [place] cardiology, Dr. Sow History of nasal surgery History of uvulopalatopharyngoplasty History of lumbar surgery posterior L5-S1 transforaminal lumbar interbody fusion 09/11/2017: Grade 1 view, Glidescope #3, ETT#8.0 x 1 atraumatic. Per anesthesia postop progress note: "...slightly difficult airway requiring the use of glidescope and that a small laceration was noted on the patients lip after intubation..." History of esophagogastroduodenoscopy (EGD) History of colonoscopy History of cataract surgery History of tonsillectomy and adenoidectomy History of basal cell carcinoma (BCC) excision Family History Sister PONV (postoperative nausea and vomiting) Breast cancer Mother , dx [id number] Stroke Coronary heart disease Father , dx at 52 Myocardial infarction Brother Lymphoma Denies family history of Ovarian cancer Prostate cancer Colorectal cancer Social History Smoking Status: Former smoker Tobacco Type: Cigarettes Second Hand Exposure: No; Do You Dip or Chew Tobacco: No; Hx Alcohol Use: No Hx Substance Use: No Preferred Language: Malay Communication Ability: Impaired Visual Impairment: No Limitations Field Support Specialist Required: No Beliefs That Will Affect Care: None marital status: Current Living Situation: Personal Care Facility Current Living Situation Comment: Lives w/ spouse @ [facility] current occupational status: retired How many Children do You have: 4 Feels Safe at Home: Yes Childhood Exposure to Second-Hand Smoke: No Diet: regular Dental Care, Regularly: Yes Physical Activity Frequency: Daily Physical Activity Frequency Comment: walks to and from meals Seatbelt Use: always Sunscreen Use: Yes Assistive Devices: Walker and Wheelchair Allergies Allergies Allergy/AdvReac Type Severity Reaction Status Date / Time pollen extracts Allergy Mild HAY FEVER Verified 09/12/24 09:42 ibuprofen AdvReac Unknown TOLD TO Verified 09/12/24 09:42 AVOID DUE TO BLEEDING ULCER Home Meds Home Medications Medication Instructions Recorded Confirmed fluticasone propionate 50 1 spray intranasal HS 11/15/23 11/12/24 mcg/actuation nasal spray,suspension acetaminophen 500 mg tablet 1,000 mg PO DAILY PRN Pain 11/12/24 11/12/24 docusate sodium 100 mg capsule 100 mg PO DAILY 11/12/24 11/12/24 loperamide 2 mg capsule See Rx Instructions .Route .COMPLEX 11/12/24 11/12/24 multivitamin with minerals-folic 1 tab PO DAILY 11/12/24 11/12/24 acid 12 mcg chewable tablet (Centrum Adults) ondansetron HCl 4 mg tablet 4 mg PO Q6 PRN nausea/vomiting 11/12/24 11/12/24 polyethylene glycol 3350 17 17 g PO DAILY PRN Constipation 11/12/24 11/12/24 gram/dose oral powder (Miralax) psyllium 1 tbsp PO DAILY 11/12/24 11/12/24 tamsulosin 0.4 mg capsule (Flomax) 0.4 mg PO HS 11/12/24 11/12/24 Previous Rx's Medication Instructions Recorded atorvastatin 40 mg tablet 40 mg PO HS #90 tabs 01/11/23 furosemide 20 mg tablet 20 mg PO BID #180 tabs 01/11/23 cetirizine 10 mg tablet (Zyrtec) 10 mg PO DAILY allergy symptoms 01/17/23 #90 tabs acetaminophen 500 mg tablet 1,000 mg (2 x 500 mg) PO BID #60 02/06/23 tabs metoprolol succinate 50 mg 50 mg PO DAILY #90 tabs 02/06/23 tablet,extended release 24 hr aspirin 81 mg tablet,delayed 81 mg PO DAILY #30 tabs 05/24/23 release (Adult Aspirin Regimen) cholecalciferol (vitamin D3) 50 50 mcg PO DAILY #90 caps 07/02/23 mcg (2,000 unit) capsule pantoprazole 20 mg tablet,delayed 20 mg PO DAILY #15 tabs 12/14/23 release Results & Data (ED) Vital Signs Vital Signs - 24 hr 11/12/24 14:44 11/12/24 15:00 11/12/24 15:18 Temperature 36.6 C Temperature Source Oral Pulse Rate 91 H 88 86 Pulse Rate [Apical] Pulse Rate from SpO2 Sensor 87 86 Pulse Rhythm Regular Pulse Rhythm [Apical] Pulse Strength Normal Respiratory Rate 20 15 Respiratory Effort / Characteristics Non-Labored Spontaneous Respiratory Depth Normal Respiratory Pattern Regular Blood Pressure 133/63 Blood Pressure [Left Arm] Blood Pressure Mean 86 Blood Pressure Mean [Left Arm] Blood Pressure Position Sitting Pulse Oximetry 99 96 97 Oxygen Delivery Method Room Air Sepsis Recent Fever Within 48 Hours No Sepsis New/Unexplained Change in Mental Status No Sepsis Action Taken by Nursing No Action Required 11/12/24 15:24 11/12/24 15:35 11/12/24 15:36 Temperature Temperature Source Pulse Rate 88 88 Pulse Rate [Apical] Pulse Rate from SpO2 Sensor 87 88 Pulse Rhythm Pulse Rhythm [Apical] Pulse Strength Respiratory Rate 20 15 Respiratory Effort / Characteristics Respiratory Depth Respiratory Pattern Blood Pressure 127/81 Blood Pressure [Left Arm] Blood Pressure Mean 94 Blood Pressure Mean [Left Arm] Blood Pressure Position Pulse Oximetry 91 96 Oxygen Delivery Method Sepsis Recent Fever Within 48 Hours Sepsis New/Unexplained Change in Mental Status Sepsis Action Taken by Nursing 11/12/24 16:00 11/12/24 16:00 11/12/24 16:00 Temperature Temperature Source Pulse Rate Pulse Rate [Apical] 71 Pulse Rate from SpO2 Sensor Pulse Rhythm Pulse Rhythm [Apical] Pulse Strength Respiratory Rate 20 Respiratory Effort / Characteristics Respiratory Depth Respiratory Pattern Blood Pressure 125/77 125/77 Blood Pressure [Left Arm] 125/77 Blood Pressure Mean 97 97 Blood Pressure Mean [Left Arm] 93 Blood Pressure Position Pulse Oximetry 99 Oxygen Delivery Method Room Air Sepsis Recent Fever Within 48 Hours Sepsis New/Unexplained Change in Mental Status Sepsis Action Taken by Nursing 11/12/24 16:00 11/12/24 16:12 11/12/24 16:27 Temperature Temperature Source Pulse Rate 77 73 83 Pulse Rate [Apical] Pulse Rate from SpO2 Sensor 77 73 84 Pulse Rhythm Pulse Rhythm [Apical] Pulse Strength Respiratory Rate 29 H 27 H 18 Respiratory Effort / Characteristics Respiratory Depth Respiratory Pattern Blood Pressure Blood Pressure [Left Arm] Blood Pressure Mean Blood Pressure Mean [Left Arm] Blood Pressure Position Pulse Oximetry 98 99 91 Oxygen Delivery Method Sepsis Recent Fever Within 48 Hours Sepsis New/Unexplained Change in Mental Status Sepsis Action Taken by Nursing 11/12/24 16:30 11/12/24 16:30 11/12/24 16:45 Temperature Temperature Source Pulse Rate 85 92 H Pulse Rate [Apical] Pulse Rate from SpO2 Sensor 85 92 H Pulse Rhythm Pulse Rhythm [Apical] Pulse Strength Respiratory Rate 13 20 Respiratory Effort / Characteristics Respiratory Depth Respiratory Pattern Blood Pressure 132/72 Blood Pressure [Left Arm] Blood Pressure Mean 92 Blood Pressure Mean [Left Arm] Blood Pressure Position Pulse Oximetry 94 98 Oxygen Delivery Method Sepsis Recent Fever Within 48 Hours Sepsis New/Unexplained Change in Mental Status Sepsis Action Taken by Nursing 11/12/24 16:54 11/12/24 16:55 11/12/24 17:00 Temperature 37.7 C H Temperature Source Oral Pulse Rate 87 Pulse Rate [Apical] 86 Pulse Rate from SpO2 Sensor 88 Pulse Rhythm Pulse Rhythm [Apical] Pulse Strength Respiratory Rate 25 H 19 Respiratory Effort / Characteristics Respiratory Depth Normal Respiratory Pattern Blood Pressure 136/63 Blood Pressure [Left Arm] 132/72 Blood Pressure Mean 93 Blood Pressure Mean [Left Arm] 92 Blood Pressure Position Pulse Oximetry 94 94 Oxygen Delivery Method Room Air Sepsis Recent Fever Within 48 Hours Sepsis New/Unexplained Change in Mental Status Sepsis Action Taken by Nursing 11/12/24 17:06 11/12/24 17:21 11/12/24 17:24 Temperature Temperature Source Pulse Rate 74 81 75 Pulse Rate [Apical] Pulse Rate from SpO2 Sensor 73 82 72 Pulse Rhythm Pulse Rhythm [Apical] Pulse Strength Respiratory Rate 19 21 20 Respiratory Effort / Characteristics Respiratory Depth Respiratory Pattern Blood Pressure Blood Pressure [Left Arm] Blood Pressure Mean Blood Pressure Mean [Left Arm] Blood Pressure Position Pulse Oximetry 95 95 95 Oxygen Delivery Method Sepsis Recent Fever Within 48 Hours Sepsis New/Unexplained Change in Mental Status Sepsis Action Taken by Nursing 11/12/24 17:30 11/12/24 17:39 11/12/24 18:00 Temperature Temperature Source Pulse Rate 81 Pulse Rate [Apical] 73 Pulse Rate from SpO2 Sensor 81 Pulse Rhythm Pulse Rhythm [Apical] Pulse Strength Respiratory Rate 22 19 Respiratory Effort / Characteristics Non-Labored Spontaneous Respiratory Depth Normal Respiratory Pattern Regular Blood Pressure 125/66 Blood Pressure [Left Arm] 114/70 Blood Pressure Mean 87 Blood Pressure Mean [Left Arm] 84 Blood Pressure Position Pulse Oximetry 95 94 Oxygen Delivery Method Room Air Sepsis Recent Fever Within 48 Hours Sepsis New/Unexplained Change in Mental Status Sepsis Action Taken by Nursing 11/12/24 18:00 11/12/24 18:09 11/12/24 18:15 Temperature Temperature Source Pulse Rate 80 74 Pulse Rate [Apical] Pulse Rate from SpO2 Sensor 81 74 Pulse Rhythm Pulse Rhythm [Apical] Pulse Strength Respiratory Rate 15 15 Respiratory Effort / Characteristics Respiratory Depth Respiratory Pattern Blood Pressure 114/70 Blood Pressure [Left Arm] Blood Pressure Mean 81 Blood Pressure Mean [Left Arm] Blood Pressure Position Pulse Oximetry 94 94 Oxygen Delivery Method Sepsis Recent Fever Within 48 Hours Sepsis New/Unexplained Change in Mental Status Sepsis Action Taken by Nursing 11/12/24 18:18 11/12/24 18:30 11/12/24 18:39 Temperature Temperature Source Pulse Rate 72 87 Pulse Rate [Apical] Pulse Rate from SpO2 Sensor 66 87 Pulse Rhythm Pulse Rhythm [Apical] Pulse Strength Respiratory Rate 20 19 Respiratory Effort / Characteristics Respiratory Depth Respiratory Pattern Blood Pressure 113/60 Blood Pressure [Left Arm] Blood Pressure Mean 69 Blood Pressure Mean [Left Arm] Blood Pressure Position Pulse Oximetry 95 96 Oxygen Delivery Method Sepsis Recent Fever Within 48 Hours Sepsis New/Unexplained Change in Mental Status Sepsis Action Taken by Nursing 11/12/24 18:42 11/12/24 18:51 11/12/24 19:00 Temperature Temperature Source Pulse Rate 75 68 Pulse Rate [Apical] 68 Pulse Rate from SpO2 Sensor Pulse Rhythm Pulse Rhythm [Apical] Regular Pulse Strength Respiratory Rate 17 22 20 Respiratory Effort / Characteristics Respiratory Depth Respiratory Pattern Blood Pressure Blood Pressure [Left Arm] 133/69 Blood Pressure Mean Blood Pressure Mean [Left Arm] 90 Blood Pressure Position Pulse Oximetry 94 Oxygen Delivery Method Room Air Sepsis Recent Fever Within 48 Hours Sepsis New/Unexplained Change in Mental Status Sepsis Action Taken by Nursing 11/12/24 19:00 11/12/24 19:00 11/12/24 19:12 Temperature Temperature Source Pulse Rate 71 70 Pulse Rate [Apical] Pulse Rate from SpO2 Sensor Pulse Rhythm Pulse Rhythm [Apical] Pulse Strength Respiratory Rate 22 21 Respiratory Effort / Characteristics Respiratory Depth Respiratory Pattern Blood Pressure 133/69 Blood Pressure [Left Arm] Blood Pressure Mean 106 Blood Pressure Mean [Left Arm] Blood Pressure Position Pulse Oximetry Oxygen Delivery Method Sepsis Recent Fever Within 48 Hours Sepsis New/Unexplained Change in Mental Status Sepsis Action Taken by Nursing 11/12/24 19:21 Temperature Temperature Source Pulse Rate 65 Pulse Rate [Apical] Pulse Rate from SpO2 Sensor 62 Pulse Rhythm Pulse Rhythm [Apical] Pulse Strength Respiratory Rate 21 Respiratory Effort / Characteristics Respiratory Depth Respiratory Pattern Blood Pressure Blood Pressure [Left Arm] Blood Pressure Mean Blood Pressure Mean [Left Arm] Blood Pressure Position Pulse Oximetry 98 Oxygen Delivery Method Sepsis Recent Fever Within 48 Hours Sepsis New/Unexplained Change in Mental Status Sepsis Action Taken by Nursing Laboratory Data 11/13/24 05:50 11/13/24 05:50 Lab Results 11/12/24 11/12/24 11/12/24 Range/Units 15:41 15:42 15:48 WBC 11.19 H (4.8-10.8) K/ul RBC 4.00 L (4.70-6.10) M/uL Hgb 12.5 L (14.0-18.0) g/dl Hct 37.0 L (42.0-52.0) % MCV 92.5 (80.0-100.0) fL MCH 31.3 (25.0-34.0) pg MCHC 33.8 (32.0-36.0) g/dL RDW Std Deviation 48.4 H (36.4-46.3) fL RDW Coeff of Adam 14.3 (11.5-14.5) % Plt Count 195 (130-400) K/uL MPV 10.1 (9.4-12.4) fL Immature Gran % (Auto) 0.5 % Neut % (Auto) 76.1 % Lymph % (Auto) 13.6 % [place] % (Auto) 8.2 % Eos % (Auto) 1.3 % Baso % (Auto) 0.3 % Neut # (Auto) 8.51 H (1.40-6.50) K/uL Lymph # (Auto) 1.52 (1.20-3.40) K/uL [place] # (Auto) 0.92 H (0.11-0.59) K/uL Eos # (Auto) 0.15 (0.00-0.50) K/uL Baso # (Auto) 0.03 (0.00-0.20) K/uL Immature Gran # (Auto) 0.06 (0.01-0.20) K/uL PT 11.3 (9.0-12.0) Seconds INR 1.0 (0.9-1.1) Sodium 139 (136-145) mmol/L Potassium 3.8 (3.5-5.1) mmol/L Chloride 105 (98-107) mmol/L Carbon Dioxide 25 (21-32) mmol/L Anion Gap 9 (3-11) BUN 22 (6-23) mg/dl Creatinine 1.58 H (0.6-1.4) mg/dl Est Cr Clr Drug Dosing 40.6 ml/min eGFR 43.13 BUN/Creatinine Ratio 13.9 (10-20) Glucose 132 H (70-99(Fasting)) mg/dl Lactate (0.4-2.0) mmol/L Calcium 9.0 (8.6-10.3) mg/dl Magnesium 1.8 (1.7-2.4) mg/dl Total Bilirubin 1.0 (0.2-1.0) mg/dl AST 19 (13-39) U/L ALT 12 (7-52) U/L Alkaline Phosphatase 63 (34-104) U/L Total Creatine Kinase (30-223) U/L Troponin I High Sens 135.7 H* (0-20) pg/ml B-Natriuretic Peptide 163 H (0-100) pg/ml Total Protein 6.5 (6.0-8.3) gm/dl Albumin 3.7 (3.4-5.0) gm/dl Globulin 2.8 (2.5-4.0) gm/dl Albumin/Globulin Ratio 1.3 (0.9-2) Lipase 17 (11-82) U/L Procalcitonin (0-0.5) ng/ml TSH 1.815 (0.300-4.500) uIu/ml Urine Color Urine Appearance (Clear) Urine pH (4.5-7.5) Ur Specific [place] (1.000-1.030) Urine Protein (Negative) Urine Glucose (UA) (Negative) Urine Ketones (Negative) Urine Blood (Negative) Urine Nitrite (Negative) Urine Bilirubin (Negative) Urine Urobilinogen (Negative) Ur Leukocyte Esterase (Negative) Urine WBC (Auto) (0-5) /hpf Urine RBC (Auto) (0-2) /hpf U Hyaline Cast (Auto) (0-2) /lpf U Epithel Cells (Auto) (0-2) /hpf Urine Bacteria (Auto) (None Seen) Adenovirus (PCR) Not Detected (NotDetected) B. pertussis DNA (PCR) Not Detected (NotDetected) B.parapertussis DNA PCR Not Detected (NotDetected) Lyme Disease Screen Negative (Negative) C. pneumoniae DNA (PCR) Not Detected (NotDetected) Coronavirus OC43 (PCR) Not Detected (NotDetected) Coronavirus HKU1 (PCR) Not Detected (NotDetected) Coronavirus 229E (PCR) Not Detected (NotDetected) SARS-CoV-2 (PCR) Not Detected (NotDetected) Coronavirus NL63 (PCR) Not Detected (NotDetected) Human Metapneumovir PCR Not Detected (NotDetected) Influenza Type A (PCR) Not Detected (NotDetected) Influenza Type B (PCR) Not Detected (NotDetected) M. pneumoniae (PCR) Not Detected (NotDetected) Parainfluenza 1 (PCR) Not Detected (NotDetected) Parainfluenza 2 (PCR) Not Detected (NotDetected) Parainfluenza 3 (PCR) Not Detected (NotDetected) Parainfluenza 4 (PCR) Not Detected (NotDetected) RSV (PCR) Not Detected (NotDetected) Entero/Rhino (PCR) Not Detected (NotDetected) 11/12/24 11/12/24 11/12/24 Range/Units 18:46 18:48 20:11 WBC (4.8-10.8) K/ul RBC (4.70-6.10) M/uL Hgb (14.0-18.0) g/dl Hct (42.0-52.0) % MCV (80.0-100.0) fL MCH (25.0-34.0) pg MCHC (32.0-36.0) g/dL RDW Std Deviation (36.4-46.3) fL RDW Coeff of Adam (11.5-14.5) % Plt Count (130-400) K/uL MPV (9.4-12.4) fL Immature Gran % (Auto) % Neut % (Auto) % Lymph % (Auto) % [place] % (Auto) % Eos % (Auto) % Baso % (Auto) % Neut # (Auto) (1.40-6.50) K/uL Lymph # (Auto) (1.20-3.40) K/uL [place] # (Auto) (0.11-0.59) K/uL Eos # (Auto) (0.00-0.50) K/uL Baso # (Auto) (0.00-0.20) K/uL Immature Gran # (Auto) (0.01-0.20) K/uL PT (9.0-12.0) Seconds INR (0.9-1.1) Sodium (136-145) mmol/L Potassium (3.5-5.1) mmol/L Chloride (98-107) mmol/L Carbon Dioxide (21-32) mmol/L Anion Gap (3-11) BUN (6-23) mg/dl Creatinine (0.6-1.4) mg/dl Est Cr Clr Drug Dosing ml/min eGFR BUN/Creatinine Ratio (10-20) Glucose (70-99(Fasting)) mg/dl Lactate 1.0 (0.4-2.0) mmol/L Calcium (8.6-10.3) mg/dl Magnesium (1.7-2.4) mg/dl Total Bilirubin (0.2-1.0) mg/dl AST (13-39) U/L ALT (7-52) U/L Alkaline Phosphatase (34-104) U/L Total Creatine Kinase 85 (30-223) U/L Troponin I High Sens 105.0 H* D (0-20) pg/ml B-Natriuretic Peptide (0-100) pg/ml Total Protein (6.0-8.3) gm/dl Albumin (3.4-5.0) gm/dl Globulin (2.5-4.0) gm/dl Albumin/Globulin Ratio (0.9-2) Lipase (11-82) U/L Procalcitonin 0.13 (0-0.5) ng/ml TSH (0.300-4.500) uIu/ml Urine Color Yellow Urine Appearance Clear (Clear) Urine pH 5.5 (4.5-7.5) Ur Specific [place] 1.011 (1.000-1.030) Urine Protein Negative (Negative) Urine Glucose (UA) Negative (Negative) Urine Ketones Negative (Negative) Urine Blood Negative (Negative) Urine Nitrite Negative (Negative) Urine Bilirubin Negative (Negative) Urine Urobilinogen Negative (Negative) Ur Leukocyte Esterase Trace H (Negative) Urine WBC (Auto) 0-5 (0-5) /hpf Urine RBC (Auto) 0-2 (0-2) /hpf U Hyaline Cast (Auto) 0-2 (0-2) /lpf U Epithel Cells (Auto) 0-2 (0-2) /hpf Urine Bacteria (Auto) None Seen (None Seen) Adenovirus (PCR) (NotDetected) B. pertussis DNA (PCR) (NotDetected) B.parapertussis DNA PCR (NotDetected) Lyme Disease Screen (Negative) C. pneumoniae DNA (PCR) (NotDetected) Coronavirus OC43 (PCR) (NotDetected) Coronavirus HKU1 (PCR) (NotDetected) Coronavirus 229E (PCR) (NotDetected) SARS-CoV-2 (PCR) (NotDetected) Coronavirus NL63 (PCR) (NotDetected) Human Metapneumovir PCR (NotDetected) Influenza Type A (PCR) (NotDetected) Influenza Type B (PCR) (NotDetected) M. pneumoniae (PCR) (NotDetected) Parainfluenza 1 (PCR) (NotDetected) Parainfluenza 2 (PCR) (NotDetected) Parainfluenza 3 (PCR) (NotDetected) Parainfluenza 4 (PCR) (NotDetected) RSV (PCR) (NotDetected) Entero/Rhino (PCR) (NotDetected) Administered Medications Discontinued Medications Aspirin (Aspirin 81 Mg Ectab) 81 mg PO DAILY ETIENNE Stop: 12/13/24 08:59 Last Admin: 11/14/24 10:23 Dose: 81 mg Documented By: Admin: 11/13/24 08:21 Dose: 81 mg Documented By: DLR Atorvastatin Calcium (Atorvastatin 40 Mg Tab) 40 mg PO HS ETIENNE Stop: 12/12/24 22:14 Last Admin: 11/13/24 21:01 Dose: 40 mg Documented By: Admin: 11/12/24 23:49 Dose: 40 mg Documented By: PATSY Cetirizine HCl (Cetirizine Hcl 10 Mg Tablet) 10 mg PO DAILY ETIENNE Stop: 12/13/24 08:59 Last Admin: 11/14/24 10:23 Dose: 10 mg Documented By: Admin: 11/13/24 08:21 Dose: 10 mg Documented By: DLR Docusate Sodium (Docusate Sodium 100 Mg Cap) 100 mg PO DAILY ETIENNE Stop: 12/13/24 08:59 Last Admin: 11/14/24 10:24 Dose: Not Given Documented By: Admin: 11/13/24 08:25 Dose: 100 mg Documented By: DLR Enoxaparin Sodium (Enoxaparin Inj 40 Mg/0.4 Ml Syr) 40 mg SQ PM ETIENNE Stop: 12/12/24 22:14 Last Admin: 11/13/24 21:01 Dose: 40 mg Documented By: Admin: 11/12/24 23:47 Dose: 40 mg Documented By: PATSY Furosemide (Furosemide 20 Mg Tab) 20 mg PO BID ETIENNE Stop: 12/12/24 22:14 Last Admin: 11/12/24 23:48 Dose: 20 mg Documented By: PATSY Sodium Chloride (Nss) 1,000 mls @ 125 mls/hr IV .Q8H ETIENNE Stop: 11/13/24 15:29 Last Infusion: 11/13/24 15:15 Dose: Infused Documented By: Admin: 11/13/24 06:38 Dose: 125 mls/hr Documented By: Infusion: 11/13/24 06:38 Dose: Infused Documented By: Admin: 11/12/24 23:12 Dose: 125 mls/hr Documented By: Infusion: 11/12/24 23:12 Dose: Infused Documented By: Admin: 11/12/24 15:37 Dose: 125 mls/hr Documented By: MAKAYLA Insulin Aspart (Insulin Aspart Per Unit Charge) 0 units SC ACHS ETIENNE Stop: 12/12/24 22:14 Last Admin: 11/14/24 08:05 Dose: Not Given Documented By: Admin: 11/13/24 21:02 Dose: Not Given Documented By: Admin: 11/13/24 17:49 Dose: Not Given Documented By: Admin: 11/13/24 12:46 Dose: Not Given Documented By: Admin: 11/13/24 08:19 Dose: Not Given Documented By: Admin: 11/12/24 23:08 Dose: Not Given Documented By: PATSY Co-signed By: CHAYO Metoprolol Succinate (Metoprolol Succ 50mg Ext Rel Tab) 50 mg PO DAILY ETIENNE Stop: 12/13/24 08:59 Last Admin: 11/14/24 10:24 Dose: 50 mg Documented By: Admin: 11/13/24 08:22 Dose: 50 mg Documented By: KAYLEN Multivitamins/Minerals (Cerovite Adv Formula Tab) 1 tab PO DAILY ETIENNE Stop: 12/13/24 08:59 Last Admin: 11/14/24 10:23 Dose: 1 tab Documented By: Admin: 11/13/24 08:23 Dose: 1 tab Documented By: KAYLEN Pantoprazole Sodium (Pantoprazole 40 Mg Tab) 40 mg PO DAILY ETIENNE Stop: 12/13/24 08:59 Last Admin: 11/14/24 10:23 Dose: 40 mg Documented By: Admin: 11/13/24 08:22 Dose: 40 mg Documented By: LANAR Tamsulosin HCl (Tamsulosin Hcl 0.4 Mg Cap) 0.4 mg PO HS ETIENNE Stop: 12/12/24 22:14 Last Admin: 11/13/24 21:02 Dose: 0.4 mg Documented By: Admin: 11/12/24 23:49 Dose: 0.4 mg Documented By: PATSY Vitamin D (Cholecalciferol 25 Mcg (1000 Units) Tab) 50 mcg PO DAILY ETIENNE Stop: 12/13/24 08:59 Last Admin: 11/14/24 10:23 Dose: 50 mcg Documented By: Admin: 11/13/24 08:23 Dose: 50 mcg Documented By: LANAR Imaging Data Radiologist's Impression: Chest X-Ray 11/12/24 15:20 XR chest 1V portable CLINICAL HISTORY: Fever. COMPARISON STUDY: Chest radiograph June 20, 2023. Chest CT July 11, 2024. FINDINGS: Median sternotomy wires and mediastinal surgical clips are noted. Electronic device projects over the left heart. Cardiomegaly is unchanged. There is no evidence for pulmonary edema. Elevation of the right hemidiaphragm is unchanged. No consolidation is identified to suggest pneumonia. IMPRESSION: No acute cardiopulmonary findings. No change in appearance of the chest. ACT 112: Negative or not required by law. Electronically signed by: Nakul Roberts M.D. 11/12/2024 4:01 PM Hip/Pelvis X-Ray 11/12/24 16:59 EXAM: Radiographs of the Right Hip 3 Views INDICATION: Posttraumatic pain. TECHNIQUE: Front view pelvis and AP and frog leg lateral views of the right hip. COMPARISON: No relevant prior studies available. FINDINGS: Limitations: None. Bones/joints: Grossly intact and well-seated posterior L5-S1 pedicle screws and fusion rods noted. There is mild symmetrical greater trochanteric spurring. Maintained acetabular joint spaces. Soft tissues: No abnormality noted. No radiopaque foreign body noted. IMPRESSION: No acute abnormality of the right hip noted. ACT 112: Negative or not required by law. Electronically signed by Celine Cruz 11-12-2024 6:38 PM Discharge Plan Visit Data Chief Complaint: Illness ED Provider: Maddy Rand Discharge Problem: Generalized weakness, Elevated troponin, Chills Patient Disposition: Admitted As Inpatient Discharge Instructions Interventions: ED Discharge Assessment Last Done: 11/12/24 21:23
--- NOTE | 2024-11-12 18:41 | XRay Report ---
EXAM: Radiographs of the Right Hip 3 Views INDICATION: Posttraumatic pain. TECHNIQUE: Front view pelvis and AP and frog leg lateral views of the right hip. COMPARISON: No relevant prior studies available. FINDINGS: Limitations: None. Bones/joints: Grossly intact and well-seated posterior L5-S1 pedicle screws and fusion rods noted. There is mild symmetrical greater trochanteric spurring. Maintained acetabular joint spaces. Soft tissues: No abnormality noted. No radiopaque foreign body noted. IMPRESSION: No acute abnormality of the right hip noted. ACT 112: Negative or not required by law. Electronically signed by Celine Cruz 11-12-2024 6:38 PM
[2024-11-12 19:02] LABS: Appearance Urine Clear (Clear); Bacteria Urine Automated None Seen (None Seen); Bilirubin Urine Negative (Negative); Blood Urine Negative (Negative); Cast Urine Automated 0-2 /lpf (0-2); Color Urine Yellow; Epithelial Cell Urine Auto 0-2 /hpf (0-2); Glucose Urine UA Negative (Negative); Ketones Urine Negative (Negative); Leukocyte Esterase Urine Trace (Negative); Nitrite Urine Negative (Negative); Protein Urine Negative (Negative); RBC Urine Automated 0-2 /hpf (0-2); Specific Gravity Urine 1.011 (1.000-1.030); Urobilinogen Urine Negative (Negative); WBC Urine Automated 0-5 /hpf (0-5); pH Urine 5.5 (4.5-7.5)
--- NOTE | 2024-11-12 19:47 | History & Physical Report ---
Date of Service November 12, 2024 Assessment & Plan (1) Generalized weakness: Plan: -Patient was reported fever, weakness, and upper body shaking. Also been more lethargic today at facility. -CBC with a slight leukocytosis of 11, CMP with a slight rise of creatinine of 1.58. -BNP of 163. -Pro-Tomer negative, TSH normal. -UA showed trace leukocyte esterase otherwise unremarkable -Respiratory BioFire negative, Lyme negative, MRSA nares pending. -Chest x-ray negative, hip and pelvis x-ray negative. -Blood cultures negative. Lactate negative. -Will get echo in the AM. -PT OT ordered. -Will hold off on antibiotic therapy as no clear source of bacterial infection is found at this time - patient is HD stable and non-toxic in appearance. (2) Elevated troponin: Plan: -Troponin of 135, repeat 2-hour of 105. -Continue trending troponin every 6 hours. -Monitor on telemetry, echo in the AM. 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 (6) T2DM (type 2 diabetes mellitus): Plan: -History of type 2 diabetes though not on any medications. -Sliding scale in place. Will get hemoglobin A1c in the AM. (7) HTN (hypertension): Plan: -Continue home metoprolol. -Hold Lasix. (8) HLD (hyperlipidemia): Plan: -Continue home Lipitor. (9) Aortic valve stenosis: Plan: -Status post SAVR on 10/2022. -Echo in the AM. (10) Bladder cancer: Plan: -History of recurrence of bladder cancer on Keytruda. (11) Chronic kidney disease, stage 3: Plan: -Creatinine of 1.58. Will hold Lasix. -Start on NSS at 125 mL an hour. History of Present Illness Chief Complaint: weakness, elevated troponin Primary Care Provider: Charla Gan MD Patient is a 84-year-old male who presents to the hospital with concerns for weakness and chills. 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 Patient also has a history of aortic valve stenosis status post SAVR on 10/2022. Also has a history of multivessel CAD, dilated aortic root, stage III CKD, hypertension, hyperlipidemia, bladder cancer with recurrence on 05/2024 on Keytruda. Also history of prior GI bleed. Patient was seen bedside and is alert and oriented x 2. This is reported his baseline. No family bedside. Majority of history had to be obtained from ED doc. Reported at the facility that had fever, weakness, upper body shaking and more lethargic. He was also more confused than normal. Patient does declined any pain or issues at this time. Allergies Allergy/AdvReac Type Severity Reaction Status Date / Time pollen extracts Allergy Mild HAY FEVER Verified 09/12/24 09:42 ibuprofen AdvReac Unknown TOLD TO Verified 09/12/24 09:42 AVOID DUE TO BLEEDING ULCER Home Medications Medication Instructions Recorded Confirmed Type atorvastatin 40 mg tablet 40 mg PO HS #90 tabs 01/11/23 11/12/24 Rx furosemide 20 mg tablet 20 mg PO BID #180 tabs 01/11/23 11/12/24 Rx cetirizine 10 mg tablet (Zyrtec) 10 mg PO DAILY allergy symptoms 01/17/23 11/12/24 Rx #90 tabs acetaminophen 500 mg tablet 1,000 mg (2 x 500 mg) PO BID #60 02/06/23 11/12/24 Rx tabs metoprolol succinate 50 mg 50 mg PO DAILY #90 tabs 02/06/23 11/12/24 Rx tablet,extended release 24 hr aspirin 81 mg tablet,delayed 81 mg PO DAILY #30 tabs 05/24/23 11/12/24 Rx release (Adult Aspirin Regimen) cholecalciferol (vitamin D3) 50 50 mcg PO DAILY #90 caps 07/02/23 11/12/24 Rx mcg (2,000 unit) capsule fluticasone propionate 50 1 spray intranasal HS 11/15/23 11/12/24 History mcg/actuation nasal spray,suspension pantoprazole 20 mg tablet,delayed 20 mg PO DAILY #15 tabs 12/14/23 11/12/24 Rx release acetaminophen 500 mg tablet 1,000 mg PO DAILY PRN Pain 11/12/24 11/12/24 History docusate sodium 100 mg capsule 100 mg PO DAILY 11/12/24 11/12/24 History loperamide 2 mg capsule See Rx Instructions .Route .COMPLEX 11/12/24 11/12/24 History multivitamin with minerals-folic 1 tab PO DAILY 11/12/24 11/12/24 History acid 12 mcg chewable tablet (Centrum Adults) ondansetron HCl 4 mg tablet 4 mg PO Q6 PRN nausea/vomiting 11/12/24 11/12/24 History polyethylene glycol 3350 17 17 g PO DAILY PRN Constipation 11/12/24 11/12/24 History gram/dose oral powder (Miralax) psyllium 1 tbsp PO DAILY 11/12/24 11/12/24 History tamsulosin 0.4 mg capsule (Flomax) 0.4 mg PO HS 11/12/24 11/12/24 History Past Med/Surg History Problem List Chills (Acute) Elevated troponin (Acute) Generalized weakness (Acute) 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 HTN (hypertension) HLD (hyperlipidemia) Aortic valve stenosis Moderate to severe per 05/2021 ECHO Moderate per 06/2021 cath Dilated aortic root Moderate (stable) 4.5 cm per 05/2021 echo BPH w urinary obs/LUTS Chronic kidney disease, stage 3 Bladder cancer Medical History CVA, old, disturbances of vision Bladder cancer History of blood transfusion 2014 in setting of GI bleed- 11 packed RBCs Personal history of deep vein thrombosis On Coumadin- currently on hold since Sep 2021 per PCP note (hematuria) Chronic anticoagulation History of sleep apnea Cannot tolerate device Spinal stenosis S/p surgery Slow to wake up after anesthesia GERD (gastroesophageal reflux disease) Well controlled and stable History of basal cell carcinoma Right arm- s/p excision 2005 Had multiple lesions removed over time History of pulmonary embolism Pt unsure of specifics- possibly in 2014- on anticoagulation Chronic back pain History of bleeding peptic ulcer 2015 requiring hospitalization and transfusion 11 packed RBCs, transferred to [facility] per PCP 09/2021 note History of CVA (cerebrovascular accident) 2014; 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 Hermosillo Surgical History History of cystoscopy 11/24/2021: LMA#5 atraumatic. No issues per anesthesia postop progress note. Status post surgical removal and fulguration of bladder neoplasm History of cardiac cath 07/18/2021@ [facility]-75% proximal D1, 75% distal LCx prior to left PLB, 50% mid right PDA. no stents--follows with [place] [facility]ology, Dr. Sow History of nasal surgery History of uvulopalatopharyngoplasty History of lumbar surgery posterior L5-S1 transforaminal lumbar interbody fusion 09/11/2017: Grade 1 view, Glidescope #3, ETT#8.0 x 1 atraumatic. Per anesthesia postop progress note: "...slightly difficult airway requiring the use of glidescope and that a small laceration was noted on the patients lip after intubation..." History of esophagogastroduodenoscopy (EGD) History of colonoscopy History of cataract surgery History of tonsillectomy and adenoidectomy History of basal cell carcinoma (BCC) excision Family History Sister PONV (postoperative nausea and vomiting) Breast cancer Mother , dx a85t Stroke Coronary heart disease Father , dx at 52 Myocardial infarction Brother Lymphoma Denies family history of Ovarian cancer Prostate cancer Colorectal cancer Social History Smoking Status: Former smoker Tobacco Type: Cigarettes Second Hand Exposure: No; Do You Dip or Chew Tobacco: No; Hx Alcohol Use: No Hx Substance Use: No Preferred Language: Croatian Communication Ability: Effective Visual Impairment: No Limitations 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 Beliefs That Will Affect Care: None marital status: Current Living Situation: Personal Care Facility Current Living Situation Comment: Lives w/ spouse @ [facility] [place] current occupational status: retired How many Children do You have: 4 Feels Safe at Home: Yes Childhood Exposure to Second-Hand Smoke: No Diet: regular Dental Care, Regularly: Yes Physical Activity Frequency: Daily Physical Activity Frequency Comment: walks to and from meals Seatbelt Use: always Sunscreen Use: Yes Assistive Devices: Walker Review of Systems Review of Systems: Unobtainable due to mental health condition Physical Exam Physical Exam: Constitutional: well-appearing, no acute distress HEENT: NCAT, no conjunctival injection CV: regular rhythm, no murmur appreciated, extremities well-perfused, no LE edema Resp: CTABL, no wheezes/rales/rhonchi appreciated, no increased work of breathing GI: soft, nondistended, nontender, BS normoactive MSK: Right-sided weakness Skin: warm, dry, no rash appreciated Neuro: A and O x 2, mild dysarthria Results & Data Results & Data Vital Signs (Past 12 Hours) Vital Signs Temp Pulse Pulse Resp BP BP Pulse Ox 11/12/24 19:21 65 21 98 11/12/24 19:12 70 21 11/12/24 19:00 133/69 11/12/24 19:00 71 22 11/12/24 19:00 68 20 133/69 94 11/12/24 18:51 68 22 11/12/24 18:42 75 17 11/12/24 18:39 87 19 96 11/12/24 18:30 113/60 11/12/24 18:18 72 20 95 11/12/24 18:15 74 15 94 11/12/24 18:09 80 15 94 11/12/24 18:00 114/70 11/12/24 18:00 73 19 114/70 94 11/12/24 17:39 81 22 95 11/12/24 17:30 125/66 11/12/24 17:24 75 20 95 11/12/24 17:21 81 21 95 11/12/24 17:06 74 19 95 11/12/24 17:00 136/63 11/12/24 16:55 37.7 C H 86 19 132/72 94 11/12/24 16:54 87 25 H 94 11/12/24 16:45 92 H 20 98 11/12/24 16:30 85 13 94 11/12/24 16:30 132/72 11/12/24 16:27 83 18 91 11/12/24 16:12 73 27 H 99 11/12/24 16:00 77 29 H 98 11/12/24 16:00 125/77 11/12/24 16:00 125/77 11/12/24 16:00 71 20 125/77 99 11/12/24 15:36 88 15 96 11/12/24 15:35 127/81 11/12/24 15:24 88 20 91 11/12/24 15:18 86 15 97 11/12/24 15:00 88 96 11/12/24 14:44 36.6 C 91 H 20 133/63 99 O2 Del Method 11/12/24 19:21 11/12/24 19:12 11/12/24 19:00 11/12/24 19:00 11/12/24 19:00 Room Air 11/12/24 18:51 11/12/24 18:42 11/12/24 18:39 11/12/24 18:30 11/12/24 18:18 11/12/24 18:15 11/12/24 18:09 11/12/24 18:00 11/12/24 18:00 Room Air 11/12/24 17:39 11/12/24 17:30 11/12/24 17:24 11/12/24 17:21 11/12/24 17:06 11/12/24 17:00 11/12/24 16:55 Room Air 11/12/24 16:54 11/12/24 16:45 11/12/24 16:30 11/12/24 16:30 11/12/24 16:27 11/12/24 16:12 11/12/24 16:00 11/12/24 16:00 11/12/24 16:00 11/12/24 16:00 Room Air 11/12/24 15:36 11/12/24 15:35 11/12/24 15:24 11/12/24 15:18 11/12/24 15:00 11/12/24 14:44 Room Air Laboratory Results Laboratory Results WBC 11.19 K/ul (4.8-10.8) H 11/12/24 15:41 RBC 4.00 M/uL (4.70-6.10) L 11/12/24 15:41 Hgb 12.5 g/dl (14.0-18.0) L 11/12/24 15:41 Hct 37.0 % (42.0-52.0) L 11/12/24 15:41 MCV 92.5 fL (80.0-100.0) 11/12/24 15:41 MCH 31.3 pg (25.0-34.0) 11/12/24 15:41 MCHC 33.8 g/dL (32.0-36.0) 11/12/24 15:41 RDW Std Deviation 48.4 fL (36.4-46.3) H 11/12/24 15:41 RDW Coeff of Adam 14.3 % (11.5-14.5) 11/12/24 15:41 Plt Count 195 K/uL (130-400) 11/12/24 15:41 MPV 10.1 fL (9.4-12.4) 11/12/24 15:41 Immature Gran % (Auto) 0.5 % 11/12/24 15:41 Neut % (Auto) 76.1 % 11/12/24 15:41 Lymph % (Auto) 13.6 % 11/12/24 15:41 Meigs % (Auto) 8.2 % 11/12/24 15:41 Eos % (Auto) 1.3 % 11/12/24 15:41 Baso % (Auto) 0.3 % 11/12/24 15:41 Neut # (Auto) 8.51 K/uL (1.40-6.50) H 11/12/24 15:41 Lymph # (Auto) 1.52 K/uL (1.20-3.40) 11/12/24 15:41 Meigs # (Auto) 0.92 K/uL (0.11-0.59) H 11/12/24 15:41 Eos # (Auto) 0.15 K/uL (0.00-0.50) 11/12/24 15:41 Baso # (Auto) 0.03 K/uL (0.00-0.20) 11/12/24 15:41 Immature Gran # (Auto) 0.06 K/uL (0.01-0.20) 11/12/24 15:41 PT 11.3 Seconds (9.0-12.0) 11/12/24 15:41 INR 1.0 (0.9-1.1) 11/12/24 15:41 Sodium 139 mmol/L (136-145) 11/12/24 15:41 Potassium 3.8 mmol/L (3.5-5.1) 11/12/24 15:41 Chloride 105 mmol/L (98-107) 11/12/24 15:41 Carbon Dioxide 25 mmol/L (21-32) 11/12/24 15:41 Anion Gap 9 (3-11) 11/12/24 15:41 BUN 22 mg/dl (6-23) 11/12/24 15:41 Creatinine 1.58 mg/dl (0.6-1.4) H 11/12/24 15:41 Est Cr Clr Drug Dosing 40.6 ml/min 11/12/24 15:41 eGFR 43.13 11/12/24 15:41 BUN/Creatinine Ratio 13.9 (10-20) 11/12/24 15:41 Glucose 132 mg/dl (70-99(Fasting)) H 11/12/24 15:41 POC Glucose 87 mg/dl (70-99) 11/12/24 22:19 Lactate 1.0 mmol/L (0.4-2.0) 11/12/24 20:11 Calcium 9.0 mg/dl (8.6-10.3) 11/12/24 15:41 Magnesium 1.8 mg/dl (1.7-2.4) 11/12/24 15:41 Total Bilirubin 1.0 mg/dl (0.2-1.0) 11/12/24 15:41 AST 19 U/L (13-39) 11/12/24 15:41 ALT 12 U/L (7-52) 11/12/24 15:41 Alkaline Phosphatase 63 U/L (34-104) 11/12/24 15:41 Total Creatine Kinase 85 U/L (30-223) 11/12/24 18:48 Troponin I High Sens 105.0 pg/ml (0-20) H* D 11/12/24 18:48 B-Natriuretic Peptide 163 pg/ml (0-100) H 11/12/24 15:42 Total Protein 6.5 gm/dl (6.0-8.3) 11/12/24 15:41 Albumin 3.7 gm/dl (3.4-5.0) 11/12/24 15:41 Globulin 2.8 gm/dl (2.5-4.0) 11/12/24 15:41 Albumin/Globulin Ratio 1.3 (0.9-2) 11/12/24 15:41 Lipase 17 U/L (11-82) 11/12/24 15:41 Procalcitonin 0.13 ng/ml (0-0.5) 11/12/24 20:11 TSH 1.815 uIu/ml (0.300-4.500) 11/12/24 15:41 Urine Color Yellow 11/12/24 18:46 Urine Appearance Clear (Clear) 11/12/24 18:46 Urine pH 5.5 (4.5-7.5) 11/12/24 18:46 Ur Specific Elizabeth 1.011 (1.000-1.030) 11/12/24 18:46 Urine Protein Negative (Negative) 11/12/24 18:46 Urine Glucose (UA) Negative (Negative) 11/12/24 18:46 Urine Ketones Negative (Negative) 11/12/24 18:46 Urine Blood Negative (Negative) 11/12/24 18:46 Urine Nitrite Negative (Negative) 11/12/24 18:46 Urine Bilirubin Negative (Negative) 11/12/24 18:46 Urine Urobilinogen Negative (Negative) 11/12/24 18:46 Ur Leukocyte Esterase Trace (Negative) H 11/12/24 18:46 Urine WBC (Auto) 0-5 /hpf (0-5) 11/12/24 18:46 Urine RBC (Auto) 0-2 /hpf (0-2) 11/12/24 18:46 U Hyaline Cast (Auto) 0-2 /lpf (0-2) 11/12/24 18:46 U Epithel Cells (Auto) 0-2 /hpf (0-2) 11/12/24 18:46 Urine Bacteria (Auto) None Seen (None Seen) 11/12/24 18:46 Nasal Screen MRSA (PCR) Negative (Negative) 11/12/24 Unknown Adenovirus (PCR) Not Detected (NotDetected) 11/12/24 15:48 B. pertussis DNA (PCR) Not Detected (NotDetected) 11/12/24 15:48 B.parapertussis DNA PCR Not Detected (NotDetected) 11/12/24 15:48 Lyme Disease Screen Negative (Negative) 11/12/24 15:42 C. pneumoniae DNA (PCR) Not Detected (NotDetected) 11/12/24 15:48 Coronavirus OC43 (PCR) Not Detected (NotDetected) 11/12/24 15:48 Coronavirus HKU1 (PCR) Not Detected (NotDetected) 11/12/24 15:48 Coronavirus 229E (PCR) Not Detected (NotDetected) 11/12/24 15:48 SARS-CoV-2 (PCR) Not Detected (NotDetected) 11/12/24 15:48 Coronavirus NL63 (PCR) Not Detected (NotDetected) 11/12/24 15:48 Human Metapneumovir PCR Not Detected (NotDetected) 11/12/24 15:48 Influenza Type A (PCR) Not Detected (NotDetected) 11/12/24 15:48 Influenza Type B (PCR) Not Detected (NotDetected) 11/12/24 15:48 M. pneumoniae (PCR) Not Detected (NotDetected) 11/12/24 15:48 Parainfluenza 1 (PCR) Not Detected (NotDetected) 11/12/24 15:48 Parainfluenza 2 (PCR) Not Detected (NotDetected) 11/12/24 15:48 Parainfluenza 3 (PCR) Not Detected (NotDetected) 11/12/24 15:48 Parainfluenza 4 (PCR) Not Detected (NotDetected) 11/12/24 15:48 RSV (PCR) Not Detected (NotDetected) 11/12/24 15:48 Entero/Rhino (PCR) Not Detected (NotDetected) 11/12/24 15:48 Impressions Chest X-Ray 11/12/24 15:20 XR chest 1V portable CLINICAL HISTORY: Fever. COMPARISON STUDY: Chest radiograph June 20, 2023. Chest CT July 11, 2024. FINDINGS: Median sternotomy wires and mediastinal surgical clips are noted. Electronic device projects over the left heart. Cardiomegaly is unchanged. There is no evidence for pulmonary edema. Elevation of the right hemidiaphragm is unchanged. No consolidation is identified to suggest pneumonia. IMPRESSION: No acute cardiopulmonary findings. No change in appearance of the chest. ACT 112: Negative or not required by law. Electronically signed by: Nakul Roberts M.D. 11/12/2024 4:01 PM Hip/Pelvis X-Ray 11/12/24 16:59 EXAM: Radiographs of the Right Hip 3 Views INDICATION: Posttraumatic pain. TECHNIQUE: Front view pelvis and AP and frog leg lateral views of the right hip. COMPARISON: No relevant prior studies available. FINDINGS: Limitations: None. Bones/joints: Grossly intact and well-seated posterior L5-S1 pedicle screws and fusion rods noted. There is mild symmetrical greater trochanteric spurring. Maintained acetabular joint spaces. Soft tissues: No abnormality noted. No radiopaque foreign body noted. IMPRESSION: No acute abnormality of the right hip noted. ACT 112: Negative or not required by law. Electronically signed by Celine Cruz 11-12-2024 6:38 PM ECG Additional Comments: EKG with SR at 88bpm, 1st degree AV block, no acute ischemic changes Supervising Physician Co-Signing Physician Notes Patient seen and examined, chart reviewed, case discussed with Dr. Ahn and I agree with the assessment and plan as above. In brief, patient is an 84yo male presenting with weakness and chills. Patient is unable to provide clear details of events prior to arrival due to underlying cognitive impairment. He currently has no complaints. On exam he is afebrile, HD stable +S1/S2, regular Lungs CTA anteriorly BS present, abdomen soft, NT/ND No skin sores, rashes or lesions appreciated Labs and images reviewed Elevated troponin as above has decreased on repeat Assessment/Plan -Monitor for infection - will hold off on antibiotics for now -Check 2D echo -Remainder as above
--- NOTE | 2024-11-12 22:07 | Billing Data ---
Date of Service November 12, 2024 Coding Level of Care Code 29562 INT INP/OBS CARE
[2024-11-12] MEDS ORDERED: ACETAMINOPHEN 325 MG TAB PO PRN (22:15)
[2024-11-12] MEDS ORDERED: GLUCOSE 40% GEL 15 GM TUBE PO PRN (22:15)
[2024-11-12] MEDS ORDERED: CARBOHYDRATES FOR HYPOGLYCEMIA PO PRN (22:15)
[2024-11-12] MEDS ORDERED: GLUCOSE 10 TAB/TUBE PO PRN (22:15)
[2024-11-12] MEDS ORDERED: POLYETHYLENE (MIRALAX) 17 GM PACK PO PRN (22:15)
[2024-11-12] MEDS ORDERED: DEXTROSE 50% 50 ML SYRINGE IV PRN (22:15)
[2024-11-12] MEDS ORDERED: ONDANSETRON INJ 2 MG/ML 2 ML VIAL IV PRN (22:15)
[2024-11-12] MEDS ORDERED: GLUCAGON FOR INJ 1 MG VIAL SQ PRN (22:15)
[2024-11-12] MEDS: INSULIN ASPART PER UNIT CHARGE SC SCH (23:08)
[2024-11-12] MEDS: ENOXAPARIN INJ 40 MG/0.4 ML SYR SQ SCH (23:47)
[2024-11-12] MEDS: FUROSEMIDE 20 MG TAB PO SCH (23:48)
[2024-11-12] MEDS: ATORVASTATIN 40 MG TAB PO SCH (23:49)
[2024-11-12] MEDS: TAMSULOSIN HCL 0.4 MG CAP PO SCH (23:49)
[2024-11-13 07:21] LABS: Basophils # (auto) 0.03 K/uL (0.00-0.20); Basophils % (auto) 0.4 %; Eosinophils # (auto) 0.27 K/uL (0.00-0.50); Eosinophils % (auto) 3.9 %; Hematocrit (blood only) 33.6 % (42.0-52.0); Hemoglobin 11.1 g/dl (14.0-18.0); Immature Granulocytes # (auto) 0.02 K/uL (0.01-0.20); Immature Granulocytes % (auto) 0.3 %; Lymphocytes # (auto) 2.11 K/uL (1.20-3.40); Lymphocytes % (auto) 30.2 %; Mean Corpuscular Hemoglobin 30.9 pg (25.0-34.0); Mean Corpuscular Volume 93.6 fL (80.0-100.0); Mean Platelet Volume 10.3 fL (9.4-12.4); Monocytes # (auto) 0.52 K/uL (0.11-0.59); Monocytes % (auto) 7.4 %; Neutrophils # (auto) 4.03 K/uL (1.40-6.50); Neutrophils % (auto) 57.8 %; Platelet Count 152 K/uL (130-400); RDW Coefficient of Variation 14.3 % (11.5-14.5); RDW Standard Deviation 49.9 fL (36.4-46.3); Red Blood Count 3.59 M/uL (4.70-6.10); White Blood Count 6.98 K/ul (4.8-10.8)
[2024-11-13 07:46] LABS: Albumin Globulin Ratio 1.3 (0.9-2); Albumin Level 3.2 gm/dl (3.4-5.0); BUN Creatinine Ratio 14.8 (10-20); Bilirubin,Total 1.2 mg/dl (0.2-1.0); Calcium 8.3 mg/dl (8.6-10.3); Creatinine Clr Calc Pharmacy 51.6 ml/min; Globulin 2.4 gm/dl (2.5-4.0); Magnesium 1.8 mg/dl (1.7-2.4); Potassium 3.6 mmol/L (3.5-5.1); Total Protein 5.6 gm/dl (6.0-8.3)
[2024-11-13 07:53] LABS: Estimated Average Glucose 131 mg/dl; Hemoglobin A1C 6.2 % (4.5-5.6)
[2024-11-13] MEDS: ASPIRIN 81 MG ECTAB PO SCH (08:21)
[2024-11-13] MEDS: CETIRIZINE HCL 10 MG TABLET PO SCH (08:21)
[2024-11-13] MEDS: PANTOprazole 40 MG TAB PO SCH (08:22)
[2024-11-13] MEDS: METOPROLOL SUCC 50MG EXT REL TAB PO SCH (08:22)
[2024-11-13] MEDS: CHOLECALCIFEROL 25 MCG (1000 UNITS) TAB PO SCH (08:23)
[2024-11-13] MEDS: CEROVITE ADV FORMULA TAB PO SCH (08:23)
[2024-11-13] MEDS: DOCUSATE SODIUM 100 MG CAP PO SCH (08:25)
--- NOTE | 2024-11-13 11:55 | Hospitalist Progress Note ---
Date of Service November 13, 2024 Assessment & Plan (1) Generalized weakness: Plan: -likely 2nd to acute viral illness -PT/OT ordered. -Will hold off on antibiotic therapy as no clear source of bacterial infection is found at this time (2) Elevated troponin: Plan: -Troponin of 135, repeat 2-hour of 105. -Continue trending troponin every 6 hours. -Monitor on telemetry, echo in the AM. -cardiology consulted (3) Vascular parkinsonism: Plan: -noted (4) H/O two vessel coronary artery bypass graft: Plan: -Noted. (5) T2DM (type 2 diabetes mellitus): Plan: -History of type 2 diabetes though not on any medications. -Sliding scale in place. (6) HTN (hypertension): Plan: -Continue home metoprolol. -Hold Lasix. (7) HLD (hyperlipidemia): Plan: -Continue home Lipitor. (8) Aortic valve stenosis: Plan: -Status post SAVR on 10/2022. (9) Bladder cancer: Plan: -History of recurrence of bladder cancer on Keytruda. (10) Chronic kidney disease, stage 3: Plan: -Creatinine of 1.58. Will hold Lasix. -Start on NSS at 125 mL an hour. -f/u BMP Plan -follow up PT/OT evaluation and cardiology consult for elevated troponin -plan to d/c once recommendations are made. Admission and Anticipated Discharge Date Admission Date: November 12, 2024 Subjective No events overnight, pt states he still feels generalized weakness. Review of Systems Review of Systems: CONST: Negative for fever, body aches and chills. HENT: Negative for neck pain/stiffness, headache, congestion, sore throat, swelling. EYES: Negative for discharge/pain or vision changes. RESP: Negative for cough/hemoptysis and shortness of breath. CV: Negative chest pain, difficulty breathing, palpitations. ABD: Negative pain, nausea, vomiting. : Negative increase frequency, dysuria, blood in urine or stool. MUSC: Negative for muscle aches, edema. SKIN: Negative rash, lesions/sores. NEURO: Negative headache, dizziness, weakness. Physical Exam Physical Exam: GENERAL APPEARANCE NAD, activity normal for age, well developed/ well nourished, no cyanosis, pallor, or diaphoresis. EYES lids/conjunctiva normal. EARS/NOSE/THROAT Mucous membranes moist, nares normal, lips/teeth normal uvula midline without oral pharyngeal erythema, exudate or swelling TMs normal bilaterally. No lymphangitis/lymphedema. HEAD/NECK normocephalic atraumatic, no facial trauma, neck is supple. RESPIRATORY respiratory effort normal, speaks in full sentences, no tripod position, no accessory muscle use. Lungs clear to auscultation without rhonchi, wheezes, rales CARDIAC Regular rate and rhythm, no edema. ABDOMINAL Soft, ND/NT. No evidence of fluid wave. No pulsatile masses on exam, rebound tenderness, Valera sign or pain over Mcburney's point. MUSCLES/EXTREMITIES No abnormal range of motion, no swelling. SKIN Warm, pink and dry. No rashes, dermatoses, petechiae or lesions. NEUROLOGICAL Speech is clear and appropriate. Normal level of consciousness. Gait and coordination are normal. 5/5 strength in all extremities. PSYCH Normal mood and affect. Judgement/competence is appropriate Results & Data Results & Data Vital Signs (Past 12 Hours) Vital Signs Temp Pulse Pulse Resp BP Pulse Ox O2 Del Method 11/13/24 11:46 36.5 C 55 L 18 127/73 97 Nasal Cannula 11/13/24 10:00 67 11/13/24 08:14 Nasal Cannula 11/13/24 07:33 36.6 C 61 18 110/66 96 Nasal Cannula 11/13/24 05:39 36.5 C 68 18 132/78 99 Nasal Cannula O2 Flow Rate 11/13/24 11:46 2 11/13/24 10:00 11/13/24 08:14 1 11/13/24 07:33 1 11/13/24 05:39 2 PG Care Time/CCT Total # of Minutes Spent Total Time Spent with Patient: Total time spent is greater than 50% in coordination of care (as documented) at patient's floor/unit and/or counseling patient: Coding Level of Care Code 41868 SUB INP/OBS CARE 2/35MIN Diagnoses Generalized weakness R53.1 Elevated troponin R79.89 Vascular parkinsonism G21.4 H/O two vessel coronary artery bypass graft Z95.1 T2DM (type 2 diabetes mellitus) E11.9 HTN (hypertension) I10 HLD (hyperlipidemia) E78.5 Aortic valve stenosis I35.0 Bladder cancer C67.9 Chronic kidney disease, stage 3 N18.30
--- NOTE | 2024-11-13 14:50 | XCELERA ---
[id number] \\[id number]
--- NOTE | 2024-11-13 14:56 | Cardiology Consultation ---
Date of Consultation November 13, 2024 Assessment & Plan (1) Elevated troponin: 2. Prior post SAVR 10/2022; well functioning on echo 10/2024 3. 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 Dilated aortic root (4.4 to 4.6 cm)post aortic root replacement; stable Asc Aorta on CTA 06/2024 5. Postop embolic (question aorto atheroembolic vs AF) left RICK territory CVAILR in place 6. 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 Hypertension/Dyslipidemia 8. Prior GI bleed 9. Bladder cancer--recurrence 05/2024 on Keytruda 10. Acute on chronic renal insufficiency Admitted with [facility] with generalized weakness, chills Initial workup unremarkable and being treated for possible acute viral illness and THEO Patient has had no complaints of chest pain. His HS TropI was minimally elevated on presentation and flat. ECG unchanged, echo with no new wall motion abnormalities. Current presentation is not secondary to ACS and suspect HS TropI secondary to demand in the setting of THEO. Recommendations: Does not need additional ischemic testing Continue home aspirin, statin, Toprol-XL Agree with stopping IV fluids. When restarting maintenance Lasix would switch to 20 mg just once daily From a cardiac standpoint okay with discharge when medical issues resolved. Please contact if additional questions. History of Present Illness Attending Physician: Vinay Carrera MD History of Present Illness Mr. Fitzpatrick is a very pleasant 84-year-old man with prior bioprosthetic AVR and aortic root repair and two-vessel CABG (ROCHA to diagonal, SVG to left PLB) 10/2022 complicated by post operative CVA with residual weakness, vascular dementia seen today as an inpatient due to mildly elevated troponin. Patient currently resides at [facility]. He was sent to the ED in the setting of increased weakness, questionable fall and chills. On admission afebrile. Mild leukocytosis and mild THEO. Chest x-ray clear. UA/viral panel unremarkable. Serial ECG showed sinus rhythm with no new ST changes. HS TropI 135 and flat x 4 around 100. Patient is limited historian but denies any pain. Reports chronic fatigue. No shortness of breath, fevers, chills. Telemetry with sinus rhythm. Repeat echo today shows preserved LV function with no wall motion abnormalities and well-functioning bioprosthetic AVR. Prior cardiac history: Previously followed by Dr. Barbosa, now Dr. Gan. 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 oCoper 12/2021. 08/2022 was endorsing decline in exercise tolerance despite antianginal therapy. Known at least moderate to severe at that time and underwent cardiac catheterization showing multivessel disease (90% large D2, 80% ostial/90% distal LCx, 70% mid RCA) and severe (mean gradient 43, KIT 0.75). Underwent outpatient AVR and CABG ROCHA to diagonal, SVG to PL by Dr. Edgar. Postop course complicated by hypotension, prolonged hospitalization and embolic pattern of ischemic strokes predominantly left RICK territory (question of aorto atheroembolic syndrome. Also reported to have postop AF with RVR. Discharged on amiodarone, no anticoagulation. Since that time has been in rehab, SNFs (now the [place]). With unclear etiology of patient's stroke had ILR placed by Dr. Barreto 06/2023. No arrhythmia noted on monitor, last device check 07/2024. Family history: Dad suddenly at age 52. Mother had angina in her 80s. Son has unspecified arrhythmia. 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 Served for 4 years in the [employer]. Smoked briefly, quitting in 1959. Allergies Allergy/AdvReac Type Severity Reaction Status Date / Time pollen extracts Allergy Mild HAY FEVER Verified 09/12/24 09:42 ibuprofen AdvReac Unknown TOLD TO Verified 09/12/24 09:42 AVOID DUE TO BLEEDING ULCER Home Medications Medication Instructions Recorded Confirmed Type atorvastatin 40 mg tablet 40 mg PO HS #90 tabs 01/11/23 11/12/24 Rx furosemide 20 mg tablet 20 mg PO BID #180 tabs 01/11/23 11/12/24 Rx cetirizine 10 mg tablet (Zyrtec) 10 mg PO DAILY allergy symptoms 02/22/23 12/18/24 Rx #90 tabs acetaminophen 500 mg tablet 1,000 mg (2 x 500 mg) PO BID #60 02/06/23 11/12/24 Rx tabs metoprolol succinate 50 mg 50 mg PO DAILY #90 tabs 02/06/23 11/12/24 Rx tablet,extended release 24 hr aspirin 81 mg tablet,delayed 81 mg PO DAILY #30 tabs 05/24/23 11/12/24 Rx release (Adult Aspirin Regimen) cholecalciferol (vitamin D3) 50 50 mcg PO DAILY #90 caps 07/02/23 11/12/24 Rx mcg (2,000 unit) capsule fluticasone propionate 50 1 spray intranasal HS 11/15/23 11/12/24 History mcg/actuation nasal spray,suspension pantoprazole 20 mg tablet,delayed 20 mg PO DAILY #15 tabs 12/14/23 11/12/24 Rx release acetaminophen 500 mg tablet 1,000 mg PO DAILY PRN Pain 11/12/24 11/12/24 History docusate sodium 100 mg capsule 100 mg PO DAILY 11/12/24 11/12/24 History loperamide 2 mg capsule See Rx Instructions .Route .COMPLEX 11/12/24 11/12/24 History multivitamin with minerals-folic 1 tab PO DAILY 11/12/24 11/12/24 History acid 12 mcg chewable tablet (Centrum Adults) ondansetron HCl 4 mg tablet 4 mg PO Q6 PRN nausea/vomiting 11/12/24 11/12/24 History polyethylene glycol 3350 17 17 g PO DAILY PRN Constipation 11/12/24 11/12/24 History gram/dose oral powder (Miralax) psyllium 1 tbsp PO DAILY 11/12/24 11/12/24 History tamsulosin 0.4 mg capsule (Flomax) 0.4 mg PO HS 11/12/24 11/12/24 History Patient History Medical History CVA, old, disturbances of vision Bladder cancer History of blood transfusion 2014 in setting of GI bleed- 11 packed RBCs Personal history of deep vein thrombosis On Coumadin- currently on hold since Sep 2021 per PCP note (hematuria) Chronic anticoagulation History of sleep apnea Cannot tolerate device Spinal stenosis S/p surgery Slow to wake up after anesthesia GERD (gastroesophageal reflux disease) Well controlled and stable History of basal cell carcinoma Right arm- s/p excision 2005 Had multiple lesions removed over time History of pulmonary embolism Pt unsure of specifics- possibly in 2014- on anticoagulation Chronic back pain History of bleeding peptic ulcer 2014 requiring hospitalization and transfusion 11 packed RBCs, transferred to [facility] per PCP 09/2021 note History of CVA (cerebrovascular accident) 2014; 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 Hermosillo Surgical History History of cystoscopy 11/24/2021: LMA#5 atraumatic. No issues per anesthesia postop progress note. Status post surgical removal and fulguration of bladder neoplasm History of cardiac cath 07/18/2021@ [facility]-75% proximal D1, 75% distal LCx prior to left PLB, 50% mid right PDA. no stents--follows with [place] [facility], Dr. Sow History of nasal surgery History of uvulopalatopharyngoplasty History of lumbar surgery posterior L5-S1 transforaminal lumbar interbody fusion 09/11/2017: Grade 1 view, Glidescope #3, ETT#8.0 x 1 atraumatic. Per anesthesia postop progress note: "...slightly difficult airway requiring the use of glidescope and that a small laceration was noted on the patients lip after intubation..." History of esophagogastroduodenoscopy (EGD) History of colonoscopy History of cataract surgery History of tonsillectomy and adenoidectomy History of basal cell carcinoma (BCC) excision Family History Sister PONV (postoperative nausea and vomiting) Breast cancer Mother , dx a85t Stroke Coronary heart disease Father , dx at 52 Myocardial infarction Brother Lymphoma Denies family history of Ovarian cancer Prostate cancer Colorectal cancer Social History Smoking Status: Former smoker Tobacco Type: Cigarettes Second Hand Exposure: No; Do You Dip or Chew Tobacco: No; Hx Alcohol Use: No Hx Substance Use: No Preferred Language: Spanish Communication Ability: Impaired Visual Impairment: No 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 Beliefs That Will Affect Care: None marital status: Current Living Situation: Personal Care Facility Current Living Situation Comment: Lives w/ spouse @ [facility] current occupational status: retired How many Children do You have: 4 Feels Safe at Home: Yes Childhood Exposure to Second-Hand Smoke: No Diet: regular Dental Care, Regularly: Yes Physical Activity Frequency: Daily Physical Activity Frequency Comment: walks to and from meals Seatbelt Use: always Sunscreen Use: Yes Assistive Devices: Walker and Wheelchair Review of Systems Review of Systems: All systems reviewed & are unremarkable except as noted in HPI & below Physical Exam Physical Exam: General: Comfortable, sleepy HEENT: Sclerae anicteric Lungs: Clear to auscultation bilaterally Cardiac: Regular rate and rhythm, crisp bioprosthetic closure Vascular: 2+ radial Abdomen: Soft, nontender Extremities: Well perfused, no peripheral edema Neuro: Mild dysarthria. Right-sided weakness. Psych: Alert oriented Results & Data Vital Signs (Past 12 Hours) Vital Signs Temp Pulse Pulse Resp BP Pulse Ox O2 Del Method 11/13/24 14:36 56 L 11/13/24 11:46 97.7 F 55 L 18 127/73 97 Nasal Cannula 11/13/24 10:00 67 11/13/24 08:14 Nasal Cannula 11/13/24 07:33 97.9 F 61 18 110/66 96 Nasal Cannula 11/13/24 05:39 97.7 F 68 18 132/78 99 Nasal Cannula O2 Flow Rate 11/13/24 14:36 11/13/24 11:46 2 11/13/24 10:00 11/13/24 08:14 1 11/13/24 07:33 1 11/13/24 05:39 2 PG Care Time/CCT Total # of Minutes Spent Total Time Spent with Patient: Total time spent is greater than 50% in coordination of care (as documented) at patient's floor/unit and/or counseling patient: Coding Level of Care Code 65527 INT INP/OBS CARE 2/55MIN Diagnoses Elevated troponin R79.89
[2024-11-14 04:25] VITALS: O2SAT 97
[2024-11-14 07:36] VITALS: BP 130/70; RESP 20; TEMP 98.1
--- NOTE | 2024-11-14 10:26 | Discharge Summary ---
Discharge Summary Date of Service November 14, 2024 Principal Dx & Hospital Course #1 = Principal Diagnosis (1) Generalized weakness: -likely 2nd to acute viral illness -PT/OT ordered. -Will hold off on antibiotic therapy as no clear source of bacterial infection is found at this time (2) Elevated troponin: -Troponin of 135, repeat 2-hour of 105. -Continue trending troponin every 6 hours. -Monitor on telemetry, echo in the AM. -cardiology consulted (3) Vascular parkinsonism: -noted (4) H/O two vessel coronary artery bypass graft: -Noted. (5) T2DM (type 2 diabetes mellitus): -History of type 2 diabetes though not on any medications. -Sliding scale in place. (6) HTN (hypertension): -Continue home metoprolol. -Hold Lasix. (7) HLD (hyperlipidemia): -Continue home Lipitor. (8) Aortic valve stenosis: -Status post SAVR on 10/2022. (9) Bladder cancer: -History of recurrence of bladder cancer on Keytruda. (10) Chronic kidney disease, stage 3: -Creatinine of 1.58. Will hold Lasix. -Start on NSS at 125 mL an hour. -f/u BMP Plan -follow up PT/OT evaluation and cardiology consult for elevated troponin -plan to d/c once recommendations are made. Admission HPI Per Admitting Provider Patient is a 84-year-old male who presents to the hospital with concerns for weakness and chills. 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 Patient also has a history of aortic valve stenosis sta tus post SAVR on 10/2022. Also has a history of multivessel CAD, dilated aortic root, stage III CKD, hypertension, hyperlipidemia, bladder cancer with recurrence on 05/2024 on Keytruda. Also history of prior GI bleed. Patient was seen bedside and is alert and oriented x 2. This is reported his baseline. No family bedside. Majority of history had to be obtained from ED doc. Reported at the facility that had fever, weakness, upper body shaking and more lethargic. He was also more confused than normal. Patient does declined any pain or issues at this time. Discharge Exam GENERAL APPEARANCE NAD, activity normal for age, well developed/ well nourished, no cyanosis, pallor, or diaphoresis. EYES lids/conjunctiva normal. EARS/NOSE/THROAT Mucous membranes moist, nares normal, lips/teeth normal uvula midline without oral pharyngeal erythema, exudate or swelling TMs normal bilaterally. No lymphangitis/lymphedema. HEAD/NECK normocephalic atraumatic, no facial trauma, neck is supple. RESPIRATORY respiratory effort normal, speaks in full sentences, no tripod position, no accessory muscle use. Lungs clear to auscultation without rhonchi, wheezes, rales CARDIAC Regular rate and rhythm, no edema. ABDOMINAL Soft, ND/NT. No evidence of fluid wave. No pulsatile masses on exam, rebound tenderness, Valera sign or pain over Mcburney's point. MUSCLES/EXTREMITIES No abnormal range of motion, no swelling. SKIN Warm, pink and dry. No rashes, dermatoses, petechiae or lesions. NEUROLOGICAL Speech is clear and appropriate. Normal level of consciousness. Gait and coordination are normal. 5/5 strength in all extremities. PSYCH Normal mood and affect. Judgement/competence is appropriate Discharge Plan Discharge Items Patient Disposition: Home - Self-Care Reason For Visit: WEAKNESS, ELEVATED TROPONIN Discharge Diagnosis: Generalizied weakness Activity: Resume your previous activity Non-emergency contact: Primary Care Provider Call non-emergency contact if: you have any medication questions Follow-up/Referrals: Charla Hussein MD [Primary Care Provider] - 11/20/24 10:40 am (Hospital follow up on November 20 at 10:40 am with Ely Nayak PA-C.) Diet: Regular Addtl Attending Provider Instructions: Follow up with PMD in 1 week Pending Studies at Discharge: No Stand-Alone Forms: My Mesitis, Smoking Cessation Medications and DC Order Prescriptions: Continued atorvastatin 40 mg tablet 40 mg PO HS Qty: 90 1RF furosemide 20 mg tablet 20 mg PO BID Qty: 180 1RF cetirizine [Zyrtec] 10 mg tablet 10 mg PO DAILY Qty: 90 3RF cholecalciferol (vitamin D3) 50 mcg (2,000 unit) capsule 50 mcg PO DAILY Qty: 90 3RF pantoprazole 20 mg tablet,delayed release (DR/EC) 20 mg PO DAILY Qty: 15 0RF aspirin [Adult Aspirin Regimen] 81 mg tablet,delayed release (DR/EC) 81 mg PO DAILY Qty: 30 11RF fluticasone propionate 50 mcg/actuation spray,suspension 1 spray intranasal HS Rx Instructions: administer into each nostril metoprolol succinate 50 mg tablet extended release 24 hr 50 mg PO DAILY Qty: 90 3RF acetaminophen 500 mg tablet 1,000 mg PO BID Qty: 60 0RF tamsulosin [Flomax] 0.4 mg capsule 0.4 mg PO HS loperamide 2 mg capsule See Rx Instructions .ROUTE .COMPLEX MDD 4caps/24hr Rx Instructions: take 2 capsules by mouth after 1st loose BM then 1 capsule thereafter as needed for loose stool docusate sodium 100 mg Capsule 100 mg PO DAILY polyethylene glycol 3350 [Miralax] 17 gram/dose Powder 17 g PO DAILY PRN (Reason: Constipation) Centrum Adults 12 mcg Tablet,Chewable 1 tab PO DAILY Rx Instructions: CENTRUM ADULT GUMMIES ondansetron HCl 4 mg tablet 4 mg PO Q6 PRN (Reason: nausea/vomiting) psyllium Powder 1 tbsp PO DAILY Rx Instructions: mix into at least 8 oz of water or juice before administering acetaminophen 500 mg Tablet 1,000 mg PO DAILY MDD 3G PRN (Reason: Pain) Rx Instructions: CANNOT TAKE WITHIN 4 HOURS OF ROUTINE DOSE Discharge Orders: Discharge Order (Routine); Ordered 11/14/24 Ordered By: Vinay Carrera Admission Data Admit Date/Time: 11/12/24 20:12 Attending Provider: Vinay Carrera Admit Provider: Eloy Ahn Primary Care Provider: Charla Hussein Other Providers: Nicolas Man; Jairo Feliciano Hospital Stay Data Consultations 11/12/24 18:49 ED Decision to Admit Stat 11/13/24 07:44 Consult Cardiology Routine Pending Results Patient Have Any Pending Studies at Discharge: No Discharge Instructions Given to Patient (Per Discharging Provider) Follow up with PMD in 1 week Total Time Total Time Spent Total Time Spent (In Minutes): 50 Coding Level of Care Code 73653 INP/OBS DISCH >30 MIN Diagnoses Generalized weakness R53.1 Elevated troponin R79.89 Vascular parkinsonism G21.4 H/O two vessel coronary artery bypass graft Z95.1 T2DM (type 2 diabetes mellitus) E11.9 HTN (hypertension) I10 HLD (hyperlipidemia) E78.5 Aortic valve stenosis I35.0 Bladder cancer C67.9 Chronic kidney disease, stage 3 N18.30
[2024-11-14 10:33] VITALS: PULSE 53
--- NOTE | 2024-11-15 12:35 | Electrocardiogram Report ---
Test Reason : Blood Pressure : */* mmHG Vent. Rate : 91 BPM Atrial Rate : * BPM P-R Int : * ms QRS Dur : 78 ms QT Int : 344 ms P-R-T Axes : * 18 29 degrees QTcB Int : 423 ms Poor data quality, interpretation may be adversely affected Accelerated Junctional rhythm Cannot rule out Inferior infarct , age undetermined Abnormal ECG When compared with ECG of 20-Jun-2023 20:17, Junctional rhythm has replaced Sinus rhythm Minimal criteria for Inferior infarct are now Present QT has shortened Confirmed by Yung Melton ([id number]) on 11/15/2024 12:35:19 PM Referred By: [facility] Will Geismar Confirmed By: Yung Melton
--- NOTE | 2024-11-15 12:35 | Electrocardiogram Report ---
Test Reason : Blood Pressure : */* mmHG Vent. Rate : 88 BPM Atrial Rate : 88 BPM P-R Int : 314 ms QRS Dur : 86 ms QT Int : 380 ms P-R-T Axes : 47 10 39 degrees QTcB Int : 459 ms Sinus rhythm with 1st degree A-V block Possible Inferior infarct (cited on or before 12-Nov-2024) Abnormal ECG When compared with ECG of 12-Nov-2024 14:36, (unconfirmed) Sinus rhythm has replaced Junctional rhythm Confirmed by Yung Melton ([id number]) on 11/15/2024 12:35:01 PM Referred By: [facility] Confirmed By: Yung Melton
== END 2024-11-14 12:15 | disposition home or self-care (01) ==
LOC: 2S 14:22 → ED 14:22 → SUATTDRO 20:12 → 2S 21:23
DX: Z79.82 Long term (current) use of aspirin; Z87.891 Personal history of nicotine dependence; N28.9 Disorder of kidney and ureter, unspecified; Z79.899 Other long term (current) drug therapy; N18.30 Chronic kidney disease, stage 3 unspecified; R53.1 Weakness; C67.9 Malignant neoplasm of bladder, unspecified; E78.5 Hyperlipidemia, unspecified; R79.89 Other specified abnormal findings of blood chemistry; G21.4 Vascular parkinsonism; E11.22 Type 2 diabetes mellitus with diabetic chronic kidney disease; Z95.1 Presence of aortocoronary bypass graft; I35.0 Nonrheumatic aortic (valve) stenosis; Z86.73 Personal history of transient ischemic attack (TIA), and cerebral infarction without residual deficits; I12.9 Hypertensive chronic kidney disease with stage 1 through stage 4 chronic kidney disease, or unspecified chronic kidney disease; I44.0 Atrioventricular block, first degree

== ENCOUNTER 2025-01-26 13:32 | Inpatient (IN) ==
[2025-01-26] MEDS: OPTIRAY 320 125ml IV ONE (13:42)
--- NOTE | 2025-01-26 14:11 | CT Scan Report ---
CT head/brain wo con CLINICAL HISTORY: neuro deficit, acute stroke suspected. TECHNIQUE: Multiple axial CT images of the head were obtained without contrast. A dose lowering tech nique was utilized adhering to the principles of ALARA. CT DOSE: 647.64 mGy.cm COMPARISON: MRI of 08/29/2023 FINDINGS: No intracranial hemorrhage seen. No mass effect, midline shift, or hydrocephalus. There are severe chronic small vessel ischemic changes, stable. There is a small area of encephalomalacia medi ally in the left occipital lobe, likely old infarction, stable. No skull fracture seen. Visualized pa ranasal sinuses and mastoid air cells are clear. IMPRESSION: No acute findings. ACT 112: Negative or not required by law. The above report was generated using voice recognition software. It may contain grammatical, syntax o r spelling errors. Electronically signed by: Jacques Montgomery M.D. 01/26/2025 2:10 PM
[2025-01-26 14:29] LABS: Basophils # (auto) 0.04 K/uL (0.00-0.20); Basophils % (auto) 0.5 %; Eosinophils # (auto) 0.28 K/uL (0.00-0.50); Eosinophils % (auto) 3.6 %; Hematocrit (blood only) 40.7 % (42.0-52.0); Hemoglobin 13.7 g/dl (14.0-18.0); Immature Granulocytes # (auto) 0.02 K/uL (0.01-0.20); Immature Granulocytes % (auto) 0.3 %; Lymphocytes # (auto) 2.51 K/uL (1.20-3.40); Lymphocytes % (auto) 32.1 %; Mean Corpuscular Hemoglobin 31.5 pg (25.0-34.0); Mean Corpuscular Hgb Conc 33.7 g/dL (32.0-36.0); Mean Corpuscular Volume 93.6 fL (80.0-100.0); Mean Platelet Volume 9.8 fL (9.4-12.4); Monocytes # (auto) 0.55 K/uL (0.11-0.59); Neutrophils # (auto) 4.43 K/uL (1.40-6.50); Neutrophils % (auto) 56.5 %; Platelet Count 234 K/uL (130-400); RDW Standard Deviation 47.9 fL (36.4-46.3); Red Blood Count 4.35 M/uL (4.70-6.10); White Blood Count 7.83 K/ul (4.8-10.8)
--- NOTE | 2025-01-26 14:40 | CT Scan Report ---
CT angio neck with con CLINICAL HISTORY: 84 years-old Male with neuro deficit, acute stroke suspected. Acute stroke like symptoms COMPARISON STUDY: CTA head of same day TECHNIQUE: Following the IV administration of 119 mL of Optiray, CT angiogram of the neck was perform ed from the aortic arch to the skull base. Images are reviewed in the axial, sagittal, and coronal pl anes. 3-D MIPS images are created and assessed. IV contrast was administered without complication. Al l measurements were calculated based on NASCET criteria. A dose lowering technique was utilized adhe ring to the principles of ALARA. CT DOSE: 481.24 mGy.cm FINDINGS: Three-vessel morphology of the thoracic aortic arch. Patency of the innominate and image gray bclavian arteries. Common carotid arteries are patent. Moderate atherosclerosis of the carotid bulbs without high-grade stenosis. The vertebral arteries are codominant and patent. Patent basilar artery. Prior bilateral lens repair. Unremarkable soft tissues of the neck. Multilevel degenerative changes o f the cervical spine. Cardiomegaly with median sternotomy. Lung apices are clear. IMPRESSION: 1. No aneurysm, dissection, high-grade stenosis or arterial occlusion. 2. Moderate atherosclerosis of the carotid bulbs results in less than 50% stenosis. ACT 112: Negative or not required by law. The above report was generated using voice recognition software. It may contain grammatical, syntax o r spelling errors. Electronically signed by: Brennen Stephen M.D. 01/26/2025 2:37 PM
--- NOTE | 2025-01-26 14:43 | CT Scan Report ---
CTA ANGIOGRAPHY OF THE HEAD CLINICAL HISTORY: neuro deficit, acute stroke suspected COMPARISON STUDY: MRI of the brain 05/14/2016. TECHNIQUE: Helical axial images of the head were obtained following uneventful intravenous administr ation of 119 cc of Optiray. Sagittal and coronal reconstructions were viewed as well as maximal inten sity projections on an independent 3-D workstation. Automated exposure control was utilized for the study. A dose lowering technique was utilized adhering to the principles of ALARA. FINDINGS: No acute intracranial hemorrhage, midline shift or mass effect is present. Ventricular syst em is unremarkable. The basal cisterns are patent. There are no extra axial collections. White matter hypodensities suggest extensive small vessel disease. 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 This was shown on MRI of May 14, 2016. The bilateral M1, M2, A1 and A2 segments are patent. The re is moderate plaque within the bilateral cavernous carotids which results in mild stenosis. No vess el occlusion is identified on this exam. The posterior circulation is intact. IMPRESSION: 1. No large vessel occlusion. No intracranial aneurysm. 2. 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 ACT 112: Negative or not required by law. Electronically signed by: Nakul Roberts M.D. 01/26/2025 2:41 PM
[2025-01-26 14:51] LABS: Albumin Globulin Ratio 1.5 (0.9-2); Albumin Level 4.3 gm/dl (3.4-5.0); BUN Creatinine Ratio 23.2 (10-20); Bilirubin,Total 0.9 mg/dl (0.2-1.0); Calcium 10.2 mg/dl (8.6-10.3); Creatinine Clr Calc Pharmacy 35.8 ml/min; Globulin 2.9 gm/dl (2.5-4.0); Magnesium 2.6 mg/dl (1.7-2.4); Potassium 4.6 mmol/L (3.5-5.1); Total Protein 7.2 gm/dl (6.0-8.3); Troponin I High Sensitivity 11.2 pg/ml (0-20)
[2025-01-26 14:54] LABS: Partial Thromboplastin Ratio 0.9; Partial Thromboplastin Time 24 Seconds (21-31)
--- NOTE | 2025-01-26 14:58 | XRay Report ---
XR chest 1V portable CLINICAL HISTORY: neuro deficit, acute stroke suspected COMPARISON STUDY: Chest radiograph November 12, 2024. Chest CT December 28, 2024. 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 There are mediastina l surgical clips. Electronic device projects over the chest. Elevation of the right hemidiaphragm is unchanged. There is no pneumothorax or pleural effusion. There is no consolidation to suggest pneumon ia. There is no evidence for pulmonary edema. There has been no change in appearance of the chest IMPRESSION: No acute cardiopulmonary findings. No change in appearance of the chest. ACT 112: Negative or not required by law. Electronically signed by: Nakul Roberts M.D. 01/26/2025 2:55 PM
--- NOTE | 2025-01-26 15:08 | Emergency Department Note ---
Impression & Plan Stroke-like symptoms, Vascular dementia, Vascular parkinsonism ED Provider Note NAME: BEVERLY FIGUEROA AGE: 84 SEX: M : 1940 ARRIVES VIA: Ambulance INFORMANT: Patient ED PROVIDER(S): Juan Carlos Ortiz MD CHIEF COMPLAINT: Left sided weakness PLAN: Disposition: Admit MEDICAL DECISION MAKING: The patient is a pleasant 84-year-old gentleman with a past medical history of CAD, history of aortic valve replacement in October 2022, history of multiple strokes and associated vascular parkinsonism per records, CKD, hypertension, hyperlipidemia, type 2 diabetes history of bladder cancer on Keytruda per records who presents to the emergency department via EMS from his assisted living facility at [facility] for evaluation of left-sided weakness including left facial droop, left arm and left leg weakness which was noticed at 9 AM today though the last known well is unclear as the patient's noticed weakness in his left arm yesterday morning. Additionally, staff reported increased difficulty with walking over the past 2 days. The patient had been on warfarin in the past for unclear indication but is no longer on anticoagulation. Given unclear details of the patient's last known well upon discussion with EMS crew on medical command stroke alert was activated in the field and patient was taken immediately to CT on arrival. However, the patient is not a TNK candidate due to last known well being at best 48 hours ago. Patient arrives to emergency department afebrile with blood pressure 120/60s, heart in the 60s and vital signs otherwise stable. Appears clinically dry. At this time the patient's face is symmetric without any facial droop. He otherwise exhibits generalized weakness of all extremities with some increased weakness of the left upper extremity which per family is slightly worse than his baseline residual left-sided weakness from prior strokes. They report that they feel that his ability to move it on my assessment is actually significant improved from what they witnessed initially. EKG without overt acute ischemia. CXR negative for acute cardiopulmonary process per my personal preliminary review/interpretation. WBC and platelets within normal limits. H/H similar to improved from prior. Chemistry without metabolic acidosis. Creatinine 1.6, similar to prior values in setting of history of CKD. LFTs unremarkable. Has to troponin 11.2, within normal limits. COVID-19 RNA, VANESSA test was negative. CT of the head and CT of the head neck were performed and were negative for acute ICH, ischemia or severe narrowing occlusion of large vessels. Prior remote stroke findings are described. Given no large vessel occlusion telestroke monitor assessment was deferred. Case was discussed with Karthikeyan Espitia PAC with [facility] hospitalist, who will evaluate the patient for admission. Further management per admitting team. Triage Nursing notes reviewed and agree them. Prior/external medical records reviewed Vital Signs: Reviewed. Differential diagnosis: Infection, dehydration, metabolic abnormality, hypo/hyperglycemia, electrolyte disturbance, anemia, hypoxia, cardiac sources, intracerebral event, toxicologic, neurologic, as well as other pathologies. ER treatment provided: See below. Diagnostics interpreted by me: ECG: Normal sinus rhythm versus junctional rhythm 70 bpm, no overt ST ovation depression, QTc 403, QRS 74. Cardiac Monitoring: An order for continuous cardiac monitoring was placed and demonstrated Normal sinus rhythm versus junctional rhythm 70 bpm. Laboratory studies: See below Imaging studies: See below Consultation(s): Karthikeyan Espitia PAC with [facility]. HPI: The patient is a pleasant 84-year-old gentleman with a past medical history of CAD, history of aortic valve replacement in October 2022, history of multiple strokes and associated vascular parkinsonism per records, CKD, hypertension, hyperlipidemia, type 2 diabetes history of bladder cancer on Keytruda per records who presents to the emergency department via EMS from his assisted living facility at [facility] for evaluation of left-sided weakness including left facial droop, left arm and left leg weakness which was noticed at 9 AM today though the last known well is unclear as the patient's noticed weakness in his left arm yesterday morning. Additionally, staff reported increased difficulty with walking over the past 2 days. The patient had been on warfarin in the past for unclear indication but is no longer on anticoagulation. ROS: See above HPI for pertinent positives & negatives. A total of 10 systems reviewed and were otherwise negative. VITALS:See Below PHYSICAL EXAMINATION: GENERAL: Awake, alert, in no distress HENT: Normocephalic, atraumatic. Oropharynx with dry mucous membranes and otherwise unremarkable. EYES: Normal conjunctiva. Sclera non-icteric. EOMI. No nystamgus. PEARRL. NECK: Supple. No nuchal rigidity. FROM. No JVD. RESPIRATORY: Clear to auscultation. CARDIAC: Regular rate, normal rhythm. Extremities warm and well perfused. Pulses equal. ABDOMEN: Soft, non-distended. No tenderness to palpation. No rebound or guarding. No masses. MUSCULOSKELETAL: Chest examination reveals no tenderness. The back is symmetrical on inspection without obvious abnormality. There is no CVA tenderness to palpation. No joint edema. LOWER EXTREMITIES: Calves are equal size bilaterally and non-tender. No edema. No discoloration. NEURO: Masked facies with symmetric smile. Speech is fluent. Generalized weakness of all extremities with some increased weakness of the left upper extremity which per family is slightly worse than his baseline residual left- sided weakness from prior strokes. SKIN: No rash or jaundice noted. 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 Dilated aortic root Moderate (stable) 4.5 cm per 05/2021 echo BPH w urinary obs/LUTS Medical History Chills Vascular parkinsonism T2DM (type 2 diabetes mellitus) Bladder cancer Chronic kidney disease, stage 3 Aortic valve stenosis Moderate to severe per 05/2021 ECHO Moderate per 06/2021 cath HLD (hyperlipidemia) HTN (hypertension) CVA, old, disturbances of vision Bladder cancer History of blood transfusion 2014 in setting of GI bleed- 11 packed RBCs Personal history of deep vein thrombosis On Coumadin- currently on hold since Sep 2021 per PCP note (hematuria) Chronic anticoagulation History of sleep apnea Cannot tolerate device Spinal stenosis S/p surgery Slow to wake up after anesthesia GERD (gastroesophageal reflux disease) Well controlled and stable History of basal cell carcinoma Right arm- s/p excision 2005 Had multiple lesions removed over time History of pulmonary embolism Pt unsure of specifics- possibly in 2014- on anticoagulation Chronic back pain History of bleeding peptic ulcer 2014 requiring hospitalization and transfusion 11 packed RBCs, [place] [facility] [place] History of CVA (cerebrovascular accident) 2014; 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 Hermosillo Surgical History H/O two vessel coronary artery bypass graft (~10/2022) History of cystoscopy 11/24/2021: LMA#5 atraumatic. No issues per anesthesia postop progress note. Status post surgical removal and fulguration of bladder neoplasm History of cardiac cath 07/18/2021@ [facility]-75% proximal D1, 75% distal LCx prior to left PLB, 50% mid right PDA. no stents--follows with [facility], Dr. Sow History of nasal surgery History of uvulopalatopharyngoplasty History of lumbar surgery posterior L5-S1 transforaminal lumbar interbody fusion 09/11/2017: Grade 1 view, Glidescope #3, ETT#8.0 x 1 atraumatic. Per anesthesia postop progress note: "...slightly difficult airway requiring the use of glidescope and that a small laceration was noted on the patients lip after intubation..." History of esophagogastroduodenoscopy (EGD) History of colonoscopy History of cataract surgery History of tonsillectomy and adenoidectomy History of basal cell carcinoma (BCC) excision Family History Sister PONV (postoperative nausea and vomiting) Breast cancer Mother , dx [id number] Stroke Coronary heart disease Father , dx at 52 Myocardial infarction Brother Lymphoma Denies family history of Ovarian cancer Prostate cancer Colorectal cancer Social History Smoking Status: Never smoker Tobacco Type: Cigarettes Second Hand Exposure: No; Do You Dip or Chew Tobacco: No; Hx Alcohol Use: No Hx Substance Use: No Preferred Language: Maori Communication Ability: Impaired Visual Impairment: No Limitations Pharmaceutical Engineer Required: No Beliefs That Will Affect Care: None marital status: Current Living Situation: Personal Care Facility Current Living Situation Comment: Lives at [facility] current occupational status: retired How many Children do You have: 4 Feels Safe at Home: Yes Childhood Exposure to Second-Hand Smoke: No Diet: regular Dental Care, Regularly: Yes Physical Activity Frequency: Daily Physical Activity Frequency Comment: walks to and from meals Seatbelt Use: always Sunscreen Use: Yes Assistive Devices: Walker and Wheelchair Allergies Allergies Allergy/AdvReac Type Severity Reaction Status Date / Time pollen extracts Allergy Mild HAY FEVER Verified 01/26/25 13:44 ibuprofen AdvReac Unknown TOLD TO Verified 01/26/25 13:44 AVOID DUE TO BLEEDING ULCER Home Meds Home Medications Medication Instructions Recorded Confirmed fluticasone propionate 50 1 spray intranasal HS 11/15/23 01/26/25 mcg/actuation nasal spray,suspension acetaminophen 500 mg tablet 1,000 mg PO DAILY PRN Pain 11/12/24 01/26/25 docusate sodium 100 mg capsule 100 mg PO DAILY 11/12/24 01/26/25 loperamide 2 mg capsule 2 mg PO UD PRN Loose Stool 11/12/24 01/26/25 multivitamin with minerals-folic 1 tab PO DAILY 11/12/24 01/26/25 acid 12 mcg chewable tablet (Centrum Adults) ondansetron HCl 4 mg tablet 4 mg PO Q6 PRN nausea/vomiting 11/12/24 01/26/25 polyethylene glycol 3350 17 17 g PO DAILY PRN Constipation 11/12/24 01/26/25 gram/dose oral powder (Miralax) psyllium 1 tbsp PO DAILY 11/12/24 01/26/25 tamsulosin 0.4 mg capsule (Flomax) 0.4 mg PO HS 11/12/24 01/26/25 Previous Rx's Medication Instructions Recorded atorvastatin 40 mg tablet 40 mg PO HS #90 tabs 01/11/23 furosemide 20 mg tablet 20 mg PO BID #180 tabs 01/11/23 cetirizine 10 mg tablet (Zyrtec) 10 mg PO DAILY allergy symptoms 01/17/23 #90 tabs acetaminophen 500 mg tablet 1,000 mg (2 x 500 mg) PO BID #60 02/06/23 tabs metoprolol succinate 50 mg 50 mg PO DAILY #90 tabs 02/06/23 tablet,extended release 24 hr aspirin 81 mg tablet,delayed 81 mg PO DAILY #30 tabs 05/24/23 release (Adult Aspirin Regimen) cholecalciferol (vitamin D3) 50 50 mcg PO DAILY #90 caps 07/02/23 mcg (2,000 unit) capsule pantoprazole 20 mg tablet,delayed 20 mg PO DAILY #15 tabs 12/14/23 release donepezil 5 mg tablet 5 mg PO DAILY #30 tabs 11/28/24 Results & Data (ED) Vital Signs Vital Signs - 24 hr 01/26/25 13:36 01/26/25 14:21 01/26/25 14:29 Temperature 36.6 C Temperature Source Oral Pulse Rate 92 H 68 62 Pulse Rate from SpO2 Sensor Respiratory Rate 26 H 24 Respiratory Effort / Characteristics Non-Labored Spontaneous Respiratory Depth Normal Blood Pressure 126/83 136/76 Blood Pressure Mean 97 96 Pulse Oximetry 96 98 Oxygen Delivery Method Room Air Room Air Sepsis Recent Fever Within 48 Hours No Sepsis New/Unexplained Change in Mental Status N/A Sepsis Action Taken by Nursing No Action Required 01/26/25 14:30 01/26/25 14:45 01/26/25 14:57 Temperature Temperature Source Pulse Rate 67 66 58 L Pulse Rate from SpO2 Sensor 65 58 L Respiratory Rate 20 26 H 27 H Respiratory Effort / Characteristics Respiratory Depth Blood Pressure 123/60 107/59 L Blood Pressure Mean 81 75 Pulse Oximetry 97 98 99 Oxygen Delivery Method Room Air Room Air Room Air Sepsis Recent Fever Within 48 Hours Sepsis New/Unexplained Change in Mental Status Sepsis Action Taken by Nursing 01/26/25 15:15 01/26/25 15:27 01/26/25 15:30 Temperature Temperature Source Pulse Rate 58 L 62 Pulse Rate from SpO2 Sensor 58 L Respiratory Rate 27 H 14 Respiratory Effort / Characteristics Respiratory Depth Blood Pressure 115/74 Blood Pressure Mean 81 Pulse Oximetry 98 Oxygen Delivery Method Room Air Sepsis Recent Fever Within 48 Hours Sepsis New/Unexplained Change in Mental Status Sepsis Action Taken by Nursing 01/26/25 15:33 01/26/25 15:45 01/26/25 15:48 Temperature Temperature Source Pulse Rate 57 L 58 L 75 Pulse Rate from SpO2 Sensor 57 L 58 L 63 Respiratory Rate 24 17 36 H Respiratory Effort / Characteristics Respiratory Depth Blood Pressure Blood Pressure Mean Pulse Oximetry 99 97 Oxygen Delivery Method Room Air Room Air Sepsis Recent Fever Within 48 Hours Sepsis New/Unexplained Change in Mental Status Sepsis Action Taken by Nursing 01/26/25 15:56 Temperature Temperature Source Pulse Rate Pulse Rate from SpO2 Sensor Respiratory Rate Respiratory Effort / Characteristics Respiratory Depth Blood Pressure 117/61 Blood Pressure Mean 81 Pulse Oximetry Oxygen Delivery Method Sepsis Recent Fever Within 48 Hours Sepsis New/Unexplained Change in Mental Status Sepsis Action Taken by Nursing Laboratory Data Attestation: I reviewed the patient's lab results. 01/26/25 14:10 01/26/25 14:10 Lab Results 01/26/25 01/26/25 Range/Units 14:10 14:45 WBC 7.83 (4.8-10.8) K/ul RBC 4.35 L (4.70-6.10) M/uL Hgb 13.7 L (14.0-18.0) g/dl Hct 40.7 L (42.0-52.0) % MCV 93.6 (80.0-100.0) fL MCH 31.5 (25.0-34.0) pg MCHC 33.7 (32.0-36.0) g/dL RDW Std Deviation 47.9 H (36.4-46.3) fL RDW Coeff of Adam 14.0 (11.5-14.5) % Plt Count 234 (130-400) K/uL MPV 9.8 (9.4-12.4) fL Immature Gran % (Auto) 0.3 % Neut % (Auto) 56.5 % Lymph % (Auto) 32.1 % Morrill % (Auto) 7.0 % Eos % (Auto) 3.6 % Baso % (Auto) 0.5 % Neut # (Auto) 4.43 (1.40-6.50) K/uL Lymph # (Auto) 2.51 (1.20-3.40) K/uL Morrill # (Auto) 0.55 (0.11-0.59) K/uL Eos # (Auto) 0.28 (0.00-0.50) K/uL Baso # (Auto) 0.04 (0.00-0.20) K/uL Immature Gran # (Auto) 0.02 (0.01-0.20) K/uL PT 11.0 (9.0-12.0) Seconds INR 1.0 (0.9-1.1) APTT 24 (21-31) Seconds PTT Ratio 0.9 Sodium 140 (136-145) mmol/L Potassium 4.6 (3.5-5.1) mmol/L Chloride 106 (98-107) mmol/L Carbon Dioxide 26 (21-32) mmol/L Anion Gap 8 (3-11) BUN 38 H (6-23) mg/dl Creatinine 1.64 H (0.6-1.4) mg/dl Est Cr Clr Drug Dosing 35.8 ml/min eGFR 41.25 BUN/Creatinine Ratio 23.2 H (10-20) Glucose 98 (70-99(Fasting)) mg/dl Calcium 10.2 (8.6-10.3) mg/dl Magnesium 2.6 H (1.7-2.4) mg/dl Total Bilirubin 0.9 (0.2-1.0) mg/dl AST 21 (13-39) U/L ALT 17 (7-52) U/L Alkaline Phosphatase 58 (34-104) U/L Troponin I High Sens 11.2 (0-20) pg/ml Total Protein 7.2 (6.0-8.3) gm/dl Albumin 4.3 (3.4-5.0) gm/dl Globulin 2.9 (2.5-4.0) gm/dl Albumin/Globulin Ratio 1.5 (0.9-2) SARS-CoV-2, RNA, NAAT NEGATIVE (NEGATIVE) Administered Medications Sodium Chloride (Nss) 1,000 mls @ 80 mls/hr IV .[id number] ETIENNE Stop: 01/27/25 04:44 Last Admin: 01/26/25 17:39 Dose: 80 mls/hr Documented By: HIRAM Discontinued Medications Gadobutrol (Gadobutrol 65ml Vial) 9 ml IV ONCE ONE Stop: 01/26/25 18:14 Last Admin: 01/26/25 18:14 Dose: 9 ml Documented By: FRANKO Sodium Chloride (Nss) 1,000 mls @ 999 mls/hr IV .Q1H1M ONE Stop: 01/26/25 16:05 Last Infusion: 01/26/25 17:40 Dose: Infused Documented By: Admin: 01/26/25 15:10 Dose: 999 mls/hr Documented By: MOLLY Ioversol (Optiray 320 125ml) 119 ml IV ONCE ONE Stop: 01/26/25 13:43 Last Admin: 01/26/25 13:42 Dose: 119 ml Documented By: YONNY Lorazepam (Lorazepam 2 Mg/1 Ml Vial) 1 mg IV NOW STA Stop: 01/26/25 17:33 Last Admin: 01/26/25 17:39 Dose: 1 mg Documented By: JEANNIEW Imaging Data Radiologist's Impression: Chest X-Ray 01/26/25 13:30 XR chest 1V portable CLINICAL HISTORY: neuro deficit, acute stroke suspected COMPARISON STUDY: Chest radiograph November 12, 2024. Chest CT December 28, 2024. 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 There are mediastinal surgical clips. Electronic device projects over the chest. Elevation of the right hemidiaphragm is unchanged. There is no pneumothorax or pleural effusion. There is no consolidation to suggest pneumonia. There is no evidence for pulmonary edema. There has been no change in appearance of the chest IMPRESSION: No acute cardiopulmonary findings. No change in appearance of the chest. ACT 112: Negative or not required by law. Electronically signed by: Nakul Roberts M.D. 01/26/2025 2:[address] 01/26/25 13:30 CT head/brain wo con CLINICAL HISTORY: neuro deficit, acute stroke suspected. TECHNIQUE: Multiple axial CT images of the head were obtained without contrast. A dose lowering technique was utilized adhering to the principles of ALARA. CT DOSE: 647.64 mGy.cm COMPARISON: MRI of 08/29/2023 FINDINGS: No intracranial hemorrhage seen. No mass effect, midline shift, or hydrocephalus. There are severe chronic small vessel ischemic changes, stable. There is a small area of encephalomalacia medially in the left occipital lobe, likely old infarction, stable. No skull fracture seen. Visualized paranasal sinuses and mastoid air cells are clear. IMPRESSION: No acute findings. ACT 112: Negative or not required by law. The above report was generated using voice recognition software. It may contain grammatical, syntax or spelling errors. Electronically signed by: Jacques Montgomery M.D. 01/26/2025 2:10 PM Head CTA 01/26/25 13:30 CTA ANGIOGRAPHY OF THE HEAD CLINICAL HISTORY: neuro deficit, acute stroke suspected COMPARISON STUDY: MRI of the brain 05/14/2016. TECHNIQUE: Helical axial images of the head were obtained following uneventful intravenous administration of 119 cc of Optiray. Sagittal and coronal reconstructions were viewed as well as maximal intensity projections on an independent 3-D workstation. Automated exposure control was utilized for the study. A dose lowering technique was utilized adhering to the principles of ALARA. FINDINGS: No acute intracranial hemorrhage, midline shift or mass effect is present. Ventricular system is unremarkable. The basal cisterns are patent. There are no extra axial collections. White matter hypodensities suggest extensive small vessel disease. An old left occipital lobe infarct is again noted. This was shown on MRI of May 14, 2016. The bilateral M1, M2, A1 and A2 segments are patent. There is moderate plaque within the bilateral cavernous carotids which results in mild stenosis. No vessel occlusion is identified on this exam. The posterior circulation is intact. IMPRESSION: 1. No large vessel occlusion. No intracranial aneurysm. 2. Old left DIRECTOR FINANCIAL ANALYSIS territory infarct. ACT 112: Negative or not required by law. Electronically signed by: Nakul Roberts M.D. 01/26/2025 2:41 PM Neck CTA 01/26/25 13:30 CT angio neck with con CLINICAL HISTORY: 84 years-old Male with neuro deficit, acute stroke suspected. Acute stroke like symptoms COMPARISON STUDY: CTA head of same day TECHNIQUE: Following the IV administration of 119 mL of Optiray, CT angiogram of the neck was performed from the aortic arch to the skull base. Images are reviewed in the axial, sagittal, and coronal planes. 3-D MIPS images are created and assessed. IV contrast was administered without complication. All measurements were calculated based on NASCET criteria. A dose lowering technique was utilized adhering to the principles of ALARA. CT DOSE: 481.24 mGy.cm FINDINGS: Three-vessel morphology of the thoracic aortic arch. Patency of the innominate and image subclavian arteries. Common carotid arteries are patent. Moderate atherosclerosis of the carotid bulbs without high-grade stenosis. The vertebral arteries are codominant and patent. Patent basilar artery. Prior bilateral lens repair. Unremarkable soft tissues of the neck. Multilevel degenerative changes of the cervical spine. Cardiomegaly with median sternotomy. Lung apices are clear. IMPRESSION: 1. No aneurysm, dissection, high-grade stenosis or arterial occlusion. 2. Moderate atherosclerosis of the carotid bulbs results in less than 50% stenosis. ACT 112: Negative or not required by law. The above report was generated using voice recognition software. It may contain grammatical, syntax or spelling errors. Electronically signed by: Brennen Stephen M.D. 01/26/2025 2:37 PM Discharge Plan Visit Data Chief Complaint: Stroke Alert Stated Complaint: Stroke ED Provider: Juan Carlos Ortiz Discharge Problem: Stroke-like symptoms, Vascular dementia, Vascular parkinsonism Patient Disposition: Admitted As Inpatient Discharge Instructions Interventions: ED Discharge Assessment Last Done: 01/26/25 18:22 Discharge Problem: Vascular dementia Qualifiers: Dementia severity: unspecified severity Dementia behavioral or psychological symptom: unspecified whether behavioral, psychotic, or mood disturbance or anxiety Qualified Code(s): F01.50 - Vascular dementia, unspecified severity, without behavioral disturbance, psychotic disturbance, mood disturbance, and anxiety
[2025-01-26] MEDS: SODIUM CHLORIDE 0.9% 1,000 ML IV ONE (15:10)
--- NOTE | 2025-01-26 16:06 | History & Physical Report ---
<Statement entered by Shankar Neumann, DO - 01/26/25 19:07> I have seen and examined the patient and have discussed the case with the advance practice provider. I have reviewed the advanced practitioner's documentation, and I agree with, and take responsibility for that plan of care. Patient evaluated while in the ED. Daughter and at bedside. They seem to think that he is pretty much close to baseline. Patient very complicated history, previous history of stroke, however does have other etiologies for possible weakness. Newest issue is swallowing. Discussed plan of care as outlined below I spent a total of 20 minutes coordinating, documenting, and providing care for this patient excluding time spent by another provider/QHP. 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: (3) Vascular dementia: (4) CVA (cerebral vascular accident): (5) Coronary artery disease: (6) HTN (hypertension): (7) HLD (hyperlipidemia): (8) Bladder cancer: (9) T2DM (type 2 diabetes mellitus): Plan This is an 84 y/o male with a complex medical history including hx severe AoS, now s/p SAVR, multivessel CAD s/p CABG, multifocal embolic-appearing stroke in the context of AVR, chronic left occipital lobe infarct with residual homonymous hemianopsia, vascular parkinsonism, vascular dementia, HTN, dyslipidemia, prior GI bleed, bladder cancer with recurrence in 06/18, currently on Keytruda, CKD3, and other history as outlined below who presented to the ED today via EMS from [facility] as a stroke alert. No large vessel occlusion seen on initial imaging. Symptoms had mostly resolved by the time of ED evaluation although pt's neurologic baseline somewhat unclear so difficult to ascertain last known well. Referred for admission for further evaluation and management. #Stroke-like symptoms #History of multiple prior CVAs - Admit to med telemetry - evaluate for potential arrhythmia, has ILR in place with last interrogation noted in chart in Nov - Neuro checks - Failed bedside swallow evaluation so will keep NPO until evaluated by speech therapy - MRI brain - Consult neurology - follows with [facility] - Fall precautions, aspiration precautions - PT/OT evaluations #CAD s/p CABG #Hypertension #Dyslipidemia #History of AoS - s/p SAVR Pt follows with Dr. Sow - last ECHO in Oct 2024. EF 60-65%, mild concentric LVH, well-seated bioprosthetic valve with expected transvalvular gradients, negative bubble study for interarterial shunt. Continue outpatient regimen once evaluated by speech therapy #Vascular dementia #Vascular parkinsonism Pt follows with Dr. Warren from neurology - neuro consult as above Continue outpatient regiment once evaluated by speech therapy #CKD3 - creatinine elevated from baseline, poor oral intake per family Hold furosemide overnight Gentle IVF for additional 1L - receive 1L in the ED BMP in the AM #Bladder cancer Follows with Dr. Rudolph - on Keytruda #History of DM2 - not currently on any medications, A1c on 12/29/24 was 6.0 - Insulin sliding scale while admitted with liberal goal range - Regular diet due to poor appetite, limited oral intake Pt seen and reviewed with collaborating physician, Dr. Neumann. Plan of care discussed and as outlined above. Code status: DNR/DNI DVT prophylaxis: subQ heparin Family (, daughter) updated at the bedside - all questions answered. Lee Lee PA-C History of Present Illness Chief Complaint: stroke alert Primary Care Provider: Jhoan Haile, This is an 84 y/o male with a complex medical history including hx severe AoS, now s/p SAVR, multivessel CAD s/p CABG, multifocal embolic-appearing stroke in the context of AVR, chronic left occipital lobe infarct with residual homonymous hemianopsia, vascular parkinsonism, vascular dementia, HTN, dyslipidemia, prior GI bleed, bladder cancer with recurrence in 06/18, currently on Keytruda, CKD3, and other history as outlined below who presented to the ED today via EMS from [facility] as a stroke alert. History is obtained from patient, his and daughter at the bedside, and extensive review of his records in [facility] including most recent cardiology and neurology consultations. Pt was previously followed by [facility] but now follows with Dr. Haile at [facility]. Pt reports that he has felt off for the last few days. His family notes that he has been more lethargic over the last few days and his appetite has been poor with resultant decreased oral intake. Yesterday, his thought his left arm may have been weaker than his baseline but attributed it to his being more tired. This morning, staff at [facility] noted that pt was leaning to the left, seemed weaker in the left arm and leg, and developed a left facial droop around 9 am so EMS was called. Currently, pt is much improved according to his family and seems to be closer to his baseline. Pt reports that most of today is "fuzzy" and he cannot recall the details of how/why he came to the ED. Pt does have ILR that was placed by Dr. Barreto in 06/2023. Most recent interrogation available is from Nov 2024 and showed no new arrhythmic events in the monitoring period. Pt was on anticoagulation in the past but reason somewhat unclear (?PE) but this was stopped due to bleeding (massive GI bleed in 2014, hematuria in 2020). Pt is following with Dr. Rudolph for recurrent bladder cancer and is currently on Keytruda. Allergies Allergy/AdvReac Type Severity Reaction Status Date / Time pollen extracts Allergy Mild HAY FEVER Verified 01/26/25 13:44 ibuprofen AdvReac Unknown TOLD TO Verified 01/26/25 13:44 AVOID DUE TO BLEEDING ULCER Home Medications Medication Instructions Recorded Confirmed Type atorvastatin 40 mg tablet 40 mg PO HS #90 tabs 01/11/23 01/26/25 Rx furosemide 20 mg tablet 20 mg PO BID #180 tabs 01/11/23 01/26/25 Rx cetirizine 10 mg tablet (Zyrtec) 10 mg PO DAILY allergy symptoms 01/17/23 01/26/25 Rx #90 tabs acetaminophen 500 mg tablet 1,000 mg (2 x 500 mg) PO BID #60 02/06/23 01/26/25 Rx tabs metoprolol succinate 50 mg 50 mg PO DAILY #90 tabs 02/06/23 01/26/25 Rx tablet,extended release 24 hr aspirin 81 mg tablet,delayed 81 mg PO DAILY #30 tabs 05/24/23 01/26/25 Rx release (Adult Aspirin Regimen) cholecalciferol (vitamin D3) 50 50 mcg PO DAILY #90 caps 07/02/23 01/26/25 Rx mcg (2,000 unit) capsule fluticasone propionate 50 1 spray intranasal HS 11/15/23 01/26/25 History mcg/actuation nasal spray,suspension pantoprazole 20 mg tablet,delayed 20 mg PO DAILY #15 tabs 12/14/23 01/26/25 Rx release acetaminophen 500 mg tablet 1,000 mg PO DAILY PRN Pain 11/12/24 01/26/25 History docusate sodium 100 mg capsule 100 mg PO DAILY 11/12/24 01/26/25 History loperamide 2 mg capsule 2 mg PO UD PRN Loose Stool 11/12/24 01/26/25 History multivitamin with minerals-folic 1 tab PO DAILY 11/12/24 01/26/25 History acid 12 mcg chewable tablet (Centrum Adults) ondansetron HCl 4 mg tablet 4 mg PO Q6 PRN nausea/vomiting 11/12/24 01/26/25 History polyethylene glycol 3350 17 17 g PO DAILY PRN Constipation 11/12/24 01/26/25 History gram/dose oral powder (Miralax) psyllium 1 tbsp PO DAILY 11/12/24 01/26/25 History tamsulosin 0.4 mg capsule (Flomax) 0.4 mg PO HS 11/12/24 01/26/25 History donepezil 5 mg tablet 5 mg PO DAILY #30 tabs 11/28/24 01/26/25 Rx Past Med/Surg History Problem List (Updated 01/26/25 @ 18:34 by Dunia Lee PA-C) Stroke-like symptoms 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 Dilated aortic root Moderate (stable) 4.5 cm per 05/2021 echo BPH w urinary obs/LUTS Medical History Chills Vascular parkinsonism T2DM (type 2 diabetes mellitus) Bladder cancer Chronic kidney disease, stage 3 Aortic valve stenosis Moderate to severe per 05/2021 ECHO Moderate per 06/2021 cath HLD (hyperlipidemia) HTN (hypertension) CVA, old, disturbances of vision Bladder cancer History of blood transfusion 2014 in setting of GI bleed- 11 packed RBCs Personal history of deep vein thrombosis On Coumadin- currently on hold since Sep 2021 per PCP note (hematuria) Chronic anticoagulation History of sleep apnea Cannot tolerate device Spinal stenosis S/p surgery Slow to wake up after anesthesia GERD (gastroesophageal reflux disease) Well controlled and stable History of basal cell carcinoma Right arm- s/p excision 2005 Had multiple lesions removed over time History of pulmonary embolism Pt unsure of specifics- possibly in 2014- on anticoagulation Chronic back pain History of bleeding peptic ulcer 2014 requiring hospitalization and transfusion 11 packed RBCs, transferred to [facility] per PCP 09/2021 note History of CVA (cerebrovascular accident) 2014; 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 [place] Surgical History History of cystoscopy Status post surgical removal and fulguration of bladder neoplasm History of cardiac cath History of nasal surgery History of uvulopalatopharyngoplasty History of lumbar surgery History of esophagogastroduodenoscopy (EGD) History of colonoscopy History of cataract surgery History of tonsillectomy and adenoidectomy History of basal cell carcinoma (BCC) excision Family History Sister PONV (postoperative nausea and vomiting) Breast cancer Mother , dx [id number] Stroke Coronary heart disease Father , dx at 52 Myocardial infarction Brother Lymphoma Denies family history of Ovarian cancer Prostate cancer Colorectal cancer Social History (Updated 01/26/25 @ 16:40 by Dunia Lee PA-C) Smoking Status: Never smoker Tobacco Type: Cigarettes Second Hand Exposure: No; Do You Dip or Chew Tobacco: No; Hx Alcohol Use: No Hx Substance Use: No Preferred Language: Maltese Communication Ability: Impaired Visual Impairment: No Limitations Teamsite Developer Required: No Beliefs That Will Affect Care: None marital status: Current Living Situation: Personal Care Facility Current Living Situation Comment: Lives at [facility] current occupational status: retired How many Children do You have: 4 Feels Safe at Home: Yes Childhood Exposure to Second-Hand Smoke: No Diet: regular Dental Care, Regularly: Yes Physical Activity Frequency: Daily Physical Activity Frequency Comment: walks to and from meals Seatbelt Use: always Sunscreen Use: Yes Assistive Devices: Walker and Wheelchair Review of Systems Review of Systems: All systems reviewed & are unremarkable except as noted in Subjective Results & Data Results & Data Vital Signs (Past 12 Hours) Vital Signs Temp Pulse Resp BP Pulse Ox O2 Del Method 01/26/25 16:00 57 L 29 H 99 Room Air 01/26/25 15:56 117/61 01/26/25 15:48 75 36 H 01/26/25 15:45 58 L 17 97 Room Air 01/26/25 15:33 57 L 24 99 Room Air 01/26/25 15:30 115/74 01/26/25 15:27 62 14 01/26/25 15:15 58 L 27 H 98 Room Air 01/26/25 14:57 58 L 27 H 107/59 L 99 Room Air 01/26/25 14:45 66 26 H 98 Room Air 01/26/25 14:30 67 20 123/60 97 Room Air 01/26/25 14:29 62 01/26/25 14:21 68 24 136/76 98 Room Air 01/26/25 13:36 36.6 C 92 H 26 H 126/83 96 Room Air Laboratory Results Lab Results 01/26/25 01/26/25 Range/Units 14:10 14:45 WBC 7.83 (4.8-10.8) K/ul RBC 4.35 L (4.70-6.10) M/uL Hgb 13.7 L (14.0-18.0) g/dl Hct 40.7 L (42.0-52.0) % MCV 93.6 (80.0-100.0) fL MCH 31.5 (25.0-34.0) pg MCHC 33.7 (32.0-36.0) g/dL RDW Std Deviation 47.9 H (36.4-46.3) fL RDW Coeff of Adam 14.0 (11.5-14.5) % Plt Count 234 (130-400) K/uL MPV 9.8 (9.4-12.4) fL Immature Gran % (Auto) 0.3 % Neut % (Auto) 56.5 % Lymph % (Auto) 32.1 % Davie % (Auto) 7.0 % Eos % (Auto) 3.6 % Baso % (Auto) 0.5 % Neut # (Auto) 4.43 (1.40-6.50) K/uL Lymph # (Auto) 2.51 (1.20-3.40) K/uL Davie # (Auto) 0.55 (0.11-0.59) K/uL Eos # (Auto) 0.28 (0.00-0.50) K/uL Baso # (Auto) 0.04 (0.00-0.20) K/uL Immature Gran # (Auto) 0.02 (0.01-0.20) K/uL PT 11.0 (9.0-12.0) Seconds INR 1.0 (0.9-1.1) APTT 24 (21-31) Seconds PTT Ratio 0.9 Sodium 140 (136-145) mmol/L Potassium 4.6 (3.5-5.1) mmol/L Chloride 106 (98-107) mmol/L Carbon Dioxide 26 (21-32) mmol/L Anion Gap 8 (3-11) BUN 38 H (6-23) mg/dl Creatinine 1.64 H (0.6-1.4) mg/dl Est Cr Clr Drug Dosing 35.8 ml/min eGFR 41.25 BUN/Creatinine Ratio 23.2 H (10-20) Glucose 98 (70-99(Fasting)) mg/dl Calcium 10.2 (8.6-10.3) mg/dl Magnesium 2.6 H (1.7-2.4) mg/dl Total Bilirubin 0.9 (0.2-1.0) mg/dl AST 21 (13-39) U/L ALT 17 (7-52) U/L Alkaline Phosphatase 58 (34-104) U/L Troponin I High Sens 11.2 (0-20) pg/ml Total Protein 7.2 (6.0-8.3) gm/dl Albumin 4.3 (3.4-5.0) gm/dl Globulin 2.9 (2.5-4.0) gm/dl Albumin/Globulin Ratio 1.5 (0.9-2) SARS-CoV-2, RNA, NAAT NEGATIVE (NEGATIVE) Diagnostic Findings Chest X-Ray 01/26/25 13:30 XR chest 1V portable CLINICAL HISTORY: neuro deficit, acute stroke suspected COMPARISON STUDY: Chest radiograph November 12, 2024. Chest CT December 28, 2024. 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 There are mediastinal surgical clips. Electronic device projects over the chest. Elevation of the right hemidiaphragm is unchanged. There is no pneumothorax or pleural effusion. There is no consolidation to suggest pneumonia. There is no evidence for pulmonary edema. There has been no change in appearance of the chest IMPRESSION: No acute cardiopulmonary findings. No change in appearance of the chest. ACT 112: Negative or not required by law. Electronically signed by: Nakul Roberts M.D. 01/26/2025 2:[address] 01/26/25 13:30 CT head/brain wo con CLINICAL HISTORY: neuro deficit, acute stroke suspected. TECHNIQUE: Multiple axial CT images of the head were obtained without contrast. A dose lowering technique was utilized adhering to the principles of ALARA. CT DOSE: 647.64 mGy.cm COMPARISON: MRI of 08/29/2023 FINDINGS: No intracranial hemorrhage seen. No mass effect, midline shift, or hydrocephalus. There are severe chronic small vessel ischemic changes, stable. There is a small area of encephalomalacia medially in the left occipital lobe, likely old infarction, stable. No skull fracture seen. Visualized paranasal sinuses and mastoid air cells are clear. IMPRESSION: No acute findings. ACT 112: Negative or not required by law. The above report was generated using voice recognition software. It may contain grammatical, syntax or spelling errors. Electronically signed by: Jacques Montgomery M.D. 01/26/2025 2:10 PM Head CTA 01/26/25 13:30 CTA ANGIOGRAPHY OF THE HEAD CLINICAL HISTORY: neuro deficit, acute stroke suspected COMPARISON STUDY: MRI of the brain 05/14/2016. TECHNIQUE: Helical axial images of the head were obtained following uneventful intravenous administration of 119 cc of Optiray. Sagittal and coronal reconstructions were viewed as well as maximal intensity projections on an independent 3-D workstation. Automated exposure control was utilized for the study. A dose lowering technique was utilized adhering to the principles of ALARA. FINDINGS: No acute intracranial hemorrhage, midline shift or mass effect is present. Ventricular system is unremarkable. The basal cisterns are patent. There are no extra axial collections. White matter hypodensities suggest extensive small vessel disease. An old left occipital lobe infarct is again noted. This was shown on MRI of May 14, 2016. The bilateral M1, M2, A1 and A2 segments are patent. There is moderate plaque within the bilateral cavernous carotids which results in mild stenosis. No vessel occlusion is identified on this exam. The posterior circulation is intact. IMPRESSION: 1. No large vessel occlusion. No intracranial aneurysm. 2. Old left ROVING TELLER territory infarct. ACT 112: Negative or not required by law. Electronically signed by: Nakul Roberts M.D. 01/26/2025 2:41 PM Neck CTA 01/26/25 13:30 CT angio neck with con CLINICAL HISTORY: 84 years-old Male with neuro deficit, acute stroke suspected. Acute stroke like symptoms COMPARISON STUDY: CTA head of same day TECHNIQUE: Following the IV administration of 119 mL of Optiray, CT angiogram of the neck was performed from the aortic arch to the skull base. Images are reviewed in the axial, sagittal, and coronal planes. 3-D MIPS images are created and assessed. IV contrast was administered without complication. All measurements were calculated based on NASCET criteria. A dose lowering technique was utilized adhering to the principles of ALARA. CT DOSE: 481.24 mGy.cm FINDINGS: Three-vessel morphology of the thoracic aortic arch. Patency of the innominate and image subclavian arteries. Common carotid arteries are patent. Moderate atherosclerosis of the carotid bulbs without high-grade stenosis. The vertebral arteries are codominant and patent. Patent basilar artery. Prior bilateral lens repair. Unremarkable soft tissues of the neck. Multilevel degenerative changes of the cervical spine. Cardiomegaly with median sternotomy. Lung apices are clear. IMPRESSION: 1. No aneurysm, dissection, high-grade stenosis or arterial occlusion. 2. Moderate atherosclerosis of the carotid bulbs results in less than 50% stenosis. ACT 112: Negative or not required by law. The above report was generated using voice recognition software. It may contain grammatical, syntax or spelling errors. Electronically signed by: Brennen Stephen M.D. 01/26/2025 2:37 PM Medications Administered Sodium Chloride (Nss) 1,000 mls @ 999 mls/hr IV .Q1H1M ONE Stop: 01/26/25 16:05 Last Admin: 01/26/25 15:10 Dose: 999 mls/hr Documented By: MOLLY Discontinued Medications Ioversol (Optiray 320 125ml) 119 ml IV ONCE ONE Stop: 01/26/25 13:43 Last Admin: 01/26/25 13:42 Dose: 119 ml Documented By: YONNY Code Status & VTE Plan VTE Prophylaxis Plan VTE Prophylaxis will be ordered: Yes (3) Vascular dementia Dementia severity: unspecified severity Dementia behavioral or psychological symptom: unspecified whether behavioral, psychotic, or mood disturbance or anxiety Qualified Code(s): F01.50 - Vascular dementia, unspecified severity, without behavioral disturbance, psychotic disturbance, mood disturbance, and anxiety (4) CVA (cerebral vascular accident) CVA mechanism: unspecified Qualified Code(s): I63.9 - Cerebral infarction, unspecified (5) Coronary artery disease Coronary Disease-Associated Artery/Lesion type: [place] artery [place] vs. transplanted heart: [place] heart Associated angina: without angina Qualified Code(s): I25.10 - Atherosclerotic heart disease of [place] coronary artery wit hout angina pectoris (6) HTN (hypertension) Hypertension type: unspecified Qualified Code(s): I10 - Essential (primary) hypertension (7) HLD (hyperlipidemia) Hyperlipidemia type: unspecified Qualified Code(s): E78.5 - Hyperlipidemia, unspecified (8) Bladder cancer Bladder location: unspecified site Qualified Code(s): C67.9 - Malignant neoplasm of bladder, unspecified (9) T2DM (type 2 diabetes mellitus) Diabetes mellitus ocean transportation intermediary insulin use: without fpc use Diabetes mellitus complication status: without complication Qualified Code(s): E11.9 - Type 2 diabetes mellitus without complications
[2025-01-26] MEDS: SODIUM CHLORIDE 0.9% 1,000 ML IV SCH (17:39)
[2025-01-26] MEDS: LORazepam 2 MG/1 ML VIAL IV STA (17:39)
[2025-01-26] MEDS: GADOBUTROL 65ML VIAL IV ONE (18:14)
[2025-01-26] MEDS ORDERED: GLUCAGON FOR INJ 1 MG VIAL SQ PRN (18:30)
[2025-01-26] MEDS ORDERED: CARBOHYDRATES FOR HYPOGLYCEMIA PO PRN (18:30)
[2025-01-26] MEDS ORDERED: GLUCOSE 10 TAB/TUBE PO PRN (18:30)
[2025-01-26] MEDS ORDERED: GLUCOSE 40% GEL 15 GM TUBE PO PRN (18:30)
[2025-01-26] MEDS ORDERED: DEXTROSE 50% 50 ML SYRINGE IV PRN (18:30)
--- NOTE | 2025-01-26 19:16 | Magnetic Resonance Report ---
EXAM: MR brain wo/w con CLINICAL HISTORY: Stroke alert TECHNIQUE: Different pulse sequences were performed in different planes for the brain without and with GD-DTPA injection. Images were sent through PACs for interpretation. COMPARISON: Prior MR dated 08/29/2023 FINDINGS: No lightbulb-restricted diffusion to suggest hyperacute infarction. Tiny left periventricular focal restricted diffusion suggests subacute infarction merging to the chronic stage. Chronic infarction with encephalomalacia is seen at the left occipital lobe with a gliotic evacuee of the left lateral ventricular trigone. It exhibits CSF signals on different pulse sequences. Underlying hemosiderin deposition. This is consistent with chronic infarction and left posterior cerebral artery territory. Altered deep white matter signals are seen at the forceps minor, forceps major, periventricular, and centrum semiovale regions. These exhibit bright signals on T2 and FLAIR WI and intermediate signals on T1 WI. Findings suggest consequences of small vessel disease, e.g., hypertensive and/or diabetic vasculopathy. Underlying Chronic lacunar infarctions with microcystic gliosis are seen at the left aspect of the genu of the corpus callosum, periventricular, centrum semiovale regions, right thalamus and left lentiform nuclei. Normal MRI appearance of the cerebellar parenchymal signals. Age-appropriate degenerative involutional changes are denoted by symmetrical dilatation of the ventricular system, prominent cortical sulci, sylvian fissures, cerebellar, vermian folia, and basal cisterns. Subependymal focal dark signals at the right lateral ventricle suggest sequelae of chronic bleeding. Normal MRI appearance of different anatomical parts of the brain stem, namely the midbrain, rey, and medulla oblongata. Normal MRI appearance of the petrous temporal bones, brainstem, vestibule cochlear nerves, and cerebellopontine angles with no definite masses. No shift of midline structures. Normal MRI appearance of orbital structures, both globes, optic nerves, optic chiasm, and optic tracts. The scanned paranasal sinuses are unremarkable. Bilateral cataract surgery. Hypertrophic nasal turbinates. IMPRESSION: 1. No lightbulb-restricted diffusion to suggest hyperacute infarction. 2. Tiny left periventricular focal restricted diffusion suggests subacute infarction merging to the chronic stage. 3. Chronic infarction with encephalomalacia is seen at the left occipital lobe with a gliotic evacuee of the left lateral ventricular trigone. Imaging features are consistent with chronic hemorrhagic infarction. 4. Subependymal focal dark signals at the right lateral ventricle suggest sequelae of chronic bleeding. 5. Altered deep white matter signals with anatomical distribution and imaging features consistent with the consequences of small vessel disease, e.g., hypertensive and/or diabetic vasculopathy. ([place], grade 3). 6. Age-appropriate degenerative involutional changes. 7. The comparison matches the Prior MRI findings with a progressive course. Electronically signed by Dhara Redmond 01-26-2025 7:15 PM
[2025-01-26] MEDS: INSULIN ASPART PER UNIT CHARGE SC SCH (22:00)
[2025-01-26] MEDS: HEPARIN SOD 5,000 UNIT/0.5 ML VIAL SQ SCH (22:01)
[2025-01-27 03:48] LABS: Appearance Urine Clear (Clear); Bacteria Urine Automated 2+ (None Seen); Bilirubin Urine Negative (Negative); Blood Urine Negative (Negative); Color Urine Yellow; Epithelial Cell Urine Auto 0-2 /hpf (0-2); Glucose Urine UA Negative (Negative); Ketones Urine Negative (Negative); Leukocyte Esterase Urine 2+ (Negative); Nitrite Urine Negative (Negative); Protein Urine Negative (Negative); RBC Urine Automated 0-2 /hpf (0-2); Specific Gravity Urine 1.043 (1.000-1.030); Urobilinogen Urine Negative (Negative)
--- NOTE | 2025-01-27 08:41 | Neurology Consultation ---
Date of Consultation January 27, 2025 Assessment & Plan (1) Stroke-like symptoms: History of Present Illness Attending Physician: Ned Barnhart MD History of Present Illness S: pt this morning alert and comfortable. able to follow command well. not in distress. mri brain essentially negative, subacute small ischemic lesion on left subcortical. chart reviewed. pt with likely UTI. 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 Additionally, staff reported increased difficulty with walking over the past 2 days. The patient had been on warfarin in the past for unclear indication but is no longer on anticoagulation. Given unclear details of the patient's last known well upon discussion with EMS crew on medical command stroke alert was activated in the field and patient was taken immediately to CT on arrival. However, the patient is not a TNK candidate due to last known well being at best 48 hours ago. Patient arrives to emergency department afebrile with blood pressure 120/60s, heart in the 60s and vital signs otherwise stable. Appears clinically dry. At this time the patient's face is symmetric without any facial droop. He otherwise exhibits generalized weakness of all extremities with some increased weakness of the left upper extremity which per family is slightly worse than his baseline residual left-sided weakness from prior strokes. They report that they feel that his ability to move it on my assessment is actually significant improved from what they witnessed initially. EKG without overt acute ischemia. CXR negative for acute cardiopulmonary process per my personal preliminary review/interpretation. WBC and platelets within normal limits. H/H similar to improved from prior. Chemistry without metabolic acidosis. Creatinine 1.6, similar to prior values in setting of history of CKD. LFTs unremarkable. Has to troponin 11.2, within normal limits. COVID-19 RNA, VANESSA test was negative. CT of the head and CT of the head neck were performed and were negative for acute ICH, ischemia or severe narrowing occlusion of large vessels. Prior remote stroke findings are described. Given no large vessel occlusion telestroke monitor assessment was deferred. Allergies Allergy/AdvReac Type Severity Reaction Status Date / Time pollen extracts Allergy Mild HAY FEVER Verified 01/26/25 13:44 ibuprofen AdvReac Unknown TOLD TO Verified 01/26/25 13:44 AVOID DUE TO BLEEDING ULCER Home Medications Medication Instructions Recorded Confirmed Type atorvastatin 40 mg tablet 40 mg PO HS #90 tabs 01/11/23 01/26/25 Rx furosemide 20 mg tablet 20 mg PO BID #180 tabs 01/11/23 01/26/25 Rx cetirizine 10 mg tablet (Zyrtec) 10 mg PO DAILY allergy symptoms 01/17/23 01/26/25 Rx #90 tabs acetaminophen 500 mg tablet 1,000 mg (2 x 500 mg) PO BID #60 02/06/23 01/26/25 Rx tabs metoprolol succinate 50 mg 50 mg PO DAILY #90 tabs 02/06/23 01/26/25 Rx tablet,extended release 24 hr aspirin 81 mg tablet,delayed 81 mg PO DAILY #30 tabs 05/24/23 01/26/25 Rx release (Adult Aspirin Regimen) cholecalciferol (vitamin D3) 50 50 mcg PO DAILY #90 caps 07/02/23 01/26/25 Rx mcg (2,000 unit) capsule fluticasone propionate 50 1 spray intranasal HS 11/15/23 01/26/25 History mcg/actuation nasal spray,suspension pantoprazole 20 mg tablet,delayed 20 mg PO DAILY #15 tabs 12/14/23 01/26/25 Rx release acetaminophen 500 mg tablet 1,000 mg PO DAILY PRN Pain 11/12/24 01/26/25 History docusate sodium 100 mg capsule 100 mg PO DAILY 11/12/24 01/26/25 History loperamide 2 mg capsule 2 mg PO UD PRN Loose Stool 11/12/24 01/26/25 History multivitamin with minerals-folic 1 tab PO DAILY 11/12/24 01/26/25 History acid 12 mcg chewable tablet (Centrum Adults) ondansetron HCl 4 mg tablet 4 mg PO Q6 PRN nausea/vomiting 11/12/24 01/26/25 History polyethylene glycol 3350 17 17 g PO DAILY PRN Constipation 11/12/24 01/26/25 History gram/dose oral powder (Miralax) psyllium 1 tbsp PO DAILY 11/12/24 01/26/25 History tamsulosin 0.4 mg capsule (Flomax) 0.4 mg PO HS 11/12/24 01/26/25 History donepezil 5 mg tablet 5 mg PO DAILY #30 tabs 11/28/24 01/26/25 Rx Patient History Medical History Chills Vascular parkinsonism T2DM (type 2 diabetes mellitus) Bladder cancer Chronic kidney disease, stage 3 Aortic valve stenosis Moderate to severe per 05/2021 ECHO Moderate per 06/2021 cath HLD (hyperlipidemia) HTN (hypertension) CVA, old, disturbances of vision Bladder cancer History of blood transfusion 2014 in setting of GI bleed- 11 packed RBCs Personal history of deep vein thrombosis On Coumadin- currently on hold since Sep 2021 per PCP note (hematuria) Chronic anticoagulation History of sleep apnea Cannot tolerate device Spinal stenosis S/p surgery Slow to wake up after anesthesia GERD (gastroesophageal reflux disease) Well controlled and stable History of basal cell carcinoma Right arm- s/p excision 2005 Had multiple lesions removed over time History of pulmonary embolism Pt unsure of specifics- possibly in 2014- on anticoagulation Chronic back pain History of bleeding peptic ulcer 2014 requiring hospitalization and transfusion 11 packed RBCs, [place] [facility]21 [place] History of CVA (cerebrovascular accident) 2014; 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 Hermosillo Surgical History H/O two vessel coronary artery bypass graft (~10/2022) History of cystoscopy 11/24/2021: LMA#5 atraumatic. No issues per anesthesia postop progress note. Status post surgical removal and fulguration of bladder neoplasm History of cardiac cath 07/18/2021@ [facility]-75% proximal D1, 75% distal LCx prior to left PLB, 50% mid right PDA. no stents--follows with [place] [facility], Dr. Sow History of nasal surgery History of uvulopalatopharyngoplasty History of lumbar surgery posterior L5-S1 transforaminal lumbar interbody fusion 09/11/2017: Grade 1 view, Glidescope #3, ETT#8.0 x 1 atraumatic. Per anesthesia postop progress note: "...slightly difficult airway requiring the use of glidescope and that a small laceration was noted on the patients lip after intubation..." History of esophagogastroduodenoscopy (EGD) History of colonoscopy History of cataract surgery History of tonsillectomy and adenoidectomy History of basal cell carcinoma (BCC) excision Family History Sister PONV (postoperative nausea and vomiting) Breast cancer Mother , dx [id number] Stroke Coronary heart disease Father , dx at 52 Myocardial infarction Brother Lymphoma Denies family history of Ovarian cancer Prostate cancer Colorectal cancer Social History Smoking Status: Former smoker Tobacco Type: Cigarettes Second Hand Exposure: No; Do You Dip or Chew Tobacco: No; Hx Alcohol Use: No Hx Substance Use: No Preferred Language: Zambian Communication Ability: Effective Visual Impairment: No Limitations Commercial Electrician Required: No Beliefs That Will Affect Care: None marital status: Current Living Situation: Personal Care Facility Current Living Situation Comment: Lives at [facility] current occupational status: retired How many Children do You have: 4 Feels Safe at Home: Yes Childhood Exposure to Second-Hand Smoke: No Diet: regular Dental Care, Regularly: Yes Physical Activity Frequency: Daily Physical Activity Frequency Comment: walks to and from meals Seatbelt Use: always Sunscreen Use: Yes Assistive Devices: Walker Exam (Neuro) Physical Exam: HEENT: normocephalic grossly Neuro: Mental: Alert, not sure of dates, able to tell me name of the hospital. fluent speech, normal simple comprehension, no apraxia, no neglect CN: PERRL, Full EOM, symmetric face Motor: No abnormal movements, moving all limb well. 4+/5 t/o b/l symmetric. Sens: intact to touch b/l grossly Coord: intact grossly. Impression: 84 yo male with TIA like symptom that is now resolved in setting of UTI and likely dehydration. MRI reviewed, no acute stroke, subacute appearing lesion does not match his presentation symptoms. His symptom likely relate to his overall decondition with UTI and dehydration. Recommendations: supportive care UTI tx/management. hydration ok to continue ASA as before. does not need further stroke work up at this point. call again if new question. Chart reviewed I have spent more than 50% educating patient about potential diagnosis and neurological evaluation and coordinating care with patient's treatment team. Total time spent (including chart review and coordination of care): 60 min (this includes chart review). Results & Data Vital Signs (Past 12 Hours) Vital Signs Temp Pulse Pulse Resp BP BP Pulse Ox 01/27/25 07:37 36.4 C L 62 14 160/93 H 97 01/27/25 07:05 68 01/27/25 03:50 36.7 C 82 19 108/68 98 01/26/25 23:16 36.6 C 17 110/72 96 01/26/25 21:48 65 01/26/25 20:58 65 01/26/25 20:57 36.2 C L 12 134/79 95 O2 Del Method 01/27/25 07:37 Room Air 01/27/25 07:05 01/27/25 03:50 Room Air 01/26/25 23:16 Room Air 01/26/25 21:48 01/26/25 20:58 01/26/25 20:57 Room Air PG Care Time/CCT Total # of Minutes Spent Total Time Spent with Patient: Total time spent is greater than 50% in coordination of care (as documented) at patient's floor/unit and/or counseling patient: Coding Level of Care Code 64311 IN/OBS CONSULT LVL 4,60M Diagnoses Stroke-like symptoms R29.90
[2025-01-27] MEDS: cefTRIAXone SODIUM 2,000 MG/50 ML BAG IV SCH (11:06)
[2025-01-27 11:51] LABS: Basophils # (auto) 0.04 K/uL (0.00-0.20); Basophils % (auto) 0.5 %; Eosinophils # (auto) 0.35 K/uL (0.00-0.50); Eosinophils % (auto) 4.7 %; Hematocrit (blood only) 41.8 % (42.0-52.0); Hemoglobin 13.8 g/dl (14.0-18.0); Immature Granulocytes # (auto) 0.03 K/uL (0.01-0.20); Immature Granulocytes % (auto) 0.4 %; Lymphocytes # (auto) 1.44 K/uL (1.20-3.40); Lymphocytes % (auto) 19.2 %; Mean Corpuscular Hemoglobin 31.1 pg (25.0-34.0); Mean Corpuscular Volume 94.1 fL (80.0-100.0); Mean Platelet Volume 9.9 fL (9.4-12.4); Monocytes # (auto) 0.51 K/uL (0.11-0.59); Monocytes % (auto) 6.8 %; Neutrophils # (auto) 5.14 K/uL (1.40-6.50); Neutrophils % (auto) 68.4 %; Platelet Count 218 K/uL (130-400); RDW Coefficient of Variation 14.1 % (11.5-14.5); RDW Standard Deviation 48.9 fL (36.4-46.3); Red Blood Count 4.44 M/uL (4.70-6.10); White Blood Count 7.51 K/ul (4.8-10.8)
[2025-01-27 12:08] LABS: BUN Creatinine Ratio 23.4 (10-20); Calcium 9.6 mg/dl (8.6-10.3); Magnesium 2.5 mg/dl (1.7-2.4); Potassium 4.5 mmol/L (3.5-5.1)
--- NOTE | 2025-01-27 14:37 | Hospitalist Progress Note ---
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: (3) Vascular dementia: (4) CVA (cerebral vascular accident): (5) Coronary artery disease: (6) HTN (hypertension): (7) HLD (hyperlipidemia): (8) Bladder cancer: (9) T2DM (type 2 diabetes mellitus): Plan This is an 84 y/o male with a complex medical history including hx severe AoS, now s/p SAVR, multivessel CAD s/p CABG, multifocal embolic-appearing stroke in the context of AVR, chronic left occipital lobe infarct with residual homonymous hemianopsia, vascular parkinsonism, vascular dementia, HTN, dyslipidemia, prior GI bleed, bladder cancer with recurrence in 06/18, currently on Keytruda, CKD3, and other history as outlined below who presented to the ED today via EMS from [facility] as a stroke alert. No large vessel occlusion seen on initial imaging. Symptoms had mostly resolved by the time of ED evaluation although pt's neurologic baseline somewhat unclear so difficult to ascertain last known well. Referred for admission for further evaluation and management. #Stroke-like symptoms #History of multiple prior CVAs - Admitted to [facility] [place] telemetry - evaluate for potential arrhythmia, has ILR in place with last interrogation noted in chart in Nov - Neuro checks - MRI brain obtained and reviewed by neurologist - Consult neurology - follows with [facility] - per neurology - 84 yo male with TIA like symptom that is now resolved in setting of UTI and likely dehydration. MRI reviewed, no acute stroke, subacute appearing lesion does not match his presentation symptoms. His symptom likely relate to his overall decondition with UTI and dehydration. Recommendations: supportive care UTI tx/management. hydration ok to continue ASA as before. does not need further stroke work up at this point. - Fall precautions, aspiration precautions - PT/OT evaluations UTI - emp. rocephin -folow Ucultx #CAD s/p CABG #Hypertension #Dyslipidemia #History of AoS - s/p SAVR Pt follows with Dr. Sow - last ECHO in Oct 2024. EF 60-65%, mild concentric LVH, well-seated bioprosthetic valve with expected transvalvular gradients, negative bubble study for interarterial shunt. Continue outpatient regimen once evaluated by speech therapy #Vascular dementia #Vascular parkinsonism Pt follows with Dr. Warren from neurology - neuro consult as above Continue outpatient regiment once evaluated by speech therapy #CKD3 - creatinine elevated from baseline, poor oral intake per family Hold furosemide overnight Gentle IVF BMP in the AM #Bladder cancer Follows with Dr. Rudolph - on Keytruda #History of DM2 - not currently on any medications, A1c on 12/29/24 was 6.0 - Insulin sliding scale while admitted with liberal goal range - Regular diet due to poor appetite, limited oral intake Code status: DNR/DNI DVT prophylaxis: subQ heparin Admission and Anticipated Discharge Date Admission Date: January 26, 2025 Subjective Pt seen in follow up concern for recurrent CVA Pt seen by neuro - symptoms likely d/t UTI Currently pt is sitting up in chair, in NAD, says he feels well. pt seems to be back to his baseline Denies any fever, chills, chest pain, shortness of breath, abd. pain Review of Systems Review of Systems: All systems reviewed & are unremarkable except as noted in Subjective Physical Exam Physical Exam: GENERAL: WD/WN M in NAD HENT: NC/AT. NECK: Supple. RESPIRATORY: CTAB CARDIAC: Regular ABDOMEN: Soft, nontender to palpation. NEURO: Awake, alert, answers appropriately. Speech is fluent. Moves extremities. SKIN: warm, dry Results & Data Results & Data Vital Signs (Past 12 Hours) Vital Signs Temp Pulse Pulse Resp BP BP Pulse Ox 01/27/25 14:29 71 01/27/25 11:31 36.6 C 73 14 116/71 94 01/27/25 07:37 36.4 C L 62 14 160/93 H 97 01/27/25 07:05 68 01/27/25 03:50 36.7 C 82 19 108/68 98 O2 Del Method 01/27/25 14:29 01/27/25 11:31 Room Air 01/27/25 07:37 Room Air 01/27/25 07:05 01/27/25 03:50 Room Air Laboratory Results 01/27/25 01/27/25 01/27/25 Range/Units 11:47 11:22 08:03 WBC 7.51 (4.8-10.8) K/ul RBC 4.44 L (4.70-6.10) M/uL Hgb 13.8 L (14.0-18.0) g/dl Hct 41.8 L (42.0-52.0) % MCV 94.1 (80.0-100.0) fL MCH 31.1 (25.0-34.0) pg MCHC 33.0 (32.0-36.0) g/dL RDW Std Deviation 48.9 H (36.4-46.3) fL RDW Coeff of Adam 14.1 (11.5-14.5) % Plt Count 218 (130-400) K/uL MPV 9.9 (9.4-12.4) fL Immature Gran % (Auto) 0.4 % Neut % (Auto) 68.4 % Lymph % (Auto) 19.2 % [place] % (Auto) 6.8 % Eos % (Auto) 4.7 % Baso % (Auto) 0.5 % Neut # (Auto) 5.14 (1.40-6.50) K/uL Lymph # (Auto) 1.44 (1.20-3.40) K/uL [place] # (Auto) 0.51 (0.11-0.59) K/uL Eos # (Auto) 0.35 (0.00-0.50) K/uL Baso # (Auto) 0.04 (0.00-0.20) K/uL Immature Gran # (Auto) 0.03 (0.01-0.20) K/uL PT (9.0-12.0) Seconds INR (0.9-1.1) APTT (21-31) Seconds PTT Ratio Sodium 141 (136-145) mmol/L Potassium 4.5 (3.5-5.1) mmol/L Chloride 110 H (98-107) mmol/L Carbon Dioxide 24 (21-32) mmol/L Anion Gap 7 (3-11) BUN 29 H (6-23) mg/dl Creatinine 1.24 D (0.6-1.4) mg/dl Est Cr Clr Drug Dosing 46.0 ml/min eGFR 57.69 BUN/Creatinine Ratio 23.4 H (10-20) Glucose 117 H (70-99(Fasting)) mg/dl POC Glucose 129 H 91 (70-99) mg/dl Calcium 9.6 (8.6-10.3) mg/dl Magnesium 2.5 H (1.7-2.4) mg/dl Total Bilirubin (0.2-1.0) mg/dl AST (13-39) U/L ALT (7-52) U/L Alkaline Phosphatase (34-104) U/L Troponin I High Sens (0-20) pg/ml Total Protein (6.0-8.3) gm/dl Albumin (3.4-5.0) gm/dl Globulin (2.5-4.0) gm/dl Albumin/Globulin Ratio (0.9-2) Urine Color Urine Appearance Urine pH Ur Specific Winters Urine Protein Urine Glucose (UA) Urine Ketones Urine Blood Urine Nitrite Urine Bilirubin Urine Urobilinogen Ur Leukocyte Esterase Urine WBC (Auto) Urine RBC (Auto) U Hyaline Cast (Auto) U Epithel Cells (Auto) Urine Bacteria (Auto) Ur Renal Epithelial Cell Dontrell Biurate Crystals Calcium Oxalate Crystal Leucine Crystals Cystine Crystals Uric Acid Crystals Triple Phos Crystals Sulfonamide Crystals Cholesterol Crystals Talc Crystals Tyrosine Crystals Hippuric Acid Crystals Unidentified Crystals Amorphous Sediment Epithelial Casts Hyaline Casts Granular Casts Waxy Casts RBC Casts WBC Casts Other Casts Urine Mucus Urine Other Urine Trichomonas Urine Yeast Urine Sperm Ur Oval Fat Bodies Nasal Screen MRSA (PCR) (Negative) SARS-CoV-2, RNA, NAAT (NEGATIVE) 01/27/25 01/26/25 01/26/25 Range/Units 02:43 21:59 21:45 WBC (4.8-10.8) K/ul RBC (4.70-6.10) M/uL Hgb (14.0-18.0) g/dl Hct (42.0-52.0) % MCV (80.0-100.0) fL MCH (25.0-34.0) pg MCHC (32.0-36.0) g/dL RDW Std Deviation (36.4-46.3) fL RDW Coeff of Adam (11.5-14.5) % Plt Count (130-400) K/uL MPV (9.4-12.4) fL Immature Gran % (Auto) % Neut % (Auto) % Lymph % (Auto) % [place] % (Auto) % Eos % (Auto) % Baso % (Auto) % Neut # (Auto) (1.40-6.50) K/uL Lymph # (Auto) (1.20-3.40) K/uL [place] # (Auto) (0.11-0.59) K/uL Eos # (Auto) (0.00-0.50) K/uL Baso # (Auto) (0.00-0.20) K/uL Immature Gran # (Auto) (0.01-0.20) K/uL PT (9.0-12.0) Seconds INR (0.9-1.1) APTT (21-31) Seconds PTT Ratio Sodium (136-145) mmol/L Potassium (3.5-5.1) mmol/L Chloride (98-107) mmol/L Carbon Dioxide (21-32) mmol/L Anion Gap (3-11) BUN (6-23) mg/dl Creatinine (0.6-1.4) mg/dl Est Cr Clr Drug Dosing ml/min eGFR BUN/Creatinine Ratio (10-20) Glucose (70-99(Fasting)) mg/dl POC Glucose 92 (70-99) mg/dl Calcium (8.6-10.3) mg/dl Magnesium (1.7-2.4) mg/dl Total Bilirubin (0.2-1.0) mg/dl AST (13-39) U/L ALT (7-52) U/L Alkaline Phosphatase (34-104) U/L Troponin I High Sens (0-20) pg/ml Total Protein (6.0-8.3) gm/dl Albumin (3.4-5.0) gm/dl Globulin (2.5-4.0) gm/dl Albumin/Globulin Ratio (0.9-2) Urine Color Yellow Urine Appearance Clear Urine pH 6.0 Ur Specific [place] 1.043 H Urine Protein Negative Urine Glucose (UA) Negative Urine Ketones Negative Urine Blood Negative Urine Nitrite Negative Urine Bilirubin Negative Urine Urobilinogen Negative Ur Leukocyte Esterase 2+ H Urine WBC (Auto) 11-20 H Urine RBC (Auto) 0-2 U Hyaline Cast (Auto) 3-5 H U Epithel Cells (Auto) 0-2 Urine Bacteria (Auto) 2+ H Ur Renal Epithelial Cell Searles Biurate Crystals Calcium Oxalate Crystal Leucine Crystals Cystine Crystals Uric Acid Crystals Triple Phos Crystals Sulfonamide Crystals Cholesterol Crystals Talc Crystals Tyrosine Crystals Hippuric Acid Crystals Unidentified Crystals Amorphous Sediment Epithelial Casts Hyaline Casts Granular Casts Waxy Casts RBC Casts WBC Casts Other Casts Urine Mucus Urine Other Urine Trichomonas Urine Yeast Urine Sperm Ur Oval Fat Bodies Nasal Screen MRSA (PCR) Negative (Negative) SARS-CoV-2, RNA, NAAT (NEGATIVE) 01/26/25 01/26/25 01/26/25 Range/Units 14:45 14:10 13:30 WBC (4.8-10.8) K/ul RBC (4.70-6.10) M/uL Hgb (14.0-18.0) g/dl Hct (42.0-52.0) % MCV (80.0-100.0) fL MCH (25.0-34.0) pg MCHC (32.0-36.0) g/dL RDW Std Deviation (36.4-46.3) fL RDW Coeff of Adam (11.5-14.5) % Plt Count (130-400) K/uL MPV (9.4-12.4) fL Immature Gran % (Auto) % Neut % (Auto) % Lymph % (Auto) % [place] % (Auto) % Eos % (Auto) % Baso % (Auto) % Neut # (Auto) (1.40-6.50) K/uL Lymph # (Auto) (1.20-3.40) K/uL [place] # (Auto) (0.11-0.59) K/uL Eos # (Auto) (0.00-0.50) K/uL Baso # (Auto) (0.00-0.20) K/uL Immature Gran # (Auto) (0.01-0.20) K/uL PT 11.0 (9.0-12.0) Seconds INR 1.0 (0.9-1.1) APTT 24 (21-31) Seconds PTT Ratio 0.9 Sodium 140 (136-145) mmol/L Potassium 4.6 (3.5-5.1) mmol/L Chloride 106 (98-107) mmol/L Carbon Dioxide 26 (21-32) mmol/L Anion Gap 8 (3-11) BUN 38 H (6-23) mg/dl Creatinine 1.64 H (0.6-1.4) mg/dl Est Cr Clr Drug Dosing 35.8 ml/min eGFR 41.25 BUN/Creatinine Ratio 23.2 H (10-20) Glucose 98 (70-99(Fasting)) mg/dl POC Glucose (70-99) mg/dl Calcium 10.2 (8.6-10.3) mg/dl Magnesium 2.6 H (1.7-2.4) mg/dl Total Bilirubin 0.9 (0.2-1.0) mg/dl AST 21 (13-39) U/L ALT 17 (7-52) U/L Alkaline Phosphatase 58 (34-104) U/L Troponin I High Sens 11.2 (0-20) pg/ml Total Protein 7.2 (6.0-8.3) gm/dl Albumin 4.3 (3.4-5.0) gm/dl Globulin 2.9 (2.5-4.0) gm/dl Albumin/Globulin Ratio 1.5 (0.9-2) Urine Color Cancelled Urine Appearance Cancelled Urine pH Cancelled Ur Specific [place] Cancelled Urine Protein Cancelled Urine Glucose (UA) Cancelled Urine Ketones Cancelled Urine Blood Cancelled Urine Nitrite Cancelled Urine Bilirubin Cancelled Urine Urobilinogen Cancelled Ur Leukocyte Esterase Cancelled Urine WBC (Auto) Cancelled Urine RBC (Auto) Cancelled U Hyaline Cast (Auto) Cancelled U Epithel Cells (Auto) Cancelled Urine Bacteria (Auto) Cancelled Ur Renal Epithelial Cell Cancelled Dontrell Biurate Crystals Cancelled Calcium Oxalate Crystal Cancelled Leucine Crystals Cancelled Cystine Crystals Cancelled Uric Acid Crystals Cancelled Triple Phos Crystals Cancelled Sulfonamide Crystals Cancelled Cholesterol Crystals Cancelled Talc Crystals Cancelled Tyrosine Crystals Cancelled Hippuric Acid Crystals Cancelled Unidentified Crystals Cancelled Amorphous Sediment Cancelled Epithelial Casts Cancelled Hyaline Casts Cancelled Granular Casts Cancelled Waxy Casts Cancelled RBC Casts Cancelled WBC Casts Cancelled Other Casts Cancelled Urine Mucus Cancelled Urine Other Cancelled Urine Trichomonas Cancelled Urine Yeast Cancelled Urine Sperm Cancelled Ur Oval Fat Bodies Cancelled Nasal Screen MRSA (PCR) (Negative) SARS-CoV-2, RNA, NAAT NEGATIVE (NEGATIVE) Medications Administered Current Inpatient Medications Aspirin (Aspirin 81 Mg Ectab) 81 mg PO DAILY ETIENNE Stop: 02/26/25 14:44 Atorvastatin Calcium (Atorvastatin 40 Mg Tab) 40 mg PO HS ETIENNE Stop: 02/26/25 20:59 Dextrose (Dextrose 50% 50 Ml Syringe) 25 - 50 ml IV UD PRN; Protocol PRN Reason: Hypoglycemia Protocol Stop: 02/25/25 18:29 Glucagon (Glucagon For Inj 1 Mg Vial) 1 mg SQ UD PRN; Protocol PRN Reason: Hypoglycemia Protocol Stop: 02/25/25 18:29 Glucose (Glucose 40% Gel 15 Gm Tube) 15 - 30 gm PO UD PRN; Protocol PRN Reason: Hypoglycemia Protocol Stop: 02/25/25 18:29 Glucose (Glucose 10 Tab/Tube) 4 - 8 tab PO UD PRN; Protocol PRN Reason: Hypoglycemia Protocol Stop: 02/25/25 18:29 Heparin Sodium (Porcine) (Heparin Sod 5,000 Unit/0.5 Ml Vial) 5,000 units SQ Q12 ETIENNE Stop: 02/25/25 20:59 Last Admin: 01/27/25 08:05 Dose: 5,000 units Ceftriaxone Sodium (Rocephin) 2,000 mg in 50 mls @ 100 mls/hr IV Q24H ETIENNE Stop: 02/01/25 09:59 Last Infusion: 01/27/25 11:44 Dose: Infused Insulin Aspart (Insulin Aspart Per Unit Charge) 0 units SC ACHS ETIENNE Stop: 02/25/25 20:59 Last Admin: 01/27/25 12:14 Dose: 3 units Metoprolol Succinate (Metoprolol Succ 50mg Ext Rel Tab) 50 mg PO DAILY ETIENNE Stop: 02/26/25 14:44 Miscellaneous (Carbohydrates For Hypoglycemia ) 15 - 30 gm PO UD PRN PRN Reason: Hypoglycemia Protocol Stop: 02/25/25 18:29 Multivitamins/Minerals (Cerovite Adv Formula Tab) 1 tab PO DAILY ETIENNE Stop: 02/26/25 14:44 (3) Vascular dementia Dementia severity: unspecified severity Dementia behavioral or psychological symptom: unspecified whether behavioral, psychotic, or mood disturbance or anxiety Qualified Code(s): F01.50 - Vascular dementia, unspecified severity, without behavioral disturbance, psychotic disturbance, mood disturbance, and anxiety (4) CVA (cerebral vascular accident) CVA mechanism: unspecified Qualified Code(s): I63.9 - Cerebral infarction, unspecified (5) Coronary artery disease Coronary Disease-Associated Artery/Lesion type: [place] artery [place] vs. transplanted heart: [place] heart Associated angina: without angina Qualified Code(s): I25.10 - Atherosclerotic heart disease of [place] coronary artery without angina pectoris (6) HTN (hypertension) Hypertension type: unspecified Qualified Code(s): I10 - Essential (primary) hypertension (7) HLD (hyperlipidemia) Hyperlipidemia type: unspecified Qualified Code(s): E78.5 - Hyperlipidemia, unspecified (8) Bladder cancer Bladder location: unspecified site Qualified Code(s): C67.9 - Malignant neoplasm of bladder, unspecified (9) T2DM (type 2 diabetes mellitus) Diabetes mellitus halfway insulin use: without supervisor logging use Diabetes mellitus complication status: without complication Qualified Code(s): E11.9 - Type 2 diabetes mellitus without complications
[2025-01-27 15:10] VITALS: RESP 18
[2025-01-27] MEDS: ASPIRIN 81 MG ECTAB PO SCH (15:20)
[2025-01-27] MEDS: CEROVITE ADV FORMULA TAB PO SCH (15:20)
[2025-01-27] MEDS: METOPROLOL SUCC 50MG EXT REL TAB PO SCH (15:20)
[2025-01-27] MEDS: ATORVASTATIN 40 MG TAB PO SCH (21:10)
[2025-01-28 06:32] LABS: Hematocrit (blood only) 37.2 % (42.0-52.0); Hemoglobin 12.1 g/dl (14.0-18.0); Mean Corpuscular Hemoglobin 30.8 pg (25.0-34.0); Mean Corpuscular Hgb Conc 32.5 g/dL (32.0-36.0); Mean Corpuscular Volume 94.7 fL (80.0-100.0); Platelet Count 181 K/uL (130-400); RDW Coefficient of Variation 13.9 % (11.5-14.5); RDW Standard Deviation 47.9 fL (36.4-46.3); Red Blood Count 3.93 M/uL (4.70-6.10); White Blood Count 6.98 K/ul (4.8-10.8)
[2025-01-28 06:54] LABS: BUN Creatinine Ratio 20.7 (10-20); Creatinine Clr Calc Pharmacy 42.2 ml/min; Magnesium 2.5 mg/dl (1.7-2.4); Phosphorus 3.5 mg/dl (2.5-4.9); Potassium 3.9 mmol/L (3.5-5.1)
[2025-01-28 08:09] VITALS: PULSE 60; TEMP 97.7; O2SAT 96
--- NOTE | 2025-01-28 09:54 | Discharge Summary ---
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 Patient was admitted to be evaluated for stroke. Patient was placed on the monitor unit. There was no significant arrhythmias. MRI was performed and did not show any evidence of acute stroke. Patient was evaluated by neurology and felt that there was no acute stroke event at which is the cause of his symptoms. Acute stroke was ruled out. They recommended he continue on his usual medications. There was concern that he had some dehydration and possible urinary tract infection. He is given some IV fluids and treated with ceftriaxone. Urine culture grew out next bacteria but no definitive colony growth. Urinary tract infection was ruled out. His diuretics were held. During his hospitalization and even while he was still in the ED on the day of admission he really returned to his baseline. He has known Parkinson's with a brain stimulator. He has known vascular dementia. Overall suspect that his symptoms of Parkinson's and vascular dementia is waxing and waning based on hydration status and any other stressors. Also potentially component of depression setting and with his diagnosis of bladder cancer as the etiology of his overall presenting symptoms. He was seen by therapies. Case management was involved in his care. Ultimately he was at his baseline. Vital signs are stable. And will return to [facility] for ongoing care. Daughter was updated on the day of discharge and agreeable to plan of care. Notes For Next Care Provider Would continue to consider therapies Continue follow-up with his neurologist Continue follow-up with outpatient providers for his bladder cancer Medication Changes From Visit Furosemide discontinued Admission HPI Per Admitting Provider This is an 84 y/o male with a complex medical history including hx severe AoS, now s/p SAVR, multivessel CAD s/p CABG, multifocal embolic-appearing stroke in the context of AVR, chronic left occipital lobe infarct with residual homonymous hemianopsia, vascular parkinsonism, vascular dementia, HTN, dyslipidemia, prior GI bleed, bladder cancer with recurrence in 06/18, currently on Keytruda, CKD3, and other history as outlined below who presented to the ED today via EMS from [facility] as a stroke alert. History is obtained from patient, his and daughter at the bedside, and extensive review of his records in [facility] including most recent cardiology and neurology consultations. Pt was previously followed by [facility] but now follows with Dr. Haile at [facility]. Pt reports that he has felt off for the last few days. His family notes that he has been more lethargic over the last few days and his appetite has been poor with resultant decreased oral intake. Yesterday, his thought his left arm may have been weaker than his baseline but attributed it to his being more tired. This morning, staff at [facility] noted that pt was leaning to the left, seemed weaker in the left arm and leg, and developed a left facial droop around 9 am so EMS was called. Currently, pt is much improved according to his family and seems to be closer to his baseline. Pt reports that most of today is "fuzzy" and he cannot recall the details of how/why he came to the ED. Pt does have ILR that was placed by Dr. Barreto in 06/2023. Most recent interrogation available is from Nov 2024 and showed no new arrhythmic events in the monitoring period. Pt was on anticoagulation in the past but reason somewhat unclear (?PE) but this was stopped due to bleeding (massive GI bleed in 2014, hematuria in 2020). Pt is following with Dr. Rudolph for recurrent bladder cancer and is currently on Keytruda. Admission Exam Per Admitting Provider See H&P Discharge Exam Constitutional: Alert HEENT: Mucous membranes moist. Lungs: Clear to auscultation, decreased, no wheezes rales or rhonchi CV: S1-S2, regular Abdomen: Soft, nontender, nondistended Extremities: No significant edema Neuro: Generalized weakness, some Parkinson's rigidity, masked facies Psych: Cooperative, normal mood, abnormal memory Updated Medication List Medication Instructions Recorded Confirmed Type atorvastatin 40 mg tablet 40 mg PO HS #90 tabs 01/11/23 01/26/25 Rx furosemide 20 mg tablet 20 mg PO BID #180 tabs 01/11/23 01/26/25 Rx cetirizine 10 mg tablet (Zyrtec) 10 mg PO DAILY allergy symptoms 01/17/23 01/26/25 Rx #90 tabs acetaminophen 500 mg tablet 1,000 mg (2 x 500 mg) PO BID #60 02/06/23 01/26/25 Rx tabs metoprolol succinate 50 mg 50 mg PO DAILY #90 tabs 02/06/23 01/26/25 Rx tablet,extended release 24 hr aspirin 81 mg tablet,delayed 81 mg PO DAILY #30 tabs 05/24/23 01/26/25 Rx release (Adult Aspirin Regimen) cholecalciferol (vitamin D3) 50 50 mcg PO DAILY #90 caps 07/02/23 01/26/25 Rx mcg (2,000 unit) capsule fluticasone propionate 50 1 spray intranasal HS 11/15/23 01/26/25 History mcg/actuation nasal spray,suspension pantoprazole 20 mg tablet,delayed 20 mg PO DAILY #15 tabs 12/14/23 01/26/25 Rx release acetaminophen 500 mg tablet 1,000 mg PO DAILY PRN Pain 11/12/24 01/26/25 History docusate sodium 100 mg capsule 100 mg PO DAILY 11/12/24 01/26/25 History loperamide 2 mg capsule 2 mg PO UD PRN Loose Stool 11/12/24 01/26/25 History multivitamin with minerals-folic 1 tab PO DAILY 11/12/24 01/26/25 History acid 12 mcg chewable tablet (Centrum Adults) ondansetron HCl 4 mg tablet 4 mg PO Q6 PRN nausea/vomiting 11/12/24 01/26/25 History polyethylene glycol 3350 17 17 g PO DAILY PRN Constipation 11/12/24 01/26/25 History gram/dose oral powder (Miralax) psyllium 1 tbsp PO DAILY 11/12/24 01/26/25 History tamsulosin 0.4 mg capsule (Flomax) 0.4 mg PO HS 11/12/24 01/26/25 History donepezil 5 mg tablet 5 mg PO DAILY #30 tabs 11/28/24 01/26/25 Rx Hospital Stay Data Consultations 01/26/25 15:32 ED Decision to Admit Stat 01/26/25 18:22 Consult Neurology Routine Diagnostic Imagining Performed 01/26/25 13:30 CT angio head w con Stat CT angio neck with con Stat CT head/brain wo con Stat 01/26/25 15:58 MRI Brain [MR brain wo/w con] Urgent Reviewed imaging, laboratory and diagnostic studies. Pertinent findings as below.WBC 6.9 Hemoglobin 12.1 Platelets 181 Electrolytes stable Creatinine 1.35 Brain MRI showed no definitive acute infarction. Did show some tiny left periventricular foci possibly representing a subacute infarction evidence of chronic infarctions and significant sequela of small vessel disease and degenerative involutional changes. Overall showing progressive course of chronic brain disease when compared to previous MRI Urine culture grew out mixed bacteria. Pending Results Patient Have Any Pending Studies at Discharge: No Discharge Instructions Given to Patient (Per Discharging Provider) You are ruled out for an acute stroke here in the hospital. Suspect your symptoms are attributable to your chronic medical issues that can wax and wane on any given day. Neurology recommends continuing your current medicines. Total Time Total Time Spent Total Time Spent (In Minutes): 40
[2025-01-28 10:39] VITALS: BP 108/68
--- NOTE | 2025-01-28 19:23 | Electrocardiogram Report ---
Test Reason : Blood Pressure : */* mmHG Vent. Rate : 70 BPM Atrial Rate : * BPM P-R Int : * ms QRS Dur : 74 ms QT Int : 448 ms P-R-T Axes : * 9 51 degrees QTcB Int : 483 ms Sinus rhythm Inferior infarct (cited on or before 12-Nov-2024) Abnormal ECG When compared with ECG of 12-Nov-2024 16:46, No significant change Confirmed by Jairo Feliciano ([id number]) on 01/28/2025 7:23:33 PM Referred By: [facility] Confirmed By: Jairo Feliciano
== END 2025-01-28 11:42 | disposition home or self-care (01) | DRG 641 ==
LOC: EDSEX → MERGE 13:32 → ED 13:32 → EDINP 15:57 → SUATTDRO 15:57 → 2W 18:22

== ENCOUNTER 2025-03-20 14:35 | Inpatient (IN) ==
--- NOTE | 2025-03-20 15:25 | XRay Report ---
XR chest 1V portable CLINICAL HISTORY: Sepsis COMPARISON STUDY: 01/26/2025 FINDINGS: Stable cardiac valve repair and loop recorder. Stable moderate cardiomegaly without pulmona ry vascular congestion. Inspiration is shallow. No effusion, consolidation, or pneumothorax seen. IMPRESSION: No acute findings. ACT 112: Negative or not required by law. Electronically signed by: Jacques Montgomery M.D. 03/20/2025 3:23 PM
[2025-03-20 15:26] LABS: Basophils # (auto) 0.02 K/uL (0.00-0.20); Basophils % (auto) 0.4 %; Eosinophils # (auto) 0.43 K/uL (0.00-0.50); Eosinophils % (auto) 8.3 %; Hematocrit (blood only) 34.3 % (42.0-52.0); Hemoglobin 11.5 g/dl (14.0-18.0); Immature Granulocytes # (auto) 0.02 K/uL (0.01-0.20); Immature Granulocytes % (auto) 0.4 %; Lymphocytes # (auto) 0.84 K/uL (1.20-3.40); Lymphocytes % (auto) 16.2 %; Mean Corpuscular Hemoglobin 32.3 pg (25.0-34.0); Mean Corpuscular Hgb Conc 33.5 g/dL (32.0-36.0); Mean Corpuscular Volume 96.3 fL (80.0-100.0); Mean Platelet Volume 9.7 fL (9.4-12.4); Monocytes # (auto) 0.45 K/uL (0.11-0.59); Monocytes % (auto) 8.7 %; Neutrophils # (auto) 3.42 K/uL (1.40-6.50); Platelet Count 152 K/uL (130-400); RDW Standard Deviation 50.7 fL (36.4-46.3); Red Blood Count 3.56 M/uL (4.70-6.10); White Blood Count 5.18 K/ul (4.8-10.8)
[2025-03-20 15:47] LABS: Albumin Level 3.7 gm/dl (3.4-5.0); BUN Creatinine Ratio 14.7 (10-20); Bilirubin Direct 0.2 mg/dl (0-0.2); Calcium 8.9 mg/dl (8.6-10.3); Creatinine Clr Calc Pharmacy 34.3 ml/min; Magnesium 2.3 mg/dl (1.7-2.4); Potassium 4.9 mmol/L (3.5-5.1); Total Protein 6.5 gm/dl (6.0-8.3)
--- NOTE | 2025-03-20 15:52 | CT Scan Report ---
CT SCAN OF THE CERVICAL SPINE CLINICAL HISTORY: Fall. COMPARISON STUDY: CT of the neck January 28, 2025. TECHNIQUE: CT scan of the cervical spine is performed from the skull base to the upper thoracic spine . Images are reviewed in the axial, sagittal, and coronal planes. IV contrast was not administered fo r this examination. A dose lowering technique was utilized adhering to the principles of ALARA. FINDINGS: Skeletal structures: There is no evidence of fracture or subluxation involving the cervical spine. Sl ight anterolisthesis of C4 on C5 is unchanged. Vertebral body height and alignment are maintained. T he odontoid process and lateral masses are intact. The atlantoaxial articulation is preserved. The sp inous processes appear intact. Severe multilevel facet arthrosis is noted. There is moderate multilev el disc space narrowing and osteophytosis of the cervical spine. Soft tissues: The prevertebral and paraspinous soft tissues are within normal limits. Calvarium: The visualized calvarium at the skull base appears intact. Brain parenchyma: Left occipital lobe encephalomalacia is better depicted on the same day head CT. Lung apices: Clear as visualized. IMPRESSION: No acute cervical spine fracture or subluxation. ACT 112: Negative or not required by law. Electronically signed by: Nakul Roberts M.D. 03/20/2025 3:51 PM
[2025-03-20 15:53] LABS: Troponin I High Sensitivity 9.2 pg/ml (0-20)
[2025-03-20 15:56] LABS: Base Excess VBG -2.6 mEq/L; HCO3 VBG 24 mmol/L; Oxygen Saturation VBG < 60.0 %; PCO2 VBG 46 mmHg (38-50); PO2 VBG < 20 mmHg; pH VBG 7.32 (7.36-7.41)
--- NOTE | 2025-03-20 15:56 | CT Scan Report ---
CT head/brain wo con CLINICAL HISTORY: 84 years-old Male with ams. Acutely altered mental status TECHNIQUE: Multiple axial CT images of the head were obtained without contrast. A dose lowering tech nique was utilized adhering to the principles of ALARA. COMPARISON: 01/26/2025 FINDINGS: No acute intracranial hemorrhage, midline shift, intracranial mass, hydrocephalus, territorial ischem ia or abnormal extra-axial collection. Involutional changes with advanced chronic microvascular ische jimmie disease. Chronic left occipital infarct with encephalomalacia. The calvarium is intact. Prior bilateral lens repair. The paranasal sinuses, mastoid air cells, and m iddle ear cavities are clear. IMPRESSION: 1. No acute intracranial abnormality. 2. Chronic findings as above. ACT 112: Negative or not required by law. The above report was generated using voice recognition software. It may contain grammatical, syntax o r spelling errors. Electronically signed by: Brennen Stephen M.D. 03/20/2025 3:54 PM
--- NOTE | 2025-03-20 16:00 | CT Scan Report ---
CT OF THE ABDOMEN AND PELVIS WITHOUT CONTRAST CLINICAL HISTORY: Fall. Hematuria. COMPARISON STUDY: CT of the abdomen and pelvis December 28, 2024. TECHNIQUE: Axial images of the abdomen and pelvis were obtained without IV contrast. Images were revi ewed in the axial, sagittal, and coronal planes. Automated exposure control was utilized for the harsh dy. A dose lowering technique was utilized adhering to the principles of ALARA. FINDINGS: No hemoperitoneum or pneumoperitoneum is present. Solid abdominal viscera are suboptimally assessed on unenhanced exam. However, there is no evidence for traumatic injury to the liver, spleen, adrenal glands, kidneys or pancreas. An intermediate attenuation 2.9 cm right renal lesion represent s a proteinaceous cyst when correlating with recent contrast-enhanced CT. There is no hydronephrosis. Sensitivity for detection of urothelial lesions is diminished on unenhanced exam but none are identi fied. There is no evidence for a bowel obstruction. No bowel wall thickening is identified on unenhan albino exam. No lymphadenopathy. Postoperative findings consistent with L5-S1 decompression and fusion a re noted. No acute fractures within the lumbar spine, pelvis or hips are identified. IMPRESSION: 1. No acute traumatic findings within the abdomen or pelvis on unenhanced exam. 2. No urinary calculi or hydronephrosis. 3. No urothelial lesions although sensitivity diminished on unenhanced exam. ACT 112: Negative or not required by law. Electronically signed by: Nakul Roberts M.D. 03/20/2025 3:58 PM
[2025-03-20 16:05] LABS: Partial Thromboplastin Ratio 0.8; Partial Thromboplastin Time 21 Seconds (21-31); Prothrombin Time 11.1 Seconds (9.0-12.0)
[2025-03-20 17:02] LABS: Appearance Urine Clear (Clear); Bacteria Urine Automated None Seen (None Seen); Bilirubin Urine Negative (Negative); Blood Urine Negative (Negative); Cast Urine Automated >20 /lpf (0-2); Color Urine Dark Yellow; Epithelial Cell Urine Auto 0-2 /hpf (0-2); Glucose Urine UA Negative (Negative); Ketones Urine Trace (Negative); Leukocyte Esterase Urine Trace (Negative); Nitrite Urine Negative (Negative); Protein Urine Trace (Negative); Urobilinogen Urine Positive (Negative); WBC Urine Automated 0-5 /hpf (0-5); pH Urine 5.5 (4.5-7.5)
--- NOTE | 2025-03-20 17:40 | History & Physical Report ---
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 Extensive imaging studies including CXR, head CT, CTAP and cervical spine CT personally reviewed and without any acute findings. THEO with Cr of 1.63 on admission. Baseline Cr ~1-1.3 per chart review. Suspect prerenal due to poor oral intake. Gentle IVF x 2L for now with repeat BMP in AM. No evidence of UTI on UA. + hematuria likely due to underlying bladder lesions ISO recurrent bladder CA. Avoid nephrotoxic agents when able. Renally dose medications when able. If no improvement in THEO with IVF resuscitation, would consult nephrology for further input/recommendations. (2) Back pain: Plan: Uses a walker or rollator at baseline for ambulation. He did have a fall this past Sunday while visiting his family which was mechanical in nature. Did lightly hit his head but no loss of consciousness. He has however been complaining of low back pain since the fall. Patient with chronic low back pain but he seems to be mentioning this more often to staff and family members since the fall occurred. Check CT thoracic/lumbar spine without contrast. Obtain PT/OT evaluations. Utilize lidocaine patch application on low back. Fall precautions. OOB with assistance. (3) Vascular dementia: (4) Vascular parkinsonism: Plan: Follows with Dr. Warren of [facility]. Continue outpatient medication regimen including donepezil. Initially there was some concern for AMS per staff at [facility]. However, upon further discussion with the patient's family at bedside, he appears to be at his baseline mentation level. He does very well with direct conversation. Periods of forgetfulness given underlying vascular dementia however he is very engaged with conversation. Follow blood cultures. (5) Bladder cancer: Plan: Not currently undergoing active treatment. Was previously on Keytruda however this was stopped >1 month ago due to side effect intolerance. Follows with Dr. uRdolph of [facility] and Dr. Vines of [facility]. Continue Flomax. Other Chronic Medical Conditions: GERD - Continue PPI. HLD/CAD - Continue ASA and statin. HTN - Continue home antihypertensives with routine BP monitoring and hold parameters. DVT Prophylaxis: SQ Heparin Code Status: FULL CODE - Per extensive conversation with family at bedside, including his and youngest daughter. PCP: [facility] Disposition: Admit to med/tele for further inpatient evaluation and management. Likely downgrade to med/surg if telemetry unremarkable overnight. Given his extensive cardiac history, beneficial to monitor patient on telemetry for now whilst undergoing IVF resuscitation. Patient seen in collaboration with Dr. Blackman. Please see addendum. I spent a total of 65 minutes coordinating, documenting, and providing care for this patient excluding time spent in the performance of separately billed services or time spent by another provider/QHP. This included personally reviewing all current laboratories and imaging studies, medical reconciliation, outpatient chart review and discussion with specialists. This chart was completed in part utilizing Speech Voice Recognition Software. Grammatical errors, random word insertions, pronoun errors, and incomplete se ntences are an occasional consequence of this system due to software limitations, ambient noise, and hardware issues. Any formal questions or concerns about the content, text, or information contained within the body of this dictation should be directly addressed to the provider for clarification. 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 History mostly obtained from family at bedside, including the patient's and youngest daughter. Patient alert and oriented to conversation however is often forgetful given his underlying vascular dementia. Staff at [facility] were concerned that the patient seemed to be acting "unlike himself." Patient reportedly requested to leave the facility per report from staff and he has never done so before. Per discussion with family at bedside, patient appears to be at his baseline mentation level. He does very well with direct conversation. Periods of forgetfulness given underlying vascular dementia however he is very engaged with conversation. Uses a walker or rollator at baseline for ambulation. He did have a fall this past Sunday while visiting his family which was mechanical in nature. Did lightly hit his head but no loss of consciousness. He has however been complaining of low back pain since the fall. Patient with chronic low back pain but he seems to be mentioning this more often to staff and family members since the fall occurred. Extensive imaging studies including CXR, head CT, CTAP and cervical spine CT personally reviewed and without any acute findings. Does have chronic ongoing issues with maintaining hydration status and good oral intake in the setting of his underlying dementia. Seems his appetite is good however he is having difficulty feeding himself. He typically now requires assistance with feeds. Staff had mentioned he seems more lethargic but family states his energy level seems to be around his baseline. He is typically more sedentary throughout the day however he does ambulate around his [facility] facility with his walker a few times throughout the day with staff. Found to have THEO superimposed on CKD stage III upon review of his initial laboratory workup. Allergies Allergy/AdvReac Type Severity Reaction Status Date / Time house dust Allergy Mild SNEEZING, Verified 03/20/25 17:07 ITCHY EYES pollen extracts Allergy Mild HAY FEVER Verified 03/20/25 17:07 ibuprofen AdvReac Unknown TOLD TO Verified 03/20/25 17:07 AVOID DUE TO BLEEDING ULCER Home Medications Medication Instructions Recorded Confirmed Type atorvastatin 40 mg tablet 40 mg PO HS #90 tabs 01/11/23 03/20/25 Rx cetirizine 10 mg tablet (Zyrtec) 10 mg PO DAILY allergy symptoms 01/17/23 03/20/25 Rx #90 tabs acetaminophen 500 mg tablet 1,000 mg (2 x 500 mg) PO BID #60 02/06/23 03/20/25 Rx tabs metoprolol succinate 50 mg 50 mg PO DAILY #90 tabs 02/06/23 03/20/25 Rx tablet,extended release 24 hr cholecalciferol (vitamin D3) 50 50 mcg PO DAILY #90 caps 07/02/23 03/20/25 Rx mcg (2,000 unit) capsule fluticasone propionate 50 1 spray intranasal HS 11/15/23 03/20/25 History mcg/actuation nasal spray,suspension pantoprazole 20 mg tablet,delayed 20 mg PO DAILY #15 tabs 12/14/23 03/20/25 Rx release acetaminophen 500 mg tablet 1,000 mg PO DAILY PRN Pain 11/12/24 03/20/25 History docusate sodium 100 mg capsule 100 mg PO DAILY 11/12/24 03/20/25 History loperamide 2 mg capsule 2 mg PO UD PRN Loose Stool 11/12/24 03/20/25 History multivitamin with minerals-folic 1 tab PO DAILY 11/12/24 03/20/25 History acid 12 mcg chewable tablet (Centrum Adults) ondansetron HCl 4 mg tablet 4 mg PO Q6 PRN nausea/vomiting 11/12/24 03/20/25 History polyethylene glycol 3350 17 17 g PO DAILY 11/12/24 03/20/25 History gram/dose oral powder (Miralax) tamsulosin 0.4 mg capsule (Flomax) 0.4 mg PO HS 11/12/24 03/20/25 History donepezil 5 mg tablet 5 mg PO DAILY #30 tabs 11/28/24 03/20/25 Rx aspirin 81 mg tablet,delayed 81 mg PO HS 03/20/25 03/20/25 History release (Adult Aspirin Regimen) hydrocortisone 1 % topical cream 1 applic topical BID PRN SKIN RASH 03/20/25 03/20/25 History NEEDED menthol 0.44 %-zinc oxide 20.6 % 1 applic topical TID PRN 03/20/25 03/20/25 History topical ointment (Calmoseptine) PROTECTANT BARRIER Past Med/Surg History Problem List (Updated 03/20/25 @ 19:31 by Scarlett Swain PA-C) Back pain Acute kidney injury superimposed on CKD THEO (acute kidney injury) Vascular parkinsonism (Acute) Stroke-like symptoms (Acute) 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 Dilated aortic root Moderate (stable) 4.5 cm per 05/2021 echo BPH w urinary obs/LUTS Medical History Chills Vascular parkinsonism T2DM (type 2 diabetes mellitus) Bladder cancer Chronic kidney disease, stage 3 Aortic valve stenosis Moderate to severe per 05/2021 ECHO Moderate per 06/2021 cath HLD (hyperlipidemia) HTN (hypertension) CVA, old, disturbances of vision Bladder cancer History of blood transfusion 2014 in setting of GI bleed- 11 packed RBCs Personal history of deep vein thrombosis On Coumadin- currently on hold since Sep 2021 per PCP note (hematuria) Chronic anticoagulation History of sleep apnea Cannot tolerate device Spinal stenosis S/p surgery Slow to wake up after anesthesia GERD (gastroesophageal reflux disease) Well controlled and stable History of basal cell carcinoma Right arm- s/p excision 2005 Had multiple lesions removed over time History of pulmonary embolism Pt unsure of specifics- possibly in 2014- on anticoagulation Chronic back pain History of bleeding peptic ulcer 2014 requiring hospitalization and transfusion 11 packed RBCs, transferred to [facility] per PCP 09/2021 note History of CVA (cerebrovascular accident) 2014; 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 [place]os[place] Surgical History H/O two vessel coronary artery bypass graft (~10/2022) History of cystoscopy 11/24/2021: LMA#5 atraumatic. No issues per anesthesia postop progress note. Status post surgical removal and fulguration of bladder neoplasm History of cardiac cath 07/18/2021@ [facility]-75% proximal D1, 75% distal LCx prior to left PLB, 50% mid right PDA. no stents--follows with [facility], Dr. Sow History of nasal surgery History of uvulopalatopharyngoplasty History of lumbar surgery posterior L5-S1 transforaminal lumbar interbody fusion 09/11/2017: Grade 1 view, Glidescope #3, ETT#8.0 x 1 atraumatic. Per anesthesia postop progress note: "...slightly difficult airway requiring the use of glidescope and that a small laceration was noted on the patients lip after intubation..." History of esophagogastroduodenoscopy (EGD) History of colonoscopy History of cataract surgery History of tonsillectomy and adenoidectomy History of basal cell carcinoma (BCC) excision Family History Sister PONV (postoperative nausea and vomiting) Breast cancer Mother , dx [id number] Stroke Coronary heart disease Father , dx at 52 Myocardial infarction Brother Lymphoma Denies family history of Ovarian cancer Prostate cancer Colorectal cancer Social History Smoking Status: Never smoker Tobacco Type: Cigarettes Second Hand Exposure: No; Do You Dip or Chew Tobacco: No; Hx Alcohol Use: No Hx Substance Use: No Preferred Language: Jamaican Communication Ability: Effective Visual Impairment: No Limitations Junior Designer Required: No Beliefs That Will Affect Care: None marital status: Current Living Situation: Personal Care Facility Current Living Situation Comment: Lives at [facility] current occupational status: retired How many Children do You have: 4 Feels Safe at Home: Yes Childhood Exposure to Second-Hand Smoke: No Diet: regular Dental Care, Regularly: Yes Physical Activity Frequency: Daily Physical Activity Frequency Comment: walks to and from meals Seatbelt Use: always Sunscreen Use: Yes Assistive Devices: Walker and Wheelchair Review of Systems Review of Systems: At least ten systems reviewed and negative, except as noted in the HPI. Physical Exam Physical Exam: General/Neurologic: Elderly, M. NAD. Laying down in bed. A&Ox2. Engaged in conversation. Periods of forgetfulness. Does very well with direct questioning. Family at bedside including the patient's and youngest daughter. No overt focal deficits. HEENT: Normocephalic, atraumatic. Conjunctivae normal. External ear and nose normal. Dry mucous membranes. Respiratory: Normal respiratory effort, lungs clear to auscultation bilaterally. On RA and saturating in the mid 90s SpO2. No accessory muscle use. Cardiovascular: Regular rate and rhythm. + sternotomy scar. No BLE edema. Abdomen/GI: Normal bowel sounds, soft, nondistended, nontender to palpation in all quadrants. Extremities/MSK: No cyanosis or clubbing. Actively moving all extremities. Limited visualization of back 2/2 pain with movement. Results & Data Results & Data Vital Signs (Past 12 Hours) Vital Signs Temp Pulse Pulse Resp BP BP Pulse Ox 03/20/25 16:45 69 18 171/95 H 94 03/20/25 15:07 59 L 03/20/25 14:39 36.6 C 60 20 120/72 96 O2 Del Method 03/20/25 16:45 Room Air 03/20/25 15:07 03/20/25 14:39 Room Air Laboratory Results Short CBC 03/20/25 Range/Units 14:47 WBC 5.18 (4.8-10.8) K/ul Hgb 11.5 L (14.0-18.0) g/dl Hct 34.3 L (42.0-52.0) % Plt Count 152 (130-400) K/uL BMP 03/20/25 14:47 Sodium 136 Potassium 4.9 Chloride 106 Carbon Dioxide 26 BUN 24 H Creatinine 1.63 H Glucose 110 H Calcium 8.9 Liver Function 03/20/25 Range/Units 14:47 Total Bilirubin 1.0 (0.2-1.0) mg/dl Direct Bilirubin 0.2 (0-0.2) mg/dl AST 15 (13-39) U/L ALT 9 (7-52) U/L Alkaline Phosphatase 78 (34-104) U/L Albumin 3.7 (3.4-5.0) gm/dl Urine 03/20/25 Range/Units Unknown Urine Color Dark Yellow Urine Appearance Clear (Clear) Urine pH 5.5 (4.5-7.5) Ur Specific Coy 1.030 (1.000-1.030) Urine Protein Trace H (Negative) Urine Glucose (UA) Negative (Negative) Diagnostic Findings Chest X-Ray 03/20/25 15:07 XR chest 1V portable CLINICAL HISTORY: Sepsis COMPARISON STUDY: 01/26/2025 FINDINGS: Stable cardiac valve repair and loop recorder. Stable moderate cardiomegaly without pulmonary vascular congestion. Inspiration is shallow. No effusion, consolidation, or pneumothorax seen. IMPRESSION: No acute findings. ACT 112: Negative or not required by law. Electronically signed by: Jacques Montgomery M.D. 03/20/2025 3:[address] 03/20/25 15:08 CT head/brain wo con CLINICAL HISTORY: 84 years-old Male with ams. Acutely altered mental status TECHNIQUE: Multiple axial CT images of the head were obtained without contrast. A dose lowering technique was utilized adhering to the principles of ALARA. COMPARISON: 01/26/2025 FINDINGS: No acute intracranial hemorrhage, midline shift, intracranial mass, hydrocephalus, territorial ischemia or abnormal extra-axial collection. Involutional changes with advanced chronic microvascular ischemic disease. Chronic left occipital infarct with encephalomalacia. The calvarium is intact. Prior bilateral lens repair. The paranasal sinuses, mastoid air cells, and middle ear cavities are clear. IMPRESSION: 1. No acute intracranial abnormality. 2. Chronic findings as above. ACT 112: Negative or not required by law. The above report was generated using voice recognition software. It may contain grammatical, syntax or spelling errors. Electronically signed by: Brennen Stephen M.D. 03/20/2025 3:54 PM Abdomen/Pelvis CT 03/20/25 15:17 CT OF THE ABDOMEN AND PELVIS WITHOUT CONTRAST CLINICAL HISTORY: Fall. Hematuria. COMPARISON STUDY: CT of the abdomen and pelvis December 28, 2024. TECHNIQUE: Axial images of the abdomen and pelvis were obtained without IV contrast. Images were reviewed in the axial, sagittal, and coronal planes. Automated exposure control was utilized for the study. A dose lowering technique was utilized adhering to the principles of ALARA. FINDINGS: No hemoperitoneum or pneumoperitoneum is present. Solid abdominal viscera are suboptimally assessed on unenhanced exam. However, there is no evidence for traumatic injury to the liver, spleen, adrenal glands, kidneys or pancreas. An intermediate attenuation 2.9 cm right renal lesion represents a proteinaceous cyst when correlating with recent contrast-enhanced CT. There is no hydronephrosis. Sensitivity for detection of urothelial lesions is diminished on unenhanced exam but none are identified. There is no evidence for a bowel obstruction. No bowel wall thickening is identified on unenhanced exam. No lymphadenopathy. Postoperative findings consistent with L5-S1 decompression and fusion are noted. No acute fractures within the lumbar spine, pelvis or hips are identified. IMPRESSION: 1. No acute traumatic findings within the abdomen or pelvis on unenhanced exam. 2. No urinary calculi or hydronephrosis. 3. No urothelial lesions although sensitivity diminished on unenhanced exam. ACT 112: Negative or not required by law. Electronically signed by: Nakul Roberts M.D. 03/20/2025 3:[address] 03/20/25 15:17 CT SCAN OF THE CERVICAL SPINE CLINICAL HISTORY: Fall. COMPARISON STUDY: CT of the neck January 28, 2025. TECHNIQUE: CT scan of the cervical spine is performed from the skull base to the upper thoracic spine. Images are reviewed in the axial, sagittal, and coronal planes. IV contrast was not administered for this examination. A dose lowering technique was utilized adhering to the principles of ALARA. FINDINGS: Skeletal structures: There is no evidence of fracture or subluxation involving the cervical spine. Slight anterolisthesis of C4 on C5 is unchanged. Vertebral body height and alignment are maintained. The odontoid process and lateral masses are intact. The atlantoaxial articulation is preserved. The spinous processes appear intact. Severe multilevel facet arthrosis is noted. There is moderate multilevel disc space narrowing and osteophytosis of the cervical spine. Soft tissues: The prevertebral and paraspinous soft tissues are within normal limits. Calvarium: The visualized calvarium at the skull base appears intact. Brain parenchyma: Left occipital lobe encephalomalacia is better depicted on the same day head CT. Lung apices: Clear as visualized. IMPRESSION: No acute cervical spine fracture or subluxation. ACT 112: Negative or not required by law. Electronically signed by: Nakul Roberts M.D. 03/20/2025 3:51 PM Code Status & VTE Plan Code Status FULL CODE Supervising Physician Co-Signing Physician Notes Attending addendum: The patient was seen and examined in emergency room in presence of the family members He was sent in from [facility] with increasing confusion and weakness and also having hematuria Has had a fall and complained back pain On examination Lying in bed without any significant distress Has vascular dementia but denies any significant symptoms though he is having back pain Chest occasional crackles at bases- Heart-S1-S2, regular Abdomenbenign Extremitiesno edema CNSalert and awake, minimally communicative secondary to vascular dementia and seems to be very weak and lethargic His admission labs, medications and imaging studies reviewed Has acute kidney injury likely secondary to dehydration with history of CKD Will give cautious amount of IV fluid and monitor PRP Back pain following a fall we will get CT scan of the lumbar spine Hematuriahistory of bladder cancer was on Keytruda before likely to have recurrence of her ongoing symptoms from the bladder cancer Will observe and if the condition does not invaded likely need urology evaluation Agree with assessment plan as outlined above by Scarlett Sears PA-C and take the full responsible care in the hospital Total time taken to document all this was [address] Leyla blackman (2) Back pain Back pain laterality: unspecified Back pain location: back pain in unspecified location Chronicity: acute Qualified Code(s): M54.9 - Dorsalgia, unspecified (3) Vascular dementia Dementia behavioral or psychological symptom: unspecified whether behavioral, psychotic, or mood disturbance or anxiety Dementia severity: unspecified severity Qualified Code(s): F01.50 - Vascular dementia, unspecified severity, without behavioral disturbance, psychotic disturbance, mood disturbance, and anxiety (5) Bladder cancer Bladder location: unspecified site Qualified Code(s): C67.9 - Malignant neoplasm of bladder, unspecified
--- NOTE | 2025-03-20 19:41 | Emergency Department Note ---
History of Present Illness General Chief complaint: Illness Time Seen by Provider: 03/20/25 15:05 Source: family History of Present Illness Provider complaint: Illness 84-year-old male presents emergency department with family. Family reports that the patient is at [facility]. They report that the half-way stated that for the last day he has been increasing confused and having blood in his urine. Family does report that the patient fell on Sunday and did hit his head. No LOC. They state that the patient is increasingly confused and appears tired. Home Medications Medication Instructions Recorded Confirmed Type atorvastatin 40 mg tablet 40 mg PO HS #90 tabs 01/11/23 03/20/25 Rx cetirizine 10 mg tablet (Zyrtec) 10 mg PO DAILY allergy symptoms 01/17/23 03/20/25 Rx #90 tabs acetaminophen 500 mg tablet 1,000 mg (2 x 500 mg) PO BID #60 02/06/23 03/20/25 Rx tabs metoprolol succinate 50 mg 50 mg PO DAILY #90 tabs 02/06/23 03/20/25 Rx tablet,extended release 24 hr cholecalciferol (vitamin D3) 50 50 mcg PO DAILY #90 caps 07/02/23 03/20/25 Rx mcg (2,000 unit) capsule fluticasone propionate 50 1 spray intranasal HS 11/15/23 03/20/25 History mcg/actuation nasal spray,suspension pantoprazole 20 mg tablet,delayed 20 mg PO DAILY #15 tabs 12/14/23 03/20/25 Rx release acetaminophen 500 mg tablet 1,000 mg PO DAILY PRN Pain 11/12/24 03/20/25 History docusate sodium 100 mg capsule 100 mg PO DAILY 11/12/24 03/20/25 History loperamide 2 mg capsule 2 mg PO UD PRN Loose Stool 11/12/24 03/20/25 History multivitamin with minerals-folic 1 tab PO DAILY 11/12/24 03/20/25 History acid 12 mcg chewable tablet (Centrum Adults) ondansetron HCl 4 mg tablet 4 mg PO Q6 PRN nausea/vomiting 11/12/24 03/20/25 History polyethylene glycol 3350 17 17 g PO DAILY 11/12/24 03/20/25 History gram/dose oral powder (Miralax) tamsulosin 0.4 mg capsule (Flomax) 0.4 mg PO HS 11/12/24 03/20/25 History donepezil 5 mg tablet 5 mg PO DAILY #30 tabs 11/28/24 03/20/25 Rx aspirin 81 mg tablet,delayed 81 mg PO HS 03/20/25 03/20/25 History release (Adult Aspirin Regimen) hydrocortisone 1 % topical cream 1 applic topical BID PRN SKIN RASH 03/20/25 03/20/25 History NEEDED menthol 0.44 %-zinc oxide 20.6 % 1 applic topical TID PRN 03/20/25 03/20/25 History topical ointment (Calmoseptine) PROTECTANT BARRIER Allergies Allergy/AdvReac Type Severity Reaction Status Date / Time house dust Allergy Mild SNEEZING, Verified 03/20/25 17:07 ITCHY EYES pollen extracts Allergy Mild HAY FEVER Verified 03/20/25 17:07 ibuprofen AdvReac Unknown TOLD TO Verified 03/20/25 17:07 AVOID DUE TO BLEEDING ULCER Past Med/Surg History Problem List (Updated 03/20/25 @ 19:51 by Marcio Stein MD) Back pain Acute kidney injury superimposed on CKD THEO (acute kidney injury) (Acute) Vascular parkinsonism (Acute) Stroke-like symptoms (Acute) 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 Dilated aortic root Moderate (stable) 4.5 cm per 05/2021 echo BPH w urinary obs/LUTS Medical History Chills Vascular parkinsonism T2DM (type 2 diabetes mellitus) Bladder cancer Chronic kidney disease, stage 3 Aortic valve stenosis Moderate to severe per 05/2021 ECHO Moderate per 06/2021 cath HLD (hyperlipidemia) HTN (hypertension) CVA, old, disturbances of vision Bladder cancer History of blood transfusion 2014 in setting of GI bleed- 11 packed RBCs Personal history of deep vein thrombosis On Coumadin- currently on hold since Sep 2021 per PCP note (hematuria) Chronic anticoagulation History of sleep apnea Cannot tolerate device Spinal stenosis S/p surgery Slow to wake up after anesthesia GERD (gastroesophageal reflux disease) Well controlled and stable History of basal cell carcinoma Right arm- s/p excision 2005 Had multiple lesions removed over time History of pulmonary embolism Pt unsure of specifics- possibly in 2014- on anticoagulation Chronic back pain History of bleeding peptic ulcer 2014 requiring hospitalization and transfusion 11 packed RBCs, [place] [facility] [place]2021 note History of CVA (cerebrovascular accident) 2014; 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 Hermosillo Surgical History H/O two vessel coronary artery bypass graft (~10/2022) History of cystoscopy 11/24/2021: LMA#5 atraumatic. No issues per anesthesia postop progress note. Status post surgical removal and fulguration of bladder neoplasm History of cardiac cath 07/18/2021@ [facility]-75% proximal D1, 75% distal LCx prior to left PLB, 50% mid right PDA. no stents--follows with [place] [facility], Dr. Sow History of nasal surgery History of uvulopalatopharyngoplasty History of lumbar surgery posterior L5-S1 transforaminal lumbar interbody fusion 09/11/2017: Grade 1 view, Glidescope #3, ETT#8.0 x 1 atraumatic. Per anesthesia postop progress note: "...slightly difficult airway requiring the use of glidescope and that a small laceration was noted on the patients lip after intubation..." History of esophagogastroduodenoscopy (EGD) History of colonoscopy History of cataract surgery History of tonsillectomy and adenoidectomy History of basal cell carcinoma (BCC) excision Family History Sister PONV (postoperative nausea and vomiting) Breast cancer Mother , dx [id number] Stroke Coronary heart disease Father , dx at 52 Myocardial infarction Brother Lymphoma Denies family history of Ovarian cancer Prostate cancer Colorectal cancer Social History Smoking Status: Never smoker Tobacco Type: Cigarettes Second Hand Exposure: No; Do You Dip or Chew Tobacco: No; Hx Alcohol Use: No Hx Substance Use: No Preferred Language: Yi Communication Ability: Effective Visual Impairment: No Limitations Automatic Driller And Reamer Required: No Beliefs That Will Affect Care: None marital status: Current Living Situation: Personal Care Facility Current Living Situation Comment: Lives at [facility] current occupational status: retired How many Children do You have: 4 Feels Safe at Home: Yes Childhood Exposure to Second-Hand Smoke: No Diet: regular Dental Care, Regularly: Yes Physical Activity Frequency: Daily Physical Activity Frequency Comment: walks to and from meals Seatbelt Use: always Sunscreen Use: Yes Assistive Devices: Walker and Wheelchair Physical Exam Vital Signs Vital Signs - 24 hr 03/20/25 14:39 03/20/25 15:07 03/20/25 16:45 Temperature 36.6 C Temperature Source Oral Pulse Rate 60 59 L Pulse Rate [Apical] 69 Pulse Rhythm Regular Respiratory Rate 20 18 Respiratory Effort / Characteristics Non-Labored Spontaneous Respiratory Depth Normal Respiratory Pattern Regular Blood Pressure 120/72 Blood Pressure [Right Arm] 171/95 H Blood Pressure Mean 88 Blood Pressure Mean [Right Arm] 120 Blood Pressure Position Sitting Pulse Oximetry 96 94 Oxygen Delivery Method Room Air Room Air Sepsis Recent Fever Within 48 Hours No Sepsis New/Unexplained Change in Mental Status No Sepsis Action Taken by Nursing No Action Required 03/20/25 18:18 Temperature Temperature Source Pulse Rate 71 Pulse Rate [Apical] Pulse Rhythm Respiratory Rate Respiratory Effort / Characteristics Respiratory Depth Respiratory Pattern Blood Pressure Blood Pressure [Right Arm] Blood Pressure Mean Blood Pressure Mean [Right Arm] Blood Pressure Position Pulse Oximetry Oxygen Delivery Method Sepsis Recent Fever Within 48 Hours Sepsis New/Unexplained Change in Mental Status Sepsis Action Taken by Nursing Physical Exam HENT: Exam performed. - Head: Normocephalic and atraumatic. - Mouth/Throat: The oropharynx is clear and moist. No trismus in the jaw. No dental abscesses or uvula swelling. No oropharyngeal exudate or tonsillar abscesses. EYES: Conjunctivae and EOM are normal. Pupils are equal, round, and reactive to light. Right eye exhibits no discharge. Left eye exhibits no discharge. No scleral icterus. NECK: Normal range of motion. Neck supple. No JVD present. CV: Normal rate, regular rhythm, normal heart sounds and intact distal pulses. There is no peripheral edema. Palpable radial pulses bue. PULM/CHEST: Effort normal and breath sounds normal. No respiratory distress. No stridor. He has no wheezes. He has no rales. ABD: The abdomen is soft. No mass is present. There is no tenderness. There is no rebound, no guarding. MUSC/SKEL: Normal range of motion. There is no peripheral edema, tenderness or deformity. NEURO: Motor and sensation grossly intact. Course Course 1505: The patient was evaluated in room B6. A complete history and physical exam was performed Cardiac monitoring: An order was placed for continuous cardiac monitoring. The monitor shows a rate of 60 with sinus rhythm interpreted by sc 1710: Vital signs stable. Labs and imaging are unremarkable with the exception of creatinine of 1.63. Patient will be admitted for THEO. Gentle IV hydration started on the patient. Medical Decision Making Laboratory Data Attestation: I reviewed the patient's lab results. 03/20/25 14:47 03/20/25 14:47 Lab Results 03/20/25 03/20/25 03/20/25 Range/Units 14:47 15:42 Unknown WBC 5.18 (4.8-10.8) K/ul RBC 3.56 L (4.70-6.10) M/uL Hgb 11.5 L (14.0-18.0) g/dl Hct 34.3 L (42.0-52.0) % MCV 96.3 (80.0-100.0) fL MCH 32.3 (25.0-34.0) pg MCHC 33.5 (32.0-36.0) g/dL RDW Std Deviation 50.7 H (36.4-46.3) fL RDW Coeff of Adam 14.0 (11.5-14.5) % Plt Count 152 (130-400) K/uL MPV 9.7 (9.4-12.4) fL Immature Gran % (Auto) 0.4 % Neut % (Auto) 66.0 % Lymph % (Auto) 16.2 % [place] % (Auto) 8.7 % Eos % (Auto) 8.3 % Baso % (Auto) 0.4 % Neut # (Auto) 3.42 (1.40-6.50) K/uL Lymph # (Auto) 0.84 L (1.20-3.40) K/uL Red[place] # (Auto) 0.45 (0.11-0.59) K/uL Eos # (Auto) 0.43 (0.00-0.50) K/uL Baso # (Auto) 0.02 (0.00-0.20) K/uL Immature Gran # (Auto) 0.02 (0.01-0.20) K/uL PT 11.1 (9.0-12.0) Seconds INR 1.0 (0.9-1.1) APTT 21 (21-31) Seconds PTT Ratio 0.8 VBG pH 7.32 L (7.36-7.41) VBG pCO2 46 (38-50) mmHg VBG pO2 < 20 mmHg VBG HCO3 24 mmol/L VBG O2 Saturation < 60.0 % VBG Base Excess -2.6 mEq/L Sodium 136 (136-145) mmol/L Potassium 4.9 (3.5-5.1) mmol/L Chloride 106 (98-107) mmol/L Carbon Dioxide 26 (21-32) mmol/L Anion Gap 4 (3-11) BUN 24 H (6-23) mg/dl Creatinine 1.63 H (0.6-1.4) mg/dl Est Cr Clr Drug Dosing 34.3 ml/min eGFR 41.55 BUN/Creatinine Ratio 14.7 (10-20) Glucose 110 H (70-99(Fasting)) mg/dl Lactate 1.6 (0.4-2.0) mmol/L Calcium 8.9 (8.6-10.3) mg/dl Magnesium 2.3 (1.7-2.4) mg/dl Total Bilirubin 1.0 (0.2-1.0) mg/dl Direct Bilirubin 0.2 (0-0.2) mg/dl AST 15 (13-39) U/L ALT 9 (7-52) U/L Alkaline Phosphatase 78 (34-104) U/L Troponin I High Sens 9.2 (0-20) pg/ml Total Protein 6.5 (6.0-8.3) gm/dl Albumin 3.7 (3.4-5.0) gm/dl Procalcitonin 0.08 (0-0.5) ng/ml Urine Color Dark Yellow Urine Appearance Clear (Clear) Urine pH 5.5 (4.5-7.5) Ur Specific [place] 1.030 (1.000-1.030) Urine Protein Trace H (Negative) Urine Glucose (UA) Negative (Negative) Urine Ketones Trace H (Negative) Urine Blood Negative (Negative) Urine Nitrite Negative (Negative) Urine Bilirubin Negative (Negative) Urine Urobilinogen Positive H (Negative) Ur Leukocyte Esterase Trace H (Negative) Urine WBC (Auto) 0-5 (0-5) /hpf Urine RBC (Auto) 3-5 H (0-2) /hpf U Hyaline Cast (Auto) >20 H (0-2) /lpf U Epithel Cells (Auto) 0-2 (0-2) /hpf Urine Bacteria (Auto) None Seen (None Seen) Imaging Data Radiologist's Impression: Chest X-Ray 03/20/25 15:07 XR chest 1V portable CLINICAL HISTORY: Sepsis COMPARISON STUDY: 01/26/2025 FINDINGS: Stable cardiac valve repair and loop recorder. Stable moderate cardiomegaly without pulmonary vascular congestion. Inspiration is shallow. No effusion, consolidation, or pneumothorax seen. IMPRESSION: No acute findings. ACT 112: Negative or not required by law. Electronically signed by: Jacques Montgomery M.D. 03/20/2025 3:[address] 03/20/25 15:08 CT head/brain wo con CLINICAL HISTORY: 84 years-old Male with ams. Acutely altered mental status TECHNIQUE: Multiple axial CT images of the head were obtained without contrast. A dose lowering technique was utilized adhering to the principles of ALARA. COMPARISON: 01/26/2025 FINDINGS: No acute intracranial hemorrhage, midline shift, intracranial mass, hydrocephalus, territorial ischemia or abnormal extra-axial collection. Involutional changes with advanced chronic microvascular ischemic disease. Chronic left occipital infarct with encephalomalacia. The calvarium is intact. Prior bilateral lens repair. The paranasal sinuses, mastoid air cells, and middle ear cavities are clear. IMPRESSION: 1. No acute intracranial abnormality. 2. Chronic findings as above. ACT 112: Negative or not required by law. The above report was generated using voice recognition software. It may contain grammatical, syntax or spelling errors. Electronically signed by: Brennen Stephen M.D. 03/20/2025 3:54 PM Abdomen/Pelvis CT 03/20/25 15:17 CT OF THE ABDOMEN AND PELVIS WITHOUT CONTRAST CLINICAL HISTORY: Fall. Hematuria. COMPARISON STUDY: CT of the abdomen and pelvis December 28, 2024. TECHNIQUE: Axial images of the abdomen and pelvis were obtained without IV contrast. Images were reviewed in the axial, sagittal, and coronal planes. Automated exposure control was utilized for the study. A dose lowering technique was utilized adhering to the principles of ALARA. FINDINGS: No hemoperitoneum or pneumoperitoneum is present. Solid abdominal viscera are suboptimally assessed on unenhanced exam. However, there is no evidence for traumatic injury to the liver, spleen, adrenal glands, kidneys or pancreas. An intermediate attenuation 2.9 cm right renal lesion represents a proteinaceous cyst when correlating with recent contrast-enhanced CT. There is no hydronephrosis. Sensitivity for detection of urothelial lesions is diminished on unenhanced exam but none are identified. There is no evidence for a bowel obstruction. No bowel wall thickening is identified on unenhanced exam. No lymphadenopathy. Postoperative findings consistent with L5-S1 decompression and fusion are noted. No acute fractures within the lumbar spine, pelvis or hips are identified. IMPRESSION: 1. No acute traumatic findings within the abdomen or pelvis on unenhanced exam. 2. No urinary calculi or hydronephrosis. 3. No urothelial lesions although sensitivity diminished on unenhanced exam. ACT 112: Negative or not required by law. Electronically signed by: Nakul Roberts M.D. 03/20/2025 3:[address] 03/20/25 15:17 CT SCAN OF THE CERVICAL SPINE CLINICAL HISTORY: Fall. COMPARISON STUDY: CT of the neck January 28, 2025. TECHNIQUE: CT scan of the cervical spine is performed from the skull base to the upper thoracic spine. Images are reviewed in the axial, sagittal, and coronal planes. IV contrast was not administered for this examination. A dose lowering technique was utilized adhering to the principles of ALARA. FINDINGS: Skeletal structures: There is no evidence of fracture or subluxation involving the cervical spine. Slight anterolisthesis of C4 on C5 is unchanged. Vertebral body height and alignment are maintained. The odontoid process and lateral masses are intact. The atlantoaxial articulation is preserved. The spinous processes appear intact. Severe multilevel facet arthrosis is noted. There is moderate multilevel disc space narrowing and osteophytosis of the cervical spine. Soft tissues: The prevertebral and paraspinous soft tissues are within normal limits. Calvarium: The visualized calvarium at the skull base appears intact. Brain parenchyma: Left occipital lobe encephalomalacia is better depicted on the same day head CT. Lung apices: Clear as visualized. IMPRESSION: No acute cervical spine fracture or subluxation. ACT 112: Negative or not required by law. Electronically signed by: Nakul Roberts M.D. 03/20/2025 3:51 PM ECG Data Attestation: I personally reviewed and interpreted this ECG as follows: Rate (beats per minute): 59 Rhythm: + normal sinus ECG ST segments: + Normal ST segments [facility] Narrative 1505: The patient was evaluated in room B6. A complete history and physical exam was performed Cardiac monitoring: An order was placed for continuous cardiac monitoring. The monitor shows a rate of 60 with sinus rhythm interpreted by me 1710: Vital signs stable. Labs and imaging are unremarkable with the exception of creatinine of 1.63. Patient will be admitted for THEO. Gentle IV hydration started on the patient. Impression & Plan THEO (acute kidney injury) Discharge Plan Visit Data Chief Complaint: Illness ED Provider: Marcio Stein Discharge Problem: THEO (acute kidney injury) Patient Disposition: Admitted As Inpatient Forms Stand Alone Forms: [facility] Prescriptions Prescriptions: No Action atorvastatin 40 mg tablet 40 mg PO HS Qty: 90 1RF cetirizine [Zyrtec] 10 mg tablet 10 mg PO DAILY Qty: 90 3RF cholecalciferol (vitamin D3) 50 mcg (2,000 unit) capsule 50 mcg PO DAILY Qty: 90 3RF pantoprazole 20 mg tablet,delayed release (DR/EC) 20 mg PO DAILY Qty: 15 0RF fluticasone propionate 50 mcg/actuation spray,suspension 1 spray intranasal HS Rx Instructions: administer into each nostril metoprolol succinate 50 mg tablet extended release 24 hr 50 mg PO DAILY Qty: 90 3RF acetaminophen 500 mg tablet 1,000 mg PO BID MDD 3 GRAMS/24 HOURS Qty: 60 0RF donepezil 5 mg tablet 5 mg PO DAILY Qty: 30 5RF tamsulosin [Flomax] 0.4 mg capsule 0.4 mg PO HS loperamide 2 mg capsule 2 mg PO UD MDD 4caps/24hr PRN (Reason: Loose Stool) Rx Instructions: take 2 capsules by mouth after 1st loose BM then 1 capsule thereafter as needed for loose stool docusate sodium 100 mg Capsule 100 mg PO DAILY polyethylene glycol 3350 [Miralax] 17 gram/dose Powder 17 g PO DAILY Centrum Adults 12 mcg Tablet,Chewable 1 tab PO DAILY Rx Instructions: CENTRUM ADULT GUMMIES ondansetron HCl 4 mg tablet 4 mg PO Q6 PRN (Reason: nausea/vomiting) acetaminophen 500 mg Tablet 1,000 mg PO DAILY MDD 3 GRAMS/24 HOURS PRN (Reason: Pain) Rx Instructions: CANNOT TAKE WITHIN 4 HOURS OF ROUTINE DOSE hydrocortisone 1 % Cream 1 applic TOPICAL BID PRN (Reason: SKIN RASH NEEDED) menthol-zinc oxide [Calmoseptine] 0.44-20.6 % Ointment 1 applic TOPICAL TID PRN (Reason: PROTECTANT BARRIER) aspirin [Adult Aspirin Regimen] 81 mg tablet,delayed release (DR/EC) 81 mg PO HS Referrals Referrals: KATHY Martinez [Primary Care Provider] -
[2025-03-20] MEDS: SODIUM CHLORIDE 0.9% 1,000 ML IV SCH (20:27)
[2025-03-20] MEDS: LIDOCAINE 5% 1 PATCH TD SCH (20:27)
--- NOTE | 2025-03-20 21:48 | CT Scan Report ---
EXAM: CT lumbar spine wo con CLINICAL HISTORY: Back pain s/p recent fall TECHNIQUE: CT non-contrast scan of lumbar spine done. Axial images obtained with reformatted coronal and sagittal images and submitted for interpretation. One of the following dose reduction techniques were utilized for this exam: Automated exposure control, adjustment of the mA and/or kV according to patient size, use of iterative reconstruction. COMPARISON: None. FINDINGS: No acute fractures or dislocations were identified. Degenerative changes with marginal osteophytes seen in multiple lumbar levels. Levoscoliosis seen, with Gee angle 19. Post operative pedicle screws are seen at the L5 and S1 vertebral levels bilaterally with intervertebral disc cage for fusion. The screws are in good position with no evidence of hardware loosening, breakage, or malposition. No significant surrounding lucency around the screws to suggest loosening. Spinous process is not seen at L5 level- likely post-operative change. Discectomy fusion seen at L5-S1 level. Intervertebral disc vacuum phenomenon seen in L4-L5 level. Multilevel disc herniation at L2-L3 through L4-L5 levels, indenting the ventral surface of thecal sac, with variable degrees of spinal canal and bilateral neural foramina stenosis. Moderate diffuse disc bulge with facet arthropathy seen at L3-L4 and L4-L5 levels indenting the ventral surface of thecal sac, producing mild spinal canal and bilateral neural foramina stenosis. The alignment of the lumbar spine is preserved. The height of the vertebral bodies is maintained. Biateral sacroiliitis. Ossified right iliolumbar ligament. Diffuse osteoporotic changes. IMPRESSION: 1. No acute fractures or dislocations were identified. 2. Moderate Lumbar spondylotic changes as described. 3. Levoscoliosis seen, with Gee angle 19. 4. Multilevel disc herniation at L2-L3 through L4-L5 levels, indenting the ventral surface of thecal sac, with variable degrees of spinal canal and bilateral neural foramina stenosis. Suggest clinical correlation 5. Post-operative changes as described. Electronically signed by Rip Singh 03-20-2025 9:47 PM
--- NOTE | 2025-03-20 21:53 | CT Scan Report ---
CT THORACIC SPINE WITHOUT CONTRAST: HISTORY: PAIN TECHNIQUE: Noncontrast CT examination of the thoracic spine is performed. Coronal and sagittal reformats were created. COMPARISON: Chest CT December 28, 2024 FINDINGS: THORACIC SPINE: There is a minimal height loss along the superior endplate of T12. This appears to be new compared to the CT thorax from December 28, 2024 which partially captured the T12 vertebral body. Overall, no acute traumatic fracture identified. There is no significant spondylolisthesis. Usual thoracic kyphosis is preserved. Multilevel degenerative changes characterized by disc space loss with endplate changes of the vertebral bodies with small marginal osteophytes. Visualized lungs demonstrateNeck anterior still changes. IMPRESSION: Minimal height loss along the superior endplate of T12 vertebral body that appears to be new since the chest CT of December 28, 2024 and is age-indeterminate. Please correlate with site of pain. There is no significant retropulsion. Multilevel degenerative changes as above Minimal aspiration with debris noted in the right main bronchus. Electronically signed by Elan Ruvalcaba 03-20-2025 9:53 PM
[2025-03-20] MEDS ORDERED: ONDANSETRON INJ 2 MG/ML 2 ML VIAL IV PRN (22:08)
[2025-03-20] MEDS ORDERED: MAGNESIUM HYDROXIDE SUSP 30 ML UDC PO PRN (22:08)
[2025-03-20] MEDS ORDERED: POLYETHYLENE (MIRALAX) 17 GM PACK PO PRN (22:08)
[2025-03-20] MEDS: ASPIRIN 81 MG ECTAB PO SCH (23:43)
[2025-03-20] MEDS: FLUTICASONE PROPIONATE NA SPR 16 GM BTL NAE SCH (23:43)
[2025-03-20] MEDS: ATORVASTATIN 40 MG TAB PO SCH (23:43)
[2025-03-20] MEDS: TAMSULOSIN HCL 0.4 MG CAP PO SCH (23:43)
[2025-03-20] MEDS: HEPARIN SOD 5,000 UNIT/0.5 ML VIAL SQ SCH (23:45)
[2025-03-20] MEDS: ACETAMINOPHEN 325 MG TAB PO PRN (23:46)
[2025-03-21 07:36] LABS: Hemoglobin 11.5 g/dl (14.0-18.0); Mean Corpuscular Hemoglobin 32.4 pg (25.0-34.0); Mean Corpuscular Hgb Conc 33.8 g/dL (32.0-36.0); Mean Corpuscular Volume 95.8 fL (80.0-100.0); Mean Platelet Volume 9.3 fL (9.4-12.4); Platelet Count 135 K/uL (130-400); RDW Coefficient of Variation 13.9 % (11.5-14.5); RDW Standard Deviation 49.3 fL (36.4-46.3); Red Blood Count 3.55 M/uL (4.70-6.10); White Blood Count 4.76 K/ul (4.8-10.8)
[2025-03-21 07:53] LABS: BUN Creatinine Ratio 16.7 (10-20); Calcium 8.5 mg/dl (8.6-10.3); Creatinine Clr Calc Pharmacy 49.1 ml/min; Magnesium 2.2 mg/dl (1.7-2.4); Potassium 4.4 mmol/L (3.5-5.1)
[2025-03-21] MEDS: CHOLECALCIFEROL 25 MCG (1000 UNITS) TAB PO SCH (08:57)
[2025-03-21] MEDS: DONEPEZIL HCL 5 MG TAB PO SCH (08:58)
[2025-03-21] MEDS: METOPROLOL SUCC 50MG EXT REL TAB PO SCH (08:58)
[2025-03-21] MEDS: CETIRIZINE HCL 10 MG TABLET PO SCH (08:58)
[2025-03-21] MEDS: CEROVITE ADV FORMULA TAB PO SCH (08:58)
[2025-03-21] MEDS: PANTOprazole 40 MG TAB PO SCH (08:58)
[2025-03-21] MEDS: DOCUSATE SODIUM 100 MG CAP PO SCH (08:59)
[2025-03-21] MEDS: POLYETHYLENE (MIRALAX) 17 GM PACK PO SCH (08:59)
[2025-03-21] MEDS: PNEUMOCOCCAL VACCINE (PCV20) 20-VAL CONJ-DIP CRM/PF 0.5 ML SYR IM ONE (09:01)
--- NOTE | 2025-03-21 14:12 | Hospitalist Progress Note ---
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 Extensive imaging studies including CXR, head CT, CTAP and cervical spine CT personally reviewed and without any acute findings. THEO with Cr of 1.63 on admission. Baseline Cr ~1-1.3 per chart review. Cr 1.1 - now improved after IVF Suspect prerenal due to poor oral intake. received Gentle IVF x 2L No evidence of UTI on UA. + hematuria likely due to underlying bladder lesions ISO recurrent bladder CA. Currently hematuria resolved Avoid nephrotoxic agents when able. Renally dose medications when able. (2) Back pain: Plan: Uses a walker or rollator at baseline for ambulation. He did have a fall this past Sunday while visiting his family which was mechanical in nature. Did lightly hit his head but no loss of consciousness. He has however been complaining of low back pain since the fall. Patient with chronic low back pain but he seems to be mentioning this more often to staff and family members since the fall occurred. Check CT thoracic/lumbar spine without contrast. CT thoracic spine- Minimal height loss along the superior endplate of T12 vertebral body that appears to be new since the chest CT of December 28, 2024 and is age- indeterminate. Please correlate with site of pain. There is no significant retropulsion. Multilevel degenerative changes as above Minimal aspiration with debris noted in the right main bronchus. CT lumbar spine- 1. No acute fractures or dislocations were identified. 2. Moderate Lumbar spondylotic changes as described. 3. Levoscoliosis seen, with Gee angle 19. 4. Multilevel disc herniation at L2-L3 through L4-L5 levels, indenting the ventral surface of thecal sac, with variable degrees of spinal canal and bilateral neural foramina stenosis. Suggest clinical correlation 5. Post-operative changes as described. Obtain PT/OT evaluations. Utilize lidocaine patch application on low back. Fall precautions. OOB with assistance. (3) Vascular dementia: (4) Vascular parkinsonism: Plan: Follows with Dr. Warren of [facility] Neurology. Continue outpatient medication regimen including donepezil. Initially there was some concern for AMS per staff at [facility]. However, upon further discussion with the patient's family at bedside on admission, he appears to be at his baseline mentation level. He does very well with direct conversation. Periods of forgetfulness given underlying vascular dementia however he is very engaged with conversation. Follow blood cultures. (5) Bladder cancer: Plan: Not currently undergoing active treatment. Was previously on Keytruda however this was stopped >1 month ago due to side effect intolerance. Follows with Dr. Rudolph of [facility] and Dr. Vines of [facility] U[facility]. Continue Flomax. Other Chronic Medical Conditions: GERD - Continue PPI. HLD/CAD - Continue ASA and statin. HTN - Continue home antihypertensives with routine BP monitoring and hold parameters. DVT Prophylaxis: SQ Heparin Code Status: FULL CODE - Per extensive conversation with family at bedside, including his and youngest daughter. PCP: [facility] Disposition: med/tele Admission and Anticipated Discharge Date Admission Date: March 20, 2025 Subjective Pt seen in follow up of THEO, confusion Cr improved today after IVF Pt lying in bed in NAD, however drowsy. Pt's present at the bedside and discussed with. Pt resides at the senior care and does get tired. Perhaps seems more tired now. Pt has no complains, opens eyes when asked, denies any chest pain, headache, sh ortness of breath or abdominal pain Ivey back with yellow urine - no hematuria noted Review of Systems Review of Systems: All systems reviewed & are unremarkable except as noted in Subjective Physical Exam Physical Exam: General/Neurologic: Elderly, M. NAD. Laying down in bed. drowsy, but opens eyes when asked HEENT: Normocephalic, atraumatic. Conjunctivae normal. External ear and nose normal. Respiratory: Normal respiratory effort, lungs clear to auscultation bilaterally. On RA. No accessory muscle use. Cardiovascular: Regular rate and rhythm. + sternotomy scar. No BLE edema. Abdomen/GI: Normal bowel sounds, soft, nondistended, nontender to palpation in all quadrants. Extremities/MSK: moving all extremities. Limited visualization of back 2/2 pain with movement. Results & Data Results & Data Vital Signs (Past 12 Hours) Vital Signs Temp Pulse Pulse Resp BP BP Pulse Ox 03/21/25 11:31 36.4 C L 64 17 132/82 94 03/21/25 08:54 36.5 C 73 18 158/80 H 95 03/21/25 05:53 80 03/21/25 03:44 37.1 C 84 16 137/77 94 O2 Del Method 03/21/25 11:31 Room Air 03/21/25 08:54 Room Air 03/21/25 05:53 03/21/25 03:44 Room Air Laboratory Results 03/21/25 03/20/25 03/20/25 Range/Units 07:01 Unknown 15:42 WBC 4.76 L (4.8-10.8) K/ul RBC 3.55 L (4.70-6.10) M/uL Hgb 11.5 L (14.0-18.0) g/dl Hct 34.0 L (42.0-52.0) % MCV 95.8 (80.0-100.0) fL MCH 32.4 (25.0-34.0) pg MCHC 33.8 (32.0-36.0) g/dL RDW Std Deviation 49.3 H (36.4-46.3) fL RDW Coeff of Adam 13.9 (11.5-14.5) % Plt Count 135 (130-400) K/uL MPV 9.3 L (9.4-12.4) fL Immature Gran % (Auto) % Neut % (Auto) % Lymph % (Auto) % [place] % (Auto) % Eos % (Auto) % Baso % (Auto) % Neut # (Auto) (1.40-6.50) K/uL Lymph # (Auto) (1.20-3.40) K/uL [place] # (Auto) (0.11-0.59) K/uL Eos # (Auto) (0.00-0.50) K/uL Baso # (Auto) (0.00-0.20) K/uL Immature Gran # (Auto) (0.01-0.20) K/uL PT (9.0-12.0) Seconds INR (0.9-1.1) APTT (21-31) Seconds PTT Ratio VBG pH 7.32 L (7.36-7.41) VBG pCO2 46 (38-50) mmHg VBG pO2 < 20 mmHg VBG HCO3 24 mmol/L VBG O2 Saturation < 60.0 % VBG Base Excess -2.6 mEq/L Sodium 135 L (136-145) mmol/L Potassium 4.4 (3.5-5.1) mmol/L Chloride 106 (98-107) mmol/L Carbon Dioxide 23 (21-32) mmol/L Anion Gap 6 (3-11) BUN 19 (6-23) mg/dl Creatinine 1.14 D (0.6-1.4) mg/dl Est Cr Clr Drug Dosing 49.1 ml/min eGFR 63.81 BUN/Creatinine Ratio 16.7 (10-20) Glucose 93 (70-99(Fasting)) mg/dl Lactate 1.6 (0.4-2.0) mmol/L Calcium 8.5 L (8.6-10.3) mg/dl Magnesium 2.2 (1.7-2.4) mg/dl Total Bilirubin (0.2-1.0) mg/dl Direct Bilirubin (0-0.2) mg/dl AST (13-39) U/L ALT (7-52) U/L Alkaline Phosphatase (34-104) U/L Troponin I High Sens (0-20) pg/ml Total Protein (6.0-8.3) gm/dl Albumin (3.4-5.0) gm/dl Procalcitonin (0-0.5) ng/ml Urine Color Dark Yellow Urine Appearance Clear (Clear) Urine pH 5.5 (4.5-7.5) Ur Specific [place] 1.030 (1.000-1.030) Urine Protein Trace H (Negative) Urine Glucose (UA) Negative (Negative) Urine Ketones Trace H (Negative) Urine Blood Negative (Negative) Urine Nitrite Negative (Negative) Urine Bilirubin Negative (Negative) Urine Urobilinogen Positive H (Negative) Ur Leukocyte Esterase Trace H (Negative) Urine WBC (Auto) 0-5 (0-5) /hpf Urine RBC (Auto) 3-5 H (0-2) /hpf U Hyaline Cast (Auto) >20 H (0-2) /lpf U Epithel Cells (Auto) 0-2 (0-2) /hpf Urine Bacteria (Auto) None Seen (None Seen) Nasal Screen MRSA (PCR) Negative (Negative) 03/20/25 Range/Units 14:47 WBC 5.18 (4.8-10.8) K/ul RBC 3.56 L (4.70-6.10) M/uL Hgb 11.5 L (14.0-18.0) g/dl Hct 34.3 L (42.0-52.0) % MCV 96.3 (80.0-100.0) fL MCH 32.3 (25.0-34.0) pg MCHC 33.5 (32.0-36.0) g/dL RDW Std Deviation 50.7 H (36.4-46.3) fL RDW Coeff of Adam 14.0 (11.5-14.5) % Plt Count 152 (130-400) K/uL MPV 9.7 (9.4-12.4) fL Immature Gran % (Auto) 0.4 % Neut % (Auto) 66.0 % Lymph % (Auto) 16.2 % [place] % (Auto) 8.7 % Eos % (Auto) 8.3 % Baso % (Auto) 0.4 % Neut # (Auto) 3.42 (1.40-6.50) K/uL Lymph # (Auto) 0.84 L (1.20-3.40) K/uL [place] # (Auto) 0.45 (0.11-0.59) K/uL Eos # (Auto) 0.43 (0.00-0.50) K/uL Baso # (Auto) 0.02 (0.00-0.20) K/uL Immature Gran # (Auto) 0.02 (0.01-0.20) K/uL PT 11.1 (9.0-12.0) Seconds INR 1.0 (0.9-1.1) APTT 21 (21-31) Seconds PTT Ratio 0.8 VBG pH (7.36-7.41) VBG pCO2 (38-50) mmHg VBG pO2 mmHg VBG HCO3 mmol/L VBG O2 Saturation % VBG Base Excess mEq/L Sodium 136 (136-145) mmol/L Potassium 4.9 (3.5-5.1) mmol/L Chloride 106 (98-107) mmol/L Carbon Dioxide 26 (21-32) mmol/L Anion Gap 4 (3-11) BUN 24 H (6-23) mg/dl Creatinine 1.63 H (0.6-1.4) mg/dl Est Cr Clr Drug Dosing 34.3 ml/min eGFR 41.55 BUN/Creatinine Ratio 14.7 (10-20) Glucose 110 H (70-99(Fasting)) mg/dl Lactate (0.4-2.0) mmol/L Calcium 8.9 (8.6-10.3) mg/dl Magnesium 2.3 (1.7-2.4) mg/dl Total Bilirubin 1.0 (0.2-1.0) mg/dl Direct Bilirubin 0.2 (0-0.2) mg/dl AST 15 (13-39) U/L ALT 9 (7-52) U/L Alkaline Phosphatase 78 (34-104) U/L Troponin I High Sens 9.2 (0-20) pg/ml Total Protein 6.5 (6.0-8.3) gm/dl Albumin 3.7 (3.4-5.0) gm/dl Procalcitonin 0.08 (0-0.5) ng/ml Urine Color Urine Appearance (Clear) Urine pH (4.5-7.5) Ur Specific [place] (1.000-1.030) Urine Protein (Negative) Urine Glucose (UA) (Negative) Urine Ketones (Negative) Urine Blood (Negative) Urine Nitrite (Negative) Urine Bilirubin (Negative) Urine Urobilinogen (Negative) Ur Leukocyte Esterase (Negative) Urine WBC (Auto) (0-5) /hpf Urine RBC (Auto) (0-2) /hpf U Hyaline Cast (Auto) (0-2) /lpf U Epithel Cells (Auto) (0-2) /hpf Urine Bacteria (Auto) (None Seen) Nasal Screen MRSA (PCR) (Negative) Medications Administered Current Inpatient Medications Acetaminophen (Acetaminophen 325 Mg Tab) 650 mg PO Q4H PRN PRN Reason: Pain or Fever Stop: 04/19/25 22:07 Last Admin: 03/21/25 08:57 Dose: 650 mg Aspirin (Aspirin 81 Mg Ectab) 81 mg PO HS ETIENNE Stop: 04/19/25 22:07 Last Admin: 03/20/25 23:43 Dose: 81 mg Atorvastatin Calcium (Atorvastatin 40 Mg Tab) 40 mg PO HS ETIENNE Stop: 04/19/25 22:07 Last Admin: 03/20/25 23:43 Dose: 40 mg Cetirizine HCl (Cetirizine Hcl 10 Mg Tablet) 10 mg PO DAILY ETIENNE Stop: 04/20/25 08:59 Last Admin: 03/21/25 08:58 Dose: 10 mg Docusate Sodium (Docusate Sodium 100 Mg Cap) 100 mg PO DAILY ETIENNE Stop: 04/20/25 08:59 Last Admin: 03/21/25 08:59 Dose: Not Given Donepezil HCl (Donepezil Hcl 5 Mg Tab) 5 mg PO DAILY ETIENNE Stop: 04/20/25 08:59 Last Admin: 03/21/25 08:58 Dose: 5 mg Fluticasone Propionate (Fluticasone Propionate Na Spr 16 Gm Btl) 1 sprays [place] HS ETIENNE Stop: 04/19/25 22:07 Last Admin: 03/20/25 23:43 Dose: 1 sprays Heparin Sodium (Porcine) (Heparin Sod 5,000 Unit/0.5 Ml Vial) 5,000 units SQ Q12 ETIENNE Stop: 04/19/25 22:07 Last Admin: 03/21/25 08:59 Dose: 5,000 units Sodium Chloride (Nss) 1,000 mls @ 75 mls/hr IV .[id number] ETIENNE Stop: 03/21/25 22:09 Last Admin: 03/21/25 10:00 Dose: 75 mls/hr Lidocaine (Lidocaine 5% 1 Patch) 1 patch TD Q24H ETIENNE Stop: 04/19/25 19:59 Last Admin: 03/20/25 20:27 Dose: 1 patch Magnesium Hydroxide (Magnesium Hydroxide Susp 30 Ml Udc) 30 ml PO Q12H PRN PRN Reason: Constipation Stop: 04/19/25 22:07 Metoprolol Succinate (Metoprolol Succ 50mg Ext Rel Tab) 50 mg PO DAILY ETIENNE Stop: 04/20/25 08:59 Last Admin: 03/21/25 08:58 Dose: 50 mg Miscellaneous (Remove Lidoderm Patch) 1 each N/A DAILY@0800 ETIENNE Stop: 04/20/25 07:59 Last Admin: 03/21/25 08:57 Dose: Not Given Multivitamins/Minerals (Cerovite Adv Formula Tab) 1 tab PO DAILY ETIENNE Stop: 04/20/25 08:59 Last Admin: 03/21/25 08:58 Dose: 1 tab Ondansetron HCl (Ondansetron Inj 2 Mg/Ml 2 Ml Vial) 4 mg IV Q6H PRN PRN Reason: Nausea Stop: 04/19/25 22:07 Pantoprazole Sodium (Pantoprazole 40 Mg Tab) 40 mg PO DAILY ETIENNE Stop: 04/20/25 08:59 Last Admin: 03/21/25 08:58 Dose: 40 mg Polyethylene Glycol (Polyethylene (Miralax) 17 Gm Pack) 17 gm PO DAILY PRN PRN Reason: Constipation Stop: 04/19/25 22:07 Polyethylene Glycol (Polyethylene (Miralax) 17 Gm Pack) 17 gm PO DAILY ETIENNE Stop: 04/20/25 08:59 Last Admin: 03/21/25 08:59 Dose: 17 gm Tamsulosin HCl (Tamsulosin Hcl 0.4 Mg Cap) 0.4 mg PO HS ETIENNE Stop: 04/19/25 22:07 Last Admin: 03/20/25 23:43 Dose: 0.4 mg Vitamin D (Cholecalciferol 25 Mcg (1000 Units) Tab) 50 mcg PO DAILY ETIENNE Stop: 04/20/25 08:59 Last Admin: 03/21/25 08:57 Dose: 50 mcg (2) Back pain Back pain laterality: unspecified Back pain location: back pain in unspecified location Chronicity: acute Qualified Code(s): M54.9 - Dorsalgia, unspecified (3) Vascular dementia Dementia behavioral or psychological symptom: unspecified whether behavioral, psychotic, or mood disturbance or anxiety Dementia severity: unspecified severity Qualified Code(s): F01.50 - Vascular dementia, unspecified severity, without behavioral disturbance, psychotic disturbance, mood disturbance, and anxiety (5) Bladder cancer Bladder location: unspecified site Qualified Code(s): C67.9 - Malignant neoplasm of bladder, unspecified
--- NOTE | 2025-03-21 15:41 | Electrocardiogram Report ---
Test Reason : Blood Pressure : */* mmHG Vent. Rate : 59 BPM Atrial Rate : * BPM P-R Int : 300 ms QRS Dur : 68 ms QT Int : 442 ms P-R-T Axes : * 45 13 degrees QTcB Int : 437 ms Poor data quality, interpretation may be adversely affected Sinus rhythm with 1st degree A-V block Cannot rule out Anterior infarct , age undetermined Abnormal ECG When compared with ECG of 26-Jan-2025 14:22, Criteria for Inferior infarct are no longer Present Non-specific change in ST segment in Inferior leads Confirmed by Jairo Feliciano ([id number]) on 03/21/2025 3:41:40 PM Referred By: [facility] [place] Confirmed By: Jairo Feliciano
[2025-03-22 07:19] LABS: Hematocrit (blood only) 34.2 % (42.0-52.0); Hemoglobin 11.4 g/dl (14.0-18.0); Mean Corpuscular Hemoglobin 31.9 pg (25.0-34.0); Mean Corpuscular Hgb Conc 33.3 g/dL (32.0-36.0); Mean Corpuscular Volume 95.8 fL (80.0-100.0); Mean Platelet Volume 9.8 fL (9.4-12.4); Platelet Count 140 K/uL (130-400); RDW Coefficient of Variation 13.8 % (11.5-14.5); RDW Standard Deviation 49.1 fL (36.4-46.3); Red Blood Count 3.57 M/uL (4.70-6.10); White Blood Count 4.88 K/ul (4.8-10.8)
[2025-03-22 07:39] LABS: BUN Creatinine Ratio 15.2 (10-20); Calcium 8.5 mg/dl (8.6-10.3); Creatinine Clr Calc Pharmacy 60.8 ml/min; Magnesium 2.1 mg/dl (1.7-2.4); Phosphorus 3.1 mg/dl (2.5-4.9); Potassium 4.3 mmol/L (3.5-5.1)
[2025-03-23 12:29] VITALS: BP 120/60; RESP 21; TEMP 97.7; O2SAT 96
--- NOTE | 2025-03-23 14:03 | Hospitalist Progress Note ---
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 Extensive imaging studies including CXR, head CT, CTAP and cervical spine CT personally reviewed and without any acute findings. THEO with Cr of 1.63 on admission. Baseline Cr ~1-1.3 per chart review. Cr 0.9 - now improved after IVF Suspect prerenal due to poor oral intake. received Gentle IVF x 2L No evidence of UTI on UA. + hematuria likely due to underlying bladder lesions ISO recurrent bladder CA. Currently hematuria resolved Avoid nephrotoxic agents when able. Renally dose medications when able. (2) Back pain: Plan: Uses a walker or rollator at baseline for ambulation. He did have a fall this past Sunday while visiting his family which was mechanical in nature. Did lightly hit his head but no loss of consciousness. He has however been complaining of low back pain since the fall. Patient with chronic low back pain but he seems to be mentioning this more often to staff and family members since the fall occurred. Check CT thoracic/lumbar spine without contrast. CT thoracic spine- Minimal height loss along the superior endplate of T12 vertebral body that appears to be new since the chest CT of December 28, 2024 and is age-indeterminat e. Please correlate with site of pain. There is no significant retropulsion. Multilevel degenerative changes as above Minimal aspiration with debris noted in the right main bronchus. CT lumbar spine- 1. No acute fractures or dislocations were identified. 2. Moderate Lumbar spondylotic changes as described. 3. Levoscoliosis seen, with Gee angle 19. 4. Multilevel disc herniation at L2-L3 through L4-L5 levels, indenting the ventral surface of thecal sac, with variable degrees of spinal canal and bilateral neural foramina stenosis. Suggest clinical correlation 5. Post-operative changes as described. PT/OT evaluations Utilize lidocaine patch application on low back. Fall precautions. OOB with assistance. (3) Vascular dementia: (4) Vascular parkinsonism: Plan: Follows with Dr. Warren of [facility] Neu[facility]. Continue outpatient medication regimen including donepezil. Initially there was some concern for AMS per staff at [facility]. However, upon further discussion with the patient's family at bedside on admission, he appears to be at his baseline mentation level. He does very well with direct conversation. Periods of forgetfulness given underlying vascular dementia however he is very engaged with conversation. Follow blood cultures. (5) Bladder cancer: Plan: Not currently undergoing active treatment. Was previously on Keytruda however this was stopped >1 month ago due to side effect intolerance. Follows with Dr. Rudolph of [facility] and Dr. Vines of [facility]. Continue Flomax. Other Chronic Medical Conditions: GERD - Continue PPI. HLD/CAD - Continue ASA and statin. HTN - Continue home antihypertensives with routine BP monitoring and hold parameters. DVT Prophylaxis: SQ Heparin Code Status: FULL CODE - Per extensive conversation with family at bedside, including his and youngest daughter. PCP: [facility] Disposition: med/tele Admission and Anticipated Discharge Date Admission Date: March 20, 2025 Subjective Pt seen in follow up of THEO, confusion Cr improved after IVF Pt lying in bed in NAD. More awake and able to converse more. Pt's present at the bedside and discussed with. Pt resides at the long-term and does get tired - per family Pt has no complains, denies any chest pain, headache, shortness of breath or abdominal pain [place] back with yellow urine - no hematuria noted Review of Systems Review of Systems: All systems reviewed & are unremarkable except as noted in Subjective Physical Exam Physical Exam: General/Neurologic: Elderly, M. NAD. Laying down in bed. somewhat drowsy, but overall more awake today HEENT: Normocephalic, atraumatic. Conjunctivae normal. External ear and nose normal. Respiratory: Normal respiratory effort, lungs clear to auscultation bilaterally. On RA. No accessory muscle use. Cardiovascular: Regular rate and rhythm. + sternotomy scar. No BLE edema. Abdomen/GI: Normal bowel sounds, soft, nondistended, nontender to palpation in all quadrants. Extremities/MSK: moving all extremities. (2) Back pain Back pain laterality: unspecified Back pain location: back pain in unspecified location Chronicity: acute Qualified Code(s): M54.9 - Dorsalgia, unspecified (3) Vascular dementia Dementia behavioral or psychological symptom: unspecified whether behavioral, psychotic, or mood disturbance or anxiety Dementia severity: unspecified severity Qualified Code(s): F01.50 - Vascular dementia, unspecified severity, without behavioral disturbance, psychotic disturbance, mood disturbance, and anxiety (5) Bladder cancer Bladder location: unspecified site Qualified Code(s): C67.9 - Malignant neoplasm of bladder, unspecified
--- NOTE | 2025-03-23 15:32 | Discharge Summary ---
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 History mostly obtained from family at bedside, including the patient's and youngest daughter. Patient alert and oriented to conversation however is often forgetful given his underlying vascular dementia. Staff at [facility] were concerned that the patient seemed to be acting "unlike himself." Patient reportedly requested to leave the facility per report from staff and he has never done so before. Per discussion with [facility] at [facility], patient appears to be at his baseline mentation level. He does very well with direct conversation. Periods of forgetfulness given underlying vascular dementia however he is very engaged with conversation. Uses a walker or rollator at baseline for ambulation. He did have a fall this past Sunday while visiting his family which was mechanical in nature. Did lightly hit his head but no loss of consciousness. He has however been complaining of low back pain since the fall. Patient with chronic low back pain but he seems to be mentioning this more often to staff and family members since the fall occurred. Extensive imaging studies including CXR, head CT, CTAP and cervical spine CT personally reviewed and without any acute findings. Does have chronic ongoing issues with maintaining hydration status and good oral intake in the setting of his underlying dementia. Seems his appetite is good however he is having difficulty feeding himself. He typically now requires assistance with feeds. Staff had mentioned he seems more lethargic but family states his energy level seems to be around his baseline. He is typically more sedentary throughout the day however he does ambulate around his [facility] facility with his walker a few times throughout the day with staff. Found to have THEO superimposed on CKD stage III upon review of his initial laboratory workup. Admission Exam Per Admitting Provider General/Neurologic: Elderly, M. NAD. Laying down in bed. A&Ox2. Engaged in conversation. Periods of forgetfulness. Does very well with direct questioning. Family at bedside including the patient's and youngest daughter. No overt focal deficits. HEENT: Normocephalic, atraumatic. Conjunctivae normal. External ear and nose normal. Dry mucous membranes. Respiratory: Normal respiratory effort, lungs clear to auscultation bilaterally. On RA and saturating in the mid 90s SpO2. No accessory muscle use. Cardiovascular: Regular rate and rhythm. + sternotomy scar. No BLE edema. Abdomen/GI: Normal bowel sounds, soft, nondistended, nontender to palpation in all quadrants. Extremities/MSK: No cyanosis or clubbing. Actively moving all extremities. [place] ited visualization of back 2/2 pain with movement. Principal Diagnosis THEO, dehydration Discharge Exam General/Neurologic: Elderly, M. NAD. Laying down in bed. more awake today HEENT: Normocephalic, atraumatic. Conjunctivae normal. External ear and nose normal. Respiratory: Normal respiratory effort, lungs clear to auscultation bilaterally. On RA. No accessory muscle use. Cardiovascular: Regular rate and rhythm. + sternotomy scar. No BLE edema. Abdomen/GI: Normal bowel sounds, soft, nondistended, nontender to palpation in all quadrants. Extremities/MSK: moving all extremities. Discharge Data Allergies Allergy/AdvReac Type Severity Reaction Status Date / Time house dust Allergy Mild SNEEZING, Verified 03/20/25 17:07 ITCHY EYES pollen extracts Allergy Mild HAY FEVER Verified 03/20/25 17:07 ibuprofen AdvReac Unknown TOLD TO Verified 03/20/25 17:07 AVOID DUE TO BLEEDING ULCER Consultations 03/20/25 17:10 ED Decision to Admit Stat Ordered Studies 03/20/25 15:08 CT head/brain wo con Stat FINDINGS: No acute intracranial hemorrhage, midline shift, intracranial mass, hydro cephalus, territorial ischemia or abnormal extra-axial collection. Involutional changes with advanced chronic microvascular ischemic disease. Chronic left occipital infarct with encephalomalacia. The calvarium is intact. Prior bilateral lens repair. The paranasal sinuses, mastoid air cells, and middle ear cavities are clear. IMPRESSION: 1. No acute intracranial abnormality. 2. Chronic findings as above. 03/20/25 15:17 CT abd pelvis wo con Stat FINDINGS: No hemoperitoneum or pneumoperitoneum is present. Solid abdominal viscera are suboptimally assessed on unenhanced exam. However, there is no evidence for traumatic injury to the liver, spleen, adrenal glands, kidneys or pancreas. An intermediate attenuation 2.9 cm right renal lesion represents a pr oteinaceous cyst when correlating with recent contrast-enhanced CT. There is no hydronephrosis. Sensitivity for detection of urothelial lesions is diminished on unenhanced exam but none are identified. There is no evidence for a bowel obstruction. No bowel wall thickening is identified on unenhanced exam. No lymphadenopathy. Postoperative findings consistent with L5-S1 decompression and fusion are noted. No acute fractures within the lumbar spine, pelvis or hips are identified. IMPRESSION: 1. No acute traumatic findings within the abdomen or pelvis on unenhanced exam. 2. No urinary calculi or hydronephrosis. 3. No urothelial lesions although sensitivity diminished on unenhanced exam. CT cervical spine wo con Stat FINDINGS: Skeletal structures: There is no evidence of fracture or subluxation involving the cervical spine. Slight anterolisthesis of C4 on C5 is unchanged. Vertebral body height and alignment are maintained. The odontoid process and lateral masses are intact. The atlantoaxial articulation is preserved. The spinous processes appear intact. Severe multilevel facet arthrosis is noted. There is moderate multilevel disc space narrowing and osteophytosis of the cervical spine. Soft tissues: The prevertebral and paraspinous soft tissues are within normal limits. Calvarium: The visualized calvarium at the skull base appears intact. Brain parenchyma: Left occipital lobe encephalomalacia is better depicted on the same day head CT. Lung apices: Clear as visualized. IMPRESSION: No acute cervical spine fracture or subluxation. 03/20/25 19:12 CT lumbar spine wo con Routine FINDINGS: No acute fractures or dislocations were identified. Degenerative changes with marginal osteophytes seen in multiple lumbar levels. Levoscoliosis seen, with Gee angle 19. Post operative pedicle screws are seen at the L5 and S1 vertebral levels bilaterally with intervertebral disc cage for fusion. The screws are in good position with no evidence of hardware loosening, breakage, or malposition. No significant surrounding lucency around the screws to suggest loosening. Spinous process is not seen at L5 level- likely post-operative change. Discectomy fusion seen at L5-S1 level. Intervertebral disc vacuum phenomenon seen in L4-L5 level. Multilevel disc herniation at L2-L3 through L4-L5 levels, indenting the ventral surface of thecal sac, with variable degrees of spinal canal and bilateral neural foramina stenosis. Moderate diffuse disc bulge with facet arthropathy seen at L3-L4 and L4-L5 levels indenting the ventral surface of thecal sac, producing mild spinal canal and bilateral neural foramina stenosis. The alignment of the lumbar spine is preserved. The height of the vertebral bodies is maintained. Biateral sacroiliitis. Ossified right iliolumbar ligament. Diffuse osteoporotic changes. IMPRESSION: 1. No acute fractures or dislocations were identified. 2. Moderate Lumbar spondylotic changes as described. 3. Levoscoliosis seen, with Gee angle 19. 4. Multilevel disc herniation at L2-L3 through L4-L5 levels, indenting the ventral surface of thecal sac, with variable degrees of spinal canal and bilateral neural foramina stenosis. Suggest clinical correlation 5. Post-operative changes as described. CT thoracic spine wo con Routine FINDINGS: THORACIC SPINE: There is a minimal height loss along the superior endplate of T12. This appears to be new compared to the CT thorax from December 28, 2024 which partially captured the T12 vertebral body. Overall, no acute traumatic fracture identified. There is no significant spondylolisthesis. Usual thoracic kyphosis is preserved. Multilevel degenerative changes characterized by disc space loss with endplate changes of the vertebral bodies with small marginal osteophytes. Visualized lungs demonstrateNeck anterior still changes. IMPRESSION: Minimal height loss along the superior endplate of T12 vertebral body that appears to be new since the chest CT of December 28, 2024 and is age-indeterminate. Please correlate with site of pain. There is no significant retropulsion. Multilevel degenerative changes as above Minimal aspiration with debris noted in the right main bronchus. 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 Extensive imaging studies including CXR, head CT, CTAP and cervical spine CT personally reviewed and without any acute findings. THEO with Cr of 1.63 on admission. Baseline Cr ~1-1.3 per chart review. Cr 0.9 - now improved after IVF Suspect prerenal due to poor oral intake. received Gentle IVF x 2L No evidence of UTI on UA. + hematuria likely due to underlying bladder lesions ISO recurrent bladder CA. Currently hematuria resolved Avoid nephrotoxic agents when able. Renally dose medications when able. (2) Back pain: Uses a walker or rollator at baseline for ambulation. He did have a fall this past Sunday while visiting his family which was mechanical in nature. Did lightly hit his head but no loss of consciousness. He has however been complaining of low back pain since the fall. Patient with chronic low back pain but he seems to be mentioning this more often to staff and family members since the fall occurred. Check CT thoracic/lumbar spine without contrast. CT thoracic spine- Minimal height loss along the superior endplate of T12 vertebral body that appears to be new since the chest CT of December 28, 2024 and is age- indeterminate. Please correlate with site of pain. There is no significant retropulsion. Multilevel degenerative changes as above Minimal aspiration with debris noted in the right main bronchus. CT lumbar spine- 1. No acute fractures or dislocations were identified. 2. Moderate Lumbar spondylotic changes as described. 3. Levoscoliosis seen, with Gee angle 19. 4. Multilevel disc herniation at L2-L3 through L4-L5 levels, indenting the ventral surface of thecal sac, with variable degrees of spinal canal and bilateral neural foramina stenosis. Suggest clinical correlation 5. Post-operative changes as described. PT/OT evaluations Utilize lidocaine patch application on low back. Fall precautions. OOB with assistance. (3) Vascular dementia: (4) Vascular parkinsonism: Follows with Dr. Warren of [facility]. Continue outpatient medication regimen including donepezil. Initially there was some concern for AMS per staff at [facility]. However, upon further discussion with the patient's family at bedside on admission, he appears to be at his baseline mentation level. He does very well with direct conversation. Periods of forgetfulness given underlying vascular dementia however he is very engaged with conversation. blood cultures - negative 48 hrs (5) Bladder cancer: Not currently undergoing active treatment. Was previously on Keytruda however this was stopped >1 month ago due to side effect intolerance. Follows with Dr. Rudolph of [facility] and Dr. Vines of [facility]. Continue Flomax. Other Chronic Medical Conditions: GERD - Continue PPI. HLD/CAD - Continue ASA and statin. HTN - Continue home antihypertensives with routine BP monitoring and hold parameters. Total Time Total Time Spent Total Time Spent (In Minutes): 40 Discharge Plan Discharge Items Patient Disposition: Transfer Group Home Fac Reason For Visit: THEO, DEHYDRATION Discharge Diagnosis: THEO, dehydration Activity: Per Instructions section Non-emergency contact: Primary Care Provider and Specialist Call non-emergency contact if: you have any medication questions and your symptoms worsen Follow-up/Referrals: JOVANNI Martinez [Primary Care Provider] - Diet: Heart Healthy Diet Texture: Easy to Chew Addtl Attending Provider Instructions: Follow up with your primary care doctor and your other health care providers. Make sure to stay well hydrated. Continue working with physical therapy. Pending Studies at Discharge: No Stand-Alone Forms: My [facility] Skilled Items Patient informed of condition?: Yes DNR: No Discharge Level of Care: Skilled Communicable Disease: No Discharge Prognosis: Stable Lines: None Urinary Catheter: Yes Medications and DC Order Prescriptions: Continued atorvastatin 40 mg tablet 40 mg PO HS Qty: 90 1RF cetirizine [Zyrtec] 10 mg tablet 10 mg PO DAILY Qty: 90 3RF cholecalciferol (vitamin D3) 50 mcg (2,000 unit) capsule 50 mcg PO DAILY Qty: 90 3RF pantoprazole 20 mg tablet,delayed release (DR/EC) 20 mg PO DAILY Qty: 15 0RF fluticasone propionate 50 mcg/actuation spray,suspension 1 spray intranasal HS Rx Instructions: administer into each nostril metoprolol succinate 50 mg tablet extended release 24 hr 50 mg PO DAILY Qty: 90 3RF acetaminophen 500 mg tablet 1,000 mg PO BID MDD 3 GRAMS/24 HOURS Qty: 60 0RF donepezil 5 mg tablet 5 mg PO DAILY Qty: 30 5RF tamsulosin [Flomax] 0.4 mg capsule 0.4 mg PO HS loperamide 2 mg capsule 2 mg PO UD MDD 4caps/24hr PRN (Reason: Loose Stool) Rx Instructions: take 2 capsules by mouth after 1st loose BM then 1 capsule thereafter as needed for loose stool docusate sodium 100 mg Capsule 100 mg PO DAILY polyethylene glycol 3350 [Miralax] 17 gram/dose Powder 17 g PO DAILY Centrum Adults 12 mcg Tablet,Chewable 1 tab PO DAILY Rx Instructions: CENTRUM ADULT GUMMIES ondansetron HCl 4 mg tablet 4 mg PO Q6 PRN (Reason: nausea/vomiting) acetaminophen 500 mg Tablet 1,000 mg PO DAILY MDD 3 GRAMS/24 HOURS PRN (Reason: Pain) Rx Instructions: CANNOT TAKE WITHIN 4 HOURS OF ROUTINE DOSE hydrocortisone 1 % Cream 1 applic TOPICAL BID PRN (Reason: SKIN RASH NEEDED) menthol-zinc oxide [Calmoseptine] 0.44-20.6 % Ointment 1 applic TOPICAL TID PRN (Reason: PROTECTANT BARRIER) aspirin [Adult Aspirin Regimen] 81 mg tablet,delayed release (DR/EC) 81 mg PO HS Discharge Orders: Discharge Order (Routine); Ordered 03/23/25 Ordered By: Ned Barnhart Admission Data Admit Date/Time: 03/20/25 19:04 Attending Provider: Ned Barnhart Admit Provider: Francisca Scott Primary Care Provider: JOVANNI Martinez Other Providers: Francisca Scott
[2025-03-23 15:33] VITALS: PULSE 70
== END 2025-03-23 15:45 | disposition home or self-care (01) | DRG 684 ==
LOC: ED 14:35 → EDINP 19:04 → SUATTDRO 19:04 → 2N 22:09